=== PATIENT | female | born 1955 | race Two or more races ===

== ENCOUNTER 2022-03-01 12:40 | Inpatient (IN) | payer MEDICARE, MEDICAID, SELFPAY ==
--- NOTE | ~2022-03-01 | US_ITS ---
EXAMINATION: US VENOUS ULTRASOUND WITH DOPPLER LOWER EXTREMITY, LEFT CLINICAL INFORMATION: Calf pain COMPARISON: None TECHNIQUE: Ultrasound of the deep veins is performed from the hip to the calf with compression sonography and color and pulse Doppler assessment. Spectral analysis with color-flow imaging is performed. FINDINGS: There is normal venous compression and respiratory variation and augmented flow. The visualized common femoral vein, superficial femoral vein, profunda femoral vein, popliteal vein, and the trifurcation region shows no evidence of deep venous thrombosis. There is no significant popliteal fossa cyst. If the patient's symptoms persist, followup ultrasound in 5 days 7 days might be of value to exclude proximal propagation from a non-visualized calf vein. US/US venous duplex LE LT IMPRESSION: No DVT demonstrated in the left lower extremity.
--- NOTE | ~2022-03-01 | CT_ITS ---
EXAMINATION: CT ABDOMEN AND PELVIS WITHOUT CONTRAST CLINICAL INFORMATION: Acute kidney injury. Rule out obstruction. COMPARISON: None. TECHNIQUE: Multidetector volumetric imaging was performed from the superior aspect of the liver through the pubic symphysis. Sagittal and coronal reformatted images were obtained on the technologist's workstation. This CT examination was performed using dose optimization techniques as appropriate, variously including the following: *Automated exposure control *Adjustment of mA and/or kV according to patient size (this includes techniques or standardized protocols for targeted exams where dose is matched to indication/reason for exam; i.e. extremities or head) *Use of iterative reconstruction technique DLP: 566 mGy-cm FINDINGS: LUNG BASES: Respiratory motion limits evaluation of small pulmonary nodules. No focal consolidation or pleural effusion. LIVER, GALLBLADDER, AND BILIARY TREE: The liver is normal in size, shape, and attenuation. No focal hepatic lesion or biliary ductal dilatation is present. The gallbladder is unremarkable with no evidence of radiopaque gallstones, gallbladder wall thickening, or obvious pericholecystic inflammatory changes. PANCREAS: Unremarkable. SPLEEN: Unremarkable. ADRENAL GLANDS: Unremarkable. KIDNEYS AND URETERS: The kidneys are normal in size, shape, and attenuation. No hydronephrosis, hydroureter, or calculi seen. No perinephric stranding. BLADDER: Underdistended limiting assessment of wall thickening. No focal abnormality. GASTROINTESTINAL TRACT: The stomach and the small bowel are nondilated. Normal appendix. Mild sigmoid diverticulosis without evidence of acute diverticulitis. No bowel obstruction. ABDOMINAL WALL: No significant hernia is appreciated. LYMPH NODES: Nonspecific bilateral inguinal lymphadenopathy. VASCULAR: Scattered atherosclerotic disease. The abdominal aorta is of normal diameter. PELVIC VISCERA: Unremarkable. OSSEOUS STRUCTURES: Multilevel degenerative changes of the spine. CT/CT abdomen pelvis wo con IMPRESSION: No nephrolithiasis or hydronephrosis. Sigmoid diverticulosis but no evidence of acute diverticulitis. Nonspecific bilateral inguinal lymphadenopathy, likely reactive.
--- NOTE | ~2022-03-01 | XR_ITS ---
EXAMINATION: XR ANKLE, LEFT CLINICAL INFORMATION: Ankle swelling COMPARISON: None TECHNIQUE: AP, lateral, and mortise views of the left ankle. FINDINGS: Nonspecific soft tissue swelling of the ankle. No soft tissue gas. Peripheral vessels are calcified. Bones have normal alignment. The talar dome is well-positioned within the mortise. No acute fractures. No erosion or periostitis. No findings of osteomyelitis. No ankle joint effusion. There are prominent enthesophytes at the posterior and plantar surfaces of the calcaneus. XR/XR ankle LT 2V IMPRESSION: * Nonspecific soft tissue swelling of the ankle. * No acute osseous injury.
[2022-03-01 12:45] VITALS: BP 124/104; PULSE 89; RESP 18; TEMP 36.9; O2SAT 100; BMI 29.5
[2022-03-01 13:48] VITALS: BP 166/68; RESP 19
--- NOTE | 2022-03-01 13:54 | ED.EXTPRO ---
HPI - Extremity Problem General Chief complaint: Extremity Problem Stated complaint: ? Left Leg Clot Time Seen by Provider: 03/01/22 13:39 Source: patient Mode of arrival: ambulatory History of Present Illness HPI Narrative: 66-year-old female with a past medical history of hypertension, DM, presenting to the ED complaining of left ankle swelling x2 weeks. Patient reports swelling is intermittent. Denies pain, recent travel, cigarette smoking, history of clots, SOB, CP, headache. Reports compliance with antihypertensives. MD Complaint: extremity swelling Onset (ago): week(s) Pain Consistency: intermittent Related Data Home Medications Medication Instructions Recorded Confirmed amlodipine 5 mg tablet 1 tab PO DAILY 03/01/22 03/01/22 glucagon 1 mg solution for 1 ml SUBCUT ONCE PRN 03/01/22 03/01/22 injection (GlucaGen HypoKit) hydrochlorothiazide 12.5 mg tablet 1 tab PO DAILY 03/01/22 03/01/22 insulin human U-100 NPH-regulr 10 unit SUBCUT BEDTIME 03/01/22 03/01/22 70-30 mix 100 unit/mL subcutaneous susp (Novolin 70/30 U-100 Insulin) insulin human U-100 NPH-regulr 15 unit SUBCUT DAILY 03/01/22 03/01/22 70-30 mix 100 unit/mL subcutaneous susp (Novolin 70/30 U-100 Insulin) labetalol 100 mg tablet 1 tab PO BID PRN 03/01/22 03/01/22 lisinopril 40 mg tablet 1 tab PO DAILY 03/01/22 03/01/22 omeprazole 20 mg capsule,delayed 1 cap PO BID 03/01/22 03/01/22 release Allergies Allergy/AdvReac Type Severity Reaction Status Date / Time No Known Allergies Allergy Verified 03/01/22 12:44 Review of Systems Review of Systems: Constitutional: No Fever, No Chills, No Fatigue, No Malaise ENT/Mouth: No Ear Pain, No sore throat, No Rhinorrhea, No Swallowing Difficulty Eyes: No Eye Pain, No Swelling, No Redness Cardiovascular: No Chest Pain, No SOB, No Dyspnea on Exertion, No Orthopnea, No Edema Respiratory: No Cough, No Sputum, No Wheezing, No Smoke Exposure, No Dyspnea Gastrointestinal: No Nausea, No Vomiting, No Diarrhea, No Constipation, No Abdominal pain Genitourinary: No Dysuria, No Urinary Frequency, No Hematuria, No Flank Pain Musculoskeletal: No joint pain, No Myalgias, + Joint Swelling Skin: No Skin Lesions, No rash Neuro: No Weakness, No Numbness, No Paresthesias, No Headache Yes all other systems are reviewed and are negative [facility] Past Medical History Attestation statement: The following information was validated with the patient. Social History Social History Advance Directives: No Advance Directives Information Provided: No Physical Exam Vital Signs: Vital Signs: Last Vital Signs Temp 98.4 F 03/01/22 12:45 Pulse 89 03/01/22 12:45 Resp 19 03/01/22 13:48 BP 166/68 H 03/01/22 13:48 Pulse Ox 100 03/01/22 12:45 BMI result Body Mass Index 29.5 Const: General: cooperative, healthy appearing and no acute distress Orientation/consciousness: patient oriented x3 Limitations: no limitations HEENT: Head: Yes normal to inspection and Yes atraumatic Ears: hearing grossly normal bilaterally General nose exam: Normal external nose present Face and sinus: Yes normal facial exam Eyes: General: appearance normal, both eyes and all related structures EOM: EOMs intact bilaterally Neck: Neck: Yes normal visual inspection and Yes no meningeal signs Resp: Effort & Inspection: normal respiratory effort and no respiratory distress Cardio: Rate: regular rate Peripheral pulses: dorsalis pedis present Skin: Rashes: no rashes Wounds: no wounds Neuro: General: patient oriented x3, tone normal and no meningeal signs Gait exam (Neuro): Normal gait present Extrem: Other: Left ankle with noted swelling. Left calf nontender. Left ankle/foot nontender. No erythema/streaking or ecchymosis. Neurovascular intact distally. Full range of motion intact General: Yes no pedal edema and Yes no calf tenderness Course Course Course Narrative: -Anemia of 9.4/29.5 > no priors to compare >> on further questioning patient reports chronic history of anemia, usually ranges of hemoglobin of 7 to 8. Admits recently moved to this area, had 1st visit at [facility] yesterday and had labs drawn. Denies hematemesis, bloody BMs or melena. Denies prior blood transfusions in the past. US venous duplex LE LT IMPRESSION: No DVT demonstrated in the left lower extremity. XR ankle LT 2V IMPRESSION: *? Nonspecific soft tissue swelling of the ankle. *? No acute osseous injury. -1515--BMP with noted hyperkalemia to 5.9, BUN is 79 and creatinine of 4.3 > patient admits she use to see [facility] about 5 years ago, uncertain baseline numbers. [facility] [place], will attempt to obtain documentation and plan to admit to our facility -1610--ordered additional labs/IVF and Lokelma > delay in care as patient not sure if she is willing to be admitted. After lengthy discussion with patient and she is now is agreeable to stay. Pending CT abdomen/pelvis to rule out obstruction. Plan to admit for further management. Low concern for severe sepsis, no evidence of infectious etiology at this time -renal office not open due to being weekend. Contacted [facility] who has no record of patient. -1725--CT abdomen pelvis wo con IMPRESSION: No nephrolithiasis or hydronephrosis. Sigmoid diverticulosis but no evidence of acute diverticulitis. Nonspecific bilateral inguinal lymphadenopathy, likely reactive. >> plan to admit for further management MDM - Extremity (Nontraumatic) MDM Narrative Medical decision making narrative: 66-year-old female with a past medical history of hypertension, DM, presenting to the ED complaining of left ankle swelling x2 weeks. On exam initially hypertensive, a repeat resolved without intervention, NAD/nontoxic, physical exam as above. Concern for ankle injury including sprain versus fracture vs DVT vs edema. Low concern for hypertensive urgency/emergency. Plan: Labs, ultrasound, x-rays Medical Records Attestation: I reviewed the patient's medical records. Lab Data Attestation: I reviewed the patient's lab results. Result diagrams: 03/01/22 14:36 03/01/22 14:36 Labs: Lab Results 03/01/22 03/01/22 03/01/22 Range/Units 14:36 14:36 14:36 WBC 5.2 (4.8-10.8) X10*3/uL RBC 3.19 L (4.20-5.50) X10*6/uL Hgb 9.4 L (12.0-16.0) g/dl Hct 29.5 L (37.0-47.0) % MCV 92.5 (80.0-98.0) fL MCH 29.5 (27.0-33.0) pg MCHC 31.9 (31.0-35.0) g/dl RDW 12.7 (11.0-16.0) % Plt Count 170 (160-400) X10*3/uL MPV 11.6 (9.4-12.3) fL Immature Gran % (Auto) 0.4 (0.0-0.4) % Neut % (Auto) 75.9 H (45-73) % Lymph % (Auto) 14.4 L (20-40) % Winston % (Auto) 7.7 (2-11) % Eos % (Auto) 1.0 (0-4) % Baso % (Auto) 0.6 (0-2) % Lymph # (Auto) 0.8 L (1.2-4.9) X10*3/uL Winston # (Auto) 0.4 (0.1-1.2) X10*3/uL Eos # (Auto) 0.1 (0.0-0.4) X10*3/uL Baso # (Auto) 0.0 (0.0-0.2) X10*3/uL Abs Immat Gran (auto) 0.02 (0.00-0.03) X10*3/uL Absolute Neuts (auto) 4.0 (2.0-8.3) x10*3/uL Absolute Nucleated RBC 0.000 (0.0-0.012) X10*3/uL Nucleated RBC % (auto) 0.0 (0.0-0.2) /100WBC Sodium 138 (135-145) mmol/L Potassium 5.9 H (3.3-5.1) mmol/L Chloride 111 H (96-108) mmol/L Carbon Dioxide 19 L (22-29) mmol/L Anion Gap 14 (12-20) BUN 79 H (9-16) mg/dL Creatinine 4.30 H* (0.5-1.4) mg/dL Estim Creat Clear Calc 12.8 Estimated GFR 10 Random Glucose 260 H (60-115) mg/dL Calcium 8.5 (8.4-10.2) mg/dL Magnesium 1.9 (1.6-2.6) mg/dL Total Bilirubin 0.2 (0.0-1.0) mg/dL AST 29 (5-31) U/L ALT 18 (0-31) U/L Alkaline Phosphatase 119 H (39-117) U/L B-Natriuretic Peptide 100 (<100) pg/mL Total Protein 5.7 L (6.5-8.0) g/dL Albumin 2.8 L (3.5-5.0) g/dL ECG Data Attestation EKG: I personally reviewed and interpreted this ECG as follows: ECG interpretation date: 03/01/22 ECG interpretation time: 18:50 Interpretation: EKG NSR rate 71, QTc 467, T wave inversion in leads I and aVL. No STEMI Discharge Plan Discharge Clinical Impression: CAMERON (acute kidney injury), Anemia, Ankle swelling Patient Disposition: Admitted As Inpatient
[2022-03-01 14:44] LABS: MANUAL DIFF FLAG NO
[2022-03-01 14:51] LABS: Basophils Percent Auto 0.6 % (0-2); Eosinophils Absolute Auto 0.1 X10*3/uL (0.0-0.4); Hematocrit 29.5 % (37.0-47.0); Hemoglobin 9.4 g/dl (12.0-16.0); Imm Gran Abs Auto 0.02 X10*3/uL (0.00-0.03); Imm Gran Pct Auto 0.4 % (0.0-0.4); Lymphocytes Absolute Auto 0.8 X10*3/uL (1.2-4.9); Lymphocytes Percent Auto 14.4 % (20-40); Mean Corpuscular HGB Conc 31.9 g/dl (31.0-35.0); Mean Corpuscular Hemoglobin 29.5 pg (27.0-33.0); Mean Corpuscular Volume 92.5 fL (80.0-98.0); Mean Platelet Volume 11.6 fL (9.4-12.3); Monocytes Absolute Auto 0.4 X10*3/uL (0.1-1.2); Monocytes Percent Auto 7.7 % (2-11); Neutrophils Percent Auto 75.9 % (45-73); Platelet Count 170 X10*3/uL (160-400); Red Blood Count 3.19 X10*6/uL (4.20-5.50); Red Cell Distribution Width 12.7 % (11.0-16.0); White Blood Count 5.2 X10*3/uL (4.8-10.8)
[2022-03-01 15:06] LABS: B Type Natriuretic Peptide 100 pg/mL (<100)
[2022-03-01 15:09] LABS: Alanine Aminotransferase 18 U/L (0-31); Albumin Level 2.8 g/dL (3.5-5.0); Alkaline Phosphatase 119 U/L (39-117); Anion Gap 14 (12-20); Aspartate Amino Transferase 29 U/L (5-31); Bilirubin Total 0.2 mg/dL (0.0-1.0); Blood Urea Nitrogen 79 mg/dL (9-16); Calcium 8.5 mg/dL (8.4-10.2); Carbon Dioxide 19 mmol/L (22-29); Chloride 111 mmol/L (96-108); Creatinine Clr Calc Pharmacy 12.8; Estimated Glomerular Filt Rate 10; Glucose Random 260 mg/dL (60-115); Potassium 5.9 mmol/L (3.3-5.1); Sodium 138 mmol/L (135-145); Total Protein 5.7 g/dL (6.5-8.0)
--- NOTE | 2022-03-01 15:15 | ECG_ITS ---
Test Reason : BACK PAIN Blood Pressure : / mmHG Vent. Rate : 071 BPM Atrial Rate : 071 BPM P-R Int : 126 ms QRS Dur : 074 ms QT Int : 430 ms P-R-T Axes : 046 050 075 degrees QTc Int : 467 ms Normal sinus rhythm Nonspecific T wave abnormality Abnormal ECG No previous ECGs available Referred By: Maria Teresa Villa Electronically Signed By:Ellis Moore
[2022-03-01 15:41] LABS: Magnesium 1.9 mg/dL (1.6-2.6)
--- NOTE | 2022-03-01 16:57 | PHA.MEDREC ---
Pharmacy Consult ? Medication Reconciliation Pharmacy has completed the medication reconciliation. Pt had all medications at bedside, used combination building inspector. Pt stated that her labetolol is used only as needed when blood pressure is too high but could not give me a number.
[2022-03-01] MEDS: Sodium Zirconium Cyclosilicate 10 GM POWD.PACK PO (17:56)
[2022-03-01] MEDS: 0.9 % Sodium Chloride 1,000 ML 999 ML IV (17:57)
[2022-03-01 19:25] LABS: COVID-19 Test Negative (Negative)
[2022-03-01 21:24] VITALS: BP 159/76; PULSE 77; RESP 16; O2SAT 98
--- NOTE | 2022-03-01 21:37 | PM.IMHP ---
History of Present Illness Date of Service: 03/01/22 Chief Complaint: Left leg swelling 66-year-old female with a past medical history of hypertension, diabetes, chronic kidney disease, acid reflux, anemia presented to the hospital today with a chief complaint of left leg swelling. Patient reported that she recently moved to [place]; mentions she has history of kidney disease -unknown baseline creatinine; patient mentioned that she initially went to the urgent care because she noted to have left leg swelling over the past few days; and had routine blood work done today he she received a call mention to go to the ER because her potassium level is high. Patient denies any chest pain palpitations lightheadedness dizziness fever chills cough. Mentions she has been eating drinking okay; denies any concerns for dehydration. Denies any nausea vomiting or diarrhea. Review of all other systems is negative except mentioned above ER course: Per ER team patient noted to have left lower extremity swelling; venous duplex negative for blood clot; ankle x-ray showed no evidence of fracture; on labs noted to elevated creatinine up to 4; potassium of 5.9; no a kg changes; received Lokelma. Also given gentle IV fluids. CT abdomen pelvis showed no hydronephrosis or nephrolithiasis; admitted to the hospital for further management PMFSH Pertinent family history: mother has diabetes Social History Household Members: Spouse and None Housing: Apartment Do you presently have visiting nurse or other home services: No Patient Tobacco Use Status: Never used Tobacco Meds Allergies Allergy/AdvReac Type Severity Reaction Status Date / Time No Known Allergies Allergy Verified 03/01/22 12:44 Active Medications: Current Medications Pharmacy Consult (Consult Rx Perform Med Rec) 1 each MISCELLANE ONCE PRN PRN Reason: Consult order Home Medications Medication Instructions Recorded Confirmed Last Taken Type amlodipine 5 mg tablet 1 tab PO DAILY 03/01/22 03/01/22 03/01/22 History glucagon 1 mg solution for 1 ml subcut ONCE PRN Hypoglycemia 03/01/22 03/01/22 Unknown History injection (GlucaGen HypoKit) hydrochlorothiazide 12.5 mg tablet 1 tab PO DAILY 03/01/22 03/01/22 03/01/22 History insulin human U-100 NPH-regulr 10 unit subcut BEDTIME 03/01/22 03/01/22 02/28/22 History 70-30 mix 100 unit/mL subcutaneous susp (Novolin 70/30 U-100 Insulin) insulin human U-100 NPH-regulr 15 unit subcut DAILY 03/01/22 03/01/22 03/01/22 History 70-30 mix 100 unit/mL subcutaneous susp (Novolin 70/30 U-100 Insulin) labetalol 100 mg tablet 1 tab PO BID PRN Blood Pressure 03/01/22 03/01/22 03/01/22 History omeprazole 20 mg capsule,delayed 1 cap PO BID 03/01/22 03/01/22 03/01/22 History release Physical Exam Vital Signs and Narrative: Vital Signs: Last Vital Signs Temp 98.4 F 03/01/22 12:45 Pulse 77 03/01/22 21:24 Resp 16 03/01/22 21:24 BP 159/76 H 03/01/22 21:24 Pulse Ox 98 03/01/22 21:24 BMI result Body Mass Index 29.5 Results Labs CBC and Chem 7: 03/02/22 06:56 03/03/22 06:08 Labs: Laboratory Results - last 24 hr 03/01/22 03/01/22 03/01/22 14:36 14:36 14:36 MCV 92.5 MCH 29.5 MCHC 31.9 RDW 12.7 Plt Count 170 MPV 11.6 Immature Gran % (Auto) 0.4 Neut % (Auto) 75.9 H Lymph % (Auto) 14.4 L Heard % (Auto) 7.7 Eos % (Auto) 1.0 Baso % (Auto) 0.6 Lymph # (Auto) 0.8 L Heard # (Auto) 0.4 Eos # (Auto) 0.1 Baso # (Auto) 0.0 Abs Immat Gran (auto) 0.02 Absolute Neuts (auto) 4.0 Absolute Nucleated RBC 0.000 Nucleated RBC % (auto) 0.0 Anion Gap 14 Estim Creat Clear Calc 12.8 Estimated GFR 10 Random Glucose 260 H Calcium 8.5 Magnesium 1.9 Total Bilirubin 0.2 AST 29 ALT 18 Alkaline Phosphatase 119 H B-Natriuretic Peptide 100 Total Protein 5.7 L Albumin 2.8 L COVID-19 (GREGORY) COVID-19 Clin Com 03/01/22 19:02 MCV MCH MCHC RDW Plt Count MPV Immature Gran % (Auto) Neut % (Auto) Lymph % (Auto) Heard % (Auto) Eos % (Auto) Baso % (Auto) Lymph # (Auto) Heard # (Auto) Eos # (Auto) Baso # (Auto) Abs Immat Gran (auto) Absolute Neuts (auto) Absolute Nucleated RBC Nucleated RBC % (auto) Anion Gap Estim Creat Clear Calc Estimated GFR Random Glucose Calcium Magnesium Total Bilirubin AST ALT Alkaline Phosphatase B-Natriuretic Peptide Total Protein Albumin COVID-19 (GREGORY) Negative COVID-19 Clin Com See Note Imaging Radiologist's Impressions: Impressions Venous Duplex 03/01/22 13:38 IMPRESSION: No DVT demonstrated in the left lower extremity. Ankle X-Ray 03/01/22 14:10 IMPRESSION: * Nonspecific soft tissue swelling of the ankle. * No acute osseous injury. Abdomen/Pelvis CT 03/01/22 16:40 IMPRESSION: No nephrolithiasis or hydronephrosis. Sigmoid diverticulosis but no evidence of acute diverticulitis. Nonspecific bilateral inguinal lymphadenopathy, likely reactive. Assessment and Plan (1) CAMERON (acute kidney injury): Status: Acute Plan 66-year-old female with a past medical history of hypertension, diabetes, chronic kidney disease, acid reflux, anemia presented to the hospital today with a chief complaint of left leg swelling./ abnormal labs as outpatient; Admitted for following Left leg swelling: Venous duplex negative for DVT. No evidence of injury or trauma. X-ray negative for fracture. Supportive care. CAMERON: patient creatinine on presentation is 4.3. Unknown baseline. Patient does report she has a history of kidney disease. Gentle IV fluids. Nephrology consult. Hyperkalemia: Potassium level noted to be 5.9. No EKG changes. Received Lokelma. Will repeat BMP. History of diabetes: Will give the patient on insulin sliding scale. History of hypertension: Continue home amlodipine. Hold home lisinopril. history of anemia: Patient denies any signs of bleeding. Hemoglobin noted to be 9.4. DVT prophylaxis: Subcu heparin Code status: Full code Quality Stroke Does the patient have a stroke diagnosis?: No VTE Prior VTE?: No VTE Risk Level:: Medical - moderate - high VTE Device Contraindication: Treatment Not Indicated VTE Drug Contraindication: N/A - Med Ordered
[2022-03-01] MEDS: 0.9 % Sodium Chloride 1,000 ML 100 ML IVCONT (22:03)
[2022-03-01] MEDS: Heparin Sodium,Porcine 5,000 UNIT/ML VIAL 5000 UNIT SUBCUT (22:12)
[2022-03-01 22:42] LABS: Anion Gap 13 (12-20); Blood Urea Nitrogen 74 mg/dL (9-16); Calcium 8.1 mg/dL (8.4-10.2); Carbon Dioxide 20 mmol/L (22-29); Chloride 113 mmol/L (96-108); Creatinine Clr Calc Pharmacy 14.3; Estimated Glomerular Filt Rate 12; Glucose Random 167 mg/dL (60-115); Potassium 4.7 mmol/L (3.3-5.1); Sodium 141 mmol/L (135-145)
[2022-03-01 22:57] VITALS: BP 168/62; PULSE 93; RESP 20; TEMP 36.9; O2SAT 98
[2022-03-02 01:20] VITALS: BMI 29.6
[2022-03-02 04:00] VITALS: BP 172/70; PULSE 84; RESP 12; TEMP 36.4; O2SAT 100
[2022-03-02] MEDS: Heparin Sodium,Porcine 5,000 UNIT/ML VIAL 5000 UNIT SUBCUT ×3 (06:16→21:16)
[2022-03-02] MEDS: Labetalol HCL 100 MG TABLET PO (06:17)
--- NOTE | 2022-03-02 06:40 | PC.NURSE ---
Patient worried about elevated BP and concerned she did not get her blood pressure medications. MD notified and is ok with patient getting PRN labetalol this morning.
[2022-03-02 07:16] LABS: Hematocrit 26.1 % (37.0-47.0); Hemoglobin 8.3 g/dl (12.0-16.0); Mean Corpuscular HGB Conc 31.8 g/dl (31.0-35.0); Mean Corpuscular Hemoglobin 29.9 pg (27.0-33.0); Mean Corpuscular Volume 93.9 fL (80.0-98.0); Mean Platelet Volume 11.5 fL (9.4-12.3); Platelet Count 145 X10*3/uL (160-400); Red Blood Count 2.78 X10*6/uL (4.20-5.50); Red Cell Distribution Width 12.7 % (11.0-16.0)
[2022-03-02 07:21] VITALS: BP 158/68; PULSE 70; RESP 16; TEMP 36.6; O2SAT 100
[2022-03-02 07:38] LABS: Glucose, Whole Blood 109 mg/dL (60-115)
[2022-03-02 07:44] LABS: Anion Gap 10 (12-20); Blood Urea Nitrogen 66 mg/dL (9-16); Calcium 8.3 mg/dL (8.4-10.2); Carbon Dioxide 21 mmol/L (22-29); Chloride 115 mmol/L (96-108); Creatinine Clr Calc Pharmacy 15.7; Estimated Glomerular Filt Rate 13; Glucose Random 110 mg/dL (60-115); Potassium 4.6 mmol/L (3.3-5.1); Sodium 141 mmol/L (135-145)
[2022-03-02] MEDS: amLODIPine Besylate 5 MG TABLET PO (09:22)
[2022-03-02] MEDS: 0.9 % Sodium Chloride 1,000 ML 100 ML IVCONT ×2 (09:22→21:17)
[2022-03-02] MEDS: Omeprazole 20 MG CAPSULE.DR PO ×2 (09:22→21:17)
--- NOTE | 2022-03-02 10:34 | HO.PM.IMPN ---
Subjective Subjective Date of Service: 03/02/22 Interval History: Patient was seen and examined at bedside. Her is at bedside with her. Reports the swelling in her left leg is improving. Denies any trauma, no erythema present. Reports no pain just swelling. Patient denies any chest pain, no abdominal pain, no diarrhea constipation. At this time patient does not have any blood in the stool. Reports no urinary symptoms. Review of Systems Review of Systems: Yes all other systems are reviewed and are negative Physical Exam Vital Signs: Vital Signs: Last Vital Signs Temp 97.8 F 03/02/22 07:21 Pulse 70 03/02/22 07:21 Resp 16 03/02/22 07:21 BP 158/68 H 03/02/22 07:21 Pulse Ox 100 03/02/22 07:21 BMI result Body Mass Index 29.6 Const: General: cooperative and no acute distress Resp: Effort & Inspection: normal respiratory effort Auscultation: clear to auscultation bilaterally GI: Palpation (GI): Soft to palpation Auscultation: normal bowel sounds Extrem: Other: Left lower extremity slightly more swollen than the right, no erythema, E coli warm on both sides, no tenderness Objective Data Active Medications Acetaminophen (Acetaminophen 325 Mg Tablet) 650 mg PO Q6H PRN PRN Reason: Pain, Mild (Pain Scale 1-3) Amlodipine Besylate (Amlodipine Besylate 5 Mg Tablet) 5 mg PO DAILY [facility]; Protocol Last Admin: 03/02/22 09:22 Dose: 5 mg Documented by: DOBROB Dextrose (Dextrose 50 % 25 Gm/50 Ml Syringe) 25 gm IVPUSH Q15M PRN; Protocol PRN Reason: per Hypoglycemia Standing Ord. Glucagon (Glucagon,Human Recombinant 1 Mg/Ml Vial) 1 mg SUBCUT ONCE PRN PRN Reason: Hypoglycemia Glucose (Glucose Gel 15 Gm Gel..Gram.) 15 gm PO Q15M PRN; Protocol PRN Reason: per Hypoglycemia Standing Ord. Heparin Sodium (Porcine) (Heparin Sodium,Porcine 5,000 Unit/Ml Vial) 5,000 unit SUBCUT Q8H [facility] Last Admin: 03/02/22 06:16 Dose: 5,000 unit Documented by: ELMO Sodium Chloride (Ns) 1,000 mls @ 100 mls/hr IVCONT .Q10H [facility] Last Admin: 03/02/22 09:22 Dose: 100 mls/hr Documented by: JUAN RAMON Insulin Human Lispro (Insulin Lispro 100 Unit/Ml 3 Ml Vial) 0 unit SUBCUT QIDACHS [facility]; Protocol Last Admin: 03/02/22 07:45 Dose: Not Given Documented by: JUAN RAMON Non-Admin Reason: No Insulin Coverage Labetalol HCl (Labetalol Hcl 100 Mg Tablet) 100 mg PO BID PRN; Protocol PRN Reason: Blood Pressure Last Admin: 03/02/22 06:17 Dose: 100 mg Documented by: ELMO Melatonin (Melatonin 3 Mg Tablet) 6 mg PO BEDTIME PRN PRN Reason: Insomnia Omeprazole (Omeprazole 20 Mg Capsule.Dr) 20 mg PO BID [facility] Last Admin: 03/02/22 09:22 Dose: 20 mg Documented by: JUAN RAMON Pharmacy Consult (Consult Rx Perform Med Rec) 1 each MISCELLANE ONCE PRN PRN Reason: Consult order Senna (Sennosides 8.6 Mg Tablet) 17.2 mg PO BEDTIME PRN PRN Reason: Constipation Sodium Chloride (0.9 % Sodium Chloride Flush 3 Ml Syringe) 3 ml IVFLUSH QSHIFT [facility] Last Admin: 03/02/22 07:45 Dose: Not Given Documented by: JUAN RAMON Non-Admin Reason: IV Running Labs CBC & Chem 7: 03/02/22 06:56 03/02/22 06:56 Labs: Laboratory Results - last 24 hr 03/01/22 03/01/22 03/01/22 14:36 14:36 14:36 MCV 92.5 MCH 29.5 MCHC 31.9 RDW 12.7 Plt Count 170 MPV 11.6 Immature Gran % (Auto) 0.4 Neut % (Auto) 75.9 H Lymph % (Auto) 14.4 L [place] % (Auto) 7.7 Eos % (Auto) 1.0 Baso % (Auto) 0.6 Lymph # (Auto) 0.8 L [place] # (Auto) 0.4 Eos # (Auto) 0.1 Baso # (Auto) 0.0 Abs Immat Gran (auto) 0.02 Absolute Neuts (auto) 4.0 Absolute Nucleated RBC 0.000 Nucleated RBC % (auto) 0.0 Anion Gap 14 Estim Creat Clear Calc 12.8 Estimated GFR 10 POC Glucose Random Glucose 260 H Calcium 8.5 Magnesium 1.9 Total Bilirubin 0.2 AST 29 ALT 18 Alkaline Phosphatase 119 H B-Natriuretic Peptide 100 Total Protein 5.7 L Albumin 2.8 L COVID-19 ([facility]) COVID-19 Scan Com 03/01/22 03/01/22 03/02/22 19:02 22:18 06:56 MCV 93.9 MCH 29.9 MCHC 31.8 RDW 12.7 Plt Count 145 L MPV 11.5 Immature Gran % (Auto) Neut % (Auto) Lymph % (Auto) [place] % (Auto) Eos % (Auto) Baso % (Auto) Lymph # (Auto) [place] # (Auto) Eos # (Auto) Baso # (Auto) Abs Immat Gran (auto) Absolute Neuts (auto) Absolute Nucleated RBC 0.000 Nucleated RBC % (auto) 0.0 Anion Gap 13 Estim Creat Clear Calc 14.3 Estimated GFR 12 POC Glucose Random Glucose 167 H Calcium 8.1 L Magnesium Total Bilirubin AST ALT Alkaline Phosphatase B-Natriuretic Peptide Total Protein Albumin COVID-19 ([facility]) Negative COVID-19 [facility] See Note 03/02/22 03/02/22 06:56 07:25 MCV MCH MCHC RDW Plt Count MPV Immature Gran % (Auto) Neut % (Auto) Lymph % (Auto) [place] % (Auto) Eos % (Auto) Baso % (Auto) Lymph # (Auto) [place] # (Auto) Eos # (Auto) Baso # (Auto) Abs Immat Gran (auto) Absolute Neuts (auto) Absolute Nucleated RBC Nucleated RBC % (auto) Anion Gap 10 L Estim Creat Clear Calc 15.7 Estimated GFR 13 POC Glucose 109 Random Glucose 110 Calcium 8.3 L Magnesium Total Bilirubin AST ALT Alkaline Phosphatase B-Natriuretic Peptide Total Protein Albumin COVID-19 ([facility]) COVID-19 [facility] Assessment and Plan (1) CAMERON (acute kidney injury): Status: Acute (2) Anemia: Status: Acute (3) Ankle swelling: Status: Acute Plan 66-year-old female with history of hypertension, diabetes, CKD, acid reflex and anemia presents the hospital with chief complaint of left leg swelling. # CAMERON - possibly prerenal as it is improving with IV fluids -continue IV fluids -continue following BMP - nephrology consulted # left lower extremity swelling - no evidence cellulitis, no DVT, no injury or trauma - supportive care # normocytic anemia - patient reports history of anemia although baseline is unknown - her hemoglobin did drop with IV fluids - no evidence of GI bleed - will obtain ferritin, B12, folic acid, as well as stool occult # hypertension - stable - will continue amlodipine, hold hydrochlorothiazide as well as lisinopril in the setting of CAMERON # diabetes - will convert her 70 30 to Lantus and sliding scale insulin - monitor glucose - diabetic diet DVT prophylaxis: Heparin subQ Given the significant CAMERON and requirement for IV fluid patient continues to need inpatient stay for further monitoring and management Quality Stroke Does the patient have a stroke diagnosis?: No VTE Prior VTE?: No VTE Risk Level:: Medical - moderate - high VTE Device Contraindication: Treatment Not Indicated VTE Drug Contraindication: N/A - Med Ordered
[2022-03-02 11:14] VITALS: BP 170/62; PULSE 78; RESP 16; TEMP 36.6; O2SAT 99
[2022-03-02 11:58] LABS: Ferritin 110 ng/mL (10-250)
[2022-03-02 12:02] LABS: Glucose, Whole Blood 131 mg/dL (60-115)
[2022-03-02 15:08] VITALS: BP 170/64; PULSE 80; RESP 19; TEMP 37; O2SAT 98
[2022-03-02 16:15] LABS: Glucose, Whole Blood 101 mg/dL (60-115)
[2022-03-02 17:46] LABS: OBS Int Ctl Valid YES; OBS1 NEGATIVE (NEGATIVE)
[2022-03-02 19:49] VITALS: BP 160/62; PULSE 82; RESP 18; TEMP 36.7; O2SAT 100
[2022-03-02 20:56] LABS: Glucose, Whole Blood 182 mg/dL (60-115)
[2022-03-02] MEDS: Insulin Lispro 100 UNIT/ML 3 ML VIAL SUBCUT (21:17)
[2022-03-03] VITALS: BP 168/64; PULSE 77; RESP 18; TEMP 37.3; O2SAT 99
[2022-03-03 03:33] VITALS: BP 176/68; PULSE 86; RESP 18; TEMP 36.9; O2SAT 100
[2022-03-03] MEDS: Labetalol HCL 100 MG TABLET PO (04:46)
[2022-03-03] MEDS: Heparin Sodium,Porcine 5,000 UNIT/ML VIAL 5000 UNIT SUBCUT (06:12)
[2022-03-03] MEDS: 0.9 % Sodium Chloride 1,000 ML 100 ML IVCONT (06:14)
[2022-03-03 07:22] LABS: Glucose, Whole Blood 87 mg/dL (60-115)
[2022-03-03 07:43] VITALS: BP 170/64; PULSE 83; RESP 20; TEMP 36.9; O2SAT 100
[2022-03-03] MEDS: Omeprazole 20 MG CAPSULE.DR PO (08:26)
[2022-03-03] MEDS: amLODIPine Besylate 5 MG TABLET PO (08:27)
[2022-03-03 08:39] LABS: Anion Gap 12 (12-20); Blood Urea Nitrogen 53 mg/dL (9-16); Calcium 7.9 mg/dL (8.4-10.2); Carbon Dioxide 19 mmol/L (22-29); Chloride 116 mmol/L (96-108); Creatinine Clr Calc Pharmacy 17.3; Estimated Glomerular Filt Rate 14; Glucose Random 92 mg/dL (60-115); Potassium 4.8 mmol/L (3.3-5.1); Sodium 142 mmol/L (135-145)
[2022-03-03 09:20] LABS: Appearance Urine CLEAR; Color Urine STRAW; Glucose Urine UA NEG (NEG); Leukocyte Esterase Urine NEG (NEG); Nitrite Urine NEG (NEG); Specific Gravity - Urine 1.015 (1.005-1.025); Urine Blood TRACE (NEG); Urine Ketones NEG (NEG); Urine Protein 3+ MG/DL (NEG-TRACE)
[2022-03-03 09:31] LABS: Creatinine Urine 42.81 mg/dL
[2022-03-03 09:49] LABS: Squamous Epithelial Cell Urine TRACE /LPF; WBC Urine 0 /HPF (0-4)
[2022-03-03 10:26] LABS: Total Protein Urine Random 379 mg/dL (<12)
[2022-03-03 11:30] LABS: Glucose, Whole Blood 115 mg/dL (60-115)
--- NOTE | 2022-03-03 11:34 | PM.DS ---
DS: Providers Provider Date of Service: 03/03/22 Date of admission: 03/01/22 21:42 Primary care physician: Unknown Physician Consults: 03/01/22 21:44 Consult to Nephrology Routine Consulting Provider: Jimmy Paiz Reason for consultation: cameron DS: Diagnosis Discharge Diagnosis (1) CAMERON (acute kidney injury): Status: Acute (2) Anemia: Status: Acute (3) Ankle swelling: Status: Acute DS: Summary Hospital Course Hospital Course: from initial hpi: Chief Complaint: Left leg swelling ?66-year-old female with a past medical history of hypertension, diabetes, chronic kidney disease, acid reflux, anemia presented to the hospital today with a chief complaint of left leg swelling.? Patient reported that she recently moved to [place]; mentions she has history of kidney disease -unknown baseline creatinine; ?patient mentioned that she initially went to the urgent care because she noted to have left leg swelling over the past few days; and had routine blood work done today he she received a call mention to go to the ER because her potassium level is high.? Patient denies any chest pain palpitations lightheadedness dizziness fever chills cough.? Mentions she has been eating drinking okay; denies any concerns for dehydration.? Denies any nausea vomiting or diarrhea.? Review of all other systems is negative except mentioned above ER course: Per ER team patient noted to have left lower extremity swelling; venous duplex negative for blood clot;? ankle x-ray showed no evidence of fracture; on labs noted to elevated creatinine up to 4; potassium of 5.9; no a kg changes; received Lokelma.? Also given gentle IV fluids.? CT abdomen pelvis showed no hydronephrosis or nephrolithiasis; admitted to the hospital for further management hospital course: Patient was admitted for acute kidney injury, likely in the setting of chronic kidney disease stage 4 though exact baseline is not known. Her lisinopril was held and she was given IV fluids, no obstruction was seen on CT. Creatinine improved to 3.2 at time of discharge. She will follow up with Nephrology as outpatient. Cameron I was also complicated by hyperkalemia which resolved after Lokelma and discontinuing lisinopril. Patient's initial complaint was left lower extremity swelling and pain, this was likely an inflammatory arthritis, however, it resolved without any treatment. For hypertension she will continue on amlodipine and hydrochlorothiazide, for diabetes she was continue on insulin. She has some normocytic anemia likely related to chronic kidney disease, some labs including B12 and folate are pending and should be followed up. Time Spent with Patient Time attestation: Total time spent providing and/or coordinating discharge services: Discharge coordination time: Greater than 30 minutes Quality: Safe Use of Opioids Does Pt have an Active Cancer Diagnosis on the Problem List?: No Quality: Stroke Does the patient have a stroke diagnosis?: No Physical Exam Vital Signs: Vital Signs: Last Vital Signs Temp 98.4 F 03/03/22 07:43 Pulse 83 03/03/22 07:43 Resp 20 03/03/22 07:43 BP 170/64 H 03/03/22 07:43 Pulse Ox 100 03/03/22 07:43 BMI result Body Mass Index 29.6 General: AO X 3, no acute distress Resp: CTA bilateral, no accessory muscles used CVS: S1,S2,RRR GI: soft, non tender, non distended Neuro: motor grossly intact, alert Psych: appropriate affect, appropriate insight DS: Data Data Completed and Pending Labs on day of discharge: Laboratory Results - last 24 hr 03/02/22 03/02/22 03/02/22 10:55 11:20 16:05 Sodium Potassium Chloride Carbon Dioxide Anion Gap BUN Creatinine Estim Creat Clear Calc Estimated GFR POC Glucose 131 H 101 Random Glucose Calcium Ferritin 110 Urine Color Urine Appearance Urine pH Ur Specific [place] Urine Protein Urine Glucose (UA) Urine Ketones Urine Blood Urine Nitrite Ur Leukocyte Esterase Urine RBC Urine WBC Ur Squamous Epith Cells Urine Bacteria U Random Total Protein Urine Creatinine Stool Occult Blood 03/02/22 03/02/22 03/03/22 16:50 20:08 06:08 Sodium 142 Potassium 4.8 Chloride 116 H Carbon Dioxide 19 L Anion Gap 12 BUN 53 H Creatinine 3.20 H Estim Creat Clear Calc 17.3 Estimated GFR 14 POC Glucose 182 H Random Glucose 92 Calcium 7.9 L Ferritin Urine Color Urine Appearance Urine pH Ur Specific [place] Urine Protein Urine Glucose (UA) Urine Ketones Urine Blood Urine Nitrite Ur Leukocyte Esterase Urine RBC Urine WBC Ur Squamous Epith Cells Urine Bacteria U Random Total Protein Urine Creatinine Stool Occult Blood NEGATIVE 03/03/22 03/03/22 03/03/22 07:16 08:15 08:15 Sodium Potassium Chloride Carbon Dioxide Anion Gap BUN Creatinine Estim Creat Clear Calc Estimated GFR POC Glucose 87 Random Glucose Calcium Ferritin Urine Color STRAW Urine Appearance CLEAR Urine pH 6.0 Ur Specific [place] 1.015 Urine Protein 3+ H Urine Glucose (UA) NEG Urine Ketones NEG Urine Blood TRACE Urine Nitrite NEG Ur Leukocyte Esterase NEG Urine RBC 1-4 Urine WBC 0 Ur Squamous Epith Cells TRACE Urine Bacteria NONE U Random Total Protein 379 H Urine Creatinine 42.81 Stool Occult Blood 03/03/22 11:25 Sodium Potassium Chloride Carbon Dioxide Anion Gap BUN Creatinine Estim Creat Clear Calc Estimated GFR POC Glucose 115 Random Glucose Calcium Ferritin Urine Color Urine Appearance Urine pH Ur Specific [place] Urine Protein Urine Glucose (UA) Urine Ketones Urine Blood Urine Nitrite Ur Leukocyte Esterase Urine RBC Urine WBC Ur Squamous Epith Cells Urine Bacteria U Random Total Protein Urine Creatinine Stool Occult Blood Discharge Plan Discharge Patient Disposition: Home, Self-Care Discharge Diagnosis: cameron on CKD IV Referrals: Physician,Unknown J [Primary Care Provider] - 1 Week Discharge Medications: Continued Novolin 70/30 U-100 Insulin 100 unit/mL (70-30) suspension 15 unit subcut DAILY 0RF amlodipine 5 mg tablet 1 tab PO DAILY 0RF omeprazole 20 mg capsule,delayed release(DR/EC) 1 cap PO BID 0RF GlucaGen HypoKit 1 mg recon soln 1 ml subcut ONCE PRN (Reason: Hypoglycemia) 0RF labetalol 100 mg tablet 1 tab PO BID PRN (Reason: Blood Pressure) 0RF hydrochlorothiazide 12.5 mg tablet 1 tab PO DAILY 0RF Novolin 70/30 U-100 Insulin 100 unit/mL (70-30) suspension 10 unit subcut BEDTIME 0RF Discontinued lisinopril 40 mg tablet 1 tab PO DAILY 0RF Discharge Orders: Discharge Order (Routine); Ordered 03/03/22 Ordered By: Sonny Francois Diet: advance to usual diet Activity on Discharge: As tolerated Stand Alone Forms: Patient Portal Discharge page Care Plan Goals: recovery Health Concerns: cameron on ckd Plan of Treatment: stop lisinopril, follow up with nephrology Assessment: see above
[2022-03-03 11:48] VITALS: BP 160/84; PULSE 69; RESP 20; TEMP 36.8; O2SAT 99
[2022-03-04 09:04] LABS: Folate > 20.0 ng/mL (> or = 4.0); Vitamin B12 1214 pg/mL (200-900)
[2022-03-04 13:41] LABS: Calcium (PTHI) 7.6 mg/dL (8.6-10.4); PTHI 217 pg/mL (16-77)
--- NOTE | 2022-03-04 13:49 | CONS_ITS ---
DATE OF SERVICE: 03/02/2022 REASON FOR CONSULTATION: I was asked to see patient to assist in evaluation and management of patient's renal dysfunction as reflected by serum creatinine on admission of 4.3, is come down to 3.5 with IV fluids over the past 24 hours. HISTORY OF PRESENT ILLNESS: In summary, patient is a 66-year-old female with a history of longstanding diabetes, hypertension, chronic kidney disease. I was able to track her serum creatinine of 1.9 from 5 years ago, GERD, and anemia who presented to the hospital with a left leg swelling. She had an ultrasound of the leg to rule out DVT. Overall, she is feeling better. As part of workup in the emergency room, she had a CT of the abdomen and pelvis, which showed no hydro or stones. PAST MEDICAL HISTORY: As mentioned above. MEDICATIONS ON ADMISSION: Omeprazole, lisinopril, labetalol, insulin, hydrochlorothiazide, amlodipine. Current medications are noted in the records that she is no longer on lisinopril and as mentioned renal functions look better. SOCIAL HISTORY: She is nonsmoker, nondrinker. No illicit drug use. FAMILY HISTORY: Noncontributory. REVIEW OF SYSTEMS: As noted above. PHYSICAL EXAMINATION: VITAL SIGNS: Blood pressure 160/60 with a heart rate in the 80s. Afebrile. HEENT: Head is atraumatic and normocephalic. NECK: Supple. Mucous membranes moist. LUNGS: Clear. CARDIAC: Regular rate and rhythm without rub. ABDOMEN: Soft, nontender with good bowel sounds. No CVA tenderness. EXTREMITIES: Show 1+ edema, left greater than right. LABORATORY DATA: Shows hemoglobin 8.3, hematocrit 26.1, white blood cell count 4, platelet count 145. Creatinine of 3.5, sodium 141, potassium 4.6, bicarb 21. IMPRESSION: A 66-YEAR-OLD DIABETIC, HYPERTENSIVE PATIENT WITH ACUTE KIDNEY INJURY ON CHRONIC KIDNEY DISEASE, ADMITTED WITH LEG SWELLING. 1. Acute kidney injury. Renal function is improved, off the lisinopril, suggesting that she probably has some element of renal hypoperfusion accentuate by being on JOSI inhibitor. Other possibilities need to be ruled out and will obtain serologic and urine studies. 1. Advanced chronic kidney disease. 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 As mentioned, we will obtain some followup labs including serologies and urine studies and ultrasound of the kidneys. 2. Anemia. Need to rule out iron-deficiency as well as EPO deficiency state. She may be a candidate for EPO ejection. 3. Diabetes. 4. Hypertension. We will need to increase blood pressure medications to get control of her blood pressure. SUGGESTIONS: At this time include, continue to hold the JOSI inhibitor. Serologic urine studies as well as renal ultrasound. Further evaluation depending on this initial testing results. We will follow the patient with the team. MD CAIN Perrin/JACE / [id number]
[2022-03-05 02:22] LABS: IgA 250 mg/dL (70-320); IgG 732 mg/dL (600-1540); IgM 49 mg/dL (50-300)
[2022-03-06 10:17] LABS: Kappa Light Chain, Free Serum 123.4 mg/L (3.3-19.4); Kappa/Lambda Lt Ch Free Ratio 1.55 (0.26-1.65); Lambda Light Chain, Free Serum 79.5 mg/L (5.7-26.3)
== END 2022-03-03 12:57 | disposition home or self-care (01) | DRG 684 ==
LOC: HO.ED 17:11 → HO.EDOVER 21:47 → HO.IMC 21:59
PROVIDERS: Internal Medicine; Internal Medicine Nephrology; Physician Assistant; Admitting Provider Hospitalist; Emergency Provider Emergency Medicine; Visit Provider Internal Medicine
DX: N17.9 Acute kidney failure, unspecified (principal); K21.9 Gastro-esophageal reflux disease without esophagitis; I12.9 Hypertensive chronic kidney disease with stage 1 through stage 4 chronic kidney disease, or unspecified chronic kidney disease; E11.22 Type 2 diabetes mellitus with diabetic chronic kidney disease; E87.5 Hyperkalemia; M19.072 Primary osteoarthritis, left ankle and foot; N18.4 Chronic kidney disease, stage 4 (severe); D63.1 Anemia in chronic kidney disease; Z20.822 Contact with and (suspected) exposure to COVID-19; Z79.4 Long term (current) use of insulin; Z79.899 Other long term (current) drug therapy
CPT/HCPCS: 36415; 73600; 74176; 80048; 80053; 81001; 82272; 82607; 82728; 82746; 82784; 82947; 83521; 83735; 83880; 83970; 84156; 85025; 85027; 86334; 87635; 93005; 93971; 96360; 99219; 99285

== ENCOUNTER 2022-11-08 14:34 | Observation (INO) | payer OTHER, SELFPAY ==
--- NOTE | ~2022-11-08 | US_ITS ---
EXAMINATION: US ABDOMEN COMPLETE CLINICAL INFORMATION: thrombocytopenia . COMPARISON: CT dated 03/01/2022 TECHNIQUE: Real-time imaging of the abdominal viscera. FINDINGS: PANCREAS: Normal. ABDOMINAL AORTA: The proximal, mid, and distal segments are normal in caliber. INFERIOR VENA CAVA: Visualized portions are normal. LIVER: Normal. The liver is normal in size. The liver contour is normal. Parenchymal echogenicity is normal. No focal hepatic lesion. There is no intrahepatic biliary duct dilatation seen. GALLBLADDER: Contracted. Gallbladder wall thickness measures 3 mm by my measurement. No evidence of stones, sludge, polyps, wall thickening or pericholecystic fluid. COMMON BILE DUCT: Normal in caliber measuring 0.47 cm in diameter. RIGHT KIDNEY: Relatively hypotrophic (8.6 cm in maximal length) without appreciable cortical thinning. No hydronephrosis. No renal calculi or focal parenchymal lesions. Increased cortical echogenicity is noted. LEFT KIDNEY: Normal. No hydronephrosis. No renal calculi or focal parenchymal lesions. The kidney measures 9.3 cm in maximum dimension. SPLEEN: Normal. The spleen measures 8.1 cm in maximum dimension. FREE FLUID: None. US/US abdomen complete IMPRESSION: Normal spleen. Borderline small right kidney with slightly increased parenchymal echogenicity, suggesting medical renal disease. No acute findings.
[2022-11-08 14:38] VITALS: BP 150/60; PULSE 73; RESP 16; TEMP 36.6; O2SAT 99; BMI 27.3
[2022-11-08 14:53] LABS: Basophils Percent Auto 0.4 % (0-2); Eosinophils Absolute Auto 0.1 X10*3/uL (0.0-0.4); Eosinophils Percent Auto 1.8 % (0-4); Hematocrit 21.3 % (37.0-47.0); Imm Gran Abs Auto 0.03 X10*3/uL (0.00-0.03); Imm Gran Pct Auto 0.6 % (0.0-0.4); Lymphocytes Absolute Auto 0.9 X10*3/uL (1.2-4.9); Lymphocytes Percent Auto 16.8 % (20-40); Mean Corpuscular HGB Conc 31.5 g/dl (31.0-35.0); Mean Corpuscular Hemoglobin 28.8 pg (27.0-33.0); Mean Corpuscular Volume 91.4 fL (80.0-98.0); Monocytes Absolute Auto 0.5 X10*3/uL (0.1-1.2); Monocytes Percent Auto 10.5 % (2-11); Neutrophils Absolute Auto 3.6 x10*3/uL (2.0-8.3); Neutrophils Percent Auto 69.9 % (45-73); Platelet Count 119 X10*3/uL (160-400); Red Blood Count 2.33 X10*6/uL (4.20-5.50); Red Cell Distribution Width 14.4 % (11.0-16.0); White Blood Count 5.1 X10*3/uL (4.8-10.8)
[2022-11-08 14:56] LABS: Hemoglobin 6.7 g/dl (12.0-16.0)
[2022-11-08 15:10] LABS: MANUAL DIFF FLAG SCAN; SCAN SMEAR FLAG 1
[2022-11-08 15:11] LABS: SLIDE REVIEW VERIFIED
[2022-11-08 15:24] LABS: Alanine Aminotransferase 31 U/L (0-31); Albumin Level 3.4 g/dL (3.5-5.0); Alkaline Phosphatase 123 U/L (39-117); Anion Gap 18 (12-20); Aspartate Amino Transferase 53 U/L (5-31); Bilirubin Total 0.5 mg/dL (0.0-1.0); Blood Urea Nitrogen 96 mg/dL (9-16); Calcium 7.6 mg/dL (8.4-10.2); Carbon Dioxide 17 mmol/L (22-29); Chloride 110 mmol/L (96-108); Creatinine Clr Calc Pharmacy 10.5; Estimated Glomerular Filt Rate 8; Glucose Random 120 mg/dL (60-115); Magnesium 1.3 mg/dL (1.6-2.6); Potassium 5.1 mmol/L (3.3-5.1); Sodium 140 mmol/L (135-145); Total Protein 5.9 g/dL (6.5-8.0)
[2022-11-08 15:25] LABS: Immature Retic Fraction 5.7 % (3.0-15.9); Reticulocyte Percent 1.9 % (0.5-1.8); Reticulocytes Absolute 0.044 X10*6/uL (0.026-0.095)
[2022-11-08 15:31] LABS: Iron 111 mcg/dL (30-160); Percent Iron Saturation 48 % (15-50); Total Iron Binding Capacity 231 mcg/dL (228-428); Unsaturated Iron Binding 120 ug/dL
--- NOTE | 2022-11-08 15:41 | ED_ITS ---
HPI - General Adult General Chief complaint: Recheck/Abnormal Lab/Rx Stated complaint: abnormal labs Time Seen by Provider: 11/08/22 15:31 Source: patient Mode of arrival: ambulatory History of Present Illness HPI narrative: 67-year-old female with past medical history of hypertension, diabetes, CKD, GERD, anemia, presenting to ED sent in from PCP for abnormal labs noted outpatient. Patient denies complaints at present. Denies chest pain, shortness of breath, abdominal pain, nausea/vomiting, diarrhea, dysuria/hematuria, melena, bloody stools. Denies decreased p.o. intake. Onset (ago): unknown Related Data Home Medications Medication Instructions Recorded Confirmed hydrochlorothiazide 12.5 mg tablet 1 tab PO DAILY 03/01/22 11/08/22 insulin human U-100 NPH-regulr 8 unit subcut BEDTIME 03/01/22 11/08/22 70-30 mix 100 unit/mL subcutaneous susp (Novolin 70/30 U-100 Insulin) insulin human U-100 NPH-regulr 13 unit subcut DAILY 03/01/22 11/08/22 70-30 mix 100 unit/mL subcutaneous susp (Novolin 70/30 U-100 Insulin) labetalol 100 mg tablet 1.5 tab PO BID PRN Blood Pressure 03/01/22 11/08/22 omeprazole 20 mg capsule,delayed 1 cap PO BID 03/01/22 11/08/22 release atorvastatin 40 mg tablet 1 tab PO DAILY cholesterol 11/08/22 11/08/22 furosemide 80 mg tablet 1 tab PO 3XW 11/08/22 11/08/22 Allergies Allergy/AdvReac Type Severity Reaction Status Date / Time No Known Allergies Allergy Verified 03/01/22 12:44 Review of Systems Review of Systems: Constitutional: No Fever, No Chills, No Fatigue, No Malaise ENT/Mouth: No Ear Pain, No Nasal Congestion, No sore throat, No Rhinorrhea, No Swallowing Difficulty Eyes: No Eye Pain, No Swelling, No Redness, No Vision Changes Cardiovascular: No Chest Pain, No SOB, No Edema, No Palpitations Respiratory: No Cough, No Sputum, No Wheezing, No Dyspnea Gastrointestinal: No Nausea, No Vomiting, No Diarrhea, No Constipation, No Abdominal pain, No Hematochezia, No Melena Genitourinary: No irregular bleeding, No Dysuria, No Urinary Frequency, No Hematuria, No Urinary Incontinence/retention, No Flank Pain Musculoskeletal: No joint pain, No Myalgias, No Joint Swelling Skin: No Skin Lesions, No rash Neuro: No Weakness, No Loss of Consciousness, No Dizziness, No Headache Yes all other systems are reviewed and are negative Constitutional: Constitutional: Reports as per [facility] Past Medical History Attestation statement: The following information was validated with the patient. Social History Social History Household Members: Spouse and None Housing: Apartment Do you presently have visiting nurse or other home services: No Patient Tobacco Use Status: Never used Tobacco Advance Directives: No Advance Directives Information Provided: No Physical Exam ED Vital Signs: Vital Signs - 24 hr 11/08/22 14:38 11/08/22 17:55 Temperature 97.8 F 97.7 F Pulse Rate 73 62 Respiratory Rate 16 18 Blood Pressure 150/60 H 185/67 H Pulse Oximetry 99 99 Oxygen Delivery Method Room Air Room Air BMI result Body Mass Index 27.3 Const General: cooperative, healthy appearing, no acute distress, alert and awake Orientation/consciousness: patient oriented x3 Limitations: no limitations HENMT Head: Yes normal to inspection and Yes atraumatic Ears: hearing grossly normal bilaterally General nose exam: Normal external nose present Face and sinus: Yes normal facial exam Eyes General: appearance normal, both eyes and all related structures EOM: EOMs intact bilaterally Neck Neck: Yes normal visual inspection and Yes no meningeal signs Resp Effort & Inspection: normal respiratory effort and no respiratory distress Auscultation: clear to auscultation bilaterally Cardio Rate: regular rate Heart sounds: S1 normal heart sound present and S2 normal heart sound present GI Inspection: Yes normal to inspection Palpation (GI): Soft to palpation, nontender, no guarding and not rigid Skin Rashes: no rashes Wounds: no wounds Neuro General: patient oriented x3, gait normal, tone normal, moves all extremities, no meningeal signs and no focal motor deficits Gait exam (Neuro): Normal gait present Extrem General: Yes normal to inspection and Yes no pedal edema Course Course Course Narrative: -1622--no leukocytosis. H&H low at 6.7/21.3 > will obtain occult stool. Blood consent signed and in patient's chart, obtained consent with full time staff interpreter. Will transfuse 1 unit RBCs -Acute on chronic CKD with a BUN of 96 and a creatinine of 5.19 > will give gentle IVF -hypomagnesemia 1.3 > 2g IV repletion ordered -1843--occult stool negative -will obtain repeat labs and plan for admission for further management Medications Administered Generic Name Dose Route Start Last Admin Trade Name Freq PRN Reason Stop Dose Admin Sodium Chloride 1,000 mls @ 100 mls/hr 11/08/22 16:15 11/08/22 16:49 Ns IVCONT 100 mls/hr .Q10H RODRIGO Administration Discontinued Medications Generic Name Dose Route Start Last Admin Trade Name Freq PRN Reason Stop Dose Admin Magnesium Sulfate 2 gm in 50 mls @ 25 mls/hr 11/08/22 16:02 11/08/22 16:50 Magnesium Sulfate/H2o IV 11/08/22 18:01 25 mls/hr ONCE ONE Administration Medical Decision Making Medical Decision Making [facility] Narrative: 67-year-old female with past medical history of hypertension, diabetes, CKD, GERD, anemia, presenting to ED sent in from PCP for abnormal labs noted outpatient. On exam vital signs stable, NAD, nontoxic appearing, asymptomatic at present. Abdomen soft/nontender. Concern for acute on chronic CKD vs metabolic abnormality vs pre renal azotemia vs anemia vs occult GI bleed. Low suspicion for severe sepsis, no source of infection at this time. Plan: EKG, labs, UA, occult stool, electric repletion, re-evaluate, admission Differential Diagnosis Differential Diagnoses: The differential diagnosis associated with the presentation includes As above Admission/Observation Consideration of admission/observation: Escalation of care including admission/observation considered Consult Healthcare Provider Management of the patient was discussed with: Hospitalist Lab Data [facility] Lab Attestation statement: I reviewed the patient's lab results. 11/08/22 14:47 11/08/22 14:47 Labs: Lab Results 11/08/22 11/08/22 11/08/22 Range/Units 14:47 14:47 16:20 WBC 5.1 (4.8-10.8) X10*3/uL RBC 2.33 L (4.20-5.50) X10*6/uL Hgb 6.7 L* (12.0-16.0) g/dl Hct 21.3 L (37.0-47.0) % MCV 91.4 (80.0-98.0) fL MCH 28.8 (27.0-33.0) pg MCHC 31.5 (31.0-35.0) g/dl RDW 14.4 (11.0-16.0) % Plt Count 119 L (160-400) X10*3/uL MPV 11.0 (9.4-12.3) fL Immature Gran % (Auto) 0.6 H (0.0-0.4) % Neut % (Auto) 69.9 (45-73) % Lymph % (Auto) 16.8 L (20-40) % [place]eves % (Auto) 10.5 (2-11) % Eos % (Auto) 1.8 (0-4) % Baso % (Auto) 0.4 (0-2) % Lymph # (Auto) 0.9 L (1.2-4.9) X10*3/uL [place]eves # (Auto) 0.5 (0.1-1.2) X10*3/uL Eos # (Auto) 0.1 (0.0-0.4) X10*3/uL Baso # (Auto) 0.0 (0.0-0.2) X10*3/uL Abs Immat Gran (auto) 0.03 (0.00-0.03) X10*3/uL Absolute Neuts (auto) 3.6 (2.0-8.3) x10*3/uL Absolute Nucleated RBC 0.000 (0.0-0.012) X10*3/uL Nucleated RBC % (auto) 0.0 (0.0-0.2) /100WBC Smear Tech's Comments VERIFIED Absolute Retic 0.044 (0.026-0.095) X10*6/uL Percent Retic 1.9 H (0.5-1.8) % Immature Retic Fraction 5.7 (3.0-15.9) % Retic Hgb Equivalent 33.0 (30.0-35.0) pg Sodium 140 (135-145) mmol/L Potassium 5.1 (3.3-5.1) mmol/L Chloride 110 H (96-108) mmol/L Carbon Dioxide 17 L (22-29) mmol/L Anion Gap 18 (12-20) BUN 96 H (9-16) mg/dL Creatinine 5.19 H* (0.5-1.4) mg/dL Estim Creat Clear Calc 10.5 Estimated GFR 8 Random Glucose 120 H (60-115) mg/dL Calcium 7.6 L (8.4-10.2) mg/dL Magnesium 1.3 L* (1.6-2.6) mg/dL Iron 111 (30-160) mcg/dL TIBC 231 (228-428) mcg/dL % Saturation 48 (15-50) % Unsat Iron Binding 120 ug/dL Total Bilirubin 0.5 (0.0-1.0) mg/dL AST 53 H (5-31) U/L ALT 31 (0-31) U/L Alkaline Phosphatase 123 H (39-117) U/L Total Protein 5.9 L (6.5-8.0) g/dL Albumin 3.4 L (3.5-5.0) g/dL Lipase 84 H (8-78) U/L Stool Occult Blood (NEGATIVE) COVID-19 (GREGORY) (Negative) COVID-19 Clin Com Influenza Type A (PRESTON) Negative (Negative) Influenza Type B (PRESTON) Negative (Negative) Influenza A & B Note See Note Blood Type Antibody Screen Crossmatch 11/08/22 11/08/22 11/08/22 Range/Units 16:20 18:00 18:04 WBC (4.8-10.8) X10*3/uL RBC (4.20-5.50) X10*6/uL Hgb (12.0-16.0) g/dl Hct (37.0-47.0) % MCV (80.0-98.0) fL MCH (27.0-33.0) pg MCHC (31.0-35.0) g/dl RDW (11.0-16.0) % Plt Count (160-400) X10*3/uL MPV (9.4-12.3) fL Immature Gran % (Auto) (0.0-0.4) % Neut % (Auto) (45-73) % Lymph % (Auto) (20-40) % [place]eves % (Auto) (2-11) % Eos % (Auto) (0-4) % Baso % (Auto) (0-2) % Lymph # (Auto) (1.2-4.9) X10*3/uL [place]eves # (Auto) (0.1-1.2) X10*3/uL Eos # (Auto) (0.0-0.4) X10*3/uL Baso # (Auto) (0.0-0.2) X10*3/uL Abs Immat Gran (auto) (0.00-0.03) X10*3/uL Absolute Neuts (auto) (2.0-8.3) x10*3/uL Absolute Nucleated RBC (0.0-0.012) X10*3/uL Nucleated RBC % (auto) (0.0-0.2) /100WBC Smear Tech's Comments Absolute Retic (0.026-0.095) X10*6/uL Percent Retic (0.5-1.8) % Immature Retic Fraction (3.0-15.9) % Retic Hgb Equivalent (30.0-35.0) pg Sodium (135-145) mmol/L Potassium (3.3-5.1) mmol/L Chloride (96-108) mmol/L Carbon Dioxide (22-29) mmol/L Anion Gap (12-20) BUN (9-16) mg/dL Creatinine (0.5-1.4) mg/dL Estim Creat Clear Calc Estimated GFR Random Glucose (60-115) mg/dL Calcium (8.4-10.2) mg/dL Magnesium (1.6-2.6) mg/dL Iron (30-160) mcg/dL TIBC (228-428) mcg/dL % Saturation (15-50) % Unsat Iron Binding ug/dL Total Bilirubin (0.0-1.0) mg/dL AST (5-31) U/L ALT (0-31) U/L Alkaline Phosphatase (39-117) U/L Total Protein (6.5-8.0) g/dL Albumin (3.5-5.0) g/dL Lipase (8-78) U/L Stool Occult Blood NEGATIVE (NEGATIVE) COVID-19 (GREGORY) Negative (Negative) COVID-19 Clin Com See Note Influenza Type A ([facility]STON) (Negative) Influenza Type B ([facility]ON) (Negative) Influenza A & B Note Blood Type O Positive Antibody Screen NEGATIVE Crossmatch See Detail Radiology Impression Discussion of test interpretation with radiology: I have reviewed the radiologist's reading. Independent Historian Clinical information obtained from an independent historian. History obtained from or confirmed by: Spouse External Record Review External record reviewed: Inpatient record, Outpatient record and Prior outpatient labs Chronic Conditions Patient?s care impacted by: Hypertension Critical Care Time Critical Care Time Critical Care Time: Yes Total Critical Care Time: 45 Attestation: I have personally provided critical care time exclusive of time spent on separately billable procedures. Time includes review of lab data, radiology results, discussion with consultants, and monitoring for potential deco mpensation. Intervention performed as documented. Discharge Plan Discharge Clinical Impression: Anemia, Acute kidney injury superimposed on CKD, Hypomagnesemia Patient Disposition: Admitted As Inpatient
[2022-11-08 16:18] LABS: Lipase 84 U/L (8-78)
--- NOTE | 2022-11-08 16:21 | ECG_ITS ---
Test Reason : ABNORMAL LABS Blood Pressure : / mmHG Vent. Rate : 063 BPM Atrial Rate : 063 BPM P-R Int : 144 ms QRS Dur : 078 ms QT Int : 464 ms P-R-T Axes : 036 045 074 degrees QTc Int : 474 ms Normal sinus rhythm Normal ECG When compared with ECG of 01-MAR-2022 18:50, No significant change was found Referred By: Maria Teresa Villa Electronically Signed By:Ellis Moore
[2022-11-08 16:47] LABS: COVID-19 Test Negative (Negative); IDNOW Serial# 16C4AD1C; IDNOW Serial# BCCEAD1C; Influenza A Negative (Negative); Influenza B2 Negative (Negative)
[2022-11-08] MEDS: 0.9 % Sodium Chloride 1,000 ML 100 ML IVCONT (16:49)
[2022-11-08] MEDS: Magnesium Sulfate/H2O 2 GM/50 ML PIGGYBACK IV (16:50)
[2022-11-08 17:55] VITALS: BP 185/67; PULSE 62; RESP 18; TEMP 36.5; O2SAT 99
[2022-11-08 18:18] LABS: OBS Int Ctl Valid YES; OBS1 NEGATIVE (NEGATIVE)
[2022-11-08 19:40] LABS: Glucose, Whole Blood 49 mg/dL (60-115)
[2022-11-08 19:40] LABS: Magnesium 2.1 mg/dL (1.6-2.6)
--- NOTE | 2022-11-08 19:40 | PC.NURSE ---
This news writer assumed care of this PT at 1900. PT A&Ox3, reports feeling low BS. BS 49, provider aware. PT given sandwich and PO fluids. Second IV established.
[2022-11-08 19:47] LABS: Anion Gap 17 (12-20); Blood Urea Nitrogen 95 mg/dL (9-16); Calcium 7.6 mg/dL (8.4-10.2); Carbon Dioxide 16 mmol/L (22-29); Chloride 113 mmol/L (96-108); Creatinine Clr Calc Pharmacy 11.1; Estimated Glomerular Filt Rate 9; Glucose Random 60 mg/dL (60-115); Potassium 4.7 mmol/L (3.3-5.1); Sodium 141 mmol/L (135-145)
[2022-11-08 19:52] VITALS: BP 195/73; PULSE 71; RESP 14; O2SAT 98
--- NOTE | 2022-11-08 20:20 | P.HPHOSP_ITS ---
History of Present Illness Date of Service: 11/08/22 Chief Complaint: Abnormal labs This is a 67-year-old female with pertinent history of essential hypertension, insulin-dependent diabetes mellitus, gastroesophageal reflux disease, mixed hyperlipidemia, chronic kidney disease who was sent to the emergency department for evaluan of abnormal labs. Patient states she was sent as her magnesium was found to be low outpatient. Patient denies any complaints at this time. No hematochezia, melena, hematuria, hematemesis. She denies dyspnea, and alcohol use disorder. No fever, chills, chest discomfort, palpitations, abdominal pain, changes in urinary bowel habits. No history of blood transfusion. No family h istory of blood disorder. In the emergency department, hemoglobin and magnesium was found to be low. Review of Systems Constitutional: Constitutional: Reports no additional constitutional complai nts Cardiovascular: Cardiovascular: Reports no additional cardiovascular complaints Respiratory: Respiratory: Reports no additional respiratory complaints Gastrointestinal: Gastrointestinal: Reports no additional gastrointestinal complaints Genitourinary: Genitourinary: Reports no additional female genitourinary complaints Musculoskeletal: Musculoskeletal: Reports no additional musculoskeletal complaints [facility] Medical History Chronic kidney disease Diabetes mellitus Hyperlipidemia Hypertension Functional capacity: independent ambulation Pertinent family history: no family history of CAD Social History Household Members: Spouse and None Housing: Apartment Do you presently have visiting nurse or other home services: No Patient Tobacco Use Status: Never used Tobacco Advance Directives: No Advance Directives Information Provided: No Meds Allergies Allergy/AdvReac Type Severity Reaction Status Date / Time No Known Allergies Allergy Verified 03/01/22 12:44 Active Medications: Current Medications Sodium Chloride (Ns) 1,000 mls @ 100 mls/hr IVCONT .Q10H RODRIGO Last Admin: 11/08/22 16:49 Dose: 100 mls/hr Home Medications Medication Instructions Recorded Confirmed Last Taken Type hydrochlorothiazide 12.5 mg tablet 1 tab PO DAILY 03/01/22 11/08/22 03/01/22 History insulin human U-100 NPH-regulr 8 unit subcut BEDTIME 03/01/22 11/08/22 02/28/22 History 70-30 mix 100 unit/mL subcutaneous susp (Novolin 70/30 U-100 Insulin) insulin human U-100 NPH-regulr 13 unit subcut DAILY 03/01/22 11/08/22 03/01/22 History 70-30 mix 100 unit/mL subcutaneous susp (Novolin 70/30 U-100 Insulin) labetalol 100 mg tablet 1.5 tab PO BID PRN Blood Pressure 03/01/22 11/08/22 03/01/22 History omeprazole 20 mg capsule,delayed 1 cap PO BID 03/01/22 11/08/22 03/01/22 History release atorvastatin 40 mg tablet 1 tab PO DAILY cholesterol 11/08/22 11/08/22 Unknown History furosemide 80 mg tablet 1 tab PO 3XW 11/08/22 11/08/22 Unknown History Physical Exam Vital Signs and Narrative: Vital Signs: Last Vital Signs Temp 97.7 F 11/08/22 17:55 Pulse 71 11/08/22 19:52 Resp 14 11/08/22 19:52 BP 195/73 H 11/08/22 19:52 Pulse Ox 98 11/08/22 19:52 O2 Del Method 11/08/22 19:52 BMI result Body Mass Index 27.3 Middle-aged female lying in bed in no distress Neck supple, no JVD Regular rate and rhythm, S1-S2 heard Regular breath sounds bilaterally, no wheezing or crackles appreciated Abdomen soft nontender, no guarding, no rigidity Patient is awake, alert and oriented to self, place, time and person ; no focal motor deficit Psych: Normal mood No pedal edema Results Labs 11/08/22 14:47 11/08/22 19:14 Labs: Laboratory Results - last 24 hr 11/08/22 11/08/22 11/08/22 14:47 14:47 16:20 MCV 91.4 MCH 28.8 MCHC 31.5 RDW 14.4 Plt Count 119 L MPV 11.0 Immature Gran % (Auto) 0.6 H Neut % (Auto) 69.9 Lymph % (Auto) 16.8 L [place] % (Auto) 10.5 Eos % (Auto) 1.8 Baso % (Auto) 0.4 Lymph # (Auto) 0.9 L [place] # (Auto) 0.5 Eos # (Auto) 0.1 Baso # (Auto) 0.0 Abs Immat Gran (auto) 0.03 Absolute Neuts (auto) 3.6 Absolute Nucleated RBC 0.000 Nucleated RBC % (auto) 0.0 Smear Tech's Comments VERIFIED Absolute Retic 0.044 Percent Retic 1.9 H Immature Retic Fraction 5.7 Retic Hgb Equivalent 33.0 Anion Gap 18 Estim Creat Clear Calc 10.5 Estimated GFR 8 POC Glucose Random Glucose 120 H Calcium 7.6 L Magnesium 1.3 L* Iron 111 TIBC 231 % Saturation 48 Unsat Iron Binding 120 Total Bilirubin 0.5 AST 53 H ALT 31 Alkaline Phosphatase 123 H Total Protein 5.9 L Albumin 3.4 L Lipase 84 H Stool Occult Blood COVID-19 (GREGORY) COVID-19 Clin Com Influenza Type A (PRESTON) Negative Influenza Type B (PRESTON) Negative Influenza A & B Note See Note Blood Type Antibody Screen Crossmatch 11/08/22 11/08/22 11/08/22 16:20 18:00 18:04 MCV MCH MCHC RDW Plt Count MPV Immature Gran % (Auto) Neut % (Auto) Lymph % (Auto) [place] % (Auto) Eos % (Auto) Baso % (Auto) Lymph # (Auto) [place] # (Auto) Eos # (Auto) Baso # (Auto) Abs Immat Gran (auto) Absolute Neuts (auto) Absolute Nucleated RBC Nucleated RBC % (auto) Smear Tech's Comments Absolute Retic Percent Retic Immature Retic Fraction Retic Hgb Equivalent Anion Gap Estim Creat Clear Calc Estimated GFR POC Glucose Random Glucose Calcium Magnesium Iron TIBC % Saturation Unsat Iron Binding Total Bilirubin AST ALT Alkaline Phosphatase Total Protein Albumin Lipase Stool Occult Blood NEGATIVE COVID-19 (GREGORY) Negative COVID-19 Clin Com See Note Influenza Type A (PRESTON) Influenza Type B (PRESTON) Influenza A & B Note Blood Type O Positive Antibody Screen NEGATIVE Crossmatch See Detail 11/08/22 11/08/22 11/08/22 19:14 19:14 19:35 MCV MCH MCHC RDW Plt Count MPV Immature Gran % (Auto) Neut % (Auto) Lymph % (Auto) [place] % (Auto) Eos % (Auto) Baso % (Auto) Lymph # (Auto) [place] # (Auto) Eos # (Auto) Baso # (Auto) Abs Immat Gran (auto) Absolute Neuts (auto) Absolute Nucleated RBC Nucleated RBC % (auto) Smear Tech's Comments Absolute Retic Percent Retic Immature Retic Fraction Retic Hgb Equivalent Anion Gap 17 Estim Creat Clear Calc 11.1 Estimated GFR 9 POC Glucose 49 L* Random Glucose 60 Calcium 7.6 L Magnesium 2.1 Iron TIBC % Saturation Unsat Iron Binding Total Bilirubin AST ALT Alkaline Phosphatase Total Protein Albumin Lipase Stool Occult Blood COVID-19 (GREGORY) COVID-19 Clin Com Influenza Type A (PRESTON) Influenza Type B (PRESTON) Influenza A & B Note Blood Type Antibody Screen Crossmatch 11/08/22 Unknown MCV MCH MCHC RDW Plt Count MPV Immature Gran % (Auto) Neut % (Auto) Lymph % (Auto) [place] % (Auto) Eos % (Auto) Baso % (Auto) Lymph # (Auto) [place] # (Auto) Eos # (Auto) Baso # (Auto) Abs Immat Gran (auto) Absolute Neuts (auto) Absolute Nucleated RBC Nucleated RBC % (auto) Smear Tech's Comments Absolute Retic Percent Retic Immature Retic Fraction Retic Hgb Equivalent Anion Gap Estim Creat Clear Calc Estimated GFR POC Glucose Random Glucose Calcium Magnesium Iron TIBC % Saturation Unsat Iron Binding Total Bilirubin AST ALT Alkaline Phosphatase Total Protein Albumin Lipase Stool Occult Blood COVID-19 (GREGORY) COVID-19 Clin Com Influenza Type A (PRESTON) Influenza Type B (PRESTON) Influenza A & B Note Blood Type Antibody Screen Crossmatch See Detail Assessment and Plan (1) Anemia: Status: Acute Plan This is a 67-year-old female with pertinent history of essential hypertension, insulin-dependent diabetes mellitus, gastroesophageal reflux disease, mixed hyperlipidemia, chronic kidney disease who was sent to the emergency department for evaluan of abnormal labs. #. normocytic anemia, ?acute on chronic: Unclear etiology. Patient does have CKD. 1 unit PRBC ordered in the ER. No evidence of blood loss and stool occult negative. Will order hemolysis and nutritional workup. UA pending #. hypomagnesemia: Will stop PPI. Repleted #. hypoglycemia in a patient with insulin-dependent diabetes: Resolved with dex IV push in the ER. Initiating Accu-Cheks with sliding scale insulin. Hold patient's home insulin regimen #. thrombocytopenia: B12 folate pending. Will order abdominal ultrasound to look at liver and spleen. #. elevated creatinine: Acute kidney injury versus progression of CKD. IV crystalloids given in the ER. Monitor creatinine and urine output with fluid resuscitation. Avoid nephrotoxins. Obtaining urine urea and urine creatinine #. Essential hypertension: hold Lasix and thiazide in the setting of hypomagnesemia. Initiating amlodipine, optimize DVT prophylaxis: Mechanical Full Code Cardiac diet Time Spent With Patient Time: Total time managing care of this patient today ____ minutes. Quality Stroke Does the patient have a stroke diagnosis?: No VTE Prior VTE?: No VTE Risk Level:: Medical - moderate - high VTE Device Contraindication: N/A - Device Ordered VTE Drug Contraindication: Treatment Not Indicated
[2022-11-08 20:29] VITALS: BP 162/52; PULSE 71; RESP 20; TEMP 34.5
[2022-11-08 20:45] VITALS: BP 185/74; PULSE 70; RESP 21; TEMP 36.3
--- NOTE | 2022-11-08 20:58 | PC.NURSE ---
Blood delayed d/t PT BP 195/73, rectal temp 94.1. Provider notified. Warm blankets provided. Blood started as documented. PT denies any CP, or SOB. Will CTM.
[2022-11-08] MEDS: amLODIPine Besylate 5 MG TABLET PO (21:15)
[2022-11-08 21:28] LABS: Glucose, Whole Blood 135 mg/dL (60-115)
[2022-11-08 22:57] VITALS: BP 215/88; PULSE 69; RESP 20; TEMP 36.7
[2022-11-08] MEDS: Labetalol HCL 100 MG TABLET 150 MG PO (23:01)
[2022-11-08 23:51] LABS: Bilirubin Direct < 0.2 mg/dL (0.0-0.5); Lactate Dehydrogenase 333 U/L (122-220)
--- NOTE | 2022-11-08 23:57 | PC.NURSE ---
PT A&Ox4, ambulated to BR with steady gait.
[2022-11-09 00:10] VITALS: BP 176/69; PULSE 67; RESP 20; TEMP 36.6; O2SAT 99
[2022-11-09 00:18] LABS: Appearance Urine Cloudy; Color Urine Yellow; Glucose Urine UA Negative (Negative); Leukocyte Esterase Urine Negative (Negative); Nitrite Urine Negative (Negative); PH 5.5 (5.0-9.0); UMIC TRIGGER UACC YES; Urine Blood Trace (Negative); Urine Ketones Negative (Negative); Urine Protein 300 (3+) mg/dL (Neg-Trace)
[2022-11-09 00:29] LABS: Creatinine Urine 51.71 mg/dL
[2022-11-09 00:30] LABS: Bacteria Urine None Seen (None Seen); Hyaline Casts Urine 0-2 /LPF (0-2); Other Crystals Urine Present; RBC Urine 0-2 /HPF (0-2); Squamous Epithelial Cell Urine 0-2 /HPF (0-2); WBC Urine 0-5 /HPF (0-5)
[2022-11-09 01:04] LABS: Folate 15.3 ng/mL (> or = 4.0); Vitamin B12 971 pg/mL (200-900)
[2022-11-09 04:02] VITALS: BP 159/70; PULSE 75; RESP 20; TEMP 36.6; O2SAT 97
[2022-11-09] MEDS: 0.9 % Sodium Chloride 1,000 ML 100 ML IVCONT (04:08)
--- NOTE | 2022-11-09 04:11 | PC.NURSE ---
PT akens upon verbal stimuli, denies any pain. Resting quietly, no apparent distress. IV fluids running. at bedside.
[2022-11-09 06:26] LABS: MANUAL DIFF FLAG NO
[2022-11-09 06:27] LABS: Basophils Percent Auto 0.6 % (0-2); Eosinophils Absolute Auto 0.1 X10*3/uL (0.0-0.4); Eosinophils Percent Auto 2.2 % (0-4); Hematocrit 25.7 % (37.0-47.0); Hemoglobin 8.5 g/dl (12.0-16.0); Imm Gran Abs Auto 0.03 X10*3/uL (0.00-0.03); Imm Gran Pct Auto 0.6 % (0.0-0.4); Lymphocytes Absolute Auto 0.9 X10*3/uL (1.2-4.9); Lymphocytes Percent Auto 17.3 % (20-40); Mean Corpuscular HGB Conc 33.1 g/dl (31.0-35.0); Mean Corpuscular Hemoglobin 30.2 pg (27.0-33.0); Mean Corpuscular Volume 91.5 fL (80.0-98.0); Mean Platelet Volume 11.3 fL (9.4-12.3); Monocytes Absolute Auto 0.5 X10*3/uL (0.1-1.2); Monocytes Percent Auto 9.7 % (2-11); Neutrophils Absolute Auto 3.8 x10*3/uL (2.0-8.3); Neutrophils Percent Auto 69.6 % (45-73); Platelet Count 120 X10*3/uL (160-400); Red Blood Count 2.81 X10*6/uL (4.20-5.50); Red Cell Distribution Width 14.2 % (11.0-16.0); White Blood Count 5.4 X10*3/uL (4.8-10.8)
[2022-11-09 06:56] LABS: Alanine Aminotransferase 24 U/L (0-31); Albumin Level 3.1 g/dL (3.5-5.0); Alkaline Phosphatase 118 U/L (39-117); Anion Gap 16 (12-20); Aspartate Amino Transferase 28 U/L (5-31); Bilirubin Total 0.6 mg/dL (0.0-1.0); Blood Urea Nitrogen 92 mg/dL (9-16); Calcium 7.9 mg/dL (8.4-10.2); Carbon Dioxide 15 mmol/L (22-29); Chloride 116 mmol/L (96-108); Creatinine Clr Calc Pharmacy 11.1; Estimated Glomerular Filt Rate 9; Glucose Random 90 mg/dL (60-115); Magnesium 1.8 mg/dL (1.6-2.6); Potassium 4.7 mmol/L (3.3-5.1); Sodium 142 mmol/L (135-145); Total Protein 5.6 g/dL (6.5-8.0)
[2022-11-09 07:20] VITALS: BP 187/70; PULSE 84; RESP 14; TEMP 36.5; O2SAT 97
[2022-11-09] MEDS: Atorvastatin Calcium 40 MG TABLET PO (07:47)
[2022-11-09] MEDS: amLODIPine Besylate 5 MG TABLET PO (07:47)
[2022-11-09 08:43] LABS: Estimated Average Glucose 146 mg/dL; Hemoglobin A1c % 6.7 %
--- NOTE | 2022-11-09 08:49 | PC.NURSE ---
Pt was seen by hospitalists plan is for nephrology consult and reassess for discharge is appropriate. pt is sleeping in naps offers no complaints
[2022-11-09 08:52] LABS: Glucose, Whole Blood 159 mg/dL (60-115)
--- NOTE | 2022-11-09 09:16 | PM.CNNEP ---
History of Present Illness Reason for Consult Consult date: 11/09/22 Reason for consult: CKD 5 Requesting physician: Sonny Francois Chief Complaint Chief complaint: abnormal labs History of Present Illness Narrative: Ms. Stephanie Anthony is a 67-year-old female with past medical history of CKD stage V (BL Cr 4.5mg/dL), iron defiency anemia, Secondary Hyperparathyroidism and Nephrogenic anemia who presents to [facility] for abnormal outpatient labs. The patient was found anemic now s/p 1u PRBC. She also was found to have progressive non-gap acidosis in the face of CKD stage V. On my assessment Ms. Anthony and her are frustrated. They have stopped seeing their outpatient Plant Chief due to group home issues & insurance issues. She has no reliable access to Nephrology care and requests care be continued through the [facility] system. I have provided patient with referral. As of now, patient is euvolemic, not orthopneic, and has normal UOP volumes. Review of Systems Review of Systems Constitutional: No Fever, No Chills, No Fatigue, No Malaise ENT/Mouth: No Ear Pain, No Nasal Congestion, No sore throat, No Rhinorrhea, No Swallowing Difficulty Eyes: No Eye Pain, No Swelling, No Redness, No Vision Changes Cardiovascular: No Chest Pain, No SOB, No Edema, No Palpitations Respiratory: No Cough, No Sputum, No Wheezing, No Dyspnea Gastrointestinal: No Nausea, No Vomiting, No Diarrhea, No Constipation, No Abdominal pain, No Hematochezia, No Melena Genitourinary: No irregular bleeding, No Dysuria, No Urinary Frequency, No Hematuria, No Urinary Incontinence/retention, No Flank Pain Musculoskeletal: No joint pain, No Myalgias, No Joint Swelling Skin: No Skin Lesions, No rash Neuro: No Weakness, No Loss of Consciousness, No Dizziness, No Headache PMFSH Past Medical History Medical History Chronic kidney disease Diabetes mellitus Hyperlipidemia Hypertension Functional capacity: independent ambulation Family History Pertinent family history: no family history of CAD Social History Social History Household Members: Spouse and None Housing: Apartment Do you presently have visiting nurse or other home services: No Alcohol intake: never Patient Tobacco Use Status: Never used Tobacco Smoked in Last 30 Days: No Use of substances other than those prescribed or required for medical reasons: No Advance Directives: No Advance Directives Information Provided: No Nutrition Risks: No Nutritional Risk Meds Allergies Allergy/AdvReac Type Severity Reaction Status Date / Time No Known Allergies Allergy Verified 03/01/22 12:44 Active Medications: Current Medications Acetaminophen (Acetaminophen 325 Mg Tablet) 650 mg PO Q6H PRN PRN Reason: Pain, Mild (Pain Scale 1-3) Amlodipine Besylate (Amlodipine Besylate 5 Mg Tablet) 5 mg PO DAILY [facility]; Protocol Last Admin: 11/09/22 07:47 Dose: 5 mg Atorvastatin Calcium (Atorvastatin Calcium 40 Mg Tablet) 40 mg PO DAILY [facility] Last Admin: 11/09/22 07:47 Dose: 40 mg Dextrose (Dextrose 50 % 25 Gm/50 Ml Syringe) 25 gm IVPUSH Q15M PRN; Protocol PRN Reason: per Hypoglycemia Standing Ord. Glucose (Glucose Gel 15 Gm Gel..Gram.) 15 gm PO Q15M PRN; Protocol PRN Reason: per Hypoglycemia Standing Ord. Sodium Chloride (Ns) 1,000 mls @ 100 mls/hr IVCONT .Q10H [facility] Last Admin: 11/09/22 04:08 Dose: 100 mls/hr Insulin Human Lispro (Insulin Lispro 100 Unit/Ml 3 Ml Vial) 0 unit SUBCUT QIDACHS [facility]; Protocol Last Admin: 11/09/22 07:22 Dose: Not Given Labetalol HCl (Labetalol Hcl 100 Mg Tablet) 150 mg PO BID PRN; Protocol PRN Reason: Blood Pressure Last Admin: 11/08/22 23:01 Dose: 150 mg Melatonin (Melatonin 3 Mg Tablet) 6 mg PO BEDTIME PRN PRN Reason: Insomnia Ondansetron HCl (Ondansetron Hcl 4 Mg/2 Ml Vial) 4 mg IVPUSH Q8H PRN PRN Reason: Nausea and Vomiting Sodium Chloride (0.9 % Sodium Chloride Flush 3 Ml Syringe) 3 ml IVFLUSH QSHIFT [facility] Last Admin: 11/09/22 07:26 Dose: Not Given Home Medications Medication Instructions Recorded Confirmed Last Taken Type hydrochlorothiazide 12.5 mg tablet 1 tab PO DAILY 03/01/22 11/08/22 03/01/22 History insulin human U-100 NPH-regulr 8 unit subcut BEDTIME 03/01/22 11/08/22 02/28/22 History 70-30 mix 100 unit/mL subcutaneous susp (Novolin 70/30 U-100 Insulin) insulin human U-100 NPH-regulr 13 unit subcut DAILY 03/01/22 11/08/22 03/01/22 History 70-30 mix 100 unit/mL subcutaneous susp (Novolin 70/30 U-100 Insulin) labetalol 100 mg tablet 1.5 tab PO BID PRN Blood Pressure 03/01/22 11/08/22 03/01/22 History omeprazole 20 mg capsule,delayed 1 cap PO BID 03/01/22 11/08/22 03/01/22 History release atorvastatin 40 mg tablet 1 tab PO DAILY cholesterol 11/08/22 11/08/22 Unknown History furosemide 80 mg tablet 1 tab PO 3XW 11/08/22 11/08/22 Unknown History Physical Exam Vital Signs: Last Vital Signs Temp 97.7 F 11/09/22 07:20 Pulse 84 11/09/22 07:20 Resp 14 11/09/22 07:20 BP 187/70 H 11/09/22 07:20 Pulse Ox 97 11/09/22 07:20 O2 Del Method 11/09/22 07:20 BMI result Body Mass Index 27.3 Const General: cooperative, alert and awake Resp Effort & Inspection: normal respiratory effort and no respiratory distress Auscultation: clear to auscultation bilaterally Cardio Rate: regular rate Heart sounds: S1 normal heart sound present and S2 normal heart sound present GI Inspection: Yes normal to inspection Palpation (GI): Soft to palpation, nontender, no guarding and not rigid Skin Rashes: no rashes Wounds: no wounds Neuro General: moves all extremities and no focal motor deficits Extrem General: Yes no pedal edema Results Lab Results 11/09/22 06:07 11/09/22 06:07 Lab results: Chemistry 11/08/22 11/08/22 11/09/22 14:47 19:14 06:07 Sodium 140 141 142 Potassium 5.1 4.7 4.7 Carbon Dioxide 17 L 16 L 15 L BUN 96 H 95 H 92 H Creatinine 5.19 H* 4.90 H* 4.92 H* Calcium 7.6 L 7.6 L 7.9 L Hematology 11/08/22 11/09/22 14:47 06:07 WBC 5.1 5.4 Hgb 6.7 L* 8.5 L D Plt Count 119 L 120 L Urinalysis 11/09/22 00:01 Urine Color Yellow Urine Appearance Cloudy Urine pH 5.5 Ur Specific [place] 1.010 Urine Protein 300 (3+) H Urine Glucose (UA) Negative Urine Ketones Negative Urine Blood Trace H Urine Nitrite Negative Ur Leukocyte Esterase Negative Urine RBC 0-2 Urine WBC 0-5 Ur Squamous Epith Cells 0-2 Hyaline Casts 0-2 Urine Studies 11/09/22 00:01 Urine Creatinine 51.71 Assessment and Plan (1) Anemia: Status: Acute (2) 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 2 diabetes mellitus: Status: Acute (3) CKD (chronic kidney disease), stage V: Status: Acute (4) CKD stage 5 secondary to hypertension: Status: Acute Plan Ms. Stephanie Anthony is a 67-year-old female with past medical history of CKD stage V (BL Cr 4.5mg/dL), iron defiency anemia, Secondary Hyperparathyroidism and Nephrogenic anemia who presents to [facility] for abnormal outpatient labs. The patient was found anemic now s/p 1u PRBC. She also was found to have progressive non-gap acidosis in the face of CKD stage V. 1. CKD stage V stable. On my assessment Ms. Anthony and her are frustrated. They have stopped seeing their outpatient Plant Chief due to group home issues & insurance issues. She has no reliable access to Nephrology care and requests care be continued through the [facility] system. I have provided patient with referral. Plan: - no acute or upcoming need for urgent dialysis, ok for discharge - will set up f/u with [address] [place] [address] [facility] 2. HTN Stop Thiazides ok to c/w Lasix c/w Amlodipine No JOSI / ARB / Laz inhibitors 3. Hyperkalemia monitor Low K diet no JOSI / ARB / Laz Inhibitors 4. Anemia s/p 1uPRBC will need PROCRIT outpatient 5. Metabolic acidosis RTA 4 CKd 5 related Diabetic plan; - Please send out on 1300mg BID of Sodium Bicarbonate. Time Spent With Patient Time: Total time managing care of this patient today ____ minutes. Procedures Date of Service Date of Service: 11/09/22
--- NOTE | 2022-11-09 09:21 | PM.DS ---
DS: Providers Provider Date of Service: 11/09/22 Date of admission: 11/08/22 20:29 Primary care physician: Unknown Physician Consults: 11/09/22 07:14 Consult to Nephrology Routine Consulting Provider: Matthew Medrano Reason for consultation: progression of CKDV DS: Diagnosis Discharge Diagnosis (1) Anemia: Status: Acute DS: Summary Hospital Course Hospital Course: from initial hpi: Chief Complaint: Abnormal labs This is a 67-year-old female with pertinent history of essential hypertension, insulin-dependent diabetes mellitus, gastroesophageal reflux disease, mixed hyperlipidemia, chronic kidney disease who was sent to the emergency department for evaluan of abnormal labs.? Patient states she was sent as her magnesium was found to be low outpatient.? Patient denies any complaints at this time.? No hematochezia, melena, hematuria, hematemesis.? She denies dyspnea, and alcohol use disorder.? No fever, chills, chest discomfort, palpitations, abdominal pain, changes in urinary bowel habits.? No history of blood transfusion.? No family history of blood disorder. In the emergency department, hemoglobin and magnesium was found to be low. hospital course: Patient was admitted for normocytic anemia due to CKD 5. She received 1 unit PRBC and hemoglobin improved appropriately. She had hypo magnesemia which was repleted. She has diabetes and had hypoglycemia which resolved. Patient noted to have progression of her chronic kidney disease ( unlikely acute kidney injury), complicated by metabolic acidosis. She was seen by Nephrology recommended starting sodium bicarb p.o.. She will follow up closely with Nephrology. For hypertension amlodipine was added. Patient is asymptomatic and will be discharged home. Time Spent with Patient Time attestation: Total time managing care of this patient today ____ minutes. Discharge coordination time: Greater than 30 minutes Quality: Safe Use of Opioids Does Pt have an Active Cancer Diagnosis on the Problem List?: No Quality: Stroke Does the patient have a stroke diagnosis?: No Physical Exam Vital Signs: Vital Signs: Last Vital Signs Temp 97.7 F 11/09/22 07:20 Pulse 84 11/09/22 07:20 Resp 14 11/09/22 07:20 BP 187/70 H 11/09/22 07:20 Pulse Ox 97 11/09/22 07:20 O2 Del Method 11/09/22 07:20 BMI result Body Mass Index 27.3 General: AO X 3, no acute distress Resp: CTA bilateral, no accessory muscles used CVS: S1,S2,RRR GI: soft, non tender, non distended Neuro: motor grossly intact, alert Psych: appropriate affect, appropriate insight DS: Data Data Completed and Pending Labs on day of discharge: Laboratory Results - last 24 hr 11/08/22 11/08/22 11/08/22 14:47 14:47 16:20 WBC 5.1 RBC 2.33 L Hgb 6.7 L* Hct 21.3 L MCV 91.4 MCH 28.8 MCHC 31.5 RDW 14.4 Plt Count 119 L MPV 11.0 Immature Gran % (Auto) 0.6 H Neut % (Auto) 69.9 Lymph % (Auto) 16.8 L [place] % (Auto) 10.5 Eos % (Auto) 1.8 Baso % (Auto) 0.4 Lymph # (Auto) 0.9 L [place] # (Auto) 0.5 Eos # (Auto) 0.1 Baso # (Auto) 0.0 Abs Immat Gran (auto) 0.03 Absolute Neuts (auto) 3.6 Absolute Nucleated RBC 0.000 Nucleated RBC % (auto) 0.0 Smear Tech's Comments VERIFIED Absolute Retic 0.044 Percent Retic 1.9 H Immature Retic Fraction 5.7 Retic Hgb Equivalent 33.0 Sodium 140 Potassium 5.1 Chloride 110 H Carbon Dioxide 17 L Anion Gap 18 BUN 96 H Creatinine 5.19 H* Estim Creat Clear Calc 10.5 Estimated GFR 8 POC Glucose Random Glucose 120 H Estimat Average Glucose Hemoglobin A1c % Calcium 7.6 L Magnesium 1.3 L* Iron 111 TIBC 231 % Saturation 48 Unsat Iron Binding 120 Total Bilirubin 0.5 Direct Bilirubin < 0.2 AST 53 H ALT 31 Alkaline Phosphatase 123 H Lactate Dehydrogenase 333 H Total Protein 5.9 L Albumin 3.4 L Lipase 84 H Vitamin B12 Folate Urine Color Urine Appearance Urine pH Ur Specific [place] Urine Protein Urine Glucose (UA) Urine Ketones Urine Blood Urine Nitrite Ur Leukocyte Esterase Urine RBC Urine WBC Ur Squamous Epith Cells Other Crystals Urine Bacteria Hyaline Casts Urine Creatinine Stool Occult Blood COVID-19 (GREGORY) COVID-19 Clin Com Influenza Type A (PRESTON) Negative Influenza Type B (PRESTON) Negative Influenza A & B Note See Note Blood Type Antibody Screen NAVDEEP, Polyspecific Positive NAVDEEP Work-up Crossmatch 11/08/22 11/08/22 11/08/22 16:20 18:00 18:04 WBC RBC Hgb Hct MCV MCH MCHC RDW Plt Count MPV Immature Gran % (Auto) Neut % (Auto) Lymph % (Auto) [place] % (Auto) Eos % (Auto) Baso % (Auto) Lymph # (Auto) [place] # (Auto) Eos # (Auto) Baso # (Auto) Abs Immat Gran (auto) Absolute Neuts (auto) Absolute Nucleated RBC Nucleated RBC % (auto) Smear Tech's Comments Absolute Retic Percent Retic Immature Retic Fraction Retic Hgb Equivalent Sodium Potassium Chloride Carbon Dioxide Anion Gap BUN Creatinine Estim Creat Clear Calc Estimated GFR POC Glucose Random Glucose Estimat Average Glucose Hemoglobin A1c % Calcium Magnesium Iron TIBC % Saturation Unsat Iron Binding Total Bilirubin Direct Bilirubin AST ALT Alkaline Phosphatase Lactate Dehydrogenase Total Protein Albumin Lipase Vitamin B12 Folate Urine Color Urine Appearance Urine pH Ur Specific [place] Urine Protein Urine Glucose (UA) Urine Ketones Urine Blood Urine Nitrite Ur Leukocyte Esterase Urine RBC Urine WBC Ur Squamous Epith Cells Other Crystals Urine Bacteria Hyaline Casts Urine Creatinine Stool Occult Blood NEGATIVE COVID-19 (GREGORY) Negative COVID-19 Clin Com See Note Influenza Type A (PRESTON) Influenza Type B (PRESTON) Influenza A & B Note Blood Type O Positive Antibody Screen NEGATIVE NAVDEEP, Polyspecific Positive NAVDEEP Work-up Crossmatch See Detail 11/08/22 11/08/22 11/08/22 18:04 19:14 19:14 WBC RBC Hgb Hct MCV MCH MCHC RDW Plt Count MPV Immature Gran % (Auto) Neut % (Auto) Lymph % (Auto) [place] % (Auto) Eos % (Auto) Baso % (Auto) Lymph # (Auto) [place] # (Auto) Eos # (Auto) Baso # (Auto) Abs Immat Gran (auto) Absolute Neuts (auto) Absolute Nucleated RBC Nucleated RBC % (auto) Smear Tech's Comments Absolute Retic Percent Retic Immature Retic Fraction Retic Hgb Equivalent Sodium 141 Potassium 4.7 Chloride 113 H Carbon Dioxide 16 L Anion Gap 17 BUN 95 H Creatinine 4.90 H* Estim Creat Clear Calc 11.1 Estimated GFR 9 POC Glucose Random Glucose 60 Estimat Average Glucose Hemoglobin A1c % Calcium 7.6 L Magnesium 2.1 Iron TIBC % Saturation Unsat Iron Binding Total Bilirubin Direct Bilirubin AST ALT Alkaline Phosphatase Lactate Dehydrogenase Total Protein Albumin Lipase Vitamin B12 Folate Urine Color Urine Appearance Urine pH Ur Specific [place] Urine Protein Urine Glucose (UA) Urine Ketones Urine Blood Urine Nitrite Ur Leukocyte Esterase Urine RBC Urine WBC Ur Squamous Epith Cells Other Crystals Urine Bacteria Hyaline Casts Urine Creatinine Stool Occult Blood COVID-19 (GREGORY) COVID-19 Clin Com Influenza Type A (PRESTON) Influenza Type B (PRESTON) Influenza A & B Note Blood Type Antibody Screen NAVDEEP, Polyspecific NEGATIVE Positive NAVDEEP Work-up TNP Crossmatch 11/08/22 11/08/22 11/08/22 19:35 21:20 Unknown WBC RBC Hgb Hct MCV MCH MCHC RDW Plt Count MPV Immature Gran % (Auto) Neut % (Auto) Lymph % (Auto) [place] % (Auto) Eos % (Auto) Baso % (Auto) Lymph # (Auto) [place] # (Auto) Eos # (Auto) Baso # (Auto) Abs Immat Gran (auto) Absolute Neuts (auto) Absolute Nucleated RBC Nucleated RBC % (auto) Smear Tech's Comments Absolute Retic Percent Retic Immature Retic Fraction Retic Hgb Equivalent Sodium Potassium Chloride Carbon Dioxide Anion Gap BUN Creatinine Estim Creat Clear Calc Estimated GFR POC Glucose 49 L* 135 H Random Glucose Estimat Average Glucose Hemoglobin A1c % Calcium Magnesium Iron TIBC % Saturation Unsat Iron Binding Total Bilirubin Direct Bilirubin AST ALT Alkaline Phosphatase Lactate Dehydrogenase Total Protein Albumin Lipase Vitamin B12 Folate Urine Color Urine Appearance Urine pH Ur Specific [place] Urine Protein Urine Glucose (UA) Urine Ketones Urine Blood Urine Nitrite Ur Leukocyte Esterase Urine RBC Urine WBC Ur Squamous Epith Cells Other Crystals Urine Bacteria Hyaline Casts Urine Creatinine Stool Occult Blood COVID-19 (GREGORY) COVID-19 Clin Com Influenza Type A (PRESTON) Influenza Type B (PRESTON) Influenza A & B Note Blood Type Antibody Screen NAVDEEP, Polyspecific Positive NAVDEEP Work-up Crossmatch See Detail 11/09/22 11/09/22 11/09/22 00:01 00:01 00:08 WBC RBC Hgb Hct MCV MCH MCHC RDW Plt Count MPV Immature Gran % (Auto) Neut % (Auto) Lymph % (Auto) [place] % (Auto) Eos % (Auto) Baso % (Auto) Lymph # (Auto) [place] # (Auto) Eos # (Auto) Baso # (Auto) Abs Immat Gran (auto) Absolute Neuts (auto) Absolute Nucleated RBC Nucleated RBC % (auto) Smear Tech's Comments Absolute Retic Percent Retic Immature Retic Fraction Retic Hgb Equivalent Sodium Potassium Chloride Carbon Dioxide Anion Gap BUN Creatinine Estim Creat Clear Calc Estimated GFR POC Glucose Random Glucose Estimat Average Glucose 146 Hemoglobin A1c % 6.7 Calcium Magnesium Iron TIBC % Saturation Unsat Iron Binding Total Bilirubin Direct Bilirubin AST ALT Alkaline Phosphatase Lactate Dehydrogenase Total Protein Albumin Lipase Vitamin B12 Folate Urine Color Yellow Urine Appearance Cloudy Urine pH 5.5 Ur Specific [place] 1.010 Urine Protein 300 (3+) H Urine Glucose (UA) Negative Urine Ketones Negative Urine Blood Trace H Urine Nitrite Negative Ur Leukocyte Esterase Negative Urine RBC 0-2 Urine WBC 0-5 Ur Squamous Epith Cells 0-2 Other Crystals Present Urine Bacteria None Seen Hyaline Casts 0-2 Urine Creatinine 51.71 Stool Occult Blood COVID-19 (GREGORY) COVID-19 Clin Com Influenza Type A (PRESTON) Influenza Type B (PRESTON) Influenza A & B Note Blood Type Antibody Screen NAVDEEP, Polyspecific Positive NAVDEEP Work-up Crossmatch 11/09/22 11/09/22 11/09/22 00:08 06:07 06:07 WBC 5.4 RBC 2.81 L D Hgb 8.5 L D Hct 25.7 L D MCV 91.5 MCH 30.2 MCHC 33.1 RDW 14.2 Plt Count 120 L MPV 11.3 Immature Gran % (Auto) 0.6 H Neut % (Auto) 69.6 Lymph % (Auto) 17.3 L [place] % (Auto) 9.7 Eos % (Auto) 2.2 Baso % (Auto) 0.6 Lymph # (Auto) 0.9 L [place] # (Auto) 0.5 Eos # (Auto) 0.1 Baso # (Auto) 0.0 Abs Immat Gran (auto) 0.03 Absolute Neuts (auto) 3.8 Absolute Nucleated RBC 0.000 Nucleated RBC % (auto) 0.0 Smear Tech's Comments Absolute Retic Percent Retic Immature Retic Fraction Retic Hgb Equivalent Sodium 142 Potassium 4.7 Chloride 116 H Carbon Dioxide 15 L Anion Gap 16 BUN 92 H Creatinine 4.92 H* Estim Creat Clear Calc 11.1 Estimated GFR 9 POC Glucose Random Glucose 90 Estimat Average Glucose Hemoglobin A1c % Calcium 7.9 L Magnesium 1.8 Iron TIBC % Saturation Unsat Iron Binding Total Bilirubin 0.6 Direct Bilirubin AST 28 ALT 24 Alkaline Phosphatase 118 H Lactate Dehydrogenase Total Protein 5.6 L Albumin 3.1 L Lipase Vitamin B12 971 H Folate 15.3 Urine Color Urine Appearance Urine pH Ur Specific [place] Urine Protein Urine Glucose (UA) Urine Ketones Urine Blood Urine Nitrite Ur Leukocyte Esterase Urine RBC Urine WBC Ur Squamous Epith Cells Other Crystals Urine Bacteria Hyaline Casts Urine Creatinine Stool Occult Blood COVID-19 (GREGORY) COVID-19 Clin Com Influenza Type A (PRESTON) Influenza Type B (PRESTON) Influenza A & B Note Blood Type Antibody Screen NAVDEEP, Polyspecific Positive NAVDEEP Work-up Crossmatch 11/09/22 08:48 WBC RBC Hgb Hct MCV MCH MCHC RDW Plt Count MPV Immature Gran % (Auto) Neut % (Auto) Lymph % (Auto) [place] % (Auto) Eos % (Auto) Baso % (Auto) Lymph # (Auto) [place] # (Auto) Eos # (Auto) Baso # (Auto) Abs Immat Gran (auto) Absolute Neuts (auto) Absolute Nucleated RBC Nucleated RBC % (auto) Smear Tech's Comments Absolute Retic Percent Retic Immature Retic Fraction Retic Hgb Equivalent Sodium Potassium Chloride Carbon Dioxide Anion Gap BUN Creatinine Estim Creat Clear Calc Estimated GFR POC Glucose 159 H Random Glucose Estimat Average Glucose Hemoglobin A1c % Calcium Magnesium Iron TIBC % Saturation Unsat Iron Binding Total Bilirubin Direct Bilirubin AST ALT Alkaline Phosphatase Lactate Dehydrogenase Total Protein Albumin Lipase Vitamin B12 Folate Urine Color Urine Appearance Urine pH Ur Specific [place] Urine Protein Urine Glucose (UA) Urine Ketones Urine Blood Urine Nitrite Ur Leukocyte Esterase Urine RBC Urine WBC Ur Squamous Epith Cells Other Crystals Urine Bacteria Hyaline Casts Urine Creatinine Stool Occult Blood COVID-19 ([facility]REGORY) COVID-19 Clin Com Influenza Type A (PRESTON) Influenza Type B (PRESTON) Influenza A & B Note Blood Type Antibody Screen NAVDEEP, Polyspecific Positive NAVDEEP Work-up Crossmatch Discharge Plan Discharge Anticipated Discharge Date/Time: 11/09/22 09:16 Patient Disposition: Home, Self-Care Discharge Diagnosis: ckd V with anemia, hpyomagnesemia Referrals: Physician,Unknown J [Primary Care Provider] - 1 Week Discharge Medications: New amlodipine 5 mg Tablet 5 mg PO DAILY Qty: 30 0RF Protocol: Hold for SBP< HOLD for SBP < : 90 sodium bicarbonate 650 mg tablet 1,300 mg PO BID Qty: 120 0RF Continued Novolin 70/30 U-100 Insulin 100 unit/mL (70-30) suspension 13 unit subcut DAILY omeprazole 20 mg capsule,delayed release(DR/EC) 1 cap PO BID labetalol 100 mg tablet 1.5 tab PO BID PRN (Reason: Blood Pressure) hydrochlorothiazide 12.5 mg tablet 1 tab PO DAILY Novolin 70/30 U-100 Insulin 100 unit/mL (70-30) suspension 8 unit subcut BEDTIME atorvastatin 40 mg tablet 1 tab PO DAILY furosemide 80 mg tablet 1 tab PO 3XW Discharge Orders: Discharge Order (Routine); Ordered 11/09/22 Ordered By: Sonny Francois Diet: Diabetic diet Activity on Discharge: As tolerated Stand Alone Forms: Patient Portal Discharge page Care Plan Goals: manage ckd Health Concerns: ckd, htn, acidosis Plan of Treatment: start amlodipine and sodium bicarb, follow up with nephro Assessment: see above
--- NOTE | 2022-11-09 09:37 | MHC.CM.PN ---
PT WILL DC HOME TODAY WITH NO SERVICES VIA FAMILY TRANSPORT
[2022-11-09] MEDS: Sodium Bicarbonate 650 MG TABLET 1300 MG PO (09:50)
[2022-11-10 17:58] LABS: Haptoglobin 147 mg/dL (43-212)
[2022-11-10 18:09] LABS: Urea, Random Urine 482 mg/dL
== END 2022-11-09 09:29 | disposition home or self-care (01) ==
LOC: HO.ED 16:25 → HO.EDOVER 20:32
PROVIDERS: Physician Assistant; Admitting Provider Student in an Organized Health Care Education/Training Program; Emergency Provider Student in an Organized Health Care Education/Training Program; Visit Provider Internal Medicine
DX: D64.9 Anemia, unspecified (principal); E83.42 Hypomagnesemia; D69.6 Thrombocytopenia, unspecified; E87.20 Acidosis, unspecified; E11.649 Type 2 diabetes mellitus with hypoglycemia without coma; E11.22 Type 2 diabetes mellitus with diabetic chronic kidney disease; I12.0 Hypertensive chronic kidney disease with stage 5 chronic kidney disease or end stage renal disease; N18.5 Chronic kidney disease, stage 5; N17.9 Acute kidney failure, unspecified; Z20.822 Contact with and (suspected) exposure to COVID-19; K21.9 Gastro-esophageal reflux disease without esophagitis; E78.5 Hyperlipidemia, unspecified; Z79.4 Long term (current) use of insulin; Z79.02 Long term (current) use of antithrombotics/antiplatelets; Z79.899 Other long term (current) drug therapy
CPT/HCPCS: 36415; 76700; 80048; 80053; 81001; 82248; 82272; 82607; 82746; 82947; 83010; 83036; 83540; 83615; 83690; 83735; 84540; 85025; 85045; 86850; 86880; 86900; 86901; 86923; 87502; 87635; 93005; 96361; 96365; 96366; 99222; 99285; J3475; P9016

== ENCOUNTER 2023-03-03 12:49 | Emergency (ER) | payer OTHER, SELFPAY ==
[2023-03-03] VITALS (7 sets, daily range): BP systolic 129–161; BP diastolic 48–60; PULSE 73–86; RESP 16–30; TEMP 36.6–36.8; O2SAT 92–98; BMI 29.6
--- NOTE | ~2023-03-03 | XR_ITS ---
EXAMINATION: XR CHEST CLINICAL INFORMATION: Shortness of breath COMPARISON: None available. TECHNIQUE: 2 views of the chest were obtained. FINDINGS: Lung volumes are symmetric. There is bilateral interstitial prominence greatest in the perihilar regions along with mild Fay B-lines, favoring interstitial edema. No dense focal consolidation is seen. Trace pleural effusions are suspected. No evidence of pneumothorax. Cardiac silhouette appears borderline enlarged. No acute osseous findings are seen. XR/XR chest 2V IMPRESSION: Findings suspicious for interstitial edema. Trace pleural effusions.
--- NOTE | ~2023-03-03 | US_ITS ---
EXAMINATION: US ABDOMEN LIMITED CLINICAL INFORMATION: Right upper quadrant pain. COMPARISON: Previous CT of the abdomen and pelvis February 2022 and abdominal ultrasound November 2022 TECHNIQUE: Real-time imaging of the right upper quadrant abdominal viscera. FINDINGS: PANCREAS: The tail the pancreas is not well visualized. The main pancreatic duct upper normal in size measuring 3 mm. LIVER: Normal. The liver is normal in size. The liver contour is normal. Parenchymal echogenicity is normal. No focal hepatic lesion. There is no intrahepatic biliary duct dilatation seen. GALLBLADDER: The gallbladder is contracted. The gallbladder is not well evaluated. The gallbladder wall appears thickened however this may be related to contraction. No stone is appreciated. COMMON BILE DUCT: Normal in caliber measuring 0.3 cm in diameter. RIGHT KIDNEY: Right renal cortical thinning and increased echogenicity. This is similar to previous ultrasound and again suggestive of medical renal disease.. No hydronephrosis. No renal calculi or focal parenchymal lesions. The kidney measures 9 cm in maximum dimension. FREE FLUID: None. US/US abdomen limited IMPRESSION: Limited evaluation of the gallbladder. Contracted gallbladder. The gallbladder wall appears thickened however this may be due to contracted state. No gallstones appreciated. Mild right renal cortical thickening and increased echogenicity suggestive of medical renal disease.
--- NOTE | 2023-03-03 13:35 | ED.ABDPAIN ---
HPI - Abdominal Pain General Chief Complaint: Abdominal Pain Stated Complaint: R side pain Time Seen by Provider: 03/03/23 20:01 Source: patient and family Mode of arrival: ambulatory History of Present Illness HPI narrative: 67-year-old female with known CKD presents with right upper quadrant pain that is exacerbated by eating fatty meals and is not been associated with any nausea, vomiting, fever, chills and patient denies any hematemesis, hematochezia, melena and states that she has been having anemia for a while now. She denies any dizziness, headaches, palpitations or feelings of shortness of breath. She denies any loss of appetite or change in food flavor. Related Data Home Medications Medication Instructions Recorded Confirmed hydrochlorothiazide 12.5 mg tablet 1 tab PO DAILY 03/01/22 11/08/22 insulin human U-100 NPH-regulr 8 unit subcut BEDTIME 03/01/22 03/04/23 70-30 mix 100 unit/mL subcutaneous susp (Novolin 70/30 U-100 Insulin) insulin human U-100 NPH-regulr 13 unit subcut DAILY 03/01/22 11/08/22 70-30 mix 100 unit/mL subcutaneous susp (Novolin 70/30 U-100 Insulin) labetalol 100 mg tablet 1 tab PO BID PRN Blood Pressure 03/01/22 03/04/23 omeprazole 20 mg capsule,delayed 1 cap PO BID 03/01/22 11/08/22 release atorvastatin 40 mg tablet 1 tab PO DAILY cholesterol 11/08/22 03/04/23 furosemide 80 mg tablet 1 tab PO 3XW 11/08/22 03/04/23 amlodipine 5 mg tablet 10 mg PO DAILY 03/04/23 03/04/23 Previous Rx's Medication Instructions Recorded sodium bicarbonate 650 mg tablet 1,300 mg PO BID #120 tabs 11/09/22 Allergies Allergy/AdvReac Type Severity Reaction Status Date / Time No Known Allergies Allergy Verified 03/01/22 12:44 Review of Systems Review of Systems Pertinent positives and negatives as stated in HPI PMFSH Past Medical History Source: nursing notes reviewed Medical History Chronic kidney disease Diabetes mellitus Hyperlipidemia Hypertension Social History Social History Household Members: Spouse and None Housing: Apartment Do you presently have visiting nurse or other home services: No Alcohol intake: never Patient Tobacco Use Status: Never used Tobacco Advance Directives: No Advance Directives Information Provided: No Physical Exam ED Vital Signs: Vital Signs - 24 hr 03/03/23 13:35 03/03/23 18:30 03/03/23 20:00 Temperature 98 F 98.3 F Pulse Rate 73 81 86 Respiratory Rate 16 19 30 H Blood Pressure 129/48 L 133/51 L 151/60 H Pulse Oximetry 98 92 96 Oxygen Delivery Method Room Air Room Air Oxygen Flow Rate 03/03/23 22:25 03/03/23 22:39 03/03/23 22:00 Temperature 97.9 F 98.1 F 98.1 F Pulse Rate 86 84 84 Respiratory Rate 23 H 26 H 28 H Blood Pressure 148/54 H 148/53 H 161/58 H Pulse Oximetry 93 Oxygen Delivery Method Nasal Cannula Oxygen Flow Rate 3 03/03/23 22:40 03/04/23 00:09 03/04/23 01:52 Temperature 98.1 F 97.6 F 98.6 F Pulse Rate 84 87 90 Respiratory Rate 26 H 24 H 29 H Blood Pressure 148/53 H 145/61 H 160/67 H Pulse Oximetry 91 L Oxygen Delivery Method Room Air Oxygen Flow Rate 03/04/23 02:40 Temperature Pulse Rate 83 Respiratory Rate 20 Blood Pressure Pulse Oximetry 95 Oxygen Delivery Method Room Air Oxygen Flow Rate BMI result Body Mass Index 29.6 VITAL SIGNS: Reviewed. GENERAL: Chronically ill, in no acute distress. HEAD: Normocephalic/atraumatic EYES: PERRLA, EOMI EARS: Ext canals without abnormality NOSE: Nares patent bilateral OROPHARYNX: no oral lesions noted, posterior pharynx clear NECK: Supple, no adenopathy LUNGS: Normal breath sounds. No adventitious sounds or accessory muscle use. SpO2<96> CARDIOVASCULAR: Regular rate and rhythm without noted murmurs ABDOMEN: Soft, non-tender, non-distended with bowel sounds. LUIS: Brown stool, no gross blood MUSCULOSKELETAL: No tenderness, deformities, or effusions noted on gross inspection. EXTREMITIES: No cyanosis, clubbing or edema. SKIN: Inspection of the skin reveals no rashes NEUROLOGIC: Alert and oriented x 4. Strength and sensation to light touch were grossly intact x 4. Course Course Course Narrative: RME - 67 yo Estonian speaking female with history of CKD (baseline SCr 4.5), DM, HTN, HLD, anemia who presents to the ER for evaluation of RUQ pain for the last 3 days. Worse after eating. No N/V/D. Urinating normally. No fevers. Plan; labs and RUQ U/S Reevaluation(s) Reevaluation #1: Received a critical result of hemoglobin of 7.0 from the lab. Last hemoglobin was 8.5 in November, previous to that was 6.9, requiring blood transfusion. She has a history of anemia of chronic disease due to her renal failure. Will repeat her H&H and dry type and screen. No symptoms or signs of acute blood loss anemia, suspect this is all chronic. Time: 14:27 Medical Decision Making Medical Decision Making MDM Narrative: 67-year-old female who presents with a symptomatic anemia, patient is known CKD but has not been started on EPO injections at this time. I reviewed all investigations in patient continues to have worsening kidney function denies any symptoms of anemia, guaiac was negative, patient is not currently having any symptoms of uremia, I did noted elevated potassium level, however this is likely secondary to worsening kidney function. 2125: Discussed case with Dr. Castro who states that patient should receive 1 unit PRBCs, if she is not having the symptoms of uremia she can go home and they will reach out to her and set her up for EPO injections. Patient is otherwise comfortable, hemodynamically stable and signed consent for blood transfusion. Patient is status post 1 unit blood transfusion, she is hemodynamically stable, she was noted to have lower ring oxygenation that was treated with supplemental oxygen, my suspicion is that she became mildly fluid overloaded in received 40 mg of Lasix with good results. Patient is now saturating at 93% on room air. She is otherwise clinically stable for discharge to home and follow-up with nephrology. Differential Diagnosis Please see the discussion above Consult Healthcare Provider Management of the patient was discussed with: Brand Marketing Coordinator Please see the discussion above Lab Data Please see the discussion above 03/03/23 13:48 03/03/23 13:48 Labs: Lab Results 03/03/23 03/03/23 03/03/23 Range/Units 13:48 13:48 14:43 WBC 5.9 (4.8-10.8) X10*3/uL RBC 2.37 L (4.20-5.50) X10*6/uL Hgb 7.0 L* 6.8 L* (12.0-16.0) g/dl Hct 22.1 L 21.9 L (37.0-47.0) % MCV 93.2 (80.0-98.0) fL MCH 29.5 (27.0-33.0) pg MCHC 31.7 (31.0-35.0) g/dl RDW 12.0 (11.0-16.0) % Plt Count 126 L (160-400) X10*3/uL MPV 11.5 (9.4-12.3) fL Immature Gran % (Auto) 0.5 H (0.0-0.4) % Neut % (Auto) 76.4 H (45-73) % Lymph % (Auto) 9.9 L (20-40) % [place] % (Auto) 10.8 (2-11) % Eos % (Auto) 1.9 (0-4) % Baso % (Auto) 0.5 (0-2) % Lymph # (Auto) 0.6 L (1.2-4.9) X10*3/uL [place] # (Auto) 0.6 (0.1-1.2) X10*3/uL Eos # (Auto) 0.1 (0.0-0.4) X10*3/uL Baso # (Auto) 0.0 (0.0-0.2) X10*3/uL Abs Immat Gran (auto) 0.03 (0.00-0.03) X10*3/uL Absolute Neuts (auto) 4.5 (2.0-8.3) x10*3/uL Absolute Nucleated RBC 0.000 (0.0-0.012) X10*3/uL Nucleated RBC % (auto) 0.0 (0.0-0.2) /100WBC Sodium 139 (135-145) mmol/L Potassium 5.7 H D (3.3-5.1) mmol/L Chloride 111 H (96-108) mmol/L Carbon Dioxide 17 L (22-29) mmol/L Anion Gap 17 (12-20) BUN 120 H (9-16) mg/dL Creatinine 8.56 H* (0.5-1.4) mg/dL Estim Creat Clear Calc 6.5 Estimated GFR 5 Random Glucose 203 H (60-115) mg/dL Calcium 6.7 L D (8.4-10.2) mg/dL Magnesium 1.6 (1.6-2.6) mg/dL Total Bilirubin 0.5 (0.0-1.0) mg/dL Direct Bilirubin 0.1 (0.0-0.5) mg/dL AST 31 (5-31) U/L ALT 27 (0-31) U/L Alkaline Phosphatase 127 H (39-117) U/L Total Protein 6.2 L (6.5-8.0) g/dL Albumin 3.5 (3.5-5.0) g/dL Lipase 81 H (8-78) U/L Urine Color Urine Appearance Urine pH (5.0-9.0) Ur Specific [place] (1.005-1.025) Urine Protein (Neg-Trace) mg/dL Urine Glucose (UA) (Negative) mg/dL Urine Ketones (Negative) mg/dL Urine Blood (Negative) Urine Nitrite (Negative) Ur Leukocyte Esterase (Negative) Urine RBC (0-2) /HPF Urine WBC (0-5) /HPF Ur Squamous Epith Cells (0-2) /HPF Urine Bacteria (None Seen) Hyaline Casts (0-2) /LPF Stool Occult Blood (NEGATIVE) Blood Type Antibody Screen Crossmatch 03/03/23 03/03/23 03/03/23 Range/Units 14:43 20:35 Unknown WBC (4.8-10.8) X10*3/uL RBC (4.20-5.50) X10*6/uL Hgb (12.0-16.0) g/dl Hct (37.0-47.0) % MCV (80.0-98.0) fL MCH (27.0-33.0) pg MCHC (31.0-35.0) g/dl RDW (11.0-16.0) % Plt Count (160-400) X10*3/uL MPV (9.4-12.3) fL Immature Gran % (Auto) (0.0-0.4) % Neut % (Auto) (45-73) % Lymph % (Auto) (20-40) % [place] % (Auto) (2-11) % Eos % (Auto) (0-4) % Baso % (Auto) (0-2) % Lymph # (Auto) (1.2-4.9) X10*3/uL [place] # (Auto) (0.1-1.2) X10*3/uL Eos # (Auto) (0.0-0.4) X10*3/uL Baso # (Auto) (0.0-0.2) X10*3/uL Abs Immat Gran (auto) (0.00-0.03) X10*3/uL Absolute Neuts (auto) (2.0-8.3) x10*3/uL Absolute Nucleated RBC (0.0-0.012) X10*3/uL Nucleated RBC % (auto) (0.0-0.2) /100WBC Sodium (135-145) mmol/L Potassium (3.3-5.1) mmol/L Chloride (96-108) mmol/L Carbon Dioxide (22-29) mmol/L Anion Gap (12-20) BUN (9-16) mg/dL Creatinine (0.5-1.4) mg/dL Estim Creat Clear Calc Estimated GFR Random Glucose (60-115) mg/dL Calcium (8.4-10.2) mg/dL Magnesium (1.6-2.6) mg/dL Total Bilirubin (0.0-1.0) mg/dL Direct Bilirubin (0.0-0.5) mg/dL AST (5-31) U/L ALT (0-31) U/L Alkaline Phosphatase (39-117) U/L Total Protein (6.5-8.0) g/dL Albumin (3.5-5.0) g/dL Lipase (8-78) U/L Urine Color Yellow Urine Appearance Clear Urine pH 5.0 (5.0-9.0) Ur Specific [place] 1.015 (1.005-1.025) Urine Protein 300 (3+) H (Neg-Trace) mg/dL Urine Glucose (UA) Negative (Negative) mg/dL Urine Ketones Negative (Negative) mg/dL Urine Blood Negative (Negative) Urine Nitrite Negative (Negative) Ur Leukocyte Esterase Negative (Negative) Urine RBC 0-2 (0-2) /HPF Urine WBC 0-5 (0-5) /HPF Ur Squamous Epith Cells 3-5 (0-2) /HPF Urine Bacteria None Seen (None Seen) Hyaline Casts 0-2 (0-2) /LPF Stool Occult Blood NEGATIVE (NEGATIVE) Blood Type O Positive Antibody Screen NEGATIVE Crossmatch See Detail 03/04/23 Range/Units 01:57 WBC (4.8-10.8) X10*3/uL RBC (4.20-5.50) X10*6/uL Hgb (12.0-16.0) g/dl Hct (37.0-47.0) % MCV (80.0-98.0) fL MCH (27.0-33.0) pg MCHC (31.0-35.0) g/dl RDW (11.0-16.0) % Plt Count (160-400) X10*3/uL MPV (9.4-12.3) fL Immature Gran % (Auto) (0.0-0.4) % Neut % (Auto) (45-73) % Lymph % (Auto) (20-40) % [place] % (Auto) (2-11) % Eos % (Auto) (0-4) % Baso % (Auto) (0-2) % Lymph # (Auto) (1.2-4.9) X10*3/uL [place] # (Auto) (0.1-1.2) X10*3/uL Eos # (Auto) (0.0-0.4) X10*3/uL Baso # (Auto) (0.0-0.2) X10*3/uL Abs Immat Gran (auto) (0.00-0.03) X10*3/uL Absolute Neuts (auto) (2.0-8.3) x10*3/uL Absolute Nucleated RBC (0.0-0.012) X10*3/uL Nucleated RBC % (auto) (0.0-0.2) /100WBC Sodium 140 (135-145) mmol/L Potassium 4.8 (3.3-5.1) mmol/L Chloride 112 H (96-108) mmol/L Carbon Dioxide 14 L (22-29) mmol/L Anion Gap 19 (12-20) BUN 118 H (9-16) mg/dL Creatinine 8.30 H* (0.5-1.4) mg/dL Estim Creat Clear Calc 6.8 Estimated GFR 5 Random Glucose 186 H (60-115) mg/dL Calcium 6.7 L (8.4-10.2) mg/dL Magnesium (1.6-2.6) mg/dL Total Bilirubin (0.0-1.0) mg/dL Direct Bilirubin (0.0-0.5) mg/dL AST (5-31) U/L ALT (0-31) U/L Alkaline Phosphatase (39-117) U/L Total Protein (6.5-8.0) g/dL Albumin (3.5-5.0) g/dL Lipase (8-78) U/L Urine Color Urine Appearance Urine pH (5.0-9.0) Ur Specific [place] (1.005-1.025) Urine Protein (Neg-Trace) mg/dL Urine Glucose (UA) (Negative) mg/dL Urine Ketones (Negative) mg/dL Urine Blood (Negative) Urine Nitrite (Negative) Ur Leukocyte Esterase (Negative) Urine RBC (0-2) /HPF Urine WBC (0-5) /HPF Ur Squamous Epith Cells (0-2) /HPF Urine Bacteria (None Seen) Hyaline Casts (0-2) /LPF Stool Occult Blood (NEGATIVE) Blood Type Antibody Screen Crossmatch Independent Interpretation I performed an independent interpretation of an: EKG Interpretation: Normal sinus rhythm, HR-70, no STEMI, HI/QRS/QTC is within normal limits. External Record Review External record reviewed: Prior outpatient labs Chronic Conditions Patient?s care impacted by: Diabetes and Hypertension Medications Administered Discontinued Medications Generic Name Dose Route Start Last Admin Trade Name Freq PRN Reason Stop Dose Admin Furosemide 40 mg 03/04/23 00:09 03/04/23 00:18 Furosemide 40 Mg/4 Ml Vial IVPUSH 03/04/23 00:10 40 mg ONCE ONE Administration Protocol Furosemide 40 mg 03/04/23 01:43 03/04/23 02:04 Furosemide 40 Mg Tablet PO 03/04/23 01:44 40 mg ONCE ONE Administration Protocol Sodium Zirconium Cyclosilicate 10 gm 03/03/23 21:43 03/03/23 22:30 Sodium Zirconium Cyclosilicate 10 Gm Powd.Pack PO 03/03/23 21:44 10 gm ONCE ONE Administration Discharge Plan Discharge Clinical Impression: Chronic renal failure, Anemia Patient Disposition: Home, Self-Care Instructions: Chronic Kidney Disease (ED), Anemia (ED) Additional Instructions: Resume all home medications as prescribed. Follow-up with your shell reprint operator tomorrow. Return to the ER for any worsening symptoms. Prescriptions: No Action Novolin 70/30 U-100 Insulin 100 unit/mL (70-30) suspension 13 unit subcut DAILY omeprazole 20 mg capsule,delayed release(DR/EC) 1 cap PO BID labetalol 100 mg tablet 1 tab PO BID PRN (Reason: Blood Pressure) hydrochlorothiazide 12.5 mg tablet 1 tab PO DAILY Novolin 70/30 U-100 Insulin 100 unit/mL (70-30) suspension 8 unit subcut BEDTIME atorvastatin 40 mg tablet 1 tab PO DAILY furosemide 80 mg tablet 1 tab PO 3XW sodium bicarbonate 650 mg tablet 1,300 mg PO BID Qty: 120 0RF amlodipine 5 mg tablet 10 mg PO DAILY Protocol: Hold for SBP< HOLD for SBP < : 90 Referrals: Sunitha Rod FNP [Primary Care Provider] -
[2023-03-03 14:08] LABS: MANUAL DIFF FLAG NO
[2023-03-03 14:17] LABS: Basophils Percent Auto 0.5 % (0-2); Eosinophils Absolute Auto 0.1 X10*3/uL (0.0-0.4); Eosinophils Percent Auto 1.9 % (0-4); Hematocrit 22.1 % (37.0-47.0); Imm Gran Abs Auto 0.03 X10*3/uL (0.00-0.03); Imm Gran Pct Auto 0.5 % (0.0-0.4); Lymphocytes Absolute Auto 0.6 X10*3/uL (1.2-4.9); Lymphocytes Percent Auto 9.9 % (20-40); Mean Corpuscular HGB Conc 31.7 g/dl (31.0-35.0); Mean Corpuscular Hemoglobin 29.5 pg (27.0-33.0); Mean Corpuscular Volume 93.2 fL (80.0-98.0); Mean Platelet Volume 11.5 fL (9.4-12.3); Monocytes Absolute Auto 0.6 X10*3/uL (0.1-1.2); Monocytes Percent Auto 10.8 % (2-11); Neutrophils Absolute Auto 4.5 x10*3/uL (2.0-8.3); Neutrophils Percent Auto 76.4 % (45-73); Platelet Count 126 X10*3/uL (160-400); Red Blood Count 2.37 X10*6/uL (4.20-5.50); White Blood Count 5.9 X10*3/uL (4.8-10.8)
[2023-03-03 14:33] LABS: Alanine Aminotransferase 27 U/L (0-31); Albumin Level 3.5 g/dL (3.5-5.0); Alkaline Phosphatase 127 U/L (39-117); Anion Gap 17 (12-20); Aspartate Amino Transferase 31 U/L (5-31); Bilirubin Direct 0.1 mg/dL (0.0-0.5); Bilirubin Total 0.5 mg/dL (0.0-1.0); Calcium 6.7 mg/dL (8.4-10.2); Carbon Dioxide 17 mmol/L (22-29); Chloride 111 mmol/L (96-108); Glucose Random 203 mg/dL (60-115); Lipase 81 U/L (8-78); Magnesium 1.6 mg/dL (1.6-2.6); Potassium 5.7 mmol/L (3.3-5.1); Sodium 139 mmol/L (135-145); Total Protein 6.2 g/dL (6.5-8.0)
[2023-03-03 14:34] LABS: Creatinine Clr Calc Pharmacy 6.5; Estimated Glomerular Filt Rate 5
--- NOTE | 2023-03-03 14:35 | ECG_ITS ---
Test Reason : hyperkalemia Blood Pressure : / mmHG Vent. Rate : 070 BPM Atrial Rate : 070 BPM P-R Int : 144 ms QRS Dur : 078 ms QT Int : 442 ms P-R-T Axes : 035 056 068 degrees QTc Int : 477 ms Normal sinus rhythm Poor R wave progression ? lead placement Borderline ECG When compared with ECG of 08-NOV-2022 17:43, No significant change was found Referred By: Meena Beard Electronically Signed By:RENUKA BALDERAS MD
[2023-03-03 14:42] LABS: Blood Urea Nitrogen 120 mg/dL (9-16)
[2023-03-03 15:01] LABS: Hematocrit 21.9 % (37.0-47.0)
[2023-03-03 15:11] LABS: Hemoglobin 6.8 g/dl (12.0-16.0)
[2023-03-03 20:43] LABS: OBS Int Ctl Valid YES; OBS1 NEGATIVE (NEGATIVE)
[2023-03-03 21:24] LABS: Appearance Urine Clear; Color Urine Yellow; Glucose Urine UA Negative (Negative); Leukocyte Esterase Urine Negative (Negative); Nitrite Urine Negative (Negative); Specific Gravity - Urine 1.015 (1.005-1.025); UMIC TRIGGER UACC YES; Urine Blood Negative (Negative); Urine Ketones Negative (Negative); Urine Protein 300 (3+) mg/dL (Neg-Trace)
[2023-03-03 21:29] LABS: Bacteria Urine None Seen (None Seen); Hyaline Casts Urine 0-2 /LPF (0-2); RBC Urine 0-2 /HPF (0-2); WBC Urine 0-5 /HPF (0-5)
--- NOTE | 2023-03-03 22:28 | PC.NURSE ---
1 unit rbc's started at 22:25. infusing through #20g iv line LAC. pt tolerating well. vital signs updated, pt placed on 2L o2 for room air sats 86-89% RA. at bedside. will CTM
[2023-03-03] MEDS: Sodium Zirconium Cyclosilicate 10 GM POWD.PACK PO (22:30)
[2023-03-04 00:09] VITALS: BP 145/61; PULSE 87; RESP 24; TEMP 36.4
[2023-03-04] MEDS: Furosemide 40 MG/4 ML VIAL IVPUSH (00:18)
--- NOTE | 2023-03-04 01:30 | PC.NURSE ---
Pt requested and given water. No signs of distress. Will continue to monitor.
--- NOTE | 2023-03-04 01:36 | PC.NURSE ---
pt ambulatory to and from bathroom with steady gait. room air o2 93-97% RA after blood transfusion. pt has no current complaints, denies sob. will CTM.
[2023-03-04 01:52] VITALS: BP 160/67; PULSE 90; RESP 29; TEMP 37; O2SAT 91
[2023-03-04] MEDS: Furosemide 40 MG TABLET PO (02:04)
--- NOTE | 2023-03-04 02:08 | PC.NURSE ---
Pt ca&ox3. Pt medicated per mar. Pts at bedside. No signs of distress. Will continue to monitor.
[2023-03-04 02:21] LABS: Anion Gap 19 (12-20); Calcium 6.7 mg/dL (8.4-10.2); Carbon Dioxide 14 mmol/L (22-29); Chloride 112 mmol/L (96-108); Creatinine Clr Calc Pharmacy 6.8; Estimated Glomerular Filt Rate 5; Glucose Random 186 mg/dL (60-115); Potassium 4.8 mmol/L (3.3-5.1); Sodium 140 mmol/L (135-145)
[2023-03-04 02:31] LABS: Blood Urea Nitrogen 118 mg/dL (9-16)
[2023-03-04 02:40] VITALS: PULSE 83; RESP 20; O2SAT 95
== END 2023-03-04 02:56 | disposition home or self-care (01) ==
PROVIDERS: Physician Assistant; Emergency Provider Student in an Organized Health Care Education/Training Program; PCP Registered Nurse
DX: N18.5 Chronic kidney disease, stage 5 (principal); N18.9 Chronic kidney disease, unspecified; D64.9 Anemia, unspecified; R10.11 Right upper quadrant pain; E11.22 Type 2 diabetes mellitus with diabetic chronic kidney disease; I12.0 Hypertensive chronic kidney disease with stage 5 chronic kidney disease or end stage renal disease
CPT/HCPCS: 36415; 36430; 71046; 76705; 80048; 80076; 81001; 82272; 83690; 83735; 85014; 85018; 85025; 86850; 86900; 86901; 86923; 93005; 96374; 99285; J1940; P9016

== ENCOUNTER 2023-03-15 07:44 | Inpatient (IN) | payer OTHER, SELFPAY ==
[2023-03-15] VITALS (7 sets, daily range): BP systolic 118–145; BP diastolic 42–66; PULSE 58–70; RESP 14–24; TEMP 36.2–36.8; O2SAT 90–93; BMI 29.5; BMI 30.6
--- NOTE | ~2023-03-15 | IR_ITS ---
PROCEDURE: IR INSERTION OF CENTRAL VENOUS CATHETER CLINICAL INFORMATION: Renal failure. COMPARISON: None available. TECHNIQUE: Procedure and risks and benefits including bleeding, infection and pneumothorax were discussed with the patient and informed consent was obtained. The patient was very short of breath and could not lay flat. Decision was made to put in a temporary dialysis catheter instead of a permacath. All elements of maximal sterile barrier technique followed including use of cap, mask, sterile gown, sterile gloves, a sterile full body drape and hand hygiene. Also followed skin preparation with 2% chlorhexidine for cutaneous antisepsis, and sterile ultrasound preparation with sterile gel and probe cover when applicable. The right neck and chest were prepped and draped in the usual sterile fashion. The skin and soft tissues were anesthetized with 1% lidocaine plain. Using ultrasound guidance and a 5 Vietnamese micropuncture system, right internal jugular vein access was obtained. Over an 0.018 wire, a 5 Vietnamese dilator was positioned in the SVC. A 0.035 guidewire was advanced through the 5 Vietnamese dilator into the IVC. Following serial dilatation, a 12 Vietnamese 13 cm in length temporary a Mahurkar dialysis catheter was positioned. Catheter tip is in the SVC. Both ports had good blood return, flushed easily and were instilled with 1.2 mL heparin 1000 unit per mL solution. Real-time ultrasound guidance was used to document vein patency and for needle entry. A formal ultrasound picture was recorded. FLUOROSCOPY TIME: 0.4 minutes. DAP: 100 uGy-cm2 FLUOROSCOPIC IMAGES: 1 saved. FINDINGS: There is a right jugular catheter with tip projecting over the SVC. IR/IR us guide venous access IMPRESSION: Right internal jugular 12 Vietnamese 13 cm in length temporary Mahurkar dialysis catheter placement.
--- NOTE | ~2023-03-15 | NM_ITS ---
PULMONARY PERFUSION ONLY STUDY: CLINICAL INDICATION: Shortness of breath. Positive d-dimer. PROCEDURE: Following the intravenous administration of 4.0 millicuries technetium 99m MAA, images of the chest were obtained in multiple projections using a gamma scintiphotographic camera. COMPARISON: Chest radiograph done earlier today. PERFUSION IMAGES: No large segmental perfusion defects identified on either side. NM/NM pul perfusion IMPRESSION: Based on modified PIOPED 2 criteria, pulmonary thromboembolism is considered absent.
--- NOTE | ~2023-03-15 | IR_ITS ---
PROCEDURE: IR INSERTION OF CENTRAL VENOUS CATHETER CLINICAL INFORMATION: Renal failure. COMPARISON: None available. TECHNIQUE: Procedure and risks and benefits including bleeding, infection and pneumothorax were discussed with the patient and informed consent was obtained. The patient was very short of breath and could not lay flat. Decision was made to put in a temporary dialysis catheter instead of a permacath. All elements of maximal sterile barrier technique followed including use of cap, mask, sterile gown, sterile gloves, a sterile full body drape and hand hygiene. Also followed skin preparation with 2% chlorhexidine for cutaneous antisepsis, and sterile ultrasound preparation with sterile gel and probe cover when applicable. The right neck and chest were prepped and draped in the usual sterile fashion. The skin and soft tissues were anesthetized with 1% lidocaine plain. Using ultrasound guidance and a 5 Angolan micropuncture system, right internal jugular vein access was obtained. Over an 0.018 wire, a 5 Angolan dilator was positioned in the SVC. A 0.035 guidewire was advanced through the 5 Angolan dilator into the IVC. Following serial dilatation, a 12 Angolan 13 cm in length temporary a Mahurkar dialysis catheter was positioned. Catheter tip is in the SVC. Both ports had good blood return, flushed easily and were instilled with 1.2 mL heparin 1000 unit per mL solution. Real-time ultrasound guidance was used to document vein patency and for needle entry. A formal ultrasound picture was recorded. FLUOROSCOPY TIME: 0.4 minutes. DAP: 100 uGy-cm2 FLUOROSCOPIC IMAGES: 1 saved. FINDINGS: There is a right jugular catheter with tip projecting over the SVC. IR/IR cvc insert non tunnel IMPRESSION: Right internal jugular 12 Angolan 13 cm in length temporary Mahurkar dialysis catheter placement.
--- NOTE | ~2023-03-15 | XR_ITS ---
EXAMINATION: XR CHEST CLINICAL INFORMATION: Shortness of breath COMPARISON: Previous chest x-rays most recent 03/04/2023 TECHNIQUE: Frontal view of the chest was obtained. FINDINGS: The cardiac silhouette is enlarged. There are increased lung markings, greatest in the perihilar and lower lung regions. Appearance is again suggestive of pulmonary edema. Differential would include an atypical interstitial pneumonia. No significant pleural effusion. No pneumothorax. Bony structures are unremarkable. XR/XR chest 1V IMPRESSION: Probable mild pulmonary edema similar to recent exam.
--- NOTE | ~2023-03-15 | IR_ITS ---
PROCEDURE: IR INSERTION OF TUNNEL CATHETER CLINICAL INFORMATION: Renal failure. COMPARISON: Previous exam 03/16/2023. TECHNIQUE: Procedure and risks and benefits including bleeding, infection and pneumothorax were discussed with the patient and informed consent was obtained. All elements of maximal sterile barrier technique followed including use of cap, mask, sterile gown, sterile gloves, a sterile full body drape and hand hygiene. Also followed skin preparation with 2% chlorhexidine for cutaneous antisepsis, and sterile ultrasound preparation with sterile gel and probe cover when applicable. The right neck and chest were prepped and draped in usual sterile fashion. Both ports of the existing temporary dialysis catheter were aspirated. The skin and soft tissues of the right upper anterior chest were anesthetized with 1% lidocaine plain. A small incision was made. A subcutaneous tunnel from the chest to the neck incision was anesthetized with 1% lidocaine plain. Using a tunneler, a 14.5 Dutch 19 cm in length Glidepath permacath was tunneled from the chest to the neck incision. An 0.035 guidewire was advanced through the existing dialysis catheter into the IVC. This was exchanged for a peel-away sheath. The permacath was fed centrally through the peel-away sheath. Incision was closed using a 4-0 absorbable subcuticular suture. Chest incision was closed using an absorbable 4-0 mattress suture. Both ports had good blood return, flushed easily and were instilled with heparin 1.6 mL 1000 unit per mL solution. Conscious sedation was provided by registered nurse under my direct supervision. Total umzh-ab-[id number] conscious sedation contact time was 17 minutes. Patient received Versed 0.5 mg and fentanyl 25 mcg intravenously during the procedure. FLUOROSCOPY TIME: 0.3 minutes. DAP: 41 uGy-cm2 FLUOROSCOPIC IMAGES: 1 saved. FINDINGS: There is a right internal jugular permacath projecting over the cavoatrial junction. IR/IR cvc insert central tunnel IMPRESSION: Right internal jugular 14.5 Dutch 19 cm in length Glidepath permacath placement.
[2023-03-15 08:14] LABS: MANUAL DIFF FLAG NO
[2023-03-15 08:15] LABS: Basophils Percent Auto 0.5 % (0-2); Eosinophils Absolute Auto 0.1 X10*3/uL (0.0-0.4); Eosinophils Percent Auto 1.1 % (0-4); Hematocrit 22.3 % (37.0-47.0); Hemoglobin 7.2 g/dl (12.0-16.0); Imm Gran Abs Auto 0.03 X10*3/uL (0.00-0.03); Imm Gran Pct Auto 0.5 % (0.0-0.4); Lymphocytes Absolute Auto 0.5 X10*3/uL (1.2-4.9); Lymphocytes Percent Auto 7.7 % (20-40); Mean Corpuscular HGB Conc 32.3 g/dl (31.0-35.0); Mean Corpuscular Hemoglobin 29.5 pg (27.0-33.0); Mean Corpuscular Volume 91.4 fL (80.0-98.0); Mean Platelet Volume 10.7 fL (9.4-12.3); Monocytes Absolute Auto 0.6 X10*3/uL (0.1-1.2); Monocytes Percent Auto 8.8 % (2-11); Neutrophils Absolute Auto 5.4 x10*3/uL (2.0-8.3); Neutrophils Percent Auto 81.4 % (45-73); Platelet Count 133 X10*3/uL (160-400); Red Blood Count 2.44 X10*6/uL (4.20-5.50); White Blood Count 6.6 X10*3/uL (4.8-10.8)
[2023-03-15 08:52] LABS: Alanine Aminotransferase 46 U/L (0-31); Albumin Level 3.2 g/dL (3.5-5.0); Alkaline Phosphatase 144 U/L (39-117); Anion Gap 19 (12-20); Aspartate Amino Transferase 63 U/L (5-31); Bilirubin Total 0.6 mg/dL (0.0-1.0); Blood Urea Nitrogen 123 mg/dL (9-16); Calcium 6.4 mg/dL (8.4-10.2); Carbon Dioxide 15 mmol/L (22-29); Chloride 108 mmol/L (96-108); Creatinine Clr Calc Pharmacy 6.2; Estimated Glomerular Filt Rate 5; Glucose Random 299 mg/dL (60-115); Potassium 4.8 mmol/L (3.3-5.1); Sodium 137 mmol/L (135-145); Total Protein 5.8 g/dL (6.5-8.0)
[2023-03-15 09:51] LABS: B Type Natriuretic Peptide 1670 pg/mL (<100)
--- NOTE | 2023-03-15 10:01 | ED_ITS ---
HPI - General Adult General Chief complaint: Dyspnea Stated complaint: head pain diff breathing low blood Time Seen by Provider: 03/15/23 08:47 Source: patient and family Mode of arrival: ambulatory Limitations: no limitations History of Present Illness HPI narrative: This is a 67-year-old female history of CKD, diabetes, hyperlipidemia, anemia of chronic disease requiring transfusions presenting to the emergency department with complaints of shortness of breath, fatigue, malaise since yesterday worsening. Shortness of breath better at rest worse with exertion. Patient also reporting sore neck. Patient denies chest pain, nausea, vomiting, fevers, chills, headache, vision changes, dizziness, weakness, urinary symptoms, changes in bowel habits, lower GIB Related Data Home Medications Medication Instructions Recorded Confirmed hydrochlorothiazide 12.5 mg tablet 1 tab PO DAILY 03/01/22 11/08/22 insulin human U-100 NPH-regulr 8 unit subcut BEDTIME 03/01/22 03/04/23 70-30 mix 100 unit/mL subcutaneous susp (Novolin 70/30 U-100 Insulin) insulin human U-100 NPH-regulr 13 unit subcut DAILY 03/01/22 11/08/22 70-30 mix 100 unit/mL subcutaneous susp (Novolin 70/30 U-100 Insulin) labetalol 100 mg tablet 1 tab PO BID PRN Blood Pressure 03/01/22 03/04/23 omeprazole 20 mg capsule,delayed 1 cap PO BID 03/01/22 11/08/22 release atorvastatin 40 mg tablet 1 tab PO DAILY cholesterol 11/08/22 03/04/23 furosemide 80 mg tablet 1 tab PO 3XW 11/08/22 03/04/23 amlodipine 5 mg tablet 10 mg PO DAILY 03/04/23 03/04/23 Previous Rx's Medication Instructions Recorded sodium bicarbonate 650 mg tablet 1,300 mg PO BID #120 tabs 11/09/22 Allergies Allergy/AdvReac Type Severity Reaction Status Date / Time No Known Allergies Allergy Verified 03/01/22 12:44 Review of Systems Review of Systems: Constitutional : No Weight loss, No Fever, No Chills, + Fatigue, + Malaise ENT/Mouth : No sore throat, No Rhinorrhea Eyes: No Eye Pain, No Swelling, No Redness Cardiovascular : No Chest Pain, + SOB, + Dyspnea on Exertion, No Orthopnea, No Edema, No Palpitations Respiratory : No Cough, No Sputum, No Wheezing Gastrointestinal : No Nausea, No Vomiting, No Diarrhea, No Constipation, No abdominal Pain, No Hematochezia, No Melena Genitourinary : No Dysuria, No Urinary Frequency, No Hematuria, Musculoskeletal : No joint pain, No Myalgias, No Joint Swelling Skin : No Skin Lesions, No rash Neuro : No Weakness, No Numbness, No Dizziness, No Headache Psych : No Anxiety/Panic, No Depression All other systems reviewed and are negative Yes all other systems are reviewed and are negative [facility] Past Medical History Attestation statement: The following information was validated with the patient. Source: old records reviewed and nursing notes reviewed Medical History Chronic kidney disease Diabetes mellitus Hyperlipidemia Hypertension Social History Social History Household Members: Spouse and None Housing: Apartment Do you presently have visiting nurse or other home services: No Alcohol intake: never Patient Tobacco Use Status: Never used Tobacco Smoked in Last 30 Days: No Use of substances other than those prescribed or required for medical reasons: No Advance Directives: No Physical Exam ED Vital Signs: Vital Signs - 24 hr 03/15/23 07:49 03/15/23 11:19 Temperature 98.0 F 97.9 F Pulse Rate 70 65 Respiratory Rate 18 24 H Blood Pressure 118/42 L 122/48 L Pulse Oximetry 93 Oxygen Delivery Method Room Air BMI result Body Mass Index 29.5 vss Appearance: Alert.? Oriented X3.? Mild acute distress.? Head: Normocephalic, atraumatic, no step-offs or deformities Eyes: Pupils equal, round and reactive to light.? Neck: Normal inspection.? Neck supple.?+ bilateral cervical paraspinous muscle tenderness CVS: Normal heart rate and rhythm.? Pulses normal.? Respiratory: Mild respiratory distress.? Breath sounds diminished bilaterally with faint crackles..? Abdomen: Soft and nontender.? Skin: Skin warm and dry.? Normal skin color.? Normal skin turgor.? Extremities: 2+ nonpitting edema to bilateral lower extremities.? No calf ttp. 5/5 strength to bilateral upper and lower extremities Neuro: Oriented X 3.? No motor deficit.? No sensory deficit. CN 2-12 intact . Negative Romberg and pronator drift Course Reevaluation(s) Reevaluation #1: CBC with a normocytic anemia, 7.2 in 22.3. Slightly lower than patient's baseline. This is likely anemia of chronic disease secondary to CKD. Patient is noted to have CKD which appears to be around her baseline, likely secondary to diabetes. She is not currently on hemodialysis. Patient's transaminases are noted to be slightly elevated however no abdominal tenderness to palpation. Patient's BNP elevated 1670 consistent with new onset CHF, upon review of patient's medications it is noted that she is on Lasix however unsure if patient is taking it, patient unsure. This is deviating significantly from patient's baseline. I did not order troponin because patient is not experiencing chest pain, EKG is nonischemic unlikely that this is ACS. I did order 1 unit of packed red blood cells and obtained verbal and written consent from patient. Consent in patient's chart. This case was discussed with my attending who agrees with diagnosis and treatment plan. I have tried reaching out to Nephrology multiple times however have not gotten a call back at this time. Time: 10:30 Reevaluation #2: Nephro recommends getting blood slowly and they will come in to evaluate patient in around an hour. Time: 10:35 Reevaluation #3: Plan hospital admission. Patient's D-dimer was elevated however I suspect this is secondary to CHF, lower suspicion for PE. However V/Q scan will be ordered since patient cannot obtain a CTA secondary to kidney function. Time: 10:40 Additional Reevaluation(s): Complaining of dizziness, lightheadedness, NIH stroke scale 0. Likely secondary to anemia. [id number], [id number], neuro nonfocal. Medications Administered Discontinued Medications Generic Name Dose Route Start Last Admin Trade Name Freq PRN Reason Stop Dose Admin Furosemide 20 mg 03/15/23 09:56 03/15/23 10:16 Furosemide 20 Mg/2 Ml Vial IVPUSH 03/15/23 09:57 20 mg ONCE ONE Administration Protocol Medical Decision Making Medical Decision Making [facility] Narrative: 3529 This is a 59-year-old female presenting for evaluation of shortness of breath, feels like she needs a blood transfusion. Shortness of breath started yesterday also experiencing associated fatigue and malaise. Physical examination significant for diminished breath sounds bilaterally and some crackles to lower lobes. Concerns for possible CHF, PE, effusions. Unlikely ACS patient without chest pain. Neck pain likely musculoskeletal as it is reproducible on exam with bilateral paraspinous muscle tenderness on palpation in the cervical region. Did not order troponin as it is likely falsely elevated due to CKD and patient is not experiencing chest pain. Differential Diagnosis Differential Diagnoses: The differential diagnosis associated with the present ation includes Concerns for possible CHF, PE, effusions. Unlikely ACS patient without chest pain. Neck pain likely musculoskeletal as it is reproducible on exam with bilateral paraspinous muscle tenderness on palpation in the cervical region. Lab Data MDM Lab Attestation statement: I reviewed the patient's lab results. 03/15/23 08:09 03/15/23 07:52 Labs: Lab Results 03/15/23 03/15/23 03/15/23 Range/Units 07:52 08:09 08:09 WBC 6.6 (4.8-10.8) X10*3/uL RBC 2.44 L (4.20-5.50) X10*6/uL Hgb 7.2 L (12.0-16.0) g/dl Hct 22.3 L (37.0-47.0) % MCV 91.4 (80.0-98.0) fL MCH 29.5 (27.0-33.0) pg MCHC 32.3 (31.0-35.0) g/dl RDW 12.0 (11.0-16.0) % Plt Count 133 L (160-400) X10*3/uL MPV 10.7 (9.4-12.3) fL Immature Gran % (Auto) 0.5 H (0.0-0.4) % Neut % (Auto) 81.4 H (45-73) % Lymph % (Auto) 7.7 L (20-40) % Webster % (Auto) 8.8 (2-11) % Eos % (Auto) 1.1 (0-4) % Baso % (Auto) 0.5 (0-2) % Lymph # (Auto) 0.5 L (1.2-4.9) X10*3/uL Webster # (Auto) 0.6 (0.1-1.2) X10*3/uL Eos # (Auto) 0.1 (0.0-0.4) X10*3/uL Baso # (Auto) 0.0 (0.0-0.2) X10*3/uL Abs Immat Gran (auto) 0.03 (0.00-0.03) X10*3/uL Absolute Neuts (auto) 5.4 (2.0-8.3) x10*3/uL Absolute Nucleated RBC 0.000 (0.0-0.012) X10*3/uL Nucleated RBC % (auto) 0.0 (0.0-0.2) /100WBC PT (10.0-13.1) SEC INR (0.9-1.1) D-Dimer High Sensitivty NG/ML Sodium 137 (135-145) mmol/L Potassium 4.8 (3.3-5.1) mmol/L Chloride 108 (96-108) mmol/L Carbon Dioxide 15 L (22-29) mmol/L Anion Gap 19 (12-20) BUN 123 H (9-16) mg/dL Creatinine 8.69 H* (0.5-1.4) mg/dL Estim Creat Clear Calc 6.2 Estimated GFR 5 Random Glucose 299 H (60-115) mg/dL Calcium 6.4 L (8.4-10.2) mg/dL Magnesium 1.9 (1.6-2.6) mg/dL Total Bilirubin 0.6 (0.0-1.0) mg/dL AST 63 H (5-31) U/L ALT 46 H (0-31) U/L Alkaline Phosphatase 144 H (39-117) U/L B-Natriuretic Peptide 1670 H (<100) pg/mL Total Protein 5.8 L (6.5-8.0) g/dL Albumin 3.2 L (3.5-5.0) g/dL Blood Type Antibody Screen Crossmatch 03/15/23 03/15/23 03/15/23 Range/Units 09:51 09:51 09:51 WBC (4.8-10.8) X10*3/uL RBC (4.20-5.50) X10*6/uL Hgb (12.0-16.0) g/dl Hct (37.0-47.0) % MCV (80.0-98.0) fL MCH (27.0-33.0) pg MCHC (31.0-35.0) g/dl RDW (11.0-16.0) % Plt Count (160-400) X10*3/uL MPV (9.4-12.3) fL Immature Gran % (Auto) (0.0-0.4) % Neut % (Auto) (45-73) % Lymph % (Auto) (20-40) % Webster % (Auto) (2-11) % Eos % (Auto) (0-4) % Baso % (Auto) (0-2) % Lymph # (Auto) (1.2-4.9) X10*3/uL Webster # (Auto) (0.1-1.2) X10*3/uL Eos # (Auto) (0.0-0.4) X10*3/uL Baso # (Auto) (0.0-0.2) X10*3/uL Abs Immat Gran (auto) (0.00-0.03) X10*3/uL Absolute Neuts (auto) (2.0-8.3) x10*3/uL Absolute Nucleated RBC (0.0-0.012) X10*3/uL Nucleated RBC % (auto) (0.0-0.2) /100WBC PT 13.1 (10.0-13.1) SEC INR 1.1 (0.9-1.1) D-Dimer High Sensitivty 2545 NG/ML Sodium (135-145) mmol/L Potassium (3.3-5.1) mmol/L Chloride (96-108) mmol/L Carbon Dioxide (22-29) mmol/L Anion Gap (12-20) BUN (9-16) mg/dL Creatinine (0.5-1.4) mg/dL Estim Creat Clear Calc Estimated GFR Random Glucose (60-115) mg/dL Calcium (8.4-10.2) mg/dL Magnesium (1.6-2.6) mg/dL Total Bilirubin (0.0-1.0) mg/dL AST (5-31) U/L ALT (0-31) U/L Alkaline Phosphatase (39-117) U/L B-Natriuretic Peptide (<100) pg/mL Total Protein (6.5-8.0) g/dL Albumin (3.5-5.0) g/dL Blood Type O Positive Antibody Screen NEGATIVE Crossmatch See Detail Independent Interpretation I performed an independent interpretation of an: EKG (Ventricular rate of 63, GA normal, QRS normal, QT/QTC normal. EKG with normal sinus rhythm no ST elevations or inversions concerning for ischemia.) and Plain X-Ray Radiology Impression Discussion of test interpretation with radiology: I have reviewed the radiologist's reading. Critical Care Time Critical Care Time Critical Care Time: Yes Total Critical Care Time: 60 Attestation: I attest to this time spent taking care of the patient, obtaining history, phys ical, reviewing labs, imaging, speaking to my attending, speaking to specialist. Discharge Plan Discharge Clinical Impression: CKD (chronic kidney disease), CHF (congestive heart failure), Anemia due to chronic kidney disease Patient Disposition: Still a Patient Prescriptions: No Action Novolin 70/30 U-100 Insulin 100 unit/mL (70-30) suspension 13 unit subcut DAILY omeprazole 20 mg capsule,delayed release(DR/EC) 1 cap PO BID labetalol 100 mg tablet 1 tab PO BID PRN (Reason: Blood Pressure) hydrochlorothiazide 12.5 mg tablet 1 tab PO DAILY Novolin 70/30 U-100 Insulin 100 unit/mL (70-30) suspension 8 unit subcut BEDTIME atorvastatin 40 mg tablet 1 tab PO DAILY furosemide 80 mg tablet 1 tab PO 3XW sodium bicarbonate 650 mg tablet 1,300 mg PO BID Qty: 120 0RF amlodipine 5 mg tablet 10 mg PO DAILY Protocol: Hold for SBP< HOLD for SBP < : 90
--- NOTE | 2023-03-15 10:04 | ECG_ITS ---
Test Reason : SOB Blood Pressure : / mmHG Vent. Rate : 063 BPM Atrial Rate : 063 BPM P-R Int : 142 ms QRS Dur : 076 ms QT Int : 484 ms P-R-T Axes : 031 056 048 degrees QTc Int : 495 ms Normal sinus rhythm Cannot rule out Anterior infarct (cited on or before 15-MAR-2023) Abnormal ECG When compared with ECG of 03-MAR-2023 15:50, No significant change was found Referred By: Livier Thomas Electronically Signed By:Ellis Moore
[2023-03-15] MEDS: Furosemide 20 MG/2 ML VIAL IVPUSH (10:16)
[2023-03-15 10:24] LABS: INTERNATIONAL NORM RATIO 1.1 (0.9-1.1); Prothrombin Time 13.1 SEC (10.0-13.1)
[2023-03-15 10:27] LABS: D Dimer High Sensitivity 2545 NG/ML
[2023-03-15 11:02] LABS: Magnesium 1.9 mg/dL (1.6-2.6)
--- NOTE | 2023-03-15 11:17 | P.HPHOSP_ITS ---
History of Present Illness Date of Service: 03/15/23 Attending physician on admission: Dillon Castellanos Chief Complaint: sob, fatigue 67-year-old female with pertinent history of essential hypertension, insulin- dependent diabetes mellitus, gastroesophageal reflux disease, mixed hyperlipidemia, anemia of chronic disease, chronic kidney disease?presented to the ED for evaluation of sob, fatigue, and malaise ongoing since yesterday morning. Describes orthopnea, no other sob or with exertion. She is reporting nausea. Reports making adequate amounts of urine without any associated dysuria, hematuria, increased urinary frequency or urgency. Denies any pain. No fevers, chills, abdominal pain, vomiting, diarrhea, constipation, lightheadedness, palpitations, or chest pain. She has never undergone dialysis. Was seen in November with similar symptoms but no dialysis at that time, was re commended for outpatient follow-up. On arrival, blood pressure is soft around 118/42 but no true hypotension. Vitals otherwise within normal limits. She does have baseline normocytic anemia with H/H 7.2/22.3%. Platelets 133. Creatinine 8.69, has been gradually increasing over the last few months. Upon discharge in November, creatinine was 4.6. BUN 123. Glucose 299. AST 63, ALT 46, alkaline phosphatase 144, BNP 1670. CXR showing possible mild pulmonary edema, similar to prior exam. EKG showing NSR, rate 63, no ST or depressions. ED discussed case with Nephrology was recommending admission and will be presenting to evaluate patient. Review of Systems Review of Systems: General: No fevers, unintentional weight loss. +malaise, fatigue HEENT: No blurred vision, diplopia. No sore throat, nasal congestion, rhinorrhea, sinus pain, ear pain Cardiovascular: No chest pain, palpitations, or leg edema Respiratory: +orthopnea. No duarte, wheezing, cough GI: +nausea. No abdominal pain, vomiting, diarrhea, constipation, melena, hematochezia : No dysuria, hematuria, increased urinary frequency, decreased urinary output MSK: No myalgia, back pain Neuro: No headaches, weakness, paresthesias Skin: No rashes or lesions [facility] Medical History Anemia due to chronic kidney disease Chronic kidney disease Diabetes mellitus Hyperlipidemia Hypertension Social History Household Members: Spouse and None Housing: Apartment Do you presently have visiting nurse or other home services: No Alcohol intake: never Patient Tobacco Use Status: Never used Tobacco Smoked in Last 30 Days: No Use of substances other than those prescribed or required for medical reasons: No Advance Directives: No Meds Allergies Allergy/AdvReac Type Severity Reaction Status Date / Time No Known Allergies Allergy Verified 03/01/22 12:44 Active Medications: Current Medications Pharmacy Consult (Consult Rx Perform Med Rec) 1 each MISCELLANE ONCE PRN PRN Reason: Consult order Home Medications Medication Instructions Recorded Confirmed Last Taken Type hydrochlorothiazide 12.5 mg tablet 1 tab PO 4XW 03/01/22 03/15/23 03/01/22 History insulin human U-100 NPH-regulr 8 unit subcut BEDTIME 03/01/22 03/15/23 02/28/22 History 70-30 mix 100 unit/mL subcutaneous susp (Novolin 70/30 U-100 Insulin) insulin human U-100 NPH-regulr 13 unit subcut DAILY 03/01/22 03/15/23 03/01/22 History 70-30 mix 100 unit/mL subcutaneous susp (Novolin 70/30 U-100 Insulin) labetalol 100 mg tablet 1.5 tab PO BID 03/01/22 03/15/23 03/01/22 History omeprazole 20 mg capsule,delayed 40 mg PO DAILY 03/01/22 03/15/23 03/01/22 History release atorvastatin 40 mg tablet 1 tab PO DAILY cholesterol 11/08/22 03/15/23 Unknown History furosemide 80 mg tablet 1 tab PO 3XW 11/08/22 03/15/23 Unknown History amlodipine 5 mg tablet 10 mg PO DAILY 03/04/23 03/15/23 Unknown History cyanocobalamin (vitamin B-12) 1,000 mcg PO DAILY 03/15/23 03/15/23 Unknown History 1,000 mcg tablet Physical Exam Vital Signs and Narrative: Vital Signs: Last Vital Signs Temp 98.0 F 03/15/23 07:49 Pulse 70 03/15/23 07:49 Resp 18 03/15/23 07:49 BP 118/42 L 03/15/23 07:49 Pulse Ox 93 03/15/23 07:49 O2 Del Method Room Air 03/15/23 07:49 BMI result Body Mass Index 29.5 Constitutional - Awake and Alert, No apparent distress Eyes - PERRLA, EOMI Cardiovascular - S1S2, RRR, 2+ pitting edema Respiratory - Normal lung expansion, Normal respiratory effort, No respiratory distress, scattered expiratory wheezing, scattered crackles Gastrointestinal - NT / ND; +BS; No rebound or guarding Extremities - no calf tenderness bilaterally, no swelling Skin - Warm/Dry Neurological - Alert & oriented x3 but somewhat confused, CN II-XII in tact, 5/5 strength BUE and BLE Psychological - Appropriate affect Results Labs 03/15/23 08:09 03/15/23 07:52 Labs: Laboratory Results - last 24 hr 03/15/23 03/15/23 03/15/23 07:52 08:09 08:09 MCV 91.4 MCH 29.5 MCHC 32.3 RDW 12.0 Plt Count 133 L MPV 10.7 Immature Gran % (Auto) 0.5 H Neut % (Auto) 81.4 H Lymph % (Auto) 7.7 L Stafford % (Auto) 8.8 Eos % (Auto) 1.1 Baso % (Auto) 0.5 Lymph # (Auto) 0.5 L Stafford # (Auto) 0.6 Eos # (Auto) 0.1 Baso # (Auto) 0.0 Abs Immat Gran (auto) 0.03 Absolute Neuts (auto) 5.4 Absolute Nucleated RBC 0.000 Nucleated RBC % (auto) 0.0 PT INR D-Dimer High Sensitivty Anion Gap 19 Estim Creat Clear Calc 6.2 Estimated GFR 5 Random Glucose 299 H Calcium 6.4 L Magnesium 1.9 Total Bilirubin 0.6 AST 63 H ALT 46 H Alkaline Phosphatase 144 H B-Natriuretic Peptide 1670 H Total Protein 5.8 L Albumin 3.2 L Blood Type Antibody Screen Crossmatch 03/15/23 03/15/23 03/15/23 09:51 09:51 09:51 MCV MCH MCHC RDW Plt Count MPV Immature Gran % (Auto) Neut % (Auto) Lymph % (Auto) Stafford % (Auto) Eos % (Auto) Baso % (Auto) Lymph # (Auto) Stafford # (Auto) Eos # (Auto) Baso # (Auto) Abs Immat Gran (auto) Absolute Neuts (auto) Absolute Nucleated RBC Nucleated RBC % (auto) PT 13.1 INR 1.1 D-Dimer High Sensitivty 2545 Anion Gap Estim Creat Clear Calc Estimated GFR Random Glucose Calcium Magnesium Total Bilirubin AST ALT Alkaline Phosphatase B-Natriuretic Peptide Total Protein Albumin Blood Type O Positive Antibody Screen NEGATIVE Crossmatch See Detail Imaging Radiologist's Impressions: Impressions Chest X-Ray 03/15/23 10:14 IMPRESSION: Probable mild pulmonary edema similar to recent exam. Assessment and Plan (1) Anemia due to chronic kidney disease: Status: Acute (2) CKD (chronic kidney disease), stage V: Status: Acute (3) Toxic metabolic encephalopathy: Status: Acute Plan 67-year-old female with pertinent history of essential hypertension, insulin- dependent diabetes mellitus, gastroesophageal reflux disease, mixed hyperlipidemia, anemia of chronic disease, chronic kidney disease admitted for end-stage renal disease requiring dialysis with uremia and acute on chronic non blood loss anemia requiring transfusion. # end-stage renal disease requiring dialysis- nonoliguric -likely related to poorly controlled diabetes and hyertension -Creat 8.69, BUN 123. Electrolyte levels within normal limits except for CO2 15 -nephrology consult, plan for dialysis -Low sodium diet. NPO after midnight for dialysis catheter 03/16 -Medina catheter -avoid nephrotoxins -Follow BMP # acute toxic metabolic encephalopathy -due to uremia -BUN 123 -likely requiring dialysis -monitor mentation # acute congestive heart failure exacerbation -likely cardiorenal syndrome -BNP 1670, CXR with mild pulmonary edema and symptomatic with orthopnea -Received 20mg IV lasix, hold on further diuresis given soft blood pressures -dialyze as above -consider echocardiogram # acute on chronic non blood loss anemia-related to chronic disease -HGB 7.2, HCT 22.3% -transfuse 1 unit in the ED -Repear CBC @5pm. Goal Hgb 9.0, transfuse additional unit if indicated with 20mg Lasix -follow CBC -monitor on telemetry # insulin-dependent type 2 diabetes-with hyperglycemia -hemoglobin A1c pending -POC glucose -diabetic diet -Humalog on sliding scale -dose adjusted basal insulin # hypertension-blood pressure soft -Continue amlodipine, lasix, labetalol. Hold hctz # HLD -continue statin DVT prophylaxis- SCPs Full code Patient requires inpatient stay of at least 2 midnights for management of end- stage renal disease with acute toxic metabolic encephalopathy due to uremia requiring dialysis as well as management of acute on chronic anemia requiring transfusion. Will require close monitoring of renal function, blood counts, and expert consultation that cannot take place in lower level of care. Time Spent With Patient Time: Total time managing care of this patient today ____ minutes. Quality Stroke Does the patient have a stroke diagnosis?: No VTE Prior VTE?: No VTE Risk Level:: Medical - moderate - high VTE Device Contraindication: N/A - Device Ordered VTE Drug Contraindication: Treatment Not Indicated
--- NOTE | 2023-03-15 12:08 | PM.CNNEP ---
History of Present Illness Reason for Consult Consult date: 03/17/23 Reason for consult: CAMERON /CKD Chief Complaint Chief complaint: ESRD needing dialysis , uremia, acute on chronic a History of Present Illness Narrative: Patient seen in ED Family at bedside 67 yr old woman with advanced CKD and usually seen by in the out patient setting. Last seen in January 2023 Review of Systems Constitutional: Reports anorexia and Denies headache(s) Eyes: Denies dry eyes Denies headache(s) Cardiovascular: Reports Abdominal Distension, Denies chest pain, Reports pedal edema and Reports dyspnea on exertion Respiratory: Denies cough, Denies hemoptysis and Reports dyspnea on exertion Gastrointestinal: Denies abdominal pain, Denies dyspepsia and Denies vomiting Genitourinary: Denies urinary incontinence and Denies urinary urgency Musculoskeletal: Denies tingling Denies headache(s), Denies focal weakness, Denies tingling and Denies tremor(s) PMFSH Past Medical History Medical History Anemia due to chronic kidney disease Chronic kidney disease Diabetes mellitus Hyperlipidemia Hypertension Social History Social History Household Members: Spouse Housing: Apartment Do you presently have visiting nurse or other home services: No Alcohol intake: never Patient Tobacco Use Status: Never used Tobacco Smoked in Last 30 Days: No Use of substances other than those prescribed or required for medical reasons: No Currently Displaying Signs/Symptoms of Drug Intoxication Withdrawal: No Have you been hit, kicked, punched, or otherwise hurt by someone within the past year? If so, by whom?: No Do you feel safe in your current relationship?: Yes Is there a partner from a previous relationship who is making you feel unsafe now?: No Are you made to feel afraid or neglected: No Advance Directives: No Do you have thoughts of harming others: None Do you have a plan to hurt others: No Plan Recently lost weight without trying: No Nutrition Risks: No Nutritional Risk Patient : No : No Poor oral hygiene: No service: No Current occupational status: unemployed Meds Allergies Allergy/AdvReac Type Severity Reaction Status Date / Time No Known Allergies Allergy Verified 03/01/22 12:44 Active Medications: Current Medications Pharmacy Consult (Consult Rx Perform Med Rec) 1 each MISCELLANE ONCE PRN PRN Reason: Consult order Home Medications Medication Instructions Recorded Confirmed Last Taken Type hydrochlorothiazide 12.5 mg tablet 1 tab PO SUTUTHSA 03/01/22 03/15/23 03/01/22 History insulin human U-100 NPH-regulr 8 unit subcut BEDTIME 03/01/22 03/15/23 02/28/22 History 70-30 mix 100 unit/mL subcutaneous susp (Novolin 70/30 U-100 Insulin) insulin human U-100 NPH-regulr 13 unit subcut DAILY 03/01/22 03/15/23 03/01/22 History 70-30 mix 100 unit/mL subcutaneous susp (Novolin 70/30 U-100 Insulin) labetalol 100 mg tablet 1.5 tab PO BID 03/01/22 03/15/23 03/01/22 History omeprazole 20 mg capsule,delayed 40 mg PO DAILY 03/01/22 03/15/23 03/01/22 History release atorvastatin 40 mg tablet 1 tab PO DAILY cholesterol 11/08/22 03/15/23 Unknown History furosemide 80 mg tablet 1 tab PO MOWEFR 11/08/22 03/15/23 Unknown History amlodipine 5 mg tablet 10 mg PO DAILY 03/04/23 03/15/23 Unknown History cyanocobalamin (vitamin B-12) 1,000 mcg PO DAILY 03/15/23 03/15/23 Unknown History 1,000 mcg tablet Physical Exam Vital Signs: Last Vital Signs Temp 97.9 F 03/15/23 11:34 Pulse 66 03/15/23 11:34 Resp 18 03/15/23 11:34 BP 120/43 L 03/15/23 11:34 Pulse Ox 93 03/15/23 07:49 O2 Del Method Room Air 03/15/23 07:49 BMI result Body Mass Index 29.5 Ill appearing but Comfortable Neck is supple Lung: Air entry diminished. Heart: S1,S2, normal. No rub Abd: Soft. BS + NS : Alert.No asterexis Ext: 2+ edema Results Lab Results 03/15/23 08:09 03/15/23 07:52 Lab results: Chemistry 03/15/23 07:52 Sodium 137 Potassium 4.8 Carbon Dioxide 15 L BUN 123 H Creatinine 8.69 H* Calcium 6.4 L Hematology 03/15/23 08:09 WBC 6.6 Hgb 7.2 L Plt Count 133 L Assessment and Plan (1) CKD stage 5 secondary to hypertension: Status: Acute (2) Anemia: Status: Acute Plan 67 yr old woman with advanced CKD in a setting of DM and HTN comes in with worsening renal failure, severe anemia and volume overload Approaching ESRD Will arrange for permcath and initiate HD Discussed with patient and family with the help of maltese interpretor Transfuse PRBCS IV LAsix 80 mg Keep O >I Resume Epogen Time Spent With Patient Time: Total time managing care of this patient today ____ minutes. Procedures Date of Service Date of Service: 03/17/23
--- NOTE | 2023-03-15 12:23 | PHA.MEDREC ---
Pharmacy Consult ? Medication Reconciliation Pharmacy has completed the medication reconciliation. spoke with patients and used an coding specialist. He says she still takes amlodipine 10mg however claim history shows last fill was 11/10 for 30 days supply of 5mg. He also said she takes HCTZ on the days she does not take the furosemide however claim history shows last fill was at the end of June last year for a 90 days supply.
[2023-03-15 12:48] LABS: Estimated Average Glucose 140 mg/dL; Hemoglobin A1C 95.7539 umol/L; Hemoglobin A1c % 6.5 %
[2023-03-15] MEDS: Furosemide 100 MG/10 ML VIAL 60 MG IVPUSH (14:15)
[2023-03-15 16:16] LABS: Glucose, Whole Blood 203 mg/dL (60-115)
[2023-03-15] MEDS: Acetaminophen 325 MG TABLET 650 MG PO (16:48)
[2023-03-15] MEDS: Insulin Lispro 100 UNIT/ML 3 ML VIAL SUBCUT ×3 (16:50→21:14)
[2023-03-15 20:31] LABS: Glucose, Whole Blood 157 mg/dL (60-115)
[2023-03-15 20:45] LABS: Hematocrit 27.4 % (37.0-47.0); Mean Corpuscular HGB Conc 32.8 g/dl (31.0-35.0); Mean Corpuscular Hemoglobin 29.4 pg (27.0-33.0); Mean Corpuscular Volume 89.5 fL (80.0-98.0); Mean Platelet Volume 10.7 fL (9.4-12.3); Platelet Count 138 X10*3/uL (160-400); Red Blood Count 3.06 X10*6/uL (4.20-5.50); Red Cell Distribution Width 12.3 % (11.0-16.0); White Blood Count 7.3 X10*3/uL (4.8-10.8)
[2023-03-15] MEDS: Labetalol HCL 100 MG TABLET 150 MG PO (21:14)
[2023-03-15] MEDS: Insulin Glargine,Hum.rec.anlog 100 UNIT/ML 10 ML VIAL SUBCUT (21:15)
[2023-03-15] MEDS: 0.9 % Sodium Chloride Flush 3 ML SYRINGE IVFLUSH (21:15)
[2023-03-15] MEDS: Magnesium Hydrox/Alum Hydrox 30 ML ORAL.SUSP 15 ML PO (21:43)
[2023-03-15] MEDS: Dicyclomine HCl 10 MG CAPSULE PO (21:46)
[2023-03-15] MEDS: ondansetron HCL 4 MG/2 ML VIAL IVPUSH (21:47)
[2023-03-16 03:27] VITALS: BP 149/67; PULSE 64; RESP 18; TEMP 36.1; O2SAT 90
[2023-03-16 06:26] LABS: MANUAL DIFF FLAG NO
[2023-03-16 06:51] LABS: Basophils Percent Auto 0.3 % (0-2); Eosinophils Absolute Auto 0.1 X10*3/uL (0.0-0.4); Eosinophils Percent Auto 0.6 % (0-4); Hematocrit 28.4 % (37.0-47.0); Hemoglobin 9.4 g/dl (12.0-16.0); Imm Gran Abs Auto 0.06 X10*3/uL (0.00-0.03); Imm Gran Pct Auto 0.7 % (0.0-0.4); Lymphocytes Absolute Auto 0.4 X10*3/uL (1.2-4.9); Lymphocytes Percent Auto 4.6 % (20-40); Mean Corpuscular HGB Conc 33.1 g/dl (31.0-35.0); Mean Corpuscular Hemoglobin 29.9 pg (27.0-33.0); Mean Corpuscular Volume 90.4 fL (80.0-98.0); Mean Platelet Volume 11.7 fL (9.4-12.3); Monocytes Absolute Auto 0.5 X10*3/uL (0.1-1.2); Monocytes Percent Auto 5.1 % (2-11); Neutrophils Absolute Auto 7.8 x10*3/uL (2.0-8.3); Neutrophils Percent Auto 88.7 % (45-73); Platelet Count 151 X10*3/uL (160-400); Red Blood Count 3.14 X10*6/uL (4.20-5.50); Red Cell Distribution Width 12.2 % (11.0-16.0); White Blood Count 8.8 X10*3/uL (4.8-10.8)
[2023-03-16 07:02] LABS: Anion Gap 19 (12-20); Carbon Dioxide 16 mmol/L (22-29); Chloride 105 mmol/L (96-108); Creatinine Clr Calc Pharmacy 6.2; Estimated Glomerular Filt Rate 4; Glucose Random 92 mg/dL (60-115); Sodium 135 mmol/L (135-145)
[2023-03-16 07:13] VITALS: BP 159/68; PULSE 72; RESP 20; TEMP 36.7; O2SAT 90
[2023-03-16 07:15] LABS: Blood Urea Nitrogen 122 mg/dL (9-16)
[2023-03-16 07:37] LABS: Glucose, Whole Blood 102 mg/dL (60-115)
[2023-03-16] MEDS: Furosemide 40 MG TABLET 80 MG PO (08:33)
[2023-03-16] MEDS: amLODIPine Besylate 10 MG TABLET PO (08:33)
[2023-03-16] MEDS: Atorvastatin Calcium 40 MG TABLET PO (08:33)
[2023-03-16] MEDS: Labetalol HCL 100 MG TABLET 150 MG PO ×2 (08:33→20:39)
[2023-03-16] MEDS: Cyanocobalamin (Vitamin B-12) 1,000 MCG TABLET 1000 MCG PO (08:33)
[2023-03-16] MEDS: 0.9 % Sodium Chloride Flush 3 ML SYRINGE IVFLUSH (08:37)
--- NOTE | 2023-03-16 09:48 | PM.PNNEP ---
Subjective Subjective Date of Service: 03/17/23 Principal diagnosis: CKD5 Physical Exam Vital Signs: Vital Signs: Last Vital Signs Temp 98.1 F 03/16/23 07:13 Pulse 72 03/16/23 07:13 Resp 20 03/16/23 07:13 BP 159/68 H 03/16/23 07:13 Pulse Ox 90 L 03/16/23 07:13 O2 Del Method Room Air 03/16/23 07:13 O2 Flow Rate 2 03/15/23 19:48 BMI result Body Mass Index 30.6 Comfortable Neck is supple Lung: Air entry equal with rhonchi Heart: S1,S2, normal. No rub Abd: Soft. BS + NS : Alert.No asterexis Ext: 1+ edema Objective Data Labs 03/16/23 05:59 03/16/23 05:59 Labs: Laboratory Results - last 24 hr 03/15/23 03/15/23 03/15/23 07:52 08:09 08:09 WBC RBC Hgb Hct MCV MCH MCHC RDW Plt Count MPV Immature Gran % (Auto) Neut % (Auto) Lymph % (Auto) [place] % (Auto) Eos % (Auto) Baso % (Auto) Lymph # (Auto) [place] # (Auto) Eos # (Auto) Baso # (Auto) Abs Immat Gran (auto) Absolute Neuts (auto) Absolute Nucleated RBC Nucleated RBC % (auto) PT INR D-Dimer High Sensitivty Sodium Potassium Chloride Carbon Dioxide Anion Gap BUN Creatinine Estim Creat Clear Calc Estimated GFR POC Glucose Random Glucose Estimat Average Glucose 140 Hemoglobin A1c % 6.5 Calcium Magnesium 1.9 B-Natriuretic Peptide 1670 H Blood Type Antibody Screen Crossmatch 03/15/23 03/15/23 03/15/23 09:51 09:51 09:51 WBC RBC Hgb Hct MCV MCH MCHC RDW Plt Count MPV Immature Gran % (Auto) Neut % (Auto) Lymph % (Auto) [place] % (Auto) Eos % (Auto) Baso % (Auto) Lymph # (Auto) [place] # (Auto) Eos # (Auto) Baso # (Auto) Abs Immat Gran (auto) Absolute Neuts (auto) Absolute Nucleated RBC Nucleated RBC % (auto) PT 13.1 INR 1.1 D-Dimer High Sensitivty 2545 Sodium Potassium Chloride Carbon Dioxide Anion Gap BUN Creatinine Estim Creat Clear Calc Estimated GFR POC Glucose Random Glucose Estimat Average Glucose Hemoglobin A1c % Calcium Magnesium B-Natriuretic Peptide Blood Type O Positive Antibody Screen NEGATIVE Crossmatch See Detail 03/15/23 03/15/23 03/15/23 16:12 20:20 20:39 WBC 7.3 RBC 3.06 L D Hgb 9.0 L D Hct 27.4 L D MCV 89.5 MCH 29.4 MCHC 32.8 RDW 12.3 Plt Count 138 L MPV 10.7 Immature Gran % (Auto) Neut % (Auto) Lymph % (Auto) [place] % (Auto) Eos % (Auto) Baso % (Auto) Lymph # (Auto) [place] # (Auto) Eos # (Auto) Baso # (Auto) Abs Immat Gran (auto) Absolute Neuts (auto) Absolute Nucleated RBC 0.000 Nucleated RBC % (auto) 0.0 PT INR D-Dimer High Sensitivty Sodium Potassium Chloride Carbon Dioxide Anion Gap BUN Creatinine Estim Creat Clear Calc Estimated GFR POC Glucose 203 H 157 H Random Glucose Estimat Average Glucose Hemoglobin A1c % Calcium Magnesium B-Natriuretic Peptide Blood Type Antibody Screen Crossmatch 03/16/23 03/16/23 03/16/23 05:59 05:59 07:18 WBC 8.8 RBC 3.14 L Hgb 9.4 L Hct 28.4 L MCV 90.4 MCH 29.9 MCHC 33.1 RDW 12.2 Plt Count 151 L MPV 11.7 Immature Gran % (Auto) 0.7 H Neut % (Auto) 88.7 H Lymph % (Auto) 4.6 L [place] % (Auto) 5.1 Eos % (Auto) 0.6 Baso % (Auto) 0.3 Lymph # (Auto) 0.4 L [place] # (Auto) 0.5 Eos # (Auto) 0.1 Baso # (Auto) 0.0 Abs Immat Gran (auto) 0.06 H Absolute Neuts (auto) 7.8 Absolute Nucleated RBC 0.000 Nucleated RBC % (auto) 0.0 PT INR D-Dimer High Sensitivty Sodium 135 Potassium 5.0 Chloride 105 Carbon Dioxide 16 L Anion Gap 19 BUN 122 H Creatinine 8.84 H* Estim Creat Clear Calc 6.2 Estimated GFR 4 POC Glucose 102 Random Glucose 92 Estimat Average Glucose Hemoglobin A1c % Calcium 7.0 L D Magnesium 2.0 B-Natriuretic Peptide Blood Type Antibody Screen Crossmatch Procedures Date of Service Date of Service: 03/17/23 Assessment & Plan Assessment and plan (1) Anemia due to chronic kidney disease: Status: Acute (2) CKD (chronic kidney disease), stage V: Status: Acute Plan CKD 5 approaching ESRD Await permcath Will initiate HD Remove fluid as tolerated Optimize HCT IV Lasix PRN Time Spent With Patient Time: Total time managing care of this patient today ____ minutes. Progress Note: Quality Stroke Does the patient have a stroke diagnosis?: No
--- NOTE | 2023-03-16 10:43 | MHC.CM.PN ---
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 PER HOSPITALIST PT WILL NEED NEW HD AND ANTIC PT WILL REMAIN INPT FOR 3 MORE DAYS. PT VERIFIES PCP IS [facility], VERO X2 AND PT WOULD LIKE TO COMPLETE A HCP PRIOR TO D/C.
[2023-03-16 11:01] VITALS: BP 130/60; PULSE 63; RESP 20; TEMP 36.3; O2SAT 92
[2023-03-16 11:17] LABS: Glucose, Whole Blood 112 mg/dL (60-115)
[2023-03-16 13:13] LABS: Glucose, Whole Blood 112 mg/dL (60-115)
--- NOTE | 2023-03-16 14:46 | P.PNIM_ITS ---
Subjective Subjective Date of Service: 03/16/23 Interval History: This history was taken in Bengali from the patient. Orthopnea Leg swelling Mildly hypoxic Review of Systems Review of Systems: Yes all other systems are reviewed and are negative Physical Exam Vital Signs: Vital Signs: Last Vital Signs Temp 97.4 F 03/16/23 11:01 Pulse 63 03/16/23 11:01 Resp 20 03/16/23 11:01 BP 130/60 03/16/23 11:01 Pulse Ox 92 03/16/23 11:01 O2 Del Method Nasal Cannula 03/16/23 11:01 O2 Flow Rate 2 03/16/23 11:01 BMI result Body Mass Index 30.6 Gen: in no acute distress HEENT: sclera anicteric, moist mucus membranes Neck: supple Lungs: clear to auscultation bilaterally Heart: regular rate and rhythm, no murmurs Abd: soft, non-tender, non-distended Ext: bilateral pitting LE edema Skin: warm/well-perfused Neuro: alert and oriented x3, no focal findings Psych: appropriate affect Objective Data Active Medications Acetaminophen (Acetaminophen 325 Mg Tablet) 650 mg PO Q6H PRN PRN Reason: Pain, Mild (Pain Scale 1-3) Last Admin: 03/15/23 16:48 Dose: 650 mg Documented By: TYLER Amlodipine Besylate (Amlodipine Besylate 10 Mg Tablet) 10 mg PO DAILY [facility]; Protocol Last Admin: 03/16/23 08:33 Dose: 10 mg Documented By: VÍCTOR Atorvastatin Calcium (Atorvastatin Calcium 40 Mg Tablet) 40 mg PO DAILY [facility] Last Admin: 03/16/23 08:33 Dose: 40 mg Documented By: VÍCTOR Cyanocobalamin (Cyanocobalamin (Vitamin B-12) 1,000 Mcg Tablet) 1,000 mcg PO DAILY [facility] Last Admin: 03/16/23 08:33 Dose: 1,000 mcg Documented By: VÍCTOR Docusate Sodium (Docusate Sodium 100 Mg Capsule) 100 mg PO DAILY PRN PRN Reason: Constipation Furosemide (Furosemide 40 Mg Tablet) 80 mg PO MoWeFr@0900 [facility]; Protocol Last Admin: 03/16/23 08:33 Dose: 80 mg Documented By: VÍCTOR Glucose (Glucose Gel 15 Gm Gel..Gram.) 15 gm PO Q15M PRN; Protocol PRN Reason: per Hypoglycemia Standing Ord. Dextrose (D10) 250 mls @ 750 mls/hr IV Q15M PRN; Protocol PRN Reason: per Hypoglycemia Standing Ord. Insulin Glargine (Insulin Glargine,Hum.Rec.Anlog 100 Unit/Ml 10 Ml Vial) 7 unit SUBCUT DAILY [facility] Last Admin: 03/16/23 08:37 Dose: Not Given Documented By: VÍCTOR Non-Admin Reason: NPO Insulin Glargine (Insulin Glargine,Hum.Rec.Anlog 100 Unit/Ml 10 Ml Vial) 5 unit SUBCUT BEDTIME [facility] Last Admin: 03/15/23 21:15 Dose: 5 unit Documented By: CHAPINCITO Insulin Human Lispro (Insulin Lispro 100 Unit/Ml 3 Ml Vial) 0 unit SUBCUT QIDACHS [facility]; Protocol Last Admin: 03/16/23 11:07 Dose: Not Given Documented By: VÍCTOR Non-Admin Reason: No Insulin Coverage Insulin Human Lispro (Insulin Lispro 100 Unit/Ml 3 Ml Vial) 4 unit SUBCUT DAILY [facility] Last Admin: 03/16/23 08:37 Dose: Not Given Documented By: VÍCTOR Non-Admin Reason: No Insulin Coverage Insulin Human Lispro (Insulin Lispro 100 Unit/Ml 3 Ml Vial) 2 unit SUBCUT BEDTIME [facility] Last Admin: 03/15/23 21:14 Dose: 2 unit Documented By: CHAPINCITO Labetalol HCl (Labetalol Hcl 100 Mg Tablet) 150 mg PO BID [facility]; Protocol Last Admin: 03/16/23 08:33 Dose: 150 mg Documented By: VÍCTOR Omeprazole (Omeprazole 40 Mg Capsule.Dr) 40 mg PO DAILY@0630 [facility] Last Admin: 03/16/23 06:30 Dose: Not Given Documented By: CHAPINCITO Non-Admin Reason: Patient Asleep Ondansetron HCl (Ondansetron Hcl 4 Mg/2 Ml Vial) 4 mg IVPUSH Q8H PRN PRN Reason: Nausea and Vomiting Last Admin: 03/15/23 21:47 Dose: 4 mg Documented By: CHAPINCITO Pharmacy Consult (Consult Rx Perform Med Rec) 1 each MISCELLANE ONCE PRN PRN Reason: Consult order Sodium Chloride (0.9 % Sodium Chloride Flush 3 Ml Syringe) 3 ml IVFLUSH QSHIFT [facility] Last Admin: 03/16/23 08:37 Dose: 3 ml Documented By: VÍCTOR Labs 03/16/23 05:59 03/16/23 05:59 Labs: Laboratory Results - last 24 hr 03/15/23 03/15/23 03/15/23 16:12 20:20 20:39 MCV 89.5 MCH 29.4 MCHC 32.8 RDW 12.3 Plt Count 138 L MPV 10.7 Immature Gran % (Auto) Neut % (Auto) Lymph % (Auto) [place] % (Auto) Eos % (Auto) Baso % (Auto) Lymph # (Auto) [place] # (Auto) Eos # (Auto) Baso # (Auto) Abs Immat Gran (auto) Absolute Neuts (auto) Absolute Nucleated RBC 0.000 Nucleated RBC % (auto) 0.0 Anion Gap Estim Creat Clear Calc Estimated GFR POC Glucose 203 H 157 H Random Glucose Calcium Magnesium 03/16/23 03/16/23 03/16/23 05:59 05:59 07:18 MCV 90.4 MCH 29.9 MCHC 33.1 RDW 12.2 Plt Count 151 L MPV 11.7 Immature Gran % (Auto) 0.7 H Neut % (Auto) 88.7 H Lymph % (Auto) 4.6 L [place] % (Auto) 5.1 Eos % (Auto) 0.6 Baso % (Auto) 0.3 Lymph # (Auto) 0.4 L [place] # (Auto) 0.5 Eos # (Auto) 0.1 Baso # (Auto) 0.0 Abs Immat Gran (auto) 0.06 H Absolute Neuts (auto) 7.8 Absolute Nucleated RBC 0.000 Nucleated RBC % (auto) 0.0 Anion Gap 19 Estim Creat Clear Calc 6.2 Estimated GFR 4 POC Glucose 102 Random Glucose 92 Calcium 7.0 L D Magnesium 2.0 03/16/23 03/16/23 11:03 13:08 MCV MCH MCHC RDW Plt Count MPV Immature Gran % (Auto) Neut % (Auto) Lymph % (Auto) [place] % (Auto) Eos % (Auto) Baso % (Auto) Lymph # (Auto) [place] # (Auto) Eos # (Auto) Baso # (Auto) Abs Immat Gran (auto) Absolute Neuts (auto) Absolute Nucleated RBC Nucleated RBC % (auto) Anion Gap Estim Creat Clear Calc Estimated GFR POC Glucose 112 112 Random Glucose Calcium Magnesium Assessment and Plan (1) 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 2 diabetes mellitus: Status: Acute Plan d#2 67yo F with HTN, DM2, GERD, HLD, anemia of CKD, CKD5 progressed to ESRD requiring HD due to uremia, also volume overloaded # nonoliguric ESRD with uremia - Nephrology consulted, dialysis catheter today, then start HD # volume overload with acute hypoxic resp failure - HD, continue furosemide, also check TTE - wean O2 as tolerated # metabolic encephalopathy - due to uremia, HD as above # acute/chronic anemia due to CKD/ESRD - transfused 1u in pRBCs with appropriate response in H+H # HTN - amlodipine + labetalol, d/c HCTZ # DM2 - basal glargine + correction-dose lispro, DM diet # HLD - statin # VTE ppx: SCDs # dispo: eventual home with [facility] In my clinical judgment, the patient requires continued inpatient hospitalization for the following reasons: ESRD Time Spent With Patient Time: Total time managing care of this patient today ____ 40minutes. Quality Stroke Does the patient have a stroke diagnosis?: No VTE Prior VTE?: No VTE Risk Level:: Medical - moderate - high VTE Device Contraindication: N/A - Device Ordered VTE Drug Contraindication: Treatment Not Indicated
[2023-03-16 15:41] VITALS: BP 130/95; PULSE 66; RESP 19; TEMP 37.1; O2SAT 92
[2023-03-16 16:36] LABS: Glucose, Whole Blood 138 mg/dL (60-115)
[2023-03-16] MEDS: Acetaminophen 325 MG TABLET 650 MG PO (18:27)
[2023-03-16 19:33] VITALS: BP 155/73; PULSE 73; RESP 18; TEMP 36.9; O2SAT 92
[2023-03-16 20:14] LABS: Glucose, Whole Blood 128 mg/dL (60-115)
[2023-03-16] MEDS: Insulin Glargine,Hum.rec.anlog 100 UNIT/ML 10 ML VIAL SUBCUT (20:38)
[2023-03-16] MEDS: Insulin Lispro 100 UNIT/ML 3 ML VIAL SUBCUT (20:39)
[2023-03-16 23:59] VITALS: BP 154/67; PULSE 73; RESP 18; TEMP 37.1; O2SAT 92
[2023-03-17] MEDS: 0.9 % Sodium Chloride Flush 3 ML SYRINGE IVFLUSH ×4 (00:25→20:49)
[2023-03-17 04:00] VITALS: BP 146/62; PULSE 71; RESP 18; TEMP 37.5; O2SAT 91
[2023-03-17 05:47] LABS: Hematocrit 25.3 % (37.0-47.0); Hemoglobin 8.3 g/dl (12.0-16.0); Mean Corpuscular HGB Conc 32.8 g/dl (31.0-35.0); Mean Corpuscular Hemoglobin 29.2 pg (27.0-33.0); Mean Corpuscular Volume 89.1 fL (80.0-98.0); Mean Platelet Volume 10.9 fL (9.4-12.3); Platelet Count 146 X10*3/uL (160-400); Red Blood Count 2.84 X10*6/uL (4.20-5.50); Red Cell Distribution Width 11.9 % (11.0-16.0); White Blood Count 6.2 X10*3/uL (4.8-10.8)
[2023-03-17 06:07] LABS: B Type Natriuretic Peptide 2296 pg/mL (<100)
[2023-03-17 06:23] LABS: Anion Gap 18 (12-20); Blood Urea Nitrogen 82 mg/dL (9-16); Calcium 6.8 mg/dL (8.4-10.2); Carbon Dioxide 19 mmol/L (22-29); Chloride 104 mmol/L (96-108); Creatinine Clr Calc Pharmacy 8.2; Estimated Glomerular Filt Rate 6; Glucose Random 132 mg/dL (60-115); Potassium 4.4 mmol/L (3.3-5.1); Sodium 137 mmol/L (135-145)
[2023-03-17] MEDS: Omeprazole 40 MG CAPSULE.DR PO (06:35)
--- NOTE | 2023-03-17 07:00 | CA_ITS ---
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 Normal LV systolic function with grade 2 diastolic dysfunction 2. Mildly dilated left atrium 3. Normal cardiac valvular Doppler 4. Mildly elevated right ventricular systolic pressure 5. Trivial pericardial effusion Findings Left Ventricle Normal left ventricular size, thickness, and systolic function. The visually estimated ejection fraction is between 60-65%. Spectral Doppler is indicative of a pseudonormal filling pattern. Elevated filling pressures. E/E prime ratio is >15, consistent with elevated filling pressures. Evidence suggests grade II (moderate) diastolic dysfunction. Peak GLS is -19.0%, which is normal. Right Ventricle Mildly increased right ventricular cavity size. There is normal right ventricular systolic function. Atria The left atrium is mildly dilated. There is no evidence of interatrial shunt. The right atrium is mildly dilated. Aortic Valve Normal aortic valve structure and function. There is no aortic valve stenosis. There is trace (trivial) aortic valve regurgitation. Mitral Valve There is mild anterior and posterior mitral leaflet thickening. There is mild mitral annular calcification. There is mild mitral valve regurgitation. There is no mitral valve stenosis. Pulmonic Valve The pulmonic valve is likely normal. There is trace pulmonic valve regurgitation. Tricuspid Valve Normal tricuspid valve structure. There is mild tricuspid valve regurgitation. Normal right atrial pressure. Mild pulmonary hypertension is present. Great Vessels All visible segments of the aorta are normal in size. The pulmonary artery was not well visualized. Venous The inferior vena cava is normal in size and collapses greater than 50% with inspiration. Pericardium/Pleural There is a trivial circumferential pericardial effusion. Prior Study Comparison No prior study available for comparison. Measurements 2D Linear Measurements IVSd: 1.03 0.6-0.9/0.6-1.0 cm LVIDd: 4.52 3.9-5.3/4.2-5.9 cm LVIDd Index: 2.43 2.4-3.2/2.2-3.1 cm/m2 LVIDs: 2.60 2.0-3.6 cm LVPWd: 1.10 0.7-1.1 cm Ao Root: 2.70 2.1-3.5 cm LA Diam: 4.60 2.7-3.8/3.0-4.0 cm LAIDs Index: 2.47 1.5-2.3 cm/m2 LV Mass: 209.80 67-162/88-224 g LV Mass Index: 112.80 43-95/49-115 g/m2 LVOT Diam: 2.00 3.0+(-)1.3 cm Mitral Valve MV Pk E: 1.43 MV PK A: 0.98 MV Decel Time: 214.00 E/A: 1.50 E'Lateral: 6.09 E'Medial: 6.64 E/E' Med: 21.50 E/E' Lat: 23.50 PHT: 63.00 MVA PHT: 3.49 Decel [place]oto: 6.67 Aortic Valve AoV Pk Nathan: 2.23 AoV Mn Nathan: 1.47 AoV VTI: 0.53 AoV Pk Grad: 20.00 Aov Mn Grad: 11.00 SANAM Cont.VTI: 1.93 LVOT LVOT Pk Nathan: 1.50 LVOT Mn Nathan: 0.94 LVOT VTI: 0.32 LVOT Pk Grad: 9.00 LVOT Mn Grad: 5.00 LVOT Diam: 2.00 LVOT Area: 3.14 Diastolic Function MV Pk E: 1.43 MV Pk A: 0.98 E/A: 1.50 E'Medial: 6.64 E/E' Med: 21.50 E' Laterial: 6.09 E/E' Lat: 23.50 Right Ventricle TAPSE (mm): 30.00 TVS' Nathan: 16.00 Tricuspid Valve TR Pk Nathan: 3.21 TR Pk Grad: 41.00 RA Press: 3.00 RVSP: 44.00 Great Vessels Aorta Ao Root-2D: 2.70 2.0-3.7 cm Ao Asc: 3.10 2.1-3.4 cm Pulmonary Valve PV Pk Nathan: 1.30 Peak PV Grad: 7.00 Updated in Other Vendor System with Status of Final Evens Smith MD electronically signed on 03/17/2023 4:26:51 PM with status of Final
[2023-03-17 07:15] VITALS: BP 160/72; PULSE 72; RESP 20; TEMP 37.4; O2SAT 92
[2023-03-17 07:38] LABS: Glucose, Whole Blood 116 mg/dL (60-115)
[2023-03-17] MEDS: Cyanocobalamin (Vitamin B-12) 1,000 MCG TABLET 1000 MCG PO (08:08)
[2023-03-17] MEDS: Atorvastatin Calcium 40 MG TABLET PO (08:08)
[2023-03-17] MEDS: Labetalol HCL 100 MG TABLET 150 MG PO ×2 (08:08→20:48)
[2023-03-17] MEDS: amLODIPine Besylate 10 MG TABLET PO (08:08)
[2023-03-17] MEDS: Insulin Glargine,Hum.rec.anlog 100 UNIT/ML 10 ML VIAL 7 UNIT SUBCUT (08:09)
--- NOTE | 2023-03-17 10:19 | W.PM.DNNEP ---
Subjective Subjective Principal diagnosis: CKD5 This patient was seen during dialysis. Interval history: Events noted. Underwent temporary dialysis catheter placement on 03/16/2023. First dialysis was on 03/16/2023. Currently she is undergoing dialysis again today. Physical Exam Vital Signs: Vital Signs: Last Vital Signs Temp 99.4 F 03/17/23 07:15 Pulse 72 03/17/23 07:15 Resp 20 03/17/23 07:15 BP 160/72 H 03/17/23 07:15 Pulse Ox 92 03/17/23 07:15 O2 Del Method Nasal Cannula 03/17/23 07:15 O2 Flow Rate 2 03/17/23 07:15 BMI result Body Mass Index 30.6 Comfortable , on room air Neck is supple Lung: Air entry equal Heart: S1,S2, normal. No rub Abd: Soft. BS + NS : Alert.No asterexis Ext: 1 + edema Assessment & Plan Assessment and plan (1) Anemia due to chronic kidney disease: Status: Acute (2) CKD (chronic kidney disease), stage V: Status: Acute Plan CKD 5 approached ESRD Status post temporary IJ catheter. She is undergoing 2nd dialysis today. We will order for PermCath insertion in the next day or so. Once the PermCath is in we can arrange for outpatient dialysis. Remove fluid as tolerated Optimize HCT Can discontinue Lasix. Hypocalcemia most likely due to secondary hyperparathyroidism. We will check phosphorus and intact PTH and treat accordingly. Time Spent With Patient Time: Total time managing care of this patient today ____ minutes. Procedures Date of Service Date of Service: 03/18/23
[2023-03-17 11:19] LABS: Glucose, Whole Blood 156 mg/dL (60-115)
--- NOTE | 2023-03-17 11:45 | HO.PM.IMPN ---
Subjective Subjective Date of Service: 03/17/23 Interval History: non-tunneled HD cath placed yesterday started HD yesterday much less short of breath + edematous, weaned off O2 This history was taken in [place]ian from the patient. Review of Systems Review of Systems: Yes all other systems are reviewed and are negative Physical Exam Vital Signs: Vital Signs: Last Vital Signs Temp 99.4 F 03/17/23 07:15 Pulse 72 03/17/23 07:15 Resp 20 03/17/23 07:15 BP 160/72 H 03/17/23 07:15 Pulse Ox 92 03/17/23 07:15 O2 Del Method Nasal Cannula 03/17/23 07:15 O2 Flow Rate 2 03/17/23 07:15 BMI result Body Mass Index 30.6 Gen: in no acute distress HEENT: sclera anicteric, moist mucus membranes Neck: supple, RIJ HD catheter Lungs: clear to auscultation bilaterally Heart: regular rate and rhythm, no murmurs Abd: soft, non-tender, non-distended Ext: trace bilateral LE edema Skin: warm/well-perfused Neuro: alert and oriented x3, no focal findings Psych: appropriate affect Objective Data Active Medications Acetaminophen (Acetaminophen 325 Mg Tablet) 650 mg PO Q6H PRN PRN Reason: Pain, Mild (Pain Scale 1-3) Last Admin: 03/16/23 18:27 Dose: 650 mg Documented By: VÍCTOR Amlodipine Besylate (Amlodipine Besylate 10 Mg Tablet) 10 mg PO DAILY [facility]; Protocol Last Admin: 03/17/23 08:08 Dose: 10 mg Documented By: VÍCTOR Atorvastatin Calcium (Atorvastatin Calcium 40 Mg Tablet) 40 mg PO DAILY [facility] Last Admin: 03/17/23 08:08 Dose: 40 mg Documented By: VÍCTOR Cyanocobalamin (Cyanocobalamin (Vitamin B-12) 1,000 Mcg Tablet) 1,000 mcg PO DAILY [facility] Last Admin: 03/17/23 08:08 Dose: 1,000 mcg Documented By: VÍCTOR Docusate Sodium (Docusate Sodium 100 Mg Capsule) 100 mg PO DAILY PRN PRN Reason: Constipation Furosemide (Furosemide 40 Mg Tablet) 80 mg PO MoWeFr@0900 [facility]; Protocol Last Admin: 03/16/23 08:33 Dose: 80 mg Documented By: VÍCTOR Glucose (Glucose Gel 15 Gm Gel..Gram.) 15 gm PO Q15M PRN; Protocol PRN Reason: per Hypoglycemia Standing Ord. Dextrose (D10) 250 mls @ 750 mls/hr IV Q15M PRN; Protocol PRN Reason: per Hypoglycemia Standing Ord. Insulin Glargine (Insulin Glargine,Hum.Rec.Anlog 100 Unit/Ml 10 Ml Vial) 7 unit SUBCUT DAILY [facility] Last Admin: 03/17/23 08:09 Dose: 7 unit Documented By: VÍCTOR Insulin Glargine (Insulin Glargine,Hum.Rec.Anlog 100 Unit/Ml 10 Ml Vial) 5 unit SUBCUT BEDTIME [facility] Last Admin: 03/16/23 20:38 Dose: 5 unit Documented By: AZALIA Insulin Human Lispro (Insulin Lispro 100 Unit/Ml 3 Ml Vial) 0 unit SUBCUT QIDACHS [facility], [facility]; Protocol Last Admin: 03/17/23 07:38 Dose: Not Given Documented By: VÍCTOR Non-Admin Reason: No Insulin Coverage Insulin Human Lispro (Insulin Lispro 100 Unit/Ml 3 Ml Vial) 4 unit SUBCUT DAILY [facility] Last Admin: 03/17/23 08:09 Dose: Not Given Documented By: VÍCTOR Non-Admin Reason: No Insulin Coverage Insulin Human Lispro (Insulin Lispro 100 Unit/Ml 3 Ml Vial) 2 unit SUBCUT BEDTIME [facility] Last Admin: 03/16/23 20:39 Dose: 2 unit Documented By: AZALIA Labetalol HCl (Labetalol Hcl 100 Mg Tablet) 150 mg PO BID [facility]; Protocol Last Admin: 03/17/23 08:08 Dose: 150 mg Documented By: VÍCTOR Omeprazole (Omeprazole 40 Mg Capsule.) 40 mg PO DAILY@0630 [facility] Last Admin: 03/17/23 06:35 Dose: 40 mg Documented By: ENRIQUE Ondansetron HCl (Ondansetron Hcl 4 Mg/2 Ml Vial) 4 mg IVPUSH Q8H PRN PRN Reason: Nausea and Vomiting Last Admin: 03/15/23 21:47 Dose: 4 mg Documented By: ANTOIC Pharmacy Consult (Consult Rx Perform Med Rec) 1 each MISCELLANE ONCE PRN PRN Reason: Consult order Sodium Chloride (0.9 % Sodium Chloride Flush 3 Ml Syringe) 3 ml IVFLUSH QSHIFT [facility] Last Admin: 03/17/23 08:08 Dose: 3 ml Documented By: VÍCTOR Labs 03/17/23 05:39 03/17/23 05:39 Labs: Laboratory Results - last 24 hr 03/16/23 03/16/23 03/16/23 13:08 16:28 20:07 MCV MCH MCHC RDW Plt Count MPV Absolute Nucleated RBC Nucleated RBC % (auto) Anion Gap Estim Creat Clear Calc Estimated GFR POC Glucose 112 138 H 128 H Random Glucose Calcium Magnesium B-Natriuretic Peptide 03/17/23 03/17/23 03/17/23 05:39 05:39 05:39 MCV 89.1 MCH 29.2 MCHC 32.8 RDW 11.9 Plt Count 146 L MPV 10.9 Absolute Nucleated RBC 0.000 Nucleated RBC % (auto) 0.0 Anion Gap 18 Estim Creat Clear Calc 8.2 Estimated GFR 6 POC Glucose Random Glucose 132 H Calcium 6.8 L Magnesium 2.0 B-Natriuretic Peptide 2296 H 03/17/23 03/17/23 07:34 11:14 MCV MCH MCHC RDW Plt Count MPV Absolute Nucleated RBC Nucleated RBC % (auto) Anion Gap Estim Creat Clear Calc Estimated GFR POC Glucose 116 H 156 H Random Glucose Calcium Magnesium B-Natriuretic Peptide Assessment and Plan (1) 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 2 diabetes mellitus: Status: Acute Plan d#3 67yo F with HTN, DM2, GERD, HLD, anemia of CKD, CKD5 progressed to ESRD requiring HD due to uremia, also volume overloaded # nonoliguric ESRD with uremia - Nephrology following, HD initiation 03/16-03/18/23, change to tunnel catheter # volume overload with acute hypoxic resp failure - HD, TTE pending, d/c furosemide - weaned off O2 # hypoCa - likely secondary hyperpara, iPTH + PO4 pending # metabolic encephalopathy - resolved, due to uremia, HD as above # acute/chronic anemia due to CKD/ESRD - transfused 1u in pRBCs with appropriate response in H+H # HTN - amlodipine + labetalol, d/c HCTZ # DM2 - basal glargine + correction-dose lispro, DM diet # HLD - statin # VTE ppx: SCDs # dispo: eventual home with VNA + outpt HD In my clinical judgment, the patient requires continued inpatient hospitalization for the following reasons: ESRD Time Spent With Patient Time: Total time managing care of this patient today _45___ minutes. Quality Stroke Does the patient have a stroke diagnosis?: No VTE Prior VTE?: No VTE Risk Level:: Medical - moderate - high VTE Device Contraindication: N/A - Device Ordered VTE Drug Contraindication: Treatment Not Indicated
[2023-03-17 12:00] VITALS: BP 158/72; PULSE 69; RESP 20; TEMP 37.1; O2SAT 93
[2023-03-17 12:56] LABS: Glucose, Whole Blood 130 mg/dL (60-115)
[2023-03-17 15:32] VITALS: BP 155/66; PULSE 68; RESP 20; TEMP 36.4; O2SAT 68
[2023-03-17 16:06] LABS: Glucose, Whole Blood 283 mg/dL (60-115)
[2023-03-17] MEDS: Insulin Lispro 100 UNIT/ML 3 ML VIAL SUBCUT ×2 (16:14→21:16)
[2023-03-17 19:45] VITALS: BP 164/70; PULSE 68; RESP 18; TEMP 36.8; O2SAT 94
[2023-03-17 20:36] LABS: Glucose, Whole Blood 126 mg/dL (60-115)
[2023-03-17] MEDS: Insulin Glargine,Hum.rec.anlog 100 UNIT/ML 10 ML VIAL SUBCUT (20:48)
[2023-03-17 23:25] VITALS: BP 160/68; PULSE 64; RESP 20; TEMP 36.6; O2SAT 93
[2023-03-18] VITALS (10 sets, daily range): BP systolic 144–190; BP diastolic 52–79; PULSE 61–73; RESP 14–20; TEMP 36.3–37.1; O2SAT 92–98
[2023-03-18 07:21] LABS: Phosphorus 2.1 mg/dL (2.7-4.5)
[2023-03-18 07:26] LABS: Glucose, Whole Blood 82 mg/dL (60-115)
[2023-03-18] MEDS: Glucose Gel 15 GM GEL..GRAM. PO ×2 (07:31→12:03)
[2023-03-18 07:34] LABS: HBS Num1 0.19 mIU/mL (0-7.99); HBc Num1 0.13 S/CO (0.00-0.79); HBsAGNum1 0.22 S/CO (0.00-0.99); Hepatitis B Core Antibody Nonreactive (Nonreactive); Hepatitis B Surface Antigen Negative (Negative); ~Hepatitis B Surface Antibody NONREACTIVE (Nonreactive)
[2023-03-18 08:03] LABS: Glucose, Whole Blood 147 mg/dL (60-115)
--- NOTE | 2023-03-18 09:36 | W.PM.DNNEP ---
Subjective Subjective Principal diagnosis: CKD5 This patient was seen during dialysis. Interval history: Doing well Comfortable Physical Exam Vital Signs: Vital Signs: Last Vital Signs Temp 98.6 F 03/18/23 07:21 Pulse 63 03/18/23 07:21 Resp 20 03/18/23 07:21 BP 144/61 H 03/18/23 07:21 Pulse Ox 92 03/18/23 07:21 O2 Del Method Room Air 03/18/23 07:21 O2 Flow Rate 2 03/17/23 19:45 BMI result Body Mass Index 30.6 Comfortable Neck is supple Lung: Air entry equal Heart: S1,S2, normal. No rub Abd: Soft. BS + NS : Alert.No asterexis Ext: 1+ edema Assessment & Plan Assessment and plan (1) Anemia due to chronic kidney disease: Status: Acute (2) CKD (chronic kidney disease), stage V: Status: Acute Plan CKD 5 approached ESRD Status post temporary IJ catheter. She is undergoing 2rd dialysis today. Permcath today Once the PermCath is in we can arrange for outpatient dialysis. Remove fluid as tolerated Optimize HCT Can discontinue Lasix. Hypocalcemia most likely due to secondary hyperparathyroidism. We will check phosphorus and intact PTH and treat accordingly. Anemia Epogen Check Iron (ordered) Time Spent With Patient Time: Total time managing care of this patient today ____ minutes. Procedures Date of Service Date of Service: 03/19/23
[2023-03-18] MEDS: 0.9 % Sodium Chloride Flush 3 ML SYRINGE IVFLUSH ×2 (09:43→17:59)
[2023-03-18] MEDS: Cyanocobalamin (Vitamin B-12) 1,000 MCG TABLET 1000 MCG PO (09:43)
[2023-03-18] MEDS: Labetalol HCL 100 MG TABLET 150 MG PO ×2 (09:43→20:45)
[2023-03-18] MEDS: amLODIPine Besylate 10 MG TABLET PO (09:44)
[2023-03-18] MEDS: Atorvastatin Calcium 40 MG TABLET PO (09:44)
[2023-03-18 10:17] LABS: Iron 43 mcg/dL (30-160); Percent Iron Saturation 25 % (15-50); Total Iron Binding Capacity 174 mcg/dL (228-428); Unsaturated Iron Binding 131 ug/dL
[2023-03-18 10:31] LABS: Ferritin 982 ng/mL (10-250)
[2023-03-18 11:33] LABS: Glucose, Whole Blood 90 mg/dL (60-115)
[2023-03-18 12:53] LABS: Glucose, Whole Blood 167 mg/dL (60-115)
--- NOTE | 2023-03-18 13:37 | P.PNIM_ITS ---
Subjective Subjective Date of Service: 03/18/23 Interval History: noted to have low blood sugars this morning since NPO treated with glucose chills with improvement in blood sugar, is scheduled for tunneled hemodialysis catheter, patient returned from hemodialysis, at bedside patient offers no acute complaints of headache, lightheadedness dizziness, no shortness of breath, no chest pain , no other acute issues. , history obtained via ground layer. Review of Systems All other system reviewed and negative. Physical Exam Vital Signs: Vital Signs: Last Vital Signs Temp 98.3 F 03/18/23 11:27 Pulse 65 03/18/23 11:27 Resp 20 03/18/23 11:27 BP 144/67 H 03/18/23 11:27 Pulse Ox 92 03/18/23 11:27 O2 Del Method Room Air 03/18/23 11:27 O2 Flow Rate 2 03/17/23 19:45 BMI result Body Mass Index 30.6 Const: Other: Gen: in no acute distress HEENT: sclera anicteric, moist mucus membranes Neck: supple, RIJ HD catheter Lungs: clear to auscultation bilaterally Heart: regular rate and rhythm, no murmurs Abd: soft, non-tender, non-distended Ext:no LE edema Skin: warm/well-perfused Neuro: alert and oriented x3, no focal findings Psych: appropriate affect Objective Data Active Medications Acetaminophen (Acetaminophen 325 Mg Tablet) 650 mg PO Q6H PRN PRN Reason: Pain, Mild (Pain Scale 1-3) Last Admin: 03/16/23 18:27 Dose: 650 mg Documented By: VÍCTOR Amlodipine Besylate (Amlodipine Besylate 10 Mg Tablet) 10 mg PO DAILY [facility]; Protocol Last Admin: 03/18/23 09:44 Dose: 10 mg Documented By: LOULOU Atorvastatin Calcium (Atorvastatin Calcium 40 Mg Tablet) 40 mg PO DAILY [facility] Last Admin: 03/18/23 09:44 Dose: 40 mg Documented By: LOULOU Cyanocobalamin (Cyanocobalamin (Vitamin B-12) 1,000 Mcg Tablet) 1,000 mcg PO DAILY [facility] Last Admin: 03/18/23 09:43 Dose: 1,000 mcg Documented By: LOULOU Docusate Sodium (Docusate Sodium 100 Mg Capsule) 100 mg PO DAILY PRN PRN Reason: Constipation Glucose (Glucose Gel 15 Gm Gel..Gram.) 15 gm PO Q15M PRN; Protocol PRN Reason: per Hypoglycemia Standing Ord. Last Admin: 03/18/23 12:03 Dose: 15 gm Documented By: LOULOU Dextrose (D10) 250 mls @ 750 mls/hr IV Q15M PRN; Protocol PRN Reason: per Hypoglycemia Standing Ord. Insulin Glargine (Insulin Glargine,Hum.Rec.Anlog 100 Unit/Ml 10 Ml Vial) 7 unit SUBCUT DAILY [facility] Last Admin: 03/18/23 07:45 Dose: Not Given Documented By: LOULOU Non-Admin Reason: No Insulin Coverage Insulin Glargine (Insulin Glargine,Hum.Rec.Anlog 100 Unit/Ml 10 Ml Vial) 5 unit SUBCUT BEDTIME [facility] Last Admin: 03/17/23 20:48 Dose: 5 unit Documented By: LIANG Insulin Human Lispro (Insulin Lispro 100 Unit/Ml 3 Ml Vial) 0 unit SUBCUT QIDACHS [facility]; Protocol Last Admin: 03/18/23 11:31 Dose: Not Given Documented By: LOULOU Non-Admin Reason: No Insulin Coverage Insulin Human Lispro (Insulin Lispro 100 Unit/Ml 3 Ml Vial) 4 unit SUBCUT DAILY [facility] Last Admin: 03/18/23 09:44 Dose: Not Given Documented By: LOULOU Non-Admin Reason: NPO Insulin Human Lispro (Insulin Lispro 100 Unit/Ml 3 Ml Vial) 2 unit SUBCUT BED TIME [facility] Last Admin: 03/17/23 21:16 Dose: 2 unit Documented By: LIANG Labetalol HCl (Labetalol Hcl 100 Mg Tablet) 150 mg PO BID [facility]; Protocol Last Admin: 03/18/23 09:43 Dose: 150 mg Documented By: LOULOU Omeprazole (Omeprazole 40 Mg Capsule.Dr) 40 mg PO DAILY@0630 [facility] Last Admin: 03/18/23 05:36 Dose: Not Given Documented By: LIANG Non-Admin Reason: pt in dialysis Ondansetron HCl (Ondansetron Hcl 4 Mg/2 Ml Vial) 4 mg IVPUSH Q8H PRN PRN Reason: Nausea and Vomiting Last Admin: 03/15/23 21:47 Dose: 4 mg Documented By: HO.ANTOIC Pharmacy Consult (Consult Rx Perform Med Rec) 1 each MISCELLANE ONCE PRN PRN Reason: Consult order Sodium Chloride (0.9 % Sodium Chloride Flush 3 Ml Syringe) 3 ml IVFLUSH QSHIFT [facility] Last Admin: 03/18/23 09:43 Dose: 3 ml Documented By: LOULOU Labs 03/17/23 05:39 03/17/23 05:39 Labs: Laboratory Results - last 24 hr 03/17/23 03/17/23 03/17/23 05:39 15:59 20:29 POC Glucose 283 H 126 H Phosphorus Iron TIBC % Saturation Unsat Iron Binding Ferritin Hep Bs Antigen Negative Hep Bs Antibody NONREACTIVE Hep B Core Total Ab Nonreactive 03/18/23 03/18/23 03/18/23 06:53 07:20 07:59 POC Glucose 82 147 H Phosphorus 2.1 L Iron 43 TIBC 174 L % Saturation 25 Unsat Iron Binding 131 Ferritin 982 H Hep Bs Antigen Hep Bs Antibody Hep B Core Total Ab 03/18/23 03/18/23 11:29 12:49 POC Glucose 90 167 H Phosphorus Iron TIBC % Saturation Unsat Iron Binding Ferritin Hep Bs Antigen Hep Bs Antibody Hep B Core Total Ab Assessment and Plan (1) 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 2 diabetes mellitus: Status: Acute Plan 67yo F with HTN, DM2, GERD, HLD, anemia of CKD, CKD5 progressed to ESRD requiring HD due to uremia, also volume overloaded # nonoliguric ESRD with uremia -HD initiation 03/16, is NPO for tunnel catheter, receive hemodialysis this morning being followed by Nephrology # volume overload with acute hypoxic resp failure - echo showed EF 60-65%, grade 2 moderate diastolic dysfunction, continue HD, not on furosemide. - weaned off O2 # hypoCa - likely secondary hyperpara, PO4 2.1 , follow calcium and PTH pending. # metabolic encephalopathy - resolved, due to uremia, HD as above # acute/chronic anemia due to CKD/ESRD - transfused 1u in pRBCs with appropriate response in H+H, will discuss use of Procrit with Nephrology, normal iron studies. # HTN - On amlodipine + labetalol, suboptimal blood pressure control will discuss antihypertensives with Nephrology, previously was on hydrochlorothiazide. # DM2 - low blood sugars this morning since NPO will hold morning dose of Lantus and Humalog, follow blood sugars closely DM diet # HLD - statin # VTE ppx: SCDs # dispo: eventual home with VNA + outpt HD In my clinical judgment, the patient requires continued inpatient hospitalization for the following reasons: ESRD requiring tunneled hemodialysis catheter. Time Spent With Patient Time: Total time managing care of this patient today ____ minutes. Quality Stroke Does the patient have a stroke diagnosis?: No VTE Prior VTE?: No VTE Risk Level:: Medical - moderate - high VTE Device Contraindication: N/A - Device Ordered VTE Drug Contraindication: Treatment Not Indicated
--- NOTE | 2023-03-18 14:27 | PC.NURSE ---
report given to christopher
--- NOTE | 2023-03-18 14:34 | MHC.CM.PN ---
EMR REVIEWED, PLAN FOR PERMACATH INSERTION TODAY AND THEN DIALYSIS, NEPHRO TO ARRANGE OUPT HD, CM WILL CONT TO FOLLOW D/C NEEDS.
[2023-03-18 17:25] LABS: Glucose, Whole Blood 147 mg/dL (60-115)
[2023-03-18 19:32] LABS: Glucose, Whole Blood 303 mg/dL (60-115)
[2023-03-18] MEDS: Insulin Lispro 100 UNIT/ML 3 ML VIAL SUBCUT ×2 (20:46)
[2023-03-18] MEDS: Insulin Glargine,Hum.rec.anlog 100 UNIT/ML 10 ML VIAL SUBCUT (20:47)
[2023-03-19 02:43] VITALS: BP 164/58; PULSE 72; RESP 20; TEMP 36.9; O2SAT 94
[2023-03-19 07:05] VITALS: BP 158/69; PULSE 72; RESP 20; TEMP 36.9; O2SAT 94
[2023-03-19] MEDS: Omeprazole 40 MG CAPSULE.DR PO (07:06)
[2023-03-19] MEDS: 0.9 % Sodium Chloride Flush 3 ML SYRINGE IVFLUSH (07:11)
[2023-03-19 07:15] LABS: Glucose, Whole Blood 116 mg/dL (60-115)
[2023-03-19] MEDS: Insulin Glargine,Hum.rec.anlog 100 UNIT/ML 10 ML VIAL 7 UNIT SUBCUT (08:24)
[2023-03-19] MEDS: Insulin Lispro 100 UNIT/ML 3 ML VIAL SUBCUT ×2 (08:25→11:48)
[2023-03-19] MEDS: Atorvastatin Calcium 40 MG TABLET PO (08:26)
[2023-03-19] MEDS: Labetalol HCL 100 MG TABLET 150 MG PO (08:26)
[2023-03-19] MEDS: amLODIPine Besylate 10 MG TABLET PO (08:27)
[2023-03-19] MEDS: Cyanocobalamin (Vitamin B-12) 1,000 MCG TABLET 1000 MCG PO (08:27)
[2023-03-19 11:09] VITALS: BP 136/62; PULSE 66; RESP 20; TEMP 36.5; O2SAT 94
[2023-03-19 11:26] LABS: Glucose, Whole Blood 262 mg/dL (60-115)
--- NOTE | 2023-03-19 12:31 | P.PNNP_ITS ---
Subjective Subjective Date of Service: 03/19/23 Principal diagnosis: CKD5 Interval history: Events noted. Has had 3 dialysis thus far. Physical Exam Vital Signs: Vital Signs: Last Vital Signs Temp 97.7 F 03/19/23 11:09 Pulse 66 03/19/23 11:09 Resp 20 03/19/23 11:09 BP 136/62 03/19/23 11:09 Pulse Ox 94 03/19/23 11:09 O2 Del Method Room Air 03/19/23 11:09 O2 Flow Rate 2 03/17/23 19:45 BMI result Body Mass Index 30.6 Const: Other: Gen: in no acute distress HEENT: sclera anicteric, moist mucus membranes Neck: supple, RIJ HD catheter Lungs: clear to auscultation bilaterally Heart: regular rate and rhythm, no murmurs Abd: soft, non-tender, non-distended Ext:no LE edema Skin: warm/well-perfused Neuro: alert and oriented x3, no focal findings Psych: appropriate affect Objective Data Labs 03/17/23 05:39 03/17/23 05:39 Labs: Laboratory Results - last 24 hr 03/18/23 03/18/23 03/18/23 12:49 17:20 19:29 POC Glucose 167 H 147 H 303 H 03/19/23 03/19/23 07:09 11:11 POC Glucose 116 H 262 H Procedures Date of Service Date of Service: 03/19/23 Assessment & Plan Assessment and plan (1) Anemia due to chronic kidney disease: Status: Acute (2) CKD (chronic kidney disease), stage V: Status: Acute Plan CKD 5 approached ESRD Status post temporary IJ catheter followed by PermCath. Remove fluid as tolerated Optimize HCT Can discontinue Lasix. Hypocalcemia most likely due to secondary hyperparathyroidism. phosphorus 2.1 and intact PTH pending Anemia Epogen Outpatient hemodialysis arranged at [facility]. Next dialysis will be on ThursdayMarch 21. Time Spent With Patient Time: Total time managing care of this patient today ____ minutes. Progress Note: Quality Stroke Does the patient have a stroke diagnosis?: No
--- NOTE | 2023-03-19 13:09 | P.F2F_ITS ---
Service Date Service Date: 03/19/23 Encounter Date of encounter: 03/19/23 Reasons for Services Signs and symptoms assessed: new tunneled hemodialysis catheter, elevated blood pressures Homebound: Leaving the home is medically contraindicated at this time without the asist of a device and/or another person due th the listed conditions above and below. Reason homebound: weakness related to hospital stay Certification: Based on the above findings, I certify that this patient is confined to the home and needs intermittent senior living care, physical therapy and/or speech therapy, or continues to need occupational therapy. The patient is under my care, and I have initiated the establishment of the plan of care. The patient will be followed by a physician who will periodically review the plan of care. Time Spent With Patient Time: Total time managing care of this patient today ____ minutes.
--- NOTE | 2023-03-19 13:15 | MHC.CM.PN ---
PT WILL DC HOME TODAY WITH [facility] SHE WILL ALSO BEGIN OUTPATIENT HD AT [facility] () FAMILY TO TRANSPORT
--- NOTE | 2023-03-19 13:59 | P.DS_ITS ---
DS: Providers Provider Date of Service: 03/19/23 Date of admission: 03/15/23 12:17 Primary care physician: AUDREY Ramirez DS: Diagnosis Discharge Diagnosis (1) Anemia due to chronic kidney disease: Status: Acute (2) CKD (chronic kidney disease), stage V: Status: Acute DS: Summary Hospital Course Hospital Course: Date of Service: 03/15/23 Attending physician on admission: Dillon Castellanos Chief Complaint: sob, fatigue 67-year-old female with pertinent history of essential hypertension, insulin- dependent diabetes mellitus, gastroesophageal reflux disease, mixed hyperlipidemia, anemia of chronic disease, chronic kidney disease?presented to the ED for evaluation of sob, fatigue, and malaise ongoing since yesterday morning. Describes orthopnea, no other sob or with exertion.? She is reporting nausea.? Reports making adequate amounts of urine without any associated dysuria, hematuria, increased urinary frequency or urgency.? Denies any pain.? No fevers, chills, abdominal pain, vomiting, diarrhea, constipation, l ightheadedness, palpitations, or chest pain.? She has never undergone dialysis.? Was seen in November with similar symptoms but no dialysis at that time, was recommended for outpatient follow-up. On arrival, blood pressure is soft around 118/42 but no true hypotension.? Vitals otherwise within normal limits.? She does have baseline normocytic anemia with H/H 7.2/22.3%.? Platelets 133.? Creatinine 8.69, has been gradually increasing over the last few months.? Upon discharge in November, creatinine was 4.6.? BUN 123.? Glucose 299.? AST 63, ALT 46, alkaline phosphatase 144, BNP 1670.? CXR showing possible mild pulmonary edema, similar to prior exam.? EKG showing NSR, rate 63, no ST or depressions.? ED discussed case with Nephrology was recommending admission and will be presenting to evaluate patient. Hospital course: 67yo F with HTN, DM2, GERD, HLD, anemia of CKD, CKD5 progressed to ESRD requiring HD due to uremia, also volume overloaded # ESRD with uremia, patient renal function progress to end-stage renal disease therefore hemodialysis initiated due to uremia and volume overload,-HD initiation 03/16, through temporary dialysis catheter subsequently underwent tunnel catheter placement, was followed closely by Nephrology now being discharged for continued hemodialysis at [facility] on Tuesdays and Saturdays. # volume overload with acute hypoxic resp failure responded well to hemodialysis, echo showed EF 60-65%, grade 2 moderate diastolic dysfunction, continue HD, Lasix and hydrochlorothiazide discontinued weaned off oxygen. # hypoCa - likely secondary hyperpara, PO4? 2.1 , follow PTH report pending, recommend follow-up with Nephrology for further treatment. # metabolic encephalopathy - resolved, due to uremia. # acute/chronic anemia due to CKD/ESRD - transfused 1u pRBCs with appropriate response in H+H, normal iron studies. # HTN - ? On amlodipine + labetalol,? previously was on hydrochlorothiazide , discussed with Nephrology they will follow BP as outpatient. # DM2 continue home insulin and follow diabetic diet. # HLD continue statin Time Spent with Patient Time attestation: Total time managing care of this patient today ____ minutes. Discharge coordination time: Greater than 30 minutes Quality: Safe Use of Opioids Does Pt have an Active Cancer Diagnosis on the Problem List?: No Quality: Stroke Does the patient have a stroke diagnosis?: No Physical Exam Vital Signs: Vital Signs: Last Vital Signs Temp 97.7 F 03/19/23 11:09 Pulse 66 03/19/23 11:09 Resp 20 03/19/23 11:09 BP 136/62 03/19/23 11:09 Pulse Ox 94 03/19/23 11:09 O2 Del Method Room Air 03/19/23 11:09 O2 Flow Rate 2 03/17/23 19:45 BMI result Body Mass Index 30.6 Const: Other: Gen: in no acute distress HEENT: sclera anicteric, moist mucus membranes Neck: supple, no jvd Right anterior chest wall tunneled hemodialysis catheter in place, no surrounding hematoma or redness. Lungs: clear to auscultation bilaterally Heart: regular rate and rhythm, no murmurs Abd: soft, non-tender, non-distended Ext:no LE edema Skin: warm/well-perfused Neuro: alert and oriented x3, no focal findings Psych: appropriate affect DS: Data Data Completed and Pending Labs on day of discharge: Laboratory Results - last 24 hr 03/18/23 03/18/23 03/19/23 17:20 19:29 07:09 POC Glucose 147 H 303 H 116 H 03/19/23 11:11 POC Glucose 262 H Discharge Plan Discharge Anticipated Discharge Date/Time: 03/19/23 13:04 Patient Disposition: Home Health Service Discharge Diagnosis: acute hypoxic respiratory failure resolved acute metabolic encephalopathy resolved end-stage renal disease with uremia Referrals: Isidoro EDMOND [Outside] - 3-5 Days Sunitha Rod FNP [Primary Care Provider] - 1 Week Discharge Medications: Continued Novolin 70/30 U-100 Insulin 100 unit/mL (70-30) suspension 13 unit subcut DAILY omeprazole 20 mg capsule,delayed release(DR/EC) 40 mg PO DAILY labetalol 100 mg tablet 1.5 tab PO BID Novolin 70/30 U-100 Insulin 100 unit/mL (70-30) suspension 8 unit subcut BEDTIME atorvastatin 40 mg tablet 1 tab PO DAILY cyanocobalamin (vitamin B-12) 1,000 mcg Tablet 1,000 mcg PO DAILY amlodipine 5 mg tablet 10 mg PO DAILY Protocol: Hold for SBP< HOLD for SBP < : 90 Discontinued hydrochlorothiazide 12.5 mg tablet 1 tab PO SUTUTHSA Patient Comments: takes on days not taking lasix - per furosemide 80 mg tablet 1 tab PO MOWEFR Discharge Orders: Discharge Order (Routine); Ordered 03/19/23 Ordered By: Danny Bowman Diet: Diabetic diet Activity on Discharge: As tolerated Stand Alone Forms: Patient Portal Discharge page Care Plan Goals: continue hemodialysis Thursday and Saturdays at [facility] at 10:30 Health Concerns: monitor blood pressure continue all medications as prescribed hold hydrochlorothiazide and Lasix Plan of Treatment: outpatient follow-up with primary care physician call for appointment, outpatient follow-up with Nephrology Dr. Rubin Assessment: as above
[2023-03-20 19:23] LABS: Calcium (PTHI) 7.6 mg/dL (8.6-10.4); PTHI 310 pg/mL (16-77)
== END 2023-03-19 16:33 | disposition home health service (06) | DRG 291 ==
LOC: HO.ED 10:31 → HO.EDOVER 12:25 → HO.IMC 14:32
PROVIDERS: Family Medicine; Hospitalist; Internal Medicine Hypertension Specialist; Physician Assistant; Radiology Diagnostic Radiology; Admitting Provider Physician Assistant; Emergency Provider Student in an Organized Health Care Education/Training Program; PCP Registered Nurse; Visit Provider Hospitalist
PROC: 02HV33Z Insertion of Infusion Device into Superior Vena Cava, Percutaneous Approach (ICD-10-PCS; principal; 2023-03-16 13:30)
PROC: 02PY33Z Removal of Infusion Device from Great Vessel, Percutaneous Approach (ICD-10-PCS; principal; 2023-03-18 15:00)
DX: I13.2 Hypertensive heart and chronic kidney disease with heart failure and with stage 5 chronic kidney disease, or end stage renal disease (principal); G92.8 Other toxic encephalopathy; J96.01 Acute respiratory failure with hypoxia; N18.6 End stage renal disease; I50.31 Acute diastolic (congestive) heart failure; N17.9 Acute kidney failure, unspecified; E78.5 Hyperlipidemia, unspecified; E21.3 Hyperparathyroidism, unspecified; E11.22 Type 2 diabetes mellitus with diabetic chronic kidney disease; D63.1 Anemia in chronic kidney disease; E11.65 Type 2 diabetes mellitus with hyperglycemia; Z79.4 Long term (current) use of insulin; Z79.899 Other long term (current) drug therapy
CPT/HCPCS: 36415; 36556; 36558; 71045; 76937; 78580; 80048; 80053; 82728; 82947; 83036; 83540; 83735; 83880; 83970; 84100; 85025; 85027; 85379; 85610; 86704; 86706; 86850; 86900; 86901; 86923; 87340; 90999; 93005; 93306; 93356; 99152; 99285; C1750; C1752; C1758; C1769; J0885; J1940; J2405; P9016; Q9957

== ENCOUNTER 2023-05-12 01:51 | Inpatient (IN) | payer OTHER, SELFPAY ==
[2023-05-12] VITALS (7 sets, daily range): BP systolic 142–178; BP diastolic 54–96; PULSE 69–91; RESP 16–22; TEMP 35.9–36.7; O2SAT 94–100; BMI 30.8
--- NOTE | ~2023-05-12 | CT_ITS ---
EXAMINATION: CT HEAD WITHOUT CONTRAST CLINICAL INFORMATION: Possible seizure. COMPARISON: None available. TECHNIQUE: Contiguous axial imaging was performed from the skull base to vertex without intravenous administration of contrast. This CT examination was performed using dose optimization techniques as appropriate, variously including the following: *Automated exposure control *Adjustment of mA and/or kV according to patient size (this includes techniques or standardized protocols for targeted exams where dose is matched to indication/reason for exam; i.e. extremities or head) *Use of iterative reconstruction technique DLP: 731 mGy-cm FINDINGS: There is mild cerebral volume loss with prominence of the lateral and the third ventricles. The cortical sulci are widened appropriately. The fourth ventricle and basal cisterns are normally outlined. There is right parietal encephalomalacia with ex vacuo dilatation of the occipital horn of the right lateral ventricle. There is an old right thalamic lacunar infarct. There is an old right pontine lacunar infarct. There is no acute territorial defect, hemorrhage or midline shift. Calvarium: Intact. Maxillofacial sinuses and mastoids: Clear as visualized. CT/CT head/brain wo IV con IMPRESSION: 1. 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 2. No acute intracranial abnormality.
--- NOTE | ~2023-05-12 | XR_ITS ---
EXAMINATION: XR CHEST CLINICAL INFORMATION: Fatigue. COMPARISON: 03/15/2023 TECHNIQUE: Frontal view of the chest was obtained. FINDINGS: The lung volumes are low. The cardiomediastinal silhouette is stable. A central catheter is noted with tip at the level of the mid SVC. There is mild lower lung field increased markings. There is no focal lung consolidation or pleural effusion. The bony structures and soft tissues are unremarkable XR/XR chest 1V IMPRESSION: Low lung volumes limits evaluation. Mild lower lung field increased markings suspected to be chronic and/or technical. There is no focal lung consolidation or pleural effusion.
[2023-05-12 02:24] LABS: Glucose, Whole Blood 75 mg/dL (60-115)
--- NOTE | 2023-05-12 02:30 | ECG_ITS ---
Test Reason : WEAKNESS Blood Pressure : / mmHG Vent. Rate : 093 BPM Atrial Rate : 093 BPM P-R Int : 136 ms QRS Dur : 076 ms QT Int : 374 ms P-R-T Axes : 046 052 045 degrees QTc Int : 465 ms Normal sinus rhythm Normal ECG When compared with ECG of 15-MAR-2023 10:18, No significant change was found Referred By: Generic ED Physician Electronically Signed By:Ellis Moore
[2023-05-12 02:43] LABS: Hemoglobin 9.8 g/dl (12.0-16.0); Mean Corpuscular HGB Conc 32.7 g/dl (31.0-35.0); Mean Corpuscular Hemoglobin 30.2 pg (27.0-33.0); Mean Corpuscular Volume 92.6 fL (80.0-98.0); Mean Platelet Volume 10.5 fL (9.4-12.3); Platelet Count 119 X10*3/uL (160-400); Red Blood Count 3.24 X10*6/uL (4.20-5.50); Red Cell Distribution Width 14.5 % (11.0-16.0)
[2023-05-12 03:03] LABS: Alanine Aminotransferase 12 U/L (0-31); Albumin Level 3.3 g/dL (3.5-5.0); Alkaline Phosphatase 125 U/L (39-117); Anion Gap 14 (12-20); Aspartate Amino Transferase 27 U/L (5-31); Bilirubin Total 0.4 mg/dL (0.0-1.0); Blood Urea Nitrogen 59 mg/dL (9-16); Calcium 8.8 mg/dL (8.4-10.2); Carbon Dioxide 22 mmol/L (22-29); Chloride 98 mmol/L (96-108); Creatinine Clr Calc Pharmacy 9.6; Estimated Glomerular Filt Rate 7; Glucose Random 83 mg/dL (60-115); Potassium 5.4 mmol/L (3.3-5.1); Sodium 129 mmol/L (135-145)
--- NOTE | 2023-05-12 03:49 | ED.GENADULT ---
HPI - General Adult General Chief complaint: General Medical Stated complaint: ?diabetic problem Time Seen by Provider: 05/12/23 02:46 Source: patient, family and interpreter for the deaf Mode of arrival: EMS Limitations: no limitations History of Present Illness HPI narrative: 67 yo female with hx of anemia, CKD on T S (recent as of March), DM, HTN, HLD here with c/o having nausea tonight then going to bed worried it was her BP so she took a midodrine after vomiting at 1030pm she went to bed. Slept and woke up prior to arrival per her spouse her eyes were open but rolled back and her whole body was shaking for 3 to 5 minutes and she confused afterwards - she was not responsive during the episode. no ETOH or med changes but she has been drinking more water to try to get urine samples and getting her kidneys working again. No head injuries, headaches or prior seizures. Patient has no recollection of last night at all. no incontinence or tongue biting. MD complaint: abnormal movements and confusion Onset (ago): hour(s) (just prior to arrival ) Severity: moderate Relieving factors: none Exacerbating factors: none Associated symptoms: confusion Treatments prior to arrival: none Related Data Home Medications Medication Instructions Recorded Confirmed insulin human U-100 NPH-regulr 8 unit subcut BEDTIME 03/01/22 03/15/23 70-30 mix 100 unit/mL subcutaneous susp (Novolin 70/30 U-100 Insulin) insulin human U-100 NPH-regulr 13 unit subcut DAILY 03/01/22 03/15/23 70-30 mix 100 unit/mL subcutaneous susp (Novolin 70/30 U-100 Insulin) labetalol 100 mg tablet 1.5 tab PO BID 03/01/22 03/15/23 omeprazole 20 mg capsule,delayed 40 mg PO DAILY 03/01/22 03/15/23 release atorvastatin 40 mg tablet 1 tab PO DAILY cholesterol 11/08/22 03/15/23 amlodipine 5 mg tablet 10 mg PO DAILY 03/04/23 03/15/23 cyanocobalamin (vitamin B-12) 1,000 mcg PO DAILY 03/15/23 03/15/23 1,000 mcg tablet atorvastatin 40 mg tablet 40 mg PO DAILY cholesterol 05/12/23 05/12/23 labetalol 100 mg tablet 150 mg PO DAILY 05/12/23 05/12/23 omeprazole 40 mg capsule,delayed 40 mg PO DAILY 05/12/23 05/12/23 release vitamin B complex-vitamin C-folic 1 tab PO DAILY 05/12/23 05/12/23 acid 0.8 mg tablet (Mindy-Mert) Allergies Allergy/AdvReac Type Severity Reaction Status Date / Time No Known Allergies Allergy Verified 03/01/22 12:44 Review of Systems Review of Systems: Constitutional : No Fever, No Chills, No Fatigue ENT/Mouth : No sore throat, No Rhinorrhea Eyes: No Eye Pain, No Swelling, No Redness Cardiovascular : No Chest Pain, No SOB, No Dyspnea on Exertion Respiratory : No Cough, No Sputum Gastrointestinal : pos Nausea, No Vomiting, No Diarrhea, No abdominal Pain Genitourinary : No Dysuria, No Urinary Frequency, No Hematuria, Musculoskeletal : No joint pain, No Myalgias, No Joint Swelling Skin : No Skin Lesions, No rash Neuro : No Weakness, No Numbness, No Dizziness, no Headache, pos seizure like activity Psych : No Anxiety/Panic, No Depression All other systems reviewed and are negative [facility] Past Medical History Attestation statement: The following information was validated with the patient. Medical History Anemia due to chronic kidney disease CHF (congestive heart failure) Chronic kidney disease CKD (chronic kidney disease) CKD (chronic kidney disease), stage V 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 2 diabetes mellitus CKD stage 5 secondary to hypertension Diabetes mellitus Hyperlipidemia Hypertension Social History Social History Household Members: Spouse Housing: Apartment Do you presently have visiting nurse or other home services: No Alcohol intake: never Patient Tobacco Use Status: Never used Tobacco Smoked in Last 30 Days: No Use of substances other than those prescribed or required for medical reasons: No Advance Directives: No Advance Directives Information Provided: Yes service: No Current occupational status: unemployed Physical Exam ED Vital Signs: Vital Signs - 24 hr 05/12/23 02:13 05/12/23 04:44 05/12/23 05:53 Temperature 97.4 F Pulse Rate 90 85 79 Respiratory Rate 18 16 18 Blood Pressure 160/96 H 178/76 H 164/72 H Pulse Oximetry 94 96 96 Oxygen Delivery Method Room Air Room Air Room Air BMI result Body Mass Index 30.8 Appearance: Alert. Oriented X3. No acute distress. Eyes: Pupils equal, round and reactive to light. ENT: Pharynx normal. Neck: Normal inspection. Neck supple. CVS: Normal heart rate and rhythm. Pulses normal. HD catheter clean dry intact Respiratory: No respiratory distress. Breath sounds normal. Abdomen: Soft and nontender. Rectal: temp check afebrile Skin: Skin warm and dry. Normal skin color. Normal skin turgor. Extremities: No lower extremity edema. No calf ttp Neuro: Oriented X 3. No motor deficit. No sensory deficit. no focal deficits Course Course Course Narrative: rectal temp normal Medical Decision Making Medical Decision Making MDM Narrative: 67 yo female with hx of anemia, CKD on (recent as of March), DM, HTN, HLD here with abnormal movements unresponsive for 3 to 5 minutes with lower Na 129 from baseline and increased water intake per spouse for urine samples at night ???. patinet was postictal has no hx of seizures has no headaches not focal does not remember tonight's events at all. she has no fevers neck pain or infectious symptoms. at this time concern for seizure and given lower Na will admit - labs, CT head for ICH, CXR and admission. Differential Diagnosis Differential Diagnoses: The differential diagnosis associated with the presentation includes seizure, syncope, lyte abnormality Admission/Observation Consideration of admission/observation: Escalation of care including admission/observation considered admit for seizure workup and Na 129 Consult Healthcare Provider Management of the patient was discussed with: Hospitalist admit to inpatient spoke to Dr. Youngblood 520am Lab Data [facility] Lab Attestation statement: I reviewed the patient's lab results. 05/12/23 02:36 05/12/23 02:36 Labs: Lab Results 05/12/23 05/12/23 05/12/23 Range/Units 02:13 02:36 02:36 WBC 7.0 (4.8-10.8) X10*3/uL RBC 3.24 L (4.20-5.50) X10*6/uL Hgb 9.8 L (12.0-16.0) g/dl Hct 30.0 L (37.0-47.0) % MCV 92.6 (80.0-98.0) fL MCH 30.2 (27.0-33.0) pg MCHC 32.7 (31.0-35.0) g/dl RDW 14.5 (11.0-16.0) % Plt Count 119 L (160-400) X10*3/uL MPV 10.5 (9.4-12.3) fL Absolute Nucleated RBC 0.000 (0.0-0.012) X10*3/uL Nucleated RBC % (auto) 0.0 (0.0-0.2) /100WBC Sodium 129 L (135-145) mmol/L Potassium 5.4 H D (3.3-5.1) mmol/L Chloride 98 (96-108) mmol/L Carbon Dioxide 22 (22-29) mmol/L Anion Gap 14 (12-20) BUN 59 H (9-16) mg/dL Creatinine 5.76 H* (0.5-1.4) mg/dL Estim Creat Clear Calc 9.6 Estimated GFR 7 POC Glucose 75 (60-115) mg/dL Random Glucose 83 (60-115) mg/dL Calcium 8.8 D (8.4-10.2) mg/dL Total Bilirubin 0.4 (0.0-1.0) mg/dL AST 27 (5-31) U/L ALT 12 (0-31) U/L Alkaline Phosphatase 125 H (39-117) U/L Total Protein 6.0 L (6.5-8.0) g/dL Albumin 3.3 L (3.5-5.0) g/dL Independent Interpretation I performed an independent interpretation of an: EKG, Plain X-Ray (no pneumonia) and CT Scan (normal ) Interpretation: Rate: 93 Rhythm: NSR [place]: normal Normal P waves. Normal BRIGHT. Normal QRS complex. ST T wave : normal no MITRA qTC: normal prior studies: no acute ischemia The study has been interpreted contemporaneously by me. . Radiology Impression Discussion of test interpretation with radiology: I have reviewed the radiologist's reading. Independent Historian Clinical information obtained from an independent historian. History obtained from or confirmed by: Spouse External Record Review External record reviewed: Inpatient record Discharge Plan Discharge Clinical Impression: Acute hyponatremia, Abnormal movement Patient Disposition: Admitted As Inpatient
--- NOTE | 2023-05-12 06:40 | P.HPHOSP_ITS ---
History of Present Illness Date of Service: 05/12/23 Chief Complaint: Seizure This is a 67-year-old female with past medical history of chronic anemia, ESRD newly started on dialysis in March on Thursday, diabetes, HTN, HLD comes into the hospital complaining of seizure episode. History is obtained mostly from her self and her . Patient apparently was feeling nauseous, she took her midodrine because she felt maybe her blood pressure was low, but had 1 episode of vomiting around 22:30, she went to bed, but woke up and according to her had her eyes rolled back and was shaking for about 3-5 minutes. He also reports that she was confused afterwards and was not responsive during the episode. Denies any fever, no chills, but reports that she has been drinking significant amount of water as a needed to submit to direct sales professional to see you for kidneys are working again?, denies any recent illness, no abdominal pain, no diarrhea constipation, no urinary symptoms and no lower extremity edema On arrival to the ED patient hemodynamically stable Labs are significant for WBC count 7, hemoglobin 9.8, hematocrit 30, potassium of 5.4, sodium of 129 with a baseline of around [id number] creatinine of 5.76, alk- phos of 125, Head CT, chest x-ray negative Given the breakthrough seizure patient will be admitted for further management Review of Systems Review of Systems: Yes all other systems are reviewed and are negative [facility] Medical History Anemia due to chronic kidney disease CHF (congestive heart failure) Chronic kidney disease CKD (chronic kidney disease) CKD (chronic kidney disease), stage V 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 2 diabetes mellitus CKD stage 5 secondary to hypertension Diabetes mellitus Hyperlipidemia Hypertension Social History Household Members: Spouse Housing: Apartment Do you presently have visiting nurse or other home services: No Alcohol intake: never Patient Tobacco Use Status: Never used Tobacco Smoked in Last 30 Days: No Use of substances other than those prescribed or required for medical reasons: No Advance Directives: No Advance Directives Information Provided: Yes service: No Current occupational status: unemployed Meds Allergies Allergy/AdvReac Type Severity Reaction Status Date / Time No Known Allergies Allergy Verified 03/01/22 12:44 Home Medications Medication Instructions Recorded Confirmed Last Taken Type insulin human U-100 NPH-regulr 8 unit subcut BEDTIME 03/01/22 03/15/23 02/28/22 History 70-30 mix 100 unit/mL subcutaneous susp (Novolin 70/30 U-100 Insulin) insulin human U-100 NPH-regulr 13 unit subcut DAILY 03/01/22 03/15/23 03/01/22 History 70-30 mix 100 unit/mL subcutaneous susp (Novolin 70/30 U-100 Insulin) labetalol 100 mg tablet 1.5 tab PO BID 03/01/22 03/15/23 03/01/22 History omeprazole 20 mg capsule,delayed 40 mg PO DAILY 03/01/22 03/15/23 03/01/22 History release atorvastatin 40 mg tablet 1 tab PO DAILY cholesterol 11/08/22 03/15/23 Unknown History amlodipine 5 mg tablet 10 mg PO DAILY 03/04/23 03/15/23 Unknown History cyanocobalamin (vitamin B-12) 1,000 mcg PO DAILY 03/15/23 03/15/23 Unknown History 1,000 mcg tablet Physical Exam Vital Signs and Narrative: Vital Signs: Last Vital Signs Temp 97.4 F 05/12/23 02:13 Pulse 79 05/12/23 05:53 Resp 18 05/12/23 05:53 BP 164/72 H 05/12/23 05:53 Pulse Ox 96 05/12/23 05:53 O2 Del Method Room Air 05/12/23 05:53 BMI result Body Mass Index 30.8 Const: General: cooperative and no acute distress Orientation/consciousness: patient oriented x3 Eyes: General: appearance normal, both eyes and all related structures Pupils: Equal, round and reactive pupils present Resp: Effort & Inspection: normal respiratory effort and able to speak in complete sentences Auscultation: clear to auscultation bilaterally Cardio: Rate: regular rate Rhythm: regular rhythm GI: Palpation (GI): Soft to palpation Auscultation: normal bowel sounds Skin: General skin exam: no rashes or lesions noted Neuro: General: patient oriented x3 Cranial nerves: Yes Equal, round and reactive pupils present Cognition (Neuro): normal cognition Extrem: General: Yes normal to inspection and Yes no pedal edema Results Labs 05/12/23 02:36 05/12/23 02:36 Labs: Laboratory Results - last 24 hr 05/12/23 05/12/23 05/12/23 02:13 02:36 02:36 MCV 92.6 MCH 30.2 MCHC 32.7 RDW 14.5 Plt Count 119 L MPV 10.5 Absolute Nucleated RBC 0.000 Nucleated RBC % (auto) 0.0 Anion Gap 14 Estim Creat Clear Calc 9.6 Estimated GFR 7 POC Glucose 75 Random Glucose 83 Calcium 8.8 D Total Bilirubin 0.4 AST 27 ALT 12 Alkaline Phosphatase 125 H Total Protein 6.0 L Albumin 3.3 L Imaging Radiologist's Impressions: Impressions Chest X-Ray 05/12/23 03:45 IMPRESSION: Low lung volumes limits evaluation. Mild lower lung field increased markings suspected to be chronic and/or technical. There is no focal lung consolidation or pleural effusion. Head CT 05/12/23 04:11 IMPRESSION: 1. 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 2. No acute intracranial abnormality. Assessment and Plan (1) Acute hyponatremia: Status: Acute (2) Abnormal movement: Status: Acute Plan 67-year-old female with past medical history of ESRD on dialysis comes into the hospital with possible seizure disorder # acute hyponatremia - likely secondary to excessive water intake - pt reports that she has been drinking excessive water to make her kidney work better again - will restrict fluids - nephrology consulted - follow bmp # Seizure? - unlcear - no hx of seizures - possibly 2/2 hyponatremia - monitor on telemetry # HTN - stable - cotnue antihypertensives # DM - hold oral antihyperglyceimics - add lDSSI - continue home insulin #ESRD- consult nephrology DVT prophylaxis: Lovenox Time Spent With Patient Time: Total time managing care of this patient today ____ minutes. Quality Stroke Does the patient have a stroke diagnosis?: No VTE Prior VTE?: No VTE Risk Level:: Medical - low VTE Device Contraindication: Treatment Not Indicated VTE Drug Contraindication: N/A - Med Ordered
[2023-05-12 07:44] LABS: Appearance Urine Clear; Color Urine Yellow; Glucose Urine UA Negative (Negative); Leukocyte Esterase Urine Negative (Negative); Nitrite Urine Negative (Negative); Specific Gravity - Urine <= 1.005 (1.005-1.025); UMIC TRIGGER UACC YES; Urine Blood Negative (Negative); Urine Ketones Negative (Negative); Urine Protein 100 (2+) mg/dL (Neg-Trace)
[2023-05-12 07:46] LABS: Bacteria Urine None Seen (None Seen); Hyaline Casts Urine 0-2 /LPF (0-2); RBC Urine 0-2 /HPF (0-2); Squamous Epithelial Cell Urine 0-2 /HPF (0-2); WBC Urine 0-5 /HPF (0-5)
[2023-05-12] MEDS: Enoxaparin Sodium 30 MG/0.3 ML SYRINGE SUBCUT (08:19)
[2023-05-12] MEDS: 0.9 % Sodium Chloride Flush 3 ML SYRINGE IVFLUSH ×2 (08:19→20:17)
--- NOTE | 2023-05-12 08:51 | PHA.MEDREC ---
Pharmacy Consult ? Medication Reconciliation Pharmacy has completed the medication reconciliation. Utilized rigging slinger services. Spoke to patient and patient's spouse to confirm meds. Patient goes to [facility] and receives Calcitriol 0.25mg there. Called dialysis center to confirm. Per patient's spouse, they have PRN midodrine 2.5mg script when patient's blood pressure is low.
--- NOTE | 2023-05-12 09:31 | MHC.CM.PN ---
SANTANA addressed. Patient lives in an apartment with her /HCP and she receives her HD @ [facility]. Home/resume said services is the goal and CM has initiated and will follow for dc planning. PCP is Dr. Sunitha Rod.
--- NOTE | 2023-05-12 09:42 | PM.EVENT ---
Event Note Date of Service: 05/12/23 Event Note: Personally seen and examined, admitted this morning with seizure, and found to have hyponatremia, has ESRD on HD. consult nephrology , fluid restriction, o/w A/P per Hand P from this morning Time Spent With Patient Time: Total time managing care of this patient today ____ minutes.
--- NOTE | 2023-05-12 10:30 | PM.CNNEP ---
History of Present Illness Reason for Consult Consult date: 05/13/23 Reason for consult: ESRD Chief Complaint Chief complaint: hyponatremia, seizures History of Present Illness Narrative: 67-year-old female with chronic anemia, ESRD newly started on dialysis in March on Thursday, diabetes, HTN, HLD comes into the hospital complaining of seizure episode.? History is obtained mostly from her self and her .? Patient apparently was feeling nauseous, she took her midodrine because she felt maybe her blood pressure was low, but had 1 episode of vomiting around 22:30, she went to bed, but woke up and according to her had her eyes rolled back and was shaking for about 3-5 minutes.? He also reports that she was confused afterwards and was not responsive during the episode.? She has been compliant with dialysis treatment. Review of Systems Review of Systems Constitutional : No Fever, No Chills, No Fatigue ENT/Mouth : No sore throat, No Rhinorrhea Eyes: No Eye Pain, No Swelling, No Redness Cardiovascular : No Chest Pain, No SOB, No Dyspnea on Exertion Respiratory : No Cough, No Sputum Gastrointestinal : pos Nausea, No Vomiting, No Diarrhea, No abdominal Pain Genitourinary : No Dysuria, No Urinary Frequency, No Hematuria, Musculoskeletal : No joint pain, No Myalgias, No Joint Swelling Skin : No Skin Lesions, No rash Neuro : No Weakness, No Numbness, No Dizziness, no Headache, pos seizure like activity Psych : No Anxiety/Panic, No Depression All other systems reviewed and are negative PMFSH Past Medical History Medical History Anemia due to chronic kidney disease CHF (congestive heart failure) Chronic kidney disease CKD (chronic kidney disease) CKD (chronic kidney disease), stage V 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 2 diabetes mellitus CKD stage 5 secondary to hypertension Diabetes mellitus Hyperlipidemia Hypertension Social History Social History Household Members: Spouse Housing: Apartment Do you presently have visiting nurse or other home services: No Alcohol intake: never Patient Tobacco Use Status: Never used Tobacco Smoked in Last 30 Days: No Use of substances other than those prescribed or required for medical reasons: No Currently Displaying Signs/Symptoms of Drug Intoxication Withdrawal: No Advance Directives: No Advance Directives Information Provided: Yes Nutrition Risks: No Nutritional Risk service: No Current occupational status: unemployed Meds Allergies Allergy/AdvReac Type Severity Reaction Status Date / Time No Known Allergies Allergy Verified 03/01/22 12:44 Active Medications: Current Medications Acetaminophen (Acetaminophen 325 Mg Tablet) 650 mg PO Q6H PRN PRN Reason: Pain, Mild (Pain Scale 1-3) Docusate Sodium (Docusate Sodium 100 Mg Capsule) 100 mg PO DAILY PRN PRN Reason: Constipation Enoxaparin Sodium (Enoxaparin Sodium 30 Mg/0.3 Ml Syringe) 30 mg SUBCUT Q24H [facility] Last Admin: 05/12/23 08:19 Dose: 30 mg Ondansetron HCl (Ondansetron Hcl 4 Mg/2 Ml Vial) 4 mg IVPUSH Q8H PRN PRN Reason: Nausea and Vomiting Sodium Chloride (0.9 % Sodium Chloride Flush 3 Ml Syringe) 3 ml IVFLUSH QSHIFT [facility] Last Admin: 05/12/23 08:19 Dose: 3 ml Home Medications Medication Instructions Recorded Confirmed Last Taken Type cyanocobalamin (vitamin B-12) 1,000 mcg PO DAILY 03/15/23 05/12/23 05/11/23 History 1,000 mcg tablet atorvastatin 40 mg tablet 40 mg PO DAILY cholesterol 05/12/23 05/12/23 05/11/23 History calcitriol 0.25 mcg capsule 0.25 mcg PO TUTHSA 05/12/23 05/12/23 05/09/23 History insulin human U-100 NPH-regulr 20 unit subcut BEDTIME 05/12/23 05/12/23 05/11/23 History 70-30 mix 100 unit/mL subcutaneous susp (Humulin 70/30 U-100 Insulin) insulin human U-100 NPH-regulr 25 unit subcut DAILY 05/12/23 05/12/23 05/11/23 History 70-30 mix 100 unit/mL subcutaneous susp (Humulin 70/30 U-100 Insulin) midodrine 2.5 mg tablet 2.5 mg PO DAILY PRN low blood 05/12/23 05/12/23 05/11/23 History pressure omeprazole 40 mg capsule,delayed 40 mg PO DAILY@0630 05/12/23 05/12/23 05/11/23 History release vitamin B complex-vitamin C-folic 1 tab PO DAILY 05/12/23 05/12/23 05/11/23 History acid 0.8 mg tablet (Mindy-Mert) Physical Exam Vital Signs: Last Vital Signs Temp 97.4 F 05/12/23 02:13 Pulse 79 05/12/23 05:53 Resp 18 05/12/23 05:53 BP 164/72 H 05/12/23 05:53 Pulse Ox 96 05/12/23 05:53 O2 Del Method Room Air 05/12/23 05:53 BMI result Body Mass Index 30.8 Const General: cooperative and no acute distress Orientation/consciousness: patient oriented x3 Eyes General: appearance normal, both eyes and all related structures Pupils: Equal, round and reactive pupils present Resp Effort & Inspection: normal respiratory effort and able to speak in complete sentences Auscultation: clear to auscultation bilaterally Cardio Rate: regular rate Rhythm: regular rhythm GI Palpation (GI): Soft to palpation Auscultation: normal bowel sounds Skin General skin exam: no rashes or lesions noted Neuro General: patient oriented x3 Cranial nerves: Yes Equal, round and reactive pupils present Cognition (Neuro): normal cognition Extrem General: Yes normal to inspection and Yes no pedal edema Results Lab Results 05/12/23 02:36 05/12/23 02:36 Lab results: Chemistry 05/12/23 02:36 Sodium 129 L Potassium 5.4 H D Carbon Dioxide 22 BUN 59 H Creatinine 5.76 H* Calcium 8.8 D Hematology 05/12/23 02:36 WBC 7.0 Hgb 9.8 L Plt Count 119 L Urinalysis 05/12/23 07:23 Urine Color Yellow Urine Appearance Clear Urine pH 7.0 Ur Specific [place] <= 1.005 Urine Protein 100 (2+) H Urine Glucose (UA) Negative Urine Ketones Negative Urine Blood Negative Urine Nitrite Negative Ur Leukocyte Esterase Negative Urine RBC 0-2 Urine WBC 0-5 Ur Squamous Epith Cells 0-2 Hyaline Casts 0-2 Assessment and Plan (1) Acute hyponatremia: Status: Acute (2) Abnormal movement: Status: Acute Plan 67-year-old female with ESRD on dialysis comes into the hospital with possible seizure disorder # Seizure? - unclear - no hx of seizures - obtain Urology evaluation # HTN - stable. No change in antihypertensives # DM - hold oral antihyperglyceimics - #ESRD- will arrange for dialysis 3 times a week. No overt signs or symptoms of uremia. Mild hyponatremia Due to decreased free water clearance. I do not believe this is the sole source for her behavior or seizure-like activity Time Spent With Patient Time: Total time managing care of this patient today ____ minutes. Procedures Date of Service Date of Service: 05/13/23
[2023-05-12] MEDS: ondansetron HCL 4 MG/2 ML VIAL IVPUSH (14:24)
[2023-05-12 16:49] LABS: Glucose, Whole Blood 155 mg/dL (60-115)
[2023-05-12 20:15] LABS: Glucose, Whole Blood 164 mg/dL (60-115)
[2023-05-12] MEDS: Acetaminophen 325 MG TABLET 650 MG PO (20:16)
[2023-05-13 03:35] VITALS: BP 150/65; PULSE 92; RESP 18; TEMP 36.6; O2SAT 98
[2023-05-13] MEDS: Enoxaparin Sodium 30 MG/0.3 ML SYRINGE SUBCUT (05:59)
[2023-05-13 06:46] LABS: Basophils Percent Auto 0.6 % (0-2); Eosinophils Absolute Auto 0.1 X10*3/uL (0.0-0.4); Eosinophils Percent Auto 0.9 % (0-4); Hemoglobin 10.1 g/dl (12.0-16.0); Imm Gran Abs Auto 0.05 X10*3/uL (0.00-0.03); Imm Gran Pct Auto 0.7 % (0.0-0.4); Lymphocytes Absolute Auto 0.9 X10*3/uL (1.2-4.9); Lymphocytes Percent Auto 12.6 % (20-40); MANUAL DIFF FLAG NO; Mean Corpuscular HGB Conc 32.6 g/dl (31.0-35.0); Mean Corpuscular Hemoglobin 30.3 pg (27.0-33.0); Mean Corpuscular Volume 93.1 fL (80.0-98.0); Mean Platelet Volume 10.8 fL (9.4-12.3); Monocytes Absolute Auto 0.5 X10*3/uL (0.1-1.2); Monocytes Percent Auto 7.7 % (2-11); Neutrophils Absolute Auto 5.4 x10*3/uL (2.0-8.3); Neutrophils Percent Auto 77.5 % (45-73); Platelet Count 135 X10*3/uL (160-400); Red Blood Count 3.33 X10*6/uL (4.20-5.50); Red Cell Distribution Width 14.6 % (11.0-16.0)
[2023-05-13 07:07] VITALS: BP 129/63; PULSE 95; RESP 18; TEMP 36.5; O2SAT 98
[2023-05-13 07:11] LABS: Alanine Aminotransferase 13 U/L (0-31); Albumin Level 3.3 g/dL (3.5-5.0); Alkaline Phosphatase 135 U/L (39-117); Anion Gap 16 (12-20); Aspartate Amino Transferase 25 U/L (5-31); Bilirubin Total 0.5 mg/dL (0.0-1.0); Blood Urea Nitrogen 29 mg/dL (9-16); Calcium 8.8 mg/dL (8.4-10.2); Carbon Dioxide 20 mmol/L (22-29); Chloride 101 mmol/L (96-108); Creatinine Clr Calc Pharmacy 13.1; Estimated Glomerular Filt Rate 10; Glucose Random 84 mg/dL (60-115); Potassium 5.3 mmol/L (3.3-5.1); Sodium 132 mmol/L (135-145); Total Protein 6.1 g/dL (6.5-8.0)
[2023-05-13] MEDS: Cyanocobalamin (Vitamin B-12) 1,000 MCG TABLET 1000 MCG PO (08:00)
[2023-05-13] MEDS: Omeprazole 40 MG CAPSULE.DR PO (08:00)
[2023-05-13] MEDS: Multivitamin TABLET 1 TAB PO (08:00)
[2023-05-13] MEDS: Atorvastatin Calcium 40 MG TABLET PO (08:00)
[2023-05-13] MEDS: 0.9 % Sodium Chloride Flush 3 ML SYRINGE IVFLUSH (08:01)
--- NOTE | 2023-05-13 09:31 | MHC.CM.PN ---
Patient was switched from OBSERVATION to INPATIENT on 05/12/2023. CM met with Patient at bedside and addressed IMM with her, providing Patient with the original and placing a copy on the chart.
--- NOTE | 2023-05-13 10:31 | PM.PNNEP ---
Subjective Subjective Date of Service: 05/13/23 Interval history: Doing better Physical Exam Vital Signs: Vital Signs: Last Vital Signs Temp 97.7 F 05/13/23 07:07 Pulse 95 05/13/23 07:07 Resp 18 05/13/23 07:07 BP 129/63 05/13/23 07:07 Pulse Ox 98 05/13/23 07:07 O2 Del Method Room Air 05/13/23 07:07 BMI result Body Mass Index 30.8 Const: General: cooperative and no acute distress Orientation/consciousness: patient oriented x3 Eyes: General: appearance normal, both eyes and all related structures Pupils: Equal, round and reactive pupils present Resp: Effort & Inspection: normal respiratory effort and able to speak in complete sentences Auscultation: clear to auscultation bilaterally Cardio: Rate: regular rate Rhythm: regular rhythm GI: Palpation (GI): Soft to palpation Auscultation: normal bowel sounds Skin: General skin exam: no rashes or lesions noted Neuro: General: patient oriented x3 Cranial nerves: Yes Equal, round and reactive pupils present Cognition (Neuro): normal cognition Extrem: General: Yes normal to inspection and Yes no pedal edema Objective Data Labs 05/13/23 06:34 05/13/23 06:34 Labs: Laboratory Results - last 24 hr 05/12/23 05/12/23 05/13/23 16:45 20:11 06:34 WBC 7.0 RBC 3.33 L Hgb 10.1 L Hct 31.0 L MCV 93.1 MCH 30.3 MCHC 32.6 RDW 14.6 Plt Count 135 L MPV 10.8 Immature Gran % (Auto) 0.7 H Neut % (Auto) 77.5 H Lymph % (Auto) 12.6 L [place] % (Auto) 7.7 Eos % (Auto) 0.9 Baso % (Auto) 0.6 Lymph # (Auto) 0.9 L [place] # (Auto) 0.5 Eos # (Auto) 0.1 Baso # (Auto) 0.0 Abs Immat Gran (auto) 0.05 H Absolute Neuts (auto) 5.4 Absolute Nucleated RBC 0.000 Nucleated RBC % (auto) 0.0 Sodium Potassium Chloride Carbon Dioxide Anion Gap BUN Creatinine Estim Creat Clear Calc Estimated GFR POC Glucose 155 H 164 H Random Glucose Calcium Total Bilirubin AST ALT Alkaline Phosphatase Total Protein Albumin 05/13/23 06:34 WBC RBC Hgb Hct MCV MCH MCHC RDW Plt Count MPV Immature Gran % (Auto) Neut % (Auto) Lymph % (Auto) [place] % (Auto) Eos % (Auto) Baso % (Auto) Lymph # (Auto) [place] # (Auto) Eos # (Auto) Baso # (Auto) Abs Immat Gran (auto) Absolute Neuts (auto) Absolute Nucleated RBC Nucleated RBC % (auto) Sodium 132 L Potassium 5.3 H Chloride 101 Carbon Dioxide 20 L Anion Gap 16 BUN 29 H Creatinine 4.22 H* Estim Creat Clear Calc 13.1 Estimated GFR 10 POC Glucose Random Glucose 84 Calcium 8.8 Total Bilirubin 0.5 AST 25 ALT 13 Alkaline Phosphatase 135 H Total Protein 6.1 L Albumin 3.3 L Procedures Date of Service Date of Service: 05/13/23 Assessment & Plan Assessment and plan (1) Acute hyponatremia: Status: Acute (2) Abnormal movement: Status: Acute Plan 67-year-old female with ESRD on dialysis comes into the hospital with possible seizure disorder # Seizure? - unclear - no hx of seizures # HTN - stable. No change in antihypertensives - #ESRD- dialysis 3 times a week. No overt signs or symptoms of uremia. Mild hyponatremia Due to decreased free water clearance. I do not believe this is the sole source for her behavior or seizure-like activity Mild hyperkalemia Lokelma x 1 dose DC planning Time Spent With Patient Time: Total time managing care of this patient today ____ minutes. Progress Note: Quality Stroke Does the patient have a stroke diagnosis?: No
--- NOTE | 2023-05-13 10:46 | PM.DS ---
DS: Providers Provider Date of Service: 05/13/23 Date of admission: 05/12/23 11:29 Primary care physician: Unknown Physician Consults: 05/12/23 06:36 Consult to Nephrology Routine Consulting Provider: [facility] Reason for consultation: hyponatremia, dialysis Has provider been notified: No DS: Diagnosis Discharge Diagnosis (1) Acute hyponatremia: Status: Acute (2) Abnormal movement: Status: Acute DS: Summary Hospital Course Hospital Course: Chief Complaint: Seizure This is a 67-year-old female with past medical history of chronic anemia, ESRD newly started on dialysis in March on Thursday, diabetes, HTN, HLD comes into the hospital complaining of seizure episode.? History is obtained mostly from her self and her .? Patient apparently was feeling nauseous, she took her midodrine because she felt maybe her blood pressure was low, but had 1 episode of vomiting around 22:30, she went to bed, but woke up and according to her had her eyes rolled back and was shaking for about 3-5 minutes.? He also reports that she was confused afterwards and was not responsive during the episode.? Denies any fever, no chills, but reports that she has been drinking significant amount of water as a needed to submit to paper coater to see you for kidneys are working again?, denies any recent illness, no abdominal pain, no diarrhea constipation, no urinary symptoms and no lower extremity edema On arrival to the ED patient hemodynamically stable Labs are significant for WBC count 7, hemoglobin 9.8, hematocrit 30, potassium of 5.4, sodium of 129 with a baseline of around [id number] creatinine of 5.76, alk-phos of 125, Head CT, chest x-ray negative Given the breakthrough seizure patient will be admitted for further management Hospital course: Patient presented with seizure and found have hyponatremia that is attributed to this. Patient was observed overnight, repeat sodium improved to 135 now, she has not had any further seizure, underwent dialysis as usual. She is now feeling better, eating and will like to go home Time Spent with Patient Time attestation: Total time managing care of this patient today ____ minutes. Discharge coordination time: Greater than 30 minutes Quality: Safe Use of Opioids Does Pt have an Active Cancer Diagnosis on the Problem List?: No Quality: Stroke Does the patient have a stroke diagnosis?: No Physical Exam Vital Signs: Vital Signs: Last Vital Signs Temp 97.7 F 05/13/23 07:07 Pulse 95 05/13/23 07:07 Resp 18 05/13/23 07:07 BP 129/63 05/13/23 07:07 Pulse Ox 98 05/13/23 07:07 O2 Del Method Room Air 05/13/23 07:07 BMI result Body Mass Index 30.8 DS: Data Data Completed and Pending Completed studies during hospitalization [Text1]: Procedures Fluoroscopy of Superior Vena Cava, Guidance (03/15/23) Insertion of Infusion Device into Superior Vena Cava, Percutaneous Approach (03/15/23) Insertion of Tunneled Vascular Access Device into Chest Subcutaneous Tissue and Fascia, Percutaneous Approach (03/15/23) Performance of Urinary Filtration, Intermittent, Less than 6 Hours Per Day (03/15/23) Removal of Infusion Device from Great Vessel, Percutaneous Approach (03/15/23) Transfusion of Nonautologous Red Blood Cells into Peripheral Vein, Percutaneous Approach (03/15/23) Ultrasonography of Superior Vena Cava, Guidance (03/15/23) Labs on day of discharge: Laboratory Results - last 24 hr 05/12/23 05/12/23 05/13/23 16:45 20:11 06:34 WBC 7.0 RBC 3.33 L Hgb 10.1 L Hct 31.0 L MCV 93.1 MCH 30.3 MCHC 32.6 RDW 14.6 Plt Count 135 L MPV 10.8 Immature Gran % (Auto) 0.7 H Neut % (Auto) 77.5 H Lymph % (Auto) 12.6 L [place] % (Auto) 7.7 Eos % (Auto) 0.9 Baso % (Auto) 0.6 Lymph # (Auto) 0.9 L [place] # (Auto) 0.5 Eos # (Auto) 0.1 Baso # (Auto) 0.0 Abs Immat Gran (auto) 0.05 H Absolute Neuts (auto) 5.4 Absolute Nucleated RBC 0.000 Nucleated RBC % (auto) 0.0 Sodium Potassium Chloride Carbon Dioxide Anion Gap BUN Creatinine Estim Creat Clear Calc Estimated GFR POC Glucose 155 H 164 H Random Glucose Calcium Total Bilirubin AST ALT Alkaline Phosphatase Total Protein Albumin 05/13/23 06:34 WBC RBC Hgb Hct MCV MCH MCHC RDW Plt Count MPV Immature Gran % (Auto) Neut % (Auto) Lymph % (Auto) [place] % (Auto) Eos % (Auto) Baso % (Auto) Lymph # (Auto) [place] # (Auto) Eos # (Auto) Baso # (Auto) Abs Immat Gran (auto) Absolute Neuts (auto) Absolute Nucleated RBC Nucleated RBC % (auto) Sodium 132 L Potassium 5.3 H Chloride 101 Carbon Dioxide 20 L Anion Gap 16 BUN 29 H Creatinine 4.22 H* Estim Creat Clear Calc 13.1 Estimated GFR 10 POC Glucose Random Glucose 84 Calcium 8.8 Total Bilirubin 0.5 AST 25 ALT 13 Alkaline Phosphatase 135 H Total Protein 6.1 L Albumin 3.3 L Discharge Plan Discharge Anticipated Discharge Date/Time: 05/13/23 10:39 Patient Disposition: Home, Self-Care Discharge Diagnosis: HypOnatremia Referrals: Physician,Unknown J [Primary Care Provider] - 1 Week Discharge Medications: Continued cyanocobalamin (vitamin B-12) 1,000 mcg Tablet 1,000 mcg PO DAILY atorvastatin 40 mg tablet 40 mg PO DAILY omeprazole 40 mg capsule,delayed release(DR/EC) 40 mg PO DAILY@0630 Mindy-Mert 0.8 mg tablet 1 tab PO DAILY Humulin 70/30 U-100 Insulin 100 unit/mL (70-30) suspension 20 unit subcut BEDTIME Humulin 70/30 U-100 Insulin 100 unit/mL (70-30) suspension 25 unit subcut DAILY midodrine 2.5 mg Tablet 2.5 mg PO DAILY PRN (Reason: low blood pressure) Rx Instructions: do not give last dose of day after 6PM or within 4 hrs of bedtime calcitriol 0.25 mcg Capsule 0.25 mcg PO TUTHSA Rx Instructions: administer after dialysis on dialysis days Discharge Orders: Discharge Order (Routine); Ordered 05/13/23 Ordered By: Tonio Luu Diet: Diabetic diet Activity on Discharge: As tolerated Stand Alone Forms: Patient Portal Discharge page Care Plan Goals: recovery from hyponatremia Health Concerns: seizure, hyponatremia, esrd Plan of Treatment: avoid drinking excesive amount of water, follow up with dialysis as usual Assessment: as above
[2023-05-13] MEDS: Sodium Zirconium Cyclosilicate 10 GM POWD.PACK PO (10:53)
--- NOTE | 2023-05-13 10:54 | MHC.CM.PN ---
Patient has been medically cleared for dc to home today, self care. IMM addressed with Patient this morning.
[2023-05-13 11:16] VITALS: BP 128/63; PULSE 81; RESP 18; TEMP 36.3; O2SAT 99
== END 2023-05-13 12:00 | disposition home or self-care (01) | DRG 640 ==
LOC: HO.ED 05:21 → HO.EDOVER 06:43 → HO.IMC 09:20
PROVIDERS: Admitting Provider Internal Medicine; Emergency Provider Emergency Medicine; PCP Registered Nurse; Visit Provider Internal Medicine
DX: E87.1 Hypo-osmolality and hyponatremia (principal); N18.6 End stage renal disease; I12.0 Hypertensive chronic kidney disease with stage 5 chronic kidney disease or end stage renal disease; E87.5 Hyperkalemia; E11.22 Type 2 diabetes mellitus with diabetic chronic kidney disease; Z99.2 Dependence on renal dialysis; Z79.4 Long term (current) use of insulin; Z79.899 Other long term (current) drug therapy
CPT/HCPCS: 36415; 70450; 71045; 80053; 81001; 82947; 85025; 85027; 90999; 93005; 99222; 99284; J1650; J2405

== ENCOUNTER → 2023-05-12 02:30 | Outpatient (BNV) | payer OTHER, SELFPAY | PROVIDERS: Admitting Provider Internal Medicine; Emergency Provider Emergency Medicine; Visit Provider Internal Medicine Cardiovascular Disease | DX: R53.1 Weakness (principal) | CPT/HCPCS: 93010 ==

== ENCOUNTER → 2023-05-12 06:36 | Outpatient (BNV) | payer OTHER, SELFPAY | PROVIDERS: Admitting Provider Internal Medicine; Emergency Provider Emergency Medicine; Visit Provider Internal Medicine | DX: E87.1 Hypo-osmolality and hyponatremia (principal); R25.9 Unspecified abnormal involuntary movements | CPT/HCPCS: 99223; 99239; 99499 ==

== ENCOUNTER 2023-07-29 13:41 | Outpatient (REF) | payer OTHER, SELFPAY ==
--- NOTE | ~2023-07-29 | MM_ITS ---
EXAMINATION: MM SCREENING DIGITAL BREAST TOMOSYNTHESIS, BILATERAL CLINICAL INFORMATION: Screening. Asymptomatic. COMPARISON: Mammography: There are no prior mammograms for comparison. TECHNIQUE: Digital breast tomosynthesis is performed in both the craniocaudal and mediolateral oblique views along with computer-aided detection (CAD). Synthesized 2D images are generated from the tomosynthesis. FINDINGS: There are scattered areas of fibroglandular density (ACR BI-RADS breast composition Category b). There are no significant masses, abnormal calcifications, or other abnormalities. MM/MM tomosynthesis screening BI IMPRESSION: No mammographic evidence of malignancy. ASSESSMENT: BI-RADS BI-RADS 1 - Negative RECOMMENDATION: Routine annual mammography screening. 1 year F/U This examination should not preclude the clinical evaluation of a suspicious palpable abnormality. This patient's information was entered into a reminder system with a target due date for their next mammogram.
== END 2023-07-29 13:42 | disposition home or self-care (01) ==
LOC: HO.MAMMO 13:41
PROVIDERS: PCP Student in an Organized Health Care Education/Training Program; Visit Provider Student in an Organized Health Care Education/Training Program
DX: Z12.31 Encounter for screening mammogram for malignant neoplasm of breast (principal)
CPT/HCPCS: 77063; 77067

== ENCOUNTER → 2023-07-29 14:00 | Outpatient (BNV) | payer OTHER, SELFPAY | PROVIDERS: PCP Student in an Organized Health Care Education/Training Program; Visit Provider Radiology Diagnostic Radiology | DX: Z12.31 Encounter for screening mammogram for malignant neoplasm of breast (principal) | CPT/HCPCS: 77063; 77067 ==

== ENCOUNTER 2023-12-02 18:41 | Outpatient (REF) | payer OTHER, SELFPAY ==
[2023-12-10 03:24] LABS: HPV mRNA E6/E7 rflx Not Detected (Not Detected)
== END 2023-12-02 18:42 | disposition home or self-care (01) ==
LOC: HO.HHCLNP 18:41
PROVIDERS: Visit Provider Advanced Practice Midwife
DX: R87.610 Atypical squamous cells of undetermined significance on cytologic smear of cervix (ASC-US) (principal); Z12.4 Encounter for screening for malignant neoplasm of cervix
CPT/HCPCS: 87624; 88142

== ENCOUNTER 2024-03-17 14:58 | Emergency (ER) | payer OTHER, SELFPAY ==
--- NOTE | ~2024-03-17 | CT_ITS ---
EXAMINATION: CT HEAD WITHOUT CONTRAST CLINICAL INFORMATION: Altered mental status COMPARISON: CT head 05/12/2023 TECHNIQUE: Contiguous axial imaging was performed from the skull base to vertex without intravenous administration of contrast. This CT examination was performed using dose optimization techniques as appropriate, variously including the following: *Automated exposure control *Adjustment of mA and/or kV according to patient size (this includes techniques or standardized protocols for targeted exams where dose is matched to indication/reason for exam; i.e. extremities or head) *Use of iterative reconstruction technique DLP: 649 mGy-cm FINDINGS: There is no evidence of acute intracranial hemorrhage. There is sulcal and ventricular prominence consistent with cerebral volume loss. There is right parietal encephalomalacia with ex vacuo dilatation of the occipital horn of the right lateral ventricle, similar to previous. No evidence of acute edematous territorial infarction.. No abnormal mass effect or midline shift is seen. José to white matter differentiation appears maintained. No abnormal extra-axial fluid collections are identified. Hypodensities in the deep white matter consistent with chronic microangiopathy. No acute calvarial fracture.. Paranasal sinuses and mastoid air cells are well-aerated. CT/CT head/brain wo IV con IMPRESSION: No CT evidence of acute intracranial hemorrhage or edematous large vessel territorial infarction. Stable right parietal lobe encephalomalacia with ex vacuo dilatation of the occipital horn of the right lateral ventricle. Additional chronic changes, similar to previous, as detailed above.
[2024-03-17 15:16] VITALS: BP 137/51; BP 145/28; PULSE 61; PULSE 63; RESP 15; TEMP 36.4; O2SAT 88; O2SAT 92; BMI 32.8
--- NOTE | 2024-03-17 15:19 | ED.AMS ---
HPI - Altered Mental Status General Chief Complaint: Altered Mental Status Stated Complaint: N/V,CP,FROM DYALYSIS PER EMS Time Seen by Provider: 03/17/24 15:04 Source: EMS and other (spouse) Mode of arrival: EMS History of Present Illness ED Provider: Cameron HOBBS narrative: 68-year-old female with history of end-stage renal disease on dialysis, anemia of chronic disease, diabetes, hyperlipidemia and hypertension presents with altered mental status. Per EMS, patient was at dialysis, she became lethargic and vomited. When patient's arrived, he felt she did not require assessment, they agreed to have her brought to the emergency department. History limited for the patient, as she is still altered. We are waiting for the who arrived together additional history. MD complaint: confusion Related Data Home Medications ?Medication ?Instructions ?Recorded ?Confirmed cyanocobalamin (vitamin B-12) 1,000 mcg PO DAILY 03/15/23 05/12/23 1,000 mcg tablet atorvastatin 40 mg tablet 40 mg PO DAILY cholesterol 05/12/23 05/12/23 calcitriol 0.25 mcg capsule 0.25 mcg PO TUTHSA 05/12/23 05/12/23 insulin human U-100 NPH-regulr 20 unit subcut BEDTIME 05/12/23 05/12/23 70-30 mix 100 unit/mL subcutaneous susp (Humulin 70/30 U-100 Insulin) insulin human U-100 NPH-regulr 25 unit subcut DAILY 05/12/23 05/12/23 70-30 mix 100 unit/mL subcutaneous susp (Humulin 70/30 U-100 Insulin) midodrine 2.5 mg tablet 2.5 mg PO DAILY PRN low blood 05/12/23 05/12/23 pressure omeprazole 40 mg capsule,delayed 40 mg PO DAILY@0630 05/12/23 05/12/23 release vitamin B complex-vitamin C-folic 1 tab PO DAILY 05/12/23 05/12/23 acid 0.8 mg tablet (Mindy-Mert) Allergies Allergy/AdvReac Type Severity Reaction Status Date / Time No Known Allergies Allergy Verified 03/17/24 15:23 Review of Systems Review of Systems: Unable to obtain as the patient is currently altered Yes all other systems are reviewed and are negative PMFSH Past Medical History Attestation statement: The following information was validated with the patient. Medical History Anemia due to chronic kidney disease CHF (congestive heart failure) Chronic kidney disease CKD (chronic kidney disease) CKD (chronic kidney disease), stage V 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 2 diabetes mellitus CKD stage 5 secondary to hypertension Diabetes mellitus Hyperlipidemia Hypertension Social History Social History Household Members: Spouse Housing: Apartment Do you presently have visiting nurse or other home services: No Alcohol intake: never Patient Tobacco Use Status: Never used Tobacco Smoked in Last 30 Days: No Use of substances other than those prescribed or required for medical reasons: No Advance Directives: No Advance Directives Information Provided: Yes service: No Current occupational status: unemployed Physical Exam ED Vital Signs: Vital Signs - 24 hr 03/17/24 15:16 03/17/24 16:17 03/17/24 16:46 Temperature 97.6 F Pulse Rate 63 68 Respiratory Rate 15 16 Blood Pressure 145/28 H 153/58 H Pulse Oximetry 88 L 94 96 Oxygen Delivery Method Room Air Nasal Cannula Nasal Cannula Oxygen Flow Rate 2 2 BMI result Body Mass Index 32.8 Const Other: Awake, appears older than stated age, no signs of head trauma on exam Eyes Pupils: Equal, round and reactive pupils present Resp Other: Nonlabored respiration Cardio Other: Normal peripheral perfusion Skin Other: No rash Neuro Other: Alert to self Cranial nerves: Yes Equal, round and reactive pupils present Extrem Other: Full range of motion of all extremities with resistance, strength 5/5 Psych Other: Cooperative Course Reevaluation(s) Reevaluation #1: Patient is back to baseline, alert and oriented x3, eager for discharge home Time: 17:53 Medications Administered Discontinued Medications Generic Name Dose Route Start Last Admin Trade Name Freq PRN Reason Stop Dose Admin Magnesium Sulfate 2 gm in 50 mls @ 25 mls/hr 03/17/24 15:32 03/17/24 16:32 Magnesium Sulfate/H2o IV 03/17/24 17:31 Infused ONCE ONE Infusion Medical Decision Making Medical Decision Making MDM Narrative: 68-year-old female with history of end-stage renal disease on dialysis, anemia of chronic disease, diabetes, hyperlipidemia and hypertension presents with altered mental status. Per EMS, patient was at dialysis, she became lethargic and vomited. When patient's arrived, he felt she did not require assessment, they agreed to have her brought to the emergency department. History limited for the patient, as she is still altered. We are waiting for the who arrived together additional history. Problem: Diabetes, end-stage renal disease, age History: Per EMS and patient's I have considered the following differential diagnoses: CVA, intracranial hemorrhage, hypoglycemia, electrolyte abnormality, delirium, UTI Plan: Thought about CVA, however the patient's presentation is more consistent with a delirium. We will be screening basic labs, and obtaining a urinalysis as she still produces urine. The patient's arrived to the emergency department shortly after the patient arrived via EMS. He explains that the patient often is extremely fatigued and tired after her dialysis sessions, that she often goes home and sleeps all day. Perhaps her presentation is as simple as that. I am wearing on the side of caution I will scan her head to be sure there is no intracranial hemorrhage. I do have low suspicion given she has not actively vomiting, she has not posturing, and there are no neurologic deficits on exam. Updating an EKG to assess for potential evidence of electrolyte abnormality. I have independently reviewed the following tests: Labs: No leukocytosis, stable anemia, no electrolyte abnormality, urine not infected, magnesium 2 EKG: Normal sinus rhythm, rate of 63, prolonged QT at 5:21 a.m., no ischemic changes no ectopy unclear if the patient has chronic QT prolongation, labs and process including a magnesium level, given 2 g of IV Mag CT brain:[facility] Attending Dr: Ordering Physician: Gisell Barnes Date of Service: 03/17/24 Procedure(s): CT head/brain wo IV con Accession Number(s): [id number] cc: Gisell Barnes; TRINITY SMITH CNM~ EXAMINATION: CT HEAD WITHOUT CONTRAST CLINICAL INFORMATION: Altered mental status COMPARISON: CT head 05/12/2023 TECHNIQUE: Contiguous axial imaging was performed from the skull base to vertex without intravenous administration of contrast. This CT examination was performed using dose optimization techniques as appropriate, variously including the following: *Automated exposure control *Adjustment of mA and/or kV according to patient size (this includes techniques or standardized protocols for targeted exams where dose is matched to indication/reason for exam; i.e. extremities or head) *Use of iterative reconstruction technique DLP: 649 mGy-cm FINDINGS: There is no evidence of acute intracranial hemorrhage. There is sulcal and ventricular prominence consistent with cerebral volume loss. There is right parietal encephalomalacia with ex vacuo dilatation of the occipital horn of the right lateral ventricle, similar to previous. No evidence of acute edematous territorial infarction.. No abnormal mass effect or midline shift is seen. José to white matter differentiation appears maintained. No abnormal extra-axial fluid collections are identified. Hypodensities in the deep white matter consistent with chronic microangiopathy. No acute calvarial fracture.. Paranasal sinuses and mastoid air cells are well-aerated. CT/CT head/brain wo IV con IMPRESSION: No CT evidence of acute intracranial hemorrhage or edematous large vessel territorial infarction. Stable right parietal lobe encephalomalacia with ex vacuo dilatation of the occipital horn of the right lateral ventricle. Additional chronic changes, similar to previous, as detailed above. 5:53 p.m. patient is at baseline, again the explains that this is what happens to his following dialysis. She is eager for discharge we will do so now Differential Diagnosis Differential Diagnoses: The differential diagnosis associated with the presentation includes CVA, intracranial hemorrhage, hypoglycemia, electrolyte abnormality Lab Data 03/17/24 15:34 03/17/24 15:34 Labs: Lab Results 03/17/24 03/17/24 Range/Units 15:34 16:12 WBC 8.5 (4.8-10.8) X10*3/uL RBC 3.28 L (4.20-5.50) X10*6/uL Hgb 10.7 L (12.0-16.0) g/dl Hct 31.6 L (37.0-47.0) % MCV 96.3 (80.0-98.0) fL MCH 32.6 (27.0-33.0) pg MCHC 33.9 (31.0-35.0) g/dl RDW 12.9 (11.0-16.0) % Plt Count 149 L (160-400) X10*3/uL MPV 11.9 (9.4-12.3) fL Immature Gran % (Auto) 0.6 H (0.0-0.4) % Neut % (Auto) 86.6 H (45-73) % Lymph % (Auto) 7.4 L (20-40) % [place] % (Auto) 4.4 (2-11) % Eos % (Auto) 0.4 (0-4) % Baso % (Auto) 0.6 (0-2) % Lymph # (Auto) 0.6 L (1.2-4.9) X10*3/uL [place] # (Auto) 0.4 (0.1-1.2) X10*3/uL Eos # (Auto) 0.0 (0.0-0.4) X10*3/uL Baso # (Auto) 0.1 (0.0-0.2) X10*3/uL Abs Immat Gran (auto) 0.05 H (0.00-0.03) X10*3/uL Absolute Neuts (auto) 7.4 (2.0-8.3) x10*3/uL Absolute Nucleated RBC 0.000 (0.0-0.012) X10*3/uL Nucleated RBC % (auto) 0.0 (0.0-0.2) /100WBC Sodium 139 (135-145) mmol/L Potassium 4.0 (3.3-5.1) mmol/L Chloride 94 L (96-108) mmol/L Carbon Dioxide 32 H (22-29) mmol/L Anion Gap 17 (12-20) BUN 36 H (9-16) mg/dL Creatinine 3.93 H (0.5-1.4) mg/dL Estim Creat Clear Calc 13.3 Estimated GFR 11 Random Glucose 172 H (60-115) mg/dL Calcium 9.0 (8.4-10.2) mg/dL Magnesium 2.0 (1.6-2.6) mg/dL Total Bilirubin 0.9 (0.0-1.0) mg/dL AST 29 (5-31) U/L ALT 18 (0-31) U/L Alkaline Phosphatase 156 H (39-117) U/L Total Protein 8.2 H (6.5-8.0) g/dL Albumin 4.1 (3.5-5.0) g/dL Urine Color Yellow Urine Appearance Clear Urine pH 6.5 (5.0-9.0) Ur Specific [place] 1.015 (1.005-1.025) Urine Protein 300 (3+) H (Neg-Trace) mg/dL Urine Glucose (UA) 500 H (Negative) mg/dL Urine Ketones Negative (Negative) mg/dL Urine Blood Negative (Negative) Urine Nitrite Negative (Negative) Ur Leukocyte Esterase Negative (Negative) Discharge Plan Discharge Clinical Impression: Delirium Patient Disposition: Home, Self-Care Instructions: Acute Delirium (ED) Additional Instructions: All of your screening labs were normal. You did not have a urinary tract infection. There were no concerning changes on her EKG, and the CT scan of your brain was normal. Follow-up with your primary care provider as needed. Prescriptions: No Action cyanocobalamin (vitamin B-12) 1,000 mcg Tablet 1,000 mcg PO DAILY atorvastatin 40 mg tablet 40 mg PO DAILY omeprazole 40 mg capsule,delayed release(DR/EC) 40 mg PO DAILY@0630 Mindy-Mert 0.8 mg tablet 1 tab PO DAILY Humulin 70/30 U-100 Insulin 100 unit/mL (70-30) suspension 20 unit subcut BEDTIME Humulin 70/30 U-100 Insulin 100 unit/mL (70-30) suspension 25 unit subcut DAILY midodrine 2.5 mg Tablet 2.5 mg PO DAILY PRN (Reason: low blood pressure) Rx Instructions: do not give last dose of day after 6PM or within 4 hrs of bedtime calcitriol 0.25 mcg Capsule 0.25 mcg PO TUTHSA Rx Instructions: administer after dialysis on dialysis days Print Language: Korean
--- NOTE | 2024-03-17 15:20 | ECG_ITS ---
Test Reason : CP Blood Pressure : / mmHG Vent. Rate : 063 BPM Atrial Rate : 063 BPM P-R Int : 122 ms QRS Dur : 076 ms QT Int : 510 ms P-R-T Axes : -04 142 143 degrees QTc Int : 521 ms Normal sinus rhythm Right axis deviation Nonspecific ST abnormality Prolonged QT Abnormal ECG When compared with ECG of 12-MAY-2023 02:17, QRS axis Shifted right (?lead placement incorrect) T wave inversion now evident in Lateral leads QT has lengthened Referred By: Gisell Barnes Electronically Signed By:JOJO HERRERA
[2024-03-17 15:38] LABS: MANUAL DIFF FLAG NO
[2024-03-17 15:39] LABS: Basophils Absolute Auto 0.1 X10*3/uL (0.0-0.2); Basophils Percent Auto 0.6 % (0-2); Eosinophils Percent Auto 0.4 % (0-4); Hematocrit 31.6 % (37.0-47.0); Hemoglobin 10.7 g/dl (12.0-16.0); Imm Gran Abs Auto 0.05 X10*3/uL (0.00-0.03); Imm Gran Pct Auto 0.6 % (0.0-0.4); Lymphocytes Absolute Auto 0.6 X10*3/uL (1.2-4.9); Lymphocytes Percent Auto 7.4 % (20-40); Mean Corpuscular HGB Conc 33.9 g/dl (31.0-35.0); Mean Corpuscular Hemoglobin 32.6 pg (27.0-33.0); Mean Corpuscular Volume 96.3 fL (80.0-98.0); Mean Platelet Volume 11.9 fL (9.4-12.3); Monocytes Absolute Auto 0.4 X10*3/uL (0.1-1.2); Monocytes Percent Auto 4.4 % (2-11); Neutrophils Absolute Auto 7.4 x10*3/uL (2.0-8.3); Neutrophils Percent Auto 86.6 % (45-73); Platelet Count 149 X10*3/uL (160-400); Red Blood Count 3.28 X10*6/uL (4.20-5.50); Red Cell Distribution Width 12.9 % (11.0-16.0); White Blood Count 8.5 X10*3/uL (4.8-10.8)
[2024-03-17] MEDS: Magnesium Sulfate/H2O 2 GM/50 ML PIGGYBACK IV (15:39)
--- NOTE | 2024-03-17 15:40 | PC.NURSE ---
per Soledad MOREJON - infuse Mag over 30 minutes.
--- OUTSIDE RECORDS SUMMARY | 2024-03-17 15:51 | XMS_ITS | Continuity of Care Document ---
Author Organization [facility] Address [address] [place] [address]- Care Team Providers Care Helicopter Engineer Name Role Phone Not on Staff, PCP Primary Care Physician Unavail able Encounter [facility] Date(s): 04/15/23 - 05/15/23 [facility] [address] [place] [address]- Attending Physician: Luz Velazco Admitting Physician: Luz Velazco Referring Physician: Luz Velazco Medications atorvastatin 40 mg oral tablet 1 tablet = 40 mg, By Mouth, Daily, # 30 tablet, 5 Refills, Maintenance, 07/17/22 13:17:00 EDT, Tablet, Partial fill upon patient request if the prescription is for a schedule II opioid drug. Start Date: 07/17/22 Status: Ordered Insulin Novolin R Sliding Scale units, Subcutaneous Injection, Maintenance, 07/17/22 13:17:00 EDT Start Date: 07/17/22 Status: Ordered labetalol 100 mg oral tablet 1 tablet = 100 mg, By Mouth, 2 times a day, # 60 tablet, 0 Refills, Maintenance, 07/17/22 13:17:00 EDT, Tablet, Partial fill upon patient request if the prescription is for a schedule II opioid drug. Start Date: 07/17/22 Status: Ordered lisinopril 40 mg oral tablet 1 tablet = 40 mg, By Mouth, Daily, # 30 tablet, 0 Refills, Maintenance, 07/17/22 13:15:00 EDT, Tablet, Partial fill upon patient request if the prescription is for a schedule II opioid drug. Start Date: 07/17/22 Status: Ordered Omeprazole By Mouth, Daily, 0 Refills, Maintenance, 07/17/22 13:17:00 EDT, Partial fill upon patient request if the prescription is for a schedule II opioid drug. Start Date: 07/17/22 Status: Ordered Patient Care team information Care Team Personnel Name: Sarai Eagle RN Position: [facility] RN Member Role: Primary Care Nurse Name: Jw Tish Position: [facility] Outreach Member Role: Lifetime Consulting Physician Name: Leisa Braden MA Position: [facility]IEGLER Member Role: Lifetime Consulting Physician Name: Not on Staff, PCP Position: [facility] Physician (General Medicine) Member Role: PCP
[2024-03-17 16:01] LABS: Alanine Aminotransferase 18 U/L (0-31); Albumin Level 4.1 g/dL (3.5-5.0); Alkaline Phosphatase 156 U/L (39-117); Anion Gap 17 (12-20); Aspartate Amino Transferase 29 U/L (5-31); Bilirubin Total 0.9 mg/dL (0.0-1.0); Blood Urea Nitrogen 36 mg/dL (9-16); Carbon Dioxide 32 mmol/L (22-29); Chloride 94 mmol/L (96-108); Creatinine Clr Calc Pharmacy 13.3; Estimated Glomerular Filt Rate 11; Glucose Random 172 mg/dL (60-115); Sodium 139 mmol/L (135-145); Total Protein 8.2 g/dL (6.5-8.0)
[2024-03-17 16:17] VITALS: O2SAT 94
[2024-03-17 16:21] LABS: Appearance Urine Clear; Color Urine Yellow; Glucose Urine UA 500 mg/dL (Negative); Leukocyte Esterase Urine Negative (Negative); Nitrite Urine Negative (Negative); PH 6.5 (5.0-9.0); Specific Gravity - Urine 1.015 (1.005-1.025); UMIC TRIGGER UACC YES; Urine Blood Negative (Negative); Urine Ketones Negative (Negative); Urine Protein 300 (3+) mg/dL (Neg-Trace)
[2024-03-17 16:46] VITALS: BP 153/58; PULSE 68; RESP 16; O2SAT 96
[2024-03-17 17:54] LABS: Bacteria Urine None Seen (None Seen); Hyaline Casts Urine 0-2 /LPF (0-2); Squamous Epithelial Cell Urine 0-2 /HPF (0-2); WBC Urine 0-5 /HPF (0-5)
[2024-03-17 18:04] VITALS: BP 163/63; PULSE 73; RESP 22; O2SAT 95
[2024-03-17 18:34] VITALS: BP 163/63; PULSE 76; RESP 20; TEMP 36.4; O2SAT 92
== END 2024-03-17 18:41 | disposition home or self-care (01) ==
PROVIDERS: Physician Assistant Medical; Emergency Provider Emergency Medicine; PCP Advanced Practice Midwife
DX: R41.0 Disorientation, unspecified (principal); E11.22 Type 2 diabetes mellitus with diabetic chronic kidney disease; I12.0 Hypertensive chronic kidney disease with stage 5 chronic kidney disease or end stage renal disease; N18.6 End stage renal disease; Z99.2 Dependence on renal dialysis
CPT/HCPCS: 36415; 70450; 80053; 81001; 83735; 85025; 93005; 96365; 99284; J3475

== ENCOUNTER → 2024-03-17 15:20 | Outpatient (BNV) | payer OTHER, SELFPAY | PROVIDERS: Emergency Provider Emergency Medicine; PCP Advanced Practice Midwife; Visit Provider Internal Medicine | DX: R94.31 Abnormal electrocardiogram [ECG] [EKG] (principal) | CPT/HCPCS: 93010 ==

== ENCOUNTER 2024-04-05 16:52 | Emergency (ER) | payer OTHER, SELFPAY ==
--- NOTE | ~2024-04-05 | XR_ITS ---
EXAMINATION: XR HUMERUS, RIGHT CLINICAL INFORMATION: Possible foreign body COMPARISON: None available. TECHNIQUE: AP and lateral views of the right humerus. FINDINGS: Mild degenerative changes in the right shoulder. No acute fracture or dislocation. No bony destructive lesion or periosteal reaction. I do not appreciate any radiopaque foreign body within the soft tissues. XR/XR humerus RT IMPRESSION: Mild degenerative changes but no acute bony abnormality. No radiopaque foreign body.
[2024-04-05 17:44] VITALS: BP 184/88; PULSE 63; RESP 16; TEMP 36.8; O2SAT 97; BMI 30.3
--- NOTE | 2024-04-05 17:49 | ED.GENADULT ---
HPI - General Adult General Chief complaint: General Medical Stated complaint: ? foreign body in right arm Time Seen by Provider: 04/05/24 18:46 Source: patient Mode of arrival: ambulatory Limitations: language barrier (Gibraltarian-speaking customer service leader utilized) History of Present Illness HPI narrative: Patient is a 68-year-old female who presents to the emergency department for evaluation. She reports that she was wearing a continuous glucose monitor that was applied a couple of days ago wet of primary care doctor's office to the right upper arm. She reports that it fell off today and she is concerned that there is a needle still present in her arm. She does not have the monitor with her but she states when she looked at it afterwards she did not see the medial present on the device. She does state that she has been compliant with her insulin regimen, she has been checking her blood glucose levels with fecal glucometer at home. She offers no further complaints at this time. The arm is without pain redness or swelling. Related Data Home Medications ?Medication ?Instructions ?Recorded ?Confirmed cyanocobalamin (vitamin B-12) 1,000 mcg PO DAILY 03/15/23 05/12/23 1,000 mcg tablet atorvastatin 40 mg tablet 40 mg PO DAILY cholesterol 05/12/23 05/12/23 calcitriol 0.25 mcg capsule 0.25 mcg PO TUTHSA 05/12/23 05/12/23 insulin human U-100 NPH-regulr 20 unit subcut BEDTIME 05/12/23 05/12/23 70-30 mix 100 unit/mL subcutaneous susp (Humulin 70/30 U-100 Insulin) insulin human U-100 NPH-regulr 25 unit subcut DAILY 05/12/23 05/12/23 70-30 mix 100 unit/mL subcutaneous susp (Humulin 70/30 U-100 Insulin) midodrine 2.5 mg tablet 2.5 mg PO DAILY PRN low blood 05/12/23 05/12/23 pressure omeprazole 40 mg capsule,delayed 40 mg PO DAILY@0630 05/12/23 05/12/23 release vitamin B complex-vitamin C-folic 1 tab PO DAILY 05/12/23 05/12/23 acid 0.8 mg tablet (Mindy-Mert) Allergies Allergy/AdvReac Type Severity Reaction Status Date / Time No Known Allergies Allergy Verified 04/05/24 17:48 Review of Systems Review of Systems: Yes all other systems are reviewed and are negative [facility] Past Medical History Attestation statement: The following information was validated with the patient. Source: old records reviewed Medical History Anemia due to chronic kidney disease CHF (congestive heart failure) CKD (chronic kidney disease) CKD stage 5 secondary to hypertension CKD (chronic kidney disease), stage V 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 2 diabetes mellitus Chronic kidney disease Hyperlipidemia Diabetes mellitus Hypertension Social History Social History Household Members: Spouse Housing: Apartment Do you presently have visiting nurse or other home services: No Alcohol intake: never Patient Tobacco Use Status: Never used Tobacco Advance Directives: No Advance Directives Information Provided: No Do you have a plan to hurt others: No Plan service: No Current occupational status: unemployed Physical Exam ED Vital Signs: Vital Signs - 24 hr 04/05/24 17:44 04/05/24 19:38 04/05/24 20:33 Temperature 98.2 F 98 F 98.1 F Pulse Rate 63 67 65 Respiratory Rate 16 20 17 Blood Pressure 184/88 H 166/84 H 170/55 H Pulse Oximetry 97 97 96 Oxygen Delivery Method Room Air Room Air Room Air BMI result Body Mass Index 30.3 Appearance: Alert.?Oriented to person, place and time. No acute distress.?Normal affect. Neck: Normal inspection.? Neck supple.?? CVS: Heart sounds normal. Normal heart rate and rhythm.? Pulses normal.?? Respiratory: No respiratory distress.? Lung sounds clear to auscultation bilaterally??? Skin: Skin warm and dry.? Normal skin color.? Right upper extremity without area of erythema warmth swelling. No palpable foreign body. Neuro: Moves all extremities spontaneously. Sensation intact bilaterally. Ambulates with normal steady gait. Course Course Course Narrative: This is a rapid medical exam performed by Ilana Rosario NP: Additional HPI, ROS, PE not included below will be deferred to primary provider. Patient is a 68-year-old female presenting to the ED with concern for foreign body to right upper arm. Had continuous glucose monitor applied 2-3 days ago at [facility] and it fell off today. She is concerned she may have a piece still in her arm. Does not have monitor with her. Does take insulin and has a regular glucometer at home. Denies any other complaints. Medical Decision Making Medical Decision Making [facility] Narrative: Patient is a 68-year-old female with history of end-stage renal disease on dialysis, anemia of chronic disease, diabetes, anemia, hypertension who presents to the emergency department with concern of a retained foreign body to the right upper extremity from her continuous glucose monitor as per HPI. Physical examination is benign. Do not see evidence of retained foreign body no acute cellulitis. XR was obtained no radiopaque foreign body is present. Patient is stable for discharge home. Advised to continue with blood glucose monitoring with her regular monitor and follow-up with her primary care doctor. Differential Diagnosis Differential Diagnoses: The differential diagnosis associated with the presentation includes (See narrative above) Independent Interpretation I performed an independent interpretation of an: Plain X-Ray (No radiopaque foreign body) Radiology Impression Discussion of test interpretation with radiology: I have reviewed the radiologist's reading. Radiologist Impression: XR/XR humerus RT IMPRESSION: Mild degenerative changes but no acute bony abnormality. No radiopaque foreign body. External Record Review External record reviewed: Outpatient record Chronic Conditions Patient?s care impacted by: Diabetes Discharge Plan Discharge Clinical Impression: Diabetes Patient Disposition: Home, Self-Care Additional Instructions: No evidence of retained needle or foreign body to the upper extremity where your glucose monitor previously was. Continue taking medications as previously prescribed, be sure that you are monitoring your glucose levels accordingly if you were not going to continue using the continuous glucose monitor Prescriptions: No Action cyanocobalamin (vitamin B-12) 1,000 mcg Tablet 1,000 mcg PO DAILY atorvastatin 40 mg tablet 40 mg PO DAILY omeprazole 40 mg capsule,delayed release(DR/EC) 40 mg PO DAILY@0630 Mindy-Mert 0.8 mg tablet 1 tab PO DAILY Humulin 70/30 U-100 Insulin 100 unit/mL (70-30) suspension 20 unit subcut BEDTIME Humulin 70/30 U-100 Insulin 100 unit/mL (70-30) suspension 25 unit subcut DAILY midodrine 2.5 mg Tablet 2.5 mg PO DAILY PRN (Reason: low blood pressure) Rx Instructions: do not give last dose of day after 6PM or within 4 hrs of bedtime calcitriol 0.25 mcg Capsule 0.25 mcg PO TUTHSA Rx Instructions: administer after dialysis on dialysis days Referrals: Kellie Tan MD [Primary Care Provider] - Interventions: ED Discharge Assessment Last Done: 04/05/24 20:33 Discharge Date/Time: 04/05/24 20:34 Print Language: Gibraltarian
--- OUTSIDE RECORDS SUMMARY | 2024-04-05 19:05 | XMS_ITS | Continuity of Care Document ---
Author Organization [facility] Address [address] [place] [address]- Care Team Providers Care Chinese Instructor Name Role Phone Heron Diane MD, Kellie Sanchez Primary Care Benjamin hoyt Encounter [facility] [id number] Date(s): 02/25/24 - 03/26/24 [facility] [address] [place] [address]- Attending Physician: Luz Velazco Admitting Physician: Luz [...] Care team information Care Team Personnel Name: Tish Escalera Position: [facility] Outreach Member Role: Lifetime Consulting Physician Name: Leisa Braden MA Position: [facility] [place] Member Role: Lifetime Consulting Physician Name: Heron Diane MD, Kellie Sanchez Position: [facility] Outreach Member Role: PCP Address: Address: [address] [place] [id number]
[2024-04-05 19:38] VITALS: BP 166/84; PULSE 67; RESP 20; TEMP 36.6; O2SAT 97
[2024-04-05 20:33] VITALS: BP 170/55; PULSE 65; RESP 17; TEMP 36.7; O2SAT 96
== END 2024-04-05 20:34 | disposition home or self-care (01) ==
PROVIDERS: Emergency Provider Emergency Medicine; PCP Student in an Organized Health Care Education/Training Program
DX: E11.22 Type 2 diabetes mellitus with diabetic chronic kidney disease (principal); I12.0 Hypertensive chronic kidney disease with stage 5 chronic kidney disease or end stage renal disease; N18.6 End stage renal disease; D63.1 Anemia in chronic kidney disease; Z99.2 Dependence on renal dialysis; R09.A9 Foreign body sensation, other site
CPT/HCPCS: 73060; 99282; 99283

== ENCOUNTER 2024-04-11 08:32 | Outpatient (REF) | payer OTHER, SELFPAY ==
[2024-04-11 11:05] LABS: Hematocrit 33.4 % (37.0-47.0); Hemoglobin 10.7 g/dl (12.0-16.0); Mean Corpuscular Hemoglobin 32.6 pg (27.0-33.0); Mean Corpuscular Volume 101.8 fL (80.0-98.0); Mean Platelet Volume 12.1 fL (9.4-12.3); Platelet Count 149 X10*3/uL (160-400); Red Blood Count 3.28 X10*6/uL (4.20-5.50); Red Cell Distribution Width 13.7 % (11.0-16.0); White Blood Count 5.3 X10*3/uL (4.8-10.8)
[2024-04-11 11:19] LABS: Estimated Average Glucose 189 mg/dL; Hemoglobin A1c % 8.2 % (<6.0)
[2024-04-11 11:46] LABS: Folate 15.1 ng/mL (> or = 4.0)
[2024-04-11 12:07] LABS: Alanine Aminotransferase 12 U/L (0-31); Albumin Level 3.6 g/dL (3.5-5.0); Alkaline Phosphatase 134 U/L (39-117); Anion Gap 16 (12-20); Aspartate Amino Transferase 19 U/L (5-31); Bilirubin Total 0.6 mg/dL (0.0-1.0); Blood Urea Nitrogen 47 mg/dL (9-16); Calcium 9.3 mg/dL (8.4-10.2); Carbon Dioxide 32 mmol/L (22-29); Chloride 97 mmol/L (96-108); Cholesterol 139 mg/dL (<200); Estimated Glomerular Filt Rate 5; Ferritin > 1676 ng/mL (10-250); Glucose Random 179 mg/dL (60-115); HDL Cholesterol 36 mg/dL (>40); Iron 61 mcg/dL (30-160); LDL Cholesterol Calculated 79 mg/dL (<100); Percent Iron Saturation 32 % (15-50); Potassium 3.8 mmol/L (3.3-5.1); Sodium 141 mmol/L (135-145); TSH reflex Free T4 0.94 uIU/mL (0.32-4.0); Total Iron Binding Capacity 190 mcg/dL (228-428); Total Protein 6.9 g/dL (6.5-8.0); Triglycerides 121 mg/dL (<150); Unsaturated Iron Binding 129 ug/dL; Vitamin D 25-OH Total 47.7 ng/mL (>30)
[2024-04-11 12:45] LABS: Syphilis Screen Nonreactive (Nonreactive)
[2024-04-11 13:05] LABS: HBS Num1 22.14 mIU/mL (0-7.99); HBc Num1 0.19 S/CO (0.00-0.79); HIV AB/AG Nonreactive (Nonreactive); HIV Num 1 0.05 S/CO (0.00-0.99); Hepatitis B Core Antibody Nonreactive (Nonreactive); Hepatitis B Surface Antigen Negative (Negative); ~HepC Num1 0.11 S/CO (0.00-0.79); ~Hepatitis B Surface Antibody REACTIVE (Nonreactive); ~Hepatitis C Antibody Nonreactive (Nonreactive)
[2024-04-11 13:42] LABS: Vitamin B12 1350 pg/mL (200-900)
== END 2024-04-11 08:33 | disposition home or self-care (01) ==
LOC: HO.HHCL 08:32
PROVIDERS: Visit Provider Student in an Organized Health Care Education/Training Program
DX: Z00.00 Encounter for general adult medical examination without abnormal findings (principal); Z20.2 Contact with and (suspected) exposure to infections with a predominantly sexual mode of transmission
CPT/HCPCS: 36415; 80053; 80061; 82306; 82607; 82728; 82746; 83036; 83540; 84443; 85027; 86704; 86706; 86780; 86803; 87340; 87389

== ENCOUNTER 2024-05-28 15:47 | Emergency (ER) | payer OTHER, SELFPAY ==
--- NOTE | ~2024-05-28 | CT_ITS ---
EXAMINATION: CT ABDOMEN AND PELVIS WITHOUT CONTRAST CLINICAL INFORMATION: Sudden onset epigastric abdominal pain. Rule out perforation. COMPARISON: CT abdomen and pelvis March 01, 2022 TECHNIQUE: Multidetector volumetric imaging was performed from the superior aspect of the liver through the pubic symphysis. Sagittal and coronal reformatted images were obtained on the technologist's workstation. This CT examination was performed using dose optimization techniques as appropriate, variously including the following: *Automated exposure control *Adjustment of mA and/or kV according to patient size (this includes techniques or standardized protocols for targeted exams where dose is matched to indication/reason for exam; i.e. extremities or head) *Use of iterative reconstruction technique DLP: 727 mGy-cm FINDINGS: LUNG BASES: The visualized lung bases are unremarkable. LIVER, GALLBLADDER, AND BILIARY TREE: The liver is normal in size, shape, and attenuation. No focal hepatic lesion or biliary ductal dilatation is present. The gallbladder is unremarkable with no evidence of radiopaque gallstones, gallbladder wall thickening, or obvious pericholecystic inflammatory changes. PANCREAS: Unremarkable. SPLEEN: Unremarkable. ADRENAL GLANDS: Unremarkable. KIDNEYS AND URETERS: The kidneys are normal in size, shape, and attenuation. No hydronephrosis, hydroureter, or calculi seen. No perinephric stranding. BLADDER: Unremarkable. GASTROINTESTINAL TRACT: The stomach is distended with air and gastric contents. Moderate stool burden. ABDOMINAL WALL: Small fat-containing umbilical hernia. LYMPH NODES: Normal. VASCULAR: Unremarkable. PELVIC VISCERA: Unremarkable. OSSEOUS STRUCTURES: Mild degenerative changes of the lower lumbar spine. CT/CT abdomen pelvis wo IV con IMPRESSION: 1. The stomach is distended with air and gastric contents. 2. Moderate stool burden. Fleischner guidelines were followed. Electronically signed by: Bill Braun MD 05/28/2024 05:19 PM EDT
--- NOTE | 2024-05-28 15:55 | ED_ITS ---
HPI - Abdominal Pain General Chief Complaint: General Medical Stated Complaint: emergency Time Seen by Provider: 05/28/24 15:55 Source: patient and family () Mode of arrival: ambulatory Limitations: language barrier (Sudanese speaking only) History of Present Illness ED Provider: Dr. Amador Huynh HPI narrative: 68-year-old female with a history of diabetes mellitus, anemia, end-stage renal disease dialyzed on Thursday, and Thursday, hypomagnesemia, stomach ulcer, who presents emergency department for evaluation of weakness, diaphoresis, abdominal pain. Patient states she had 3 hours of dialysis today and during dialysis she did have a low blood pressure and required IV fluid. Patient states she completed dialysis and had abdominal pain while she was eating. Patient states she was eating Afghan food which included chicken, fried rice, chicken wings. She states that a proximally 10 minutes after eating she developed severe pain in her abdomen. She points to her epigastric area when asked to describe the pain. She states the pain was severe. She felt lightheaded and dizzy. The states the patient has had similar pain at least 10-15 times in the past with a similar presentation. The patient had associated nausea with no vomiting. She states in the past when she was vomited this is relieved her pain. She denied fever, chills, sore throat, cough, chest pain, shortness of breath, dyspnea on exertion, vomiting or diarrhea. She does have nausea. Related Data Home Medications ?Medication ?Instructions ?Recorded ?Confirmed cyanocobalamin (vitamin B-12) 1,000 mcg PO DAILY 03/15/23 05/12/23 1,000 mcg tablet atorvastatin 40 mg tablet 40 mg PO DAILY cholesterol 05/12/23 05/12/23 calcitriol 0.25 mcg capsule 0.25 mcg PO TUTHSA 05/12/23 05/12/23 insulin human U-100 NPH-regulr 20 unit subcut BEDTIME 05/12/23 05/12/23 70-30 mix 100 unit/mL subcutaneous susp (Humulin 70/30 U-100 Insulin) insulin human U-100 NPH-regulr 25 unit subcut DAILY 05/12/23 05/12/23 70-30 mix 100 unit/mL subcutaneous susp (Humulin 70/30 U-100 Insulin) midodrine 2.5 mg tablet 2.5 mg PO DAILY PRN low blood 05/12/23 05/12/23 pressure omeprazole 40 mg capsule,delayed 40 mg PO DAILY@0630 05/12/23 05/12/23 release vitamin B complex-vitamin C-folic 1 tab PO DAILY 05/12/23 05/12/23 acid 0.8 mg tablet (Mindy-Mert) Allergies Allergy/AdvReac Type Severity Reaction Status Date / Time No Known Allergies Allergy Verified 05/28/24 16:16 Review of Systems Review of Systems Yes all other systems are reviewed and are negative [facility] Past Medical History [facility] Narrative: Social history: She lives with her who is here in the emergency department with her. She denies tobacco, alcohol and drug use. Medical History Anemia due to chronic kidney disease CHF (congestive heart failure) CKD (chronic kidney disease) CKD stage 5 secondary to hypertension CKD (chronic kidney disease), stage V 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 2 diabetes mellitus Chronic kidney disease Hyperlipidemia Diabetes mellitus Hypertension Social History Social History Household Members: Spouse Housing: Apartment Do you presently have visiting nurse or other home services: No Alcohol intake: never Patient Tobacco Use Status: Never used Tobacco Smoked in Last 30 Days: No Use of substances other than those prescribed or required for medical reasons: No Advance Directives: No Advance Directives Information Provided: No Do you have a plan to hurt others: No Plan service: No Current occupational status: unemployed Physical Exam ED Vital Signs: Vital Signs - 24 hr 05/28/24 16:15 05/28/24 17:16 05/28/24 17:16 Temperature 97.9 F 98.2 F Pulse Rate 56 58 Respiratory Rate 15 20 20 Blood Pressure 128/37 L 114/39 L Pulse Oximetry 98 98 Oxygen Delivery Method Room Air Room Air 05/28/24 18:31 Temperature 98.5 F Pulse Rate 65 Respiratory Rate 20 Blood Pressure 151/65 H Pulse Oximetry 97 Oxygen Delivery Method Room Air BMI result Body Mass Index 30.9 Exam: General: Awake, alert moaning, appears to be in distress secondary to her abdominal pain, she was diaphoretic Head: Normocephalic, atraumatic EENT: PERRL, Lids normal, sclera normal, conjunctiva normal, nose normal , ears normal, throat without erythema or exudates Neck: Supple, no adenopathy Lung: breath sounds symmetric, no wheezing, rales or rhonchi Chest: symmetric movement, nontender Heart: regular rate and rhythm, normal S1, S2 no murmurs or rubs Abdomen: soft, moderate epigastric tenderness, nondistended, normal bowel sounds no rebound, no voluntary or involuntary guarding Back: no vertebral tenderness, no CVAT Extremities: no deformities, moves all extremities symmetrically Neuro: Awake, alert, oriented, normal speech, cranial nerves intact, moves all extremities symmetrically Psych: Pleasant, cooperative Medical Decision Making Medical Decision Making MDM Narrative: 68-year-old female with a history of diabetes mellitus, anemia, end-stage renal disease dialyzed on Thursday, and Thursday, hypomagnesemia, stomach ulcer, who presents emergency department for evaluation of weakness, diaphoresis, abdominal pain which began 10 minutes after she started eating Afghan food. Patient completed 3 hours of dialysis today and states she was hypotensive during the dialysis required IV fluid but she did not abdominal pain during dialysis. Patient states she has had similar episodes at least 10-15 times in the past but has not had this type of pain at least 5 years. Exam did reveal that she was in distress and was diaphoretic. She did have moderate epigastric tenderness otherwise exam was unremarkable. Differential diagnosis: ?Includes but is not limited to viscous perforation, gastritis, peptic ulcer disease, gastric ulcer, pancreatitis, cholecystitis, anemia, electrolyte abnormalities Initial treatment: Course: 17:04 My interpretation patient's laboratory evaluation is as follows: WBC was normal 5500. Patient has a microcytic anemia with an H&H of 11.2 and 33.8 with MCV of 98.5-this is chronic. BUN and creatinine were elevated 27 and 4.13-this is consistent with her chronic kidney disease. Patient's potassium was normal 4.0. Glucose elevated 269. Magnesium was normal 1.9. Alk-phos was elevated 154. Troponin is elevated at 17.1. Lipase was normal. Lactic acid was elevated at 2.5 but this is secondary to her kidney disease and not related to infectious process. 18:44 CT scan of the abdomen pelvis did not reveal any acute finding to explain the patient's abdominal pain. The patient was feeling better after receiving morphine 4 mg IV , Zofran 4 mg IV and lactated Ringer's x5 100 cc. Patient's pain is consistent with gastritis and I did discuss this with her. She was advised to continue taking your omeprazole. She was also advised to take Maalox 30 CC up to 4 times a day as needed for abdominal pain. Admission/Observation Consideration of admission/observation: Escalation of care including admission/observation considered Lab Data MDM Lab Attestation statement: I reviewed the patient's lab results. 05/28/24 16:08 05/28/24 16:10 Labs: Lab Results 05/28/24 05/28/24 05/28/24 Range/Units 15:51 16:08 16:10 WBC 5.5 (4.8-10.8) X10*3/uL RBC 3.43 L (4.20-5.50) X10*6/uL Hgb 11.2 L (12.0-16.0) g/dl Hct 33.8 L (37.0-47.0) % MCV 98.5 H (80.0-98.0) fL MCH 32.7 (27.0-33.0) pg MCHC 33.1 (31.0-35.0) g/dl RDW 13.4 (11.0-16.0) % Plt Count 156 L (160-400) X10*3/uL MPV 12.1 (9.4-12.3) fL Immature Gran % (Auto) 0.9 H (0.0-0.4) % Neut % (Auto) 66.3 (45-73) % Lymph % (Auto) 21.0 (20-40) % Gillespie % (Auto) 7.8 (2-11) % Eos % (Auto) 3.3 (0-4) % Baso % (Auto) 0.7 (0-2) % Lymph # (Auto) 1.2 (1.2-4.9) X10*3/uL Gillespie # (Auto) 0.4 (0.1-1.2) X10*3/uL Eos # (Auto) 0.2 (0.0-0.4) X10*3/uL Baso # (Auto) 0.0 (0.0-0.2) X10*3/uL Abs Immat Gran (auto) 0.05 H (0.00-0.03) X10*3/uL Absolute Neuts (auto) 3.7 (2.0-8.3) x10*3/uL Absolute Nucleated RBC 0.000 (0.0-0.012) X10*3/uL Nucleated RBC % (auto) 0.0 (0.0-0.2) /100WBC PT 10.9 L (11.1-13.3) SEC INR 0.9 (0.9-1.1) Sodium 139 (135-145) mmol/L Potassium 4.0 (3.3-5.1) mmol/L Chloride 101 (96-108) mmol/L Carbon Dioxide 28 (22-29) mmol/L Anion Gap 14 (12-20) BUN 27 H (9-16) mg/dL Creatinine 4.13 H* (0.5-1.4) mg/dL Estim Creat Clear Calc 13.3 Estimated GFR 11 POC Glucose 266 H (60-115) mg/dL Random Glucose 269 H (60-115) mg/dL Lactic Acid (0.5-2.0) mmol/L Calcium 8.5 D (8.4-10.2) mg/dL Magnesium 1.9 (1.6-2.6) mg/dL Total Bilirubin 0.4 (0.0-1.0) mg/dL AST 27 (5-31) U/L ALT 18 (0-31) U/L Alkaline Phosphatase 154 H (39-117) U/L Troponin I High Sens 17.1 H (<3.5-17.0) ng/L Total Protein 7.1 (6.5-8.0) g/dL Albumin 3.8 (3.5-5.0) g/dL Lipase 50 (8-78) U/L 05/28/ Range/Units 17:26 WBC (4.8-10.8) X10*3/uL RBC (4.20-5.50) X10*6/uL Hgb (12.0-16.0) g/dl Hct (37.0-47.0) % MCV (80.0-98.0) fL MCH (27.0-33.0) pg MCHC (31.0-35.0) g/dl RDW (11.0-16.0) % Plt Count (160-400) X10*3/uL MPV (9.4-12.3) fL Immature Gran % (Auto) (0.0-0.4) % Neut % (Auto) (45-73) % Lymph % (Auto) (20-40) % Gillespie % (Auto) (2-11) % Eos % (Auto) (0-4) % Baso % (Auto) (0-2) % Lymph # (Auto) (1.2-4.9) X10*3/uL Gillespie # (Auto) (0.1-1.2) X10*3/uL Eos # (Auto) (0.0-0.4) X10*3/uL Baso # (Auto) (0.0-0.2) X10*3/uL Abs Immat Gran (auto) (0.00-0.03) X10*3/uL Absolute Neuts (auto) (2.0-8.3) x10*3/uL Absolute Nucleated RBC (0.0-0.012) X10*3/uL Nucleated RBC % (auto) (0.0-0.2) /100WBC PT (11.1-13.3) SEC INR (0.9-1.1) Sodium (135-145) mmol/L Potassium (3.3-5.1) mmol/L Chloride (96-108) mmol/L Carbon Dioxide (22-29) mmol/L Anion Gap (12-20) BUN (9-16) mg/dL Creatinine (0.5-1.4) mg/dL Estim Creat Clear Calc Estimated GFR POC Glucose (60-115) mg/dL Random Glucose (60-115) mg/dL Lactic Acid 2.5 H* (0.5-2.0) mmol/L Calcium (8.4-10.2) mg/dL Magnesium (1.6-2.6) mg/dL Total Bilirubin (0.0-1.0) mg/dL AST (5-31) U/L ALT (0-31) U/L Alkaline Phosphatase (39-117) U/L Troponin I High Sens (<3.5-17.0) ng/L Total Protein (6.5-8.0) g/dL Albumin (3.5-5.0) g/dL Lipase (8-78) U/L Radiology Impression Discussion of test interpretation with radiology: I have reviewed the radiologist's reading. Radiologist Impression: CT abdomen pelvis wo IV con IMPRESSION: 1. The stomach is distended with air and gastric contents. 2. Moderate stool burden. Fleischner guidelines were followed. Electronically signed by: Bill Braun MD 05/28/2024 05:19 PM EDT RP Dictated By: Bill Braun MD Independent Historian Clinical information obtained from an independent historian. History obtained from or confirmed by: Spouse Chronic Conditions Patient?s care impacted by: Diabetes and Other (End-stage renal disease on dialysis) Medications Administered Discontinued Medications Generic Name Dose Route Start Last Admin Trade Name Freq PRN Reason Stop Dose Admin Lactated Ringer's 500 mls @ 500 mls/hr 05/28/24 15:56 05/28/24 17:58 Lr IV 05/28/24 16:55 Infused .Q1H STA Infusion Morphine Sulfate 4 mg 05/28/24 15:56 05/28/24 16:04 Morphine Sulfate 4 Mg/Ml Cartridge IVPUSH 05/28/24 15:57 4 mg ONCE STA Administration Protocol Ondansetron HCl 4 mg 05/28/24 16:19 05/28/24 17:14 Ondansetron Hcl 4 Mg/2 Ml Vial IVPUSH 05/28/24 16:20 4 mg ONCE ONE Administration Discharge Plan Discharge Clinical Impression: Gastritis Qualifiers: Chronicity: acute Gastritis bleeding: without bleeding Patient Disposition: Home, Self-Care Additional Instructions: Your blood work was unremarkable and was consistent with your kidney disease. The CT scan of the abdomen pelvis without IV contrast did not reveal any clear cause for your pain which is reassuring. Your pain is most likely caused by inflammation of your stomach (gastritis). Can you continue taking your omeprazole as prescribed by your providers Take Maalox 30 cc (2 tbsp) 4 times a day as needed for heartburn or pain in the center of your belly. Follow-up with your doctor in 2 days. Please return to the emergency department if your symptoms get worse or if you develop any symptoms that are concerning to you. Prescriptions: No Action cyanocobalamin (vitamin B-12) 1,000 mcg Tablet 1,000 mcg PO DAILY atorvastatin 40 mg tablet 40 mg PO DAILY omeprazole 40 mg capsule,delayed release(DR/EC) 40 mg PO DAILY@0630 Mindy-Mert 0.8 mg tablet 1 tab PO DAILY Humulin 70/30 U-100 Insulin 100 unit/mL (70-30) suspension 20 unit subcut BEDTIME Humulin 70/30 U-100 Insulin 100 unit/mL (70-30) suspension 25 unit subcut DAILY midodrine 2.5 mg Tablet 2.5 mg PO DAILY PRN (Reason: low blood pressure) Rx Instructions: do not give last dose of day after 6PM or within 4 hrs of bedtime calcitriol 0.25 mcg Capsule 0.25 mcg PO TUTHSA Rx Instructions: administer after dialysis on dialysis days Print Language: Sudanese
--- NOTE | 2024-05-28 15:57 | ECG_ITS ---
Test Reason : UNRESPONSIVE Blood Pressure : / mmHG Vent. Rate : 056 BPM Atrial Rate : 056 BPM P-R Int : 140 ms QRS Dur : 084 ms QT Int : 522 ms P-R-T Axes : 051 063 064 degrees QTc Int : 503 ms Sinus bradycardia Prolonged QT Abnormal ECG When compared with ECG of 17-MAR-2024 15:25, T wave inversion no longer evident in Lateral leads Referred By: Amador Huynh Electronically Signed By:RANDY MORTON
[2024-05-28] MEDS: Morphine Sulfate 4 MG/ML CARTRIDGE IVPUSH (16:04)
[2024-05-28] MEDS: Lactated Ringers 500 ML IV (16:06)
[2024-05-28 16:15] VITALS: BP 128/37; PULSE 56; RESP 15; TEMP 36.6; O2SAT 98; BMI 30.9
[2024-05-28 16:16] LABS: MANUAL DIFF FLAG NO
[2024-05-28 16:20] LABS: Basophils Percent Auto 0.7 % (0-2); Eosinophils Absolute Auto 0.2 X10*3/uL (0.0-0.4); Eosinophils Percent Auto 3.3 % (0-4); Hematocrit 33.8 % (37.0-47.0); Hemoglobin 11.2 g/dl (12.0-16.0); Imm Gran Abs Auto 0.05 X10*3/uL (0.00-0.03); Imm Gran Pct Auto 0.9 % (0.0-0.4); Lymphocytes Absolute Auto 1.2 X10*3/uL (1.2-4.9); Mean Corpuscular HGB Conc 33.1 g/dl (31.0-35.0); Mean Corpuscular Hemoglobin 32.7 pg (27.0-33.0); Mean Corpuscular Volume 98.5 fL (80.0-98.0); Mean Platelet Volume 12.1 fL (9.4-12.3); Monocytes Absolute Auto 0.4 X10*3/uL (0.1-1.2); Monocytes Percent Auto 7.8 % (2-11); Neutrophils Absolute Auto 3.7 x10*3/uL (2.0-8.3); Neutrophils Percent Auto 66.3 % (45-73); Platelet Count 156 X10*3/uL (160-400); Red Blood Count 3.43 X10*6/uL (4.20-5.50); Red Cell Distribution Width 13.4 % (11.0-16.0); White Blood Count 5.5 X10*3/uL (4.8-10.8)
[2024-05-28 16:23] LABS: INTERNATIONAL NORM RATIO 0.9 (0.9-1.1); Prothrombin Time 10.9 SEC (11.1-13.3)
[2024-05-28 16:52] LABS: Troponin-I High Sensitivity 17.1 ng/L (<3.5-17.0)
[2024-05-28 16:55] LABS: Alanine Aminotransferase 18 U/L (0-31); Albumin Level 3.8 g/dL (3.5-5.0); Alkaline Phosphatase 154 U/L (39-117); Anion Gap 14 (12-20); Aspartate Amino Transferase 27 U/L (5-31); Bilirubin Total 0.4 mg/dL (0.0-1.0); Blood Urea Nitrogen 27 mg/dL (9-16); Calcium 8.5 mg/dL (8.4-10.2); Carbon Dioxide 28 mmol/L (22-29); Chloride 101 mmol/L (96-108); Creatinine Clr Calc Pharmacy 13.3; Estimated Glomerular Filt Rate 11; Glucose Random 269 mg/dL (60-115); Lipase 50 U/L (8-78); Magnesium 1.9 mg/dL (1.6-2.6); Sodium 139 mmol/L (135-145); Total Protein 7.1 g/dL (6.5-8.0)
[2024-05-28 16:56] LABS: Glucose, Whole Blood 266 mg/dL (60-115)
[2024-05-28] MEDS: ondansetron HCL 4 MG/2 ML VIAL IVPUSH (17:14)
[2024-05-28 17:16] VITALS: BP 114/39; PULSE 58; RESP 20; TEMP 36.8; O2SAT 98
[2024-05-28 17:43] LABS: Lactic Acid 2.5 mmol/L (0.5-2.0)
[2024-05-28 18:31] VITALS: BP 151/65; PULSE 65; RESP 20; TEMP 36.9; O2SAT 97
[2024-05-28 19:28] LABS: Reflex Lactate? Lactic Acid Added
[2024-05-28 19:40] VITALS: BP 151/65; PULSE 65; RESP 20; TEMP 36.9; O2SAT 97
--- OUTSIDE RECORDS SUMMARY | 2024-05-29 00:40 | XMS_ITS | Continuity of Care Document ---
Author Organization [facility] Address [address] [facility] [address] [place] [address]- Care Team Providers Care Associate Director Regulatory Affairs Name Role Phone Heron Diane MD, Kellie Sanchez Primary Care Benjamin evelina Encounter [facility] Date(s): 04/01/24 - 05/15/24 [facility] [address] [place] [address]- Attending Physician: Tyler Bahena MD Admitting Physician: Tyler Bahena MD Medications atorvastatin 40 mg oral tablet 1 [...] Care team information Care Team Personnel Name: Jw Tish Position: [facility] Outreach Member Role: Lifetime Consulting Physician Name: Leisa Braden MA Position: [facility] [place] Member Role: Lifetime Consulting Physician Name: Heron Diane MD, Kellie Sanchez Position: [facility] Outreach Member Role: PCP Address: Address: [address] [place] [id number]
== END 2024-05-28 19:40 | disposition home or self-care (01) ==
PROVIDERS: Emergency Provider Emergency Medicine Emergency Medical Services; PCP Student in an Organized Health Care Education/Training Program
DX: K29.00 Acute gastritis without bleeding (principal); R53.1 Weakness; E11.22 Type 2 diabetes mellitus with diabetic chronic kidney disease; I13.2 Hypertensive heart and chronic kidney disease with heart failure and with stage 5 chronic kidney disease, or end stage renal disease; N18.6 End stage renal disease; I50.9 Heart failure, unspecified; Z99.2 Dependence on renal dialysis; E78.5 Hyperlipidemia, unspecified; Z79.02 Long term (current) use of antithrombotics/antiplatelets; Z79.4 Long term (current) use of insulin; Z79.899 Other long term (current) drug therapy
CPT/HCPCS: 36415; 74176; 80053; 82947; 83605; 83690; 83735; 84484; 85025; 85610; 87040; 93005; 96361; 96374; 96375; 99284; 99285; J2270; J2405; J7120

== ENCOUNTER 2024-08-29 10:16 | Emergency (ER) | payer OTHER, SELFPAY ==
[2024-08-29] VITALS (7 sets, daily range): BP systolic 110–166; BP diastolic 40–70; PULSE 62–70; RESP 16–20; TEMP -17.7–37.1; O2SAT 97–100; BMI 32.2
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
--- OUTSIDE RECORDS SUMMARY | 2024-08-29 10:48 | XMS_ITS | Continuity of Care Document ---
Author Organization [facility] Address [address] [place] [id number]- Care Team Providers Care Sql Server Architect Name Role Phone Heron Diane MD, Kellie Sanchez Primary Care Benjamin hoyt Encounter [facility] Date(s): 05/23/24 - 06/30/24 [facility] [address] [place] [id number] Attending Physician: Jose CALVILLO, Kvng Montano Referring Physician: Gopi CALVILLO, Sarah Birmingham Medications atorvastatin 40 mg oral tablet 1 tablet = 40 mg, By Mouth, Daily, # 30 tablet, 5 Refills, Maintenance, 07/17/22 13:17:00 EDT, Tablet, Partial fill upon patient request if the prescription is for a schedule II opioid drug. Start Date: 07/17/22 Status: Ordered carvedilol 12.5 mg oral tablet Refills 0, Maintenance, 06/29/24 13:25:00 EDT, Partial fill upon patient request if the prescription is for a schedule II opioid drug. Start Date: 06/29/24 Status: Ordered Insulin Novolin R Sliding Scale units, Subcutaneous Injection, Maintenance, 07/17/22 13:17:00 EDT Start Date: 07/17/22 Status: Ordered lisinopril 40 mg oral tablet 1 tablet = 40 mg, By Mouth, Daily, # 30 tablet, 0 Refills, Maintenance, 07/17/22 13:15:00 EDT, Tablet, Partial fill upon patient request if the prescription is for a schedule II opioid drug. Start Date: 07/17/22 Status: Ordered Novolin 70/30 human recombinant subcutaneous injection 0 Refills, Maintenance, 06/29/24 13:26:00 EDT, Partial fill upon patient request if the prescription is for a schedule II opioid drug. Start Date: 06/29/24 Status: Ordered Omeprazole By Mouth, Daily, 0 Refills, Maintenance, 07/17/22 13:17:00 EDT, Partial fill upon patient request if the prescription is for a schedule II opioid drug. Start Date: 07/17/22 Status: Ordered Problem List Condition Confirmation Course Effective Dates Status Health St atus Informant Cataract Confirmed Active Diabetes Confirmed Active Chronic GERD Confirmed Active Hyperlipidemia Confirmed Active Hypertension Confirmed Active Social History Social History Type Response Smoking Status Never (less than 100 in lifetime) entered on: 06/29/24 Sex Patient Care team information Care Team Personnel Name: Tish Escalera Position: [facility] Outreach Member Role: Lifetime Consulting Physician Name: Leisa rBaden [place] Position: [facility] Member Role: Lifetime Consulting Physician Name: Heron Diane MD, Kellie Sanchez Position: [facility] Outreach Member Role: PCP Address: Address: [address] [place] [id number]- Care Team Related Persons Name: GEE TONY
--- OUTSIDE RECORDS SUMMARY | 2024-08-29 10:48 | XMS_ITS | Continuity of Care Document ---
Author Organization [facility] Address [address] [facility] [address] [place] [address]- Care Team Providers Care Psychological Operations Officer Name Role Phone Heron Diane MD, Kellie Sanchez Primary Care Diamohinder hoyt Encounter [facility] Date(s): 04/08/24 - 05/29/24 [facility] [address] [facility] [address] [place] [address]- Attending Physician: Tyler Bahena MD Admitting Physician: Shruti CALVILLO, Tyler Medications atorvastatin 40 mg oral tablet 1 [...] Care Team Personnel Name: Tish Escalera Position: [facility] Outreach Member Role: Lifetime Consulting Physician Name: Leisa Braden [place] Position: [facility] CRIS [place]IE[place]ER Member Role: Lifetime Consulting Physician Name: Heron Diane MD, Kellie Sanchez Position: [facility] Outreach Member Role: PCP Address: Address: [address] [place] [id number]
--- OUTSIDE RECORDS SUMMARY | 2024-08-29 10:48 | XMS_ITS | Continuity of Care Document ---
Author Organization [facility] Address [address] [facility] [address] [place] [address]- Care Team Providers Care Syrup Maker Cook Name Role Phone Heron Diane MD, Kellie Sanchez Primary Care Benjamin hoyt Encounter [facility] [place] Date(s): 04/29/24 - 05/29/24 [facility] [address] [facility] [address] [place] [address]- Attending Physician: Luz Velazco Admitting Physician: Luz [...] Care Team Personnel Name: Tish Escalera Position: [facility] Outreach Member Role: Lifetime Consulting Physician Name: Leisa Braden [place] Position: [facility] CRIS [place] Member Role: Lifetime Consulting Physician Name: Heron Diane MD, Kellie Sanchez Position: [facility] Outreach Member Role: PCP Address: Address: [address] [place] [id number]
--- OUTSIDE RECORDS SUMMARY | 2024-08-29 10:48 | XMS_ITS | Continuity of Care Document ---
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 Name Role Phone Heron Diane MD, Kellie Sanchez Primary Care Benjamin hoyt [facility] [phone] Date(s): 06/29/24 - 07/06/24 [facility] [address] [place] [address]- Attending Physician: Kvng Garcia MD Referring Physician: Sarah Nguyễn MD Medications atorvastatin 40 mg oral tablet [...] Active Hyperlipidemia Confirmed Active Hypertension Confirmed Active Vital Signs Most recent to oldest [Reference Range]: 1 Weight 80.1 kg (06/29/24 1:16 PM) Oxygen Saturation [94-100 %] 97 % (06/29/24 1:16 PM) Pulse Rate [55-90 bpm] 66 bpm (06/29/24 1:16 PM) Blood Pressure [90-138/55-84 mm Hg] 148/ 61mm Hg *H* (06/29/24 1:16 PM) Respiratory Rate [16-30 br/min] 14 br/mi n *L* (06/29/24 1:16 PM) Mode of Delivery (Oxygen) Room air (06/29/24 1:16 PM) Blood pressure sites Arm, right (06/29/24 1:16 PM) Dry Weight 80.1 kg (06/29/24 1:16 PM) Weight Obtained Via Standing scale (06/29/24 1:16 PM) Dry Weight Obtained Via Standing scale (06/29/24 1:16 PM) Social History Social History Type Response Smoking Status Never (less than 100 in lifetime) entered on: 06/29/24 Sex Note * Adriana-Marlene Zavala: PERFORM, SIGN, VERIFY Event Display: Patient Education/Instruction Authored Date: [id number] [facility] *BMA Preop Clinical Summary Name ZAHEER FREEMAN Age 68 Years 1955 PCP Heron Diane MD, Kellie Sanchez PCP Visit Date 06/29/2024 13:11:00 Patient Instructions Jaison por venir a alas visita hoy en la cl??mariajose de evaluaci??n m??dica preoperatoria.?? Le deseamos darwin r??pida recuperaci??n de alas cirug??a.?? Las instrucciones de jai medicamentos se resumen a continuaci??n.?? Si le recetan alg??n medicamento nuevo, desarrolla alg??n problema m??dico nuevo o es hospitalizado por cualquier motivo antes de la cirug??a; comun??quese con nosotros al [phone] y con el consultorio de alas cirujano de inmediato.?? Deje de ifeoma todos los medicamentos de venta gerardo, incluidos ibuprofeno (Advil, Motrin), naproxeno (Aleve), aceite de pescado, multivitaminas, vitamina E, c??rcuma y todos los suplementos a base dehierbas, 10 d??as antes de alas procedimiento, ya que podr??an aumentar alas riesgo de complicaciones he morr??gicas. .? Si necesita algo para el dolor o el dolor de angelica dentro de los 10 d??as posteriores a la cirug??a, es seguro usar acetaminof??n (Tylenol) o cualquier opi??offal separator que le hayan recetado.?? Ejemplos de opi??ceos incluyen oxicodona, hidrocodona y tramadol. La ma??andrew de la cirug??a, con un sorbo de agua, tome todos los medicamentos habituales de la ma??andrew, a menos que se le indique lo contrario. Siga las instrucciones de alas cirujano sobre las gotas para los ojos. Sin insulina la ma??andrew de la cirug??a. Marlene Zambrano, PAC [facility]ina preoperatoria de [facility] Additional Instructions: Scheduled Appointments?? Future Appointments ?No Future Appointments Scheduled Follow-Up Instructions ?? Allergy Info:?? Medications Given This Visit Vital Signs Height Weight 80.1 kg BMI Blood Pressure 148 mm Hg/61 mm Hg Temperature Pulse Rate 66 bpm Respiratory Rate 14 br/min 02 Sat Mode of Delivery 97 %/Room air You can now view a summary of your hospital visit from the comfort of your home through a free online portal called [employer]. [employer] is a website that allows you to securely view your medical information including discharge summary, medications and follow-up visits. ??You can alsosend a secure electronic message to your doctor???s office to request appointments, renew medications or just ask a question. You can enroll at [email or web address] or register during your next office visit. Disclaimer:?? The information provided is of a general nature and is intended to be used in conjunction with the recommendations and advice of your health care practitioner. ??Every effort has been made to ensure that the information provided is accurate and complete at the time it is provided to you however, as your needs change, or, as new ??information becomes available, different or additional instructions may be required. If you have questions, please consult with your primary care provider or pharmacist, as appropriate. ??This information is not intended to serve as substitution for assessment and evaluation by a qualified health care provider. If you do not have a primary care provider, you may find a [facility] provider by calling [facility] [employer] at [phone]. [facility], in keeping with [facility] guidance, no longer requires face masks for staff, patientsor visitors in most situations. Similar to time spent indoors at other locations, there is the chance that you were exposed to respiratory viruses during your time with us (such as flu or COVID-19).? If you develop symptoms concerning for a viral respiratory infection, please seek testing (and treatment if indicated) from your medical provider or home test kit. For information about the plan of care including goals and instructions for your diagnosis, please see the patient education orders section of this document. Patient Education Materials?? The content of this educational material or handout may have been modified, supplemented, or adapted from its original content and format to support your individualized medical care. Patient Care team information Care Team Personnel Name: Jw Tish Position: [facility] Outreach Member Role: Lifetime Consulting Physician Name: Leisa Braden MA Position: [facility] CRIS [place] Member Role: Lifetime Consulting Physician Name: Heron Diane MD, Kellie Sanchez Position: [facility] Outreach Member Role: PCP Address: Address: [address] [place] [id number]- Care Team Related Persons Name: GEE TONY Address: home [address] [place] [address] [address] [place] [address]
--- OUTSIDE RECORDS SUMMARY | 2024-08-29 10:48 | XMS_ITS | Continuity of Care Document ---
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 Name Role Phone Heron Diane MD, Kellie Sanchez Primary Care Benjamin hoyt Encounter [facility] Date(s): 07/07/24 - 07/08/[address] [id number]- Discharge Disposition: A-D/C Home Attending Physician: Dre Sanchez MD Admitting Physician: Zi Quan MD Referring Physician: Not on Staff, Referring MD Allergies, Adverse Reactions, Alerts No Known Allergies Medications Acetaminophen Tablet 650 mg, Tablet, By Mouth, Every 4 hours, PRN for Pain , Mild, Temperature Greater than 100.5, Routine, 07/07/24 16:12:00 EDT Start Date: 07/07/24 Stop Date: 07/09/24 Status: Discontinued atorvastatin 40 mg oral tablet 1 tablet = 40 mg, By Mouth, Daily, # 30 tablet, 5 Refills, Maintenance, 07/17/22 13:17:00 EDT, Tablet, Partial fill upon patient request if the prescription is for a schedule II opioid drug. Start Date: 07/17/22 Status: Ordered calcium acetate 667 mg oral capsule See Instructions, 1 capsule By Mouth 3 times a day after meals, 0 Refills, Maintenance, 07/08/24 1:50:00 EDT, Capsule, Partial fill upon patient request if the prescription is for a schedule II opioid drug. Start Date: 07/08/24 Status: Ordered Coreg 12.5 mg oral tablet 12.5 mg, Tablet, By Mouth, 07/08/24 9:00:00 EDT Start Date: 07/08/24 Stop Date: 07/08/24 Status: Completed Coreg 12.5 mg oral tablet 12.5 mg, By Mouth, 2 times a day, Refills 0, Maintenance, 07/08/24 16:44:00 EDT, Partial fill upon patient request if the prescription is for a schedule II opioid drug. Start Date: 07/08/24 Status: Ordered ketorolac 0.5% ophthalmic solution INSTILL 1 DROP IN AFFECTED EYE(S) THREE TIMES DAILY START 2 DAYS BEFORE DE LA SURGERY Start Date: 07/08/24 Status: Ordered lisinopril 20 mg oral tablet 20 mg, Tablet, By Mouth, Hold for: k > 5.0, 07/08/24 9:00:00 EDT Start Date: 07/08/24 Stop Date: 07/08/24 Status: Completed lisinopril 40 mg oral tablet 1 tablet = 40 mg, By Mouth, Daily, # 30 tablet, 0 Refills, Maintenance, 07/17/22 13:15:00 EDT, Tablet, Partial fill upon patient request if the prescription is for a schedule II opioid drug. Start Date: 07/17/22 Status: Ordered Novolin 70/30 human recombinant subcutaneous injection See Instructions, Inject 20 units subcutaneously daily with breakfast and 12 units with dinner, # 10 mL, 0 Refills, Maintenance, 07/08/24 17:37:00 EDT, Injection, Partial fill upon patient request ifthe prescription is for a schedule II opioid drug. Start Date: 07/08/24 Status: Ordered omeprazole 40 mg oral enteric coated capsule 1 capsule = 40 mg, By Mouth, Daily, # 90 capsule, 0 Refills, Maintenance, 07/08/24 17:42:00 EDT, ECCapsule, Partial fill upon patient request if the prescription is for a schedule II opioid drug. Start Date: 07/08/24 Status: Ordered Problem List Condition Confirmation Course Effective Dates Status Health St atus Informant Cataract Confirmed Active Diabetes Confirmed Active Chronic GERD Confirmed Active Hyperlipidemia Confirmed Active Hypertension Confirmed Active Vital Signs Most recent to oldest [Reference Range]: 1 2 3 Oxygen Saturation [94-100 %] 100 % (07/08/24 11:35 AM) 95 % (07/08/24 8:07 AM) 97 % (07/08/24 3:00 AM) Pulse Rate [55-90 bpm] 88 bpm (07/08/24 11:35 AM) 75 bpm (07/08/24 8:50 AM) 75 bpm (07/08/24 8:07 AM) Blood Pressure [90-138/55-84 mm Hg] 159/52mm Hg *H* (07/08/24 11:35 AM) 167/78mm Hg *H* (07/08/24 8:50 AM) 167/78mm Hg *H* (07/08/24 8:50 AM) Respiratory Rate [16-30 br/min] 16 br/min (07/08/24 11:35 AM) 17 br/min (07/08/24 8:07 AM) 18 br/min (07/08/24 4:31 AM) Temperature [96.8-100.4 DegF] 98.1 DegF (07/08/24 11:35 AM) 98.0 DegF (07/08/24 8:07 AM) 98.5 DegF (07/08/24 3:00 AM) Mode of Delivery (Oxygen) Room air (07/08/24 11:35 AM) Room air (07/08/24 8:07 AM) Room air (07/08/24 3:00 AM) Blood pressure sites Arm, right (07/08/24 11:35 AM) Arm, right (07/08/24 8:07 AM) Arm, right (07/08/24 3:00 AM) Temperature Route Oral (07/08/24 11:35 AM) Oral (07/08/24 8:07 AM) Oral (07/08/24 3:00 AM) Social History Social History Type Response Smoking Status Never (less than 100 in lifetime) entered on: 06/29/24 Sex History and physical note * Oleg Turner DO: PERFORM, MODIFY, MODIFY Event Display: History and Physical Hospital Authored Date: [id number] Patient: ??STEPHANIE FREEMAN ? Age:??68 Years?Sex:??Female?:??1955?? Chief Complaint/Reason for Consultation Transfer from [facility] ED for weakness and hyperkalemia History of Present Illness This is a 68-year-old primarily Greenlandic-speaking??female with past medical history including hypertension, hyperlipidemia, end-stage renal disease on hemodialysis, hyperparathyroidism,??anemia??of chronic disease,??and diabetes mellitus on insulin, who currently presents to the hospital as??a transfer??from [facility] where??she presented yesterday??with concern of weakness..?The patient is accompanied by her and both help to provide??the medical information and history.?? The patient??underwent cataract surgery on her??right eye yesterday, and following that she went out to eat at a restaurant.?Her reports that after getting home, he noted that she was very weak.?Her speech seemed to be slower than her usual baseline, though not slurred??according to him.?According to the notes from [facility] ED, she presented as a potential stroke due to the weakness.?? [facility] notes also mention that the patient was altered from her baseline, not speaking, and not able to walk with development of left-sided weakness.?? The patient's states that she had generalized weakness but was still able to talk, though her speech is slow.?? She did report some cough and runny nose recently.?? She was found to be febrile at [facility] with a fever of 101.2.?? Lab work obtained there was fairly unremarkable with a white count of 5.6 and hemoglobin 10.8.?? The patient's potassium was noted to be elevated at 6.1 with a BUN of 58 and a creatinine of 7.34.?? She was found to be COVID-positive at the outside hospital.?? 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 She is normally on a TTS schedule.?? The patient was noted to be COVID-19 positive at the outside hospital as well.?Presently, the patient denies??any complaints and states thatshe feels??back to her usual baseline. Review of Systems A complete review of systems was obtained and noted to be negative except as stated above in the HPI. Objective ? Vital Signs?? Temperature: 98.9 DegF (07/07/24 20:28:00) Temperature Route: Oral (07/07/24:28:00) Pulse Rate: 70 bpm (07/07/24:25:00) Respiratory Rate: 18 br/min (07/07/24::00) Systolic Blood Pressure:??161 mm Hg??High (07/07/24::) Diastolic Blood Pressure:??47 mm Hg??Low (07/07/24::) Blood pressure sites: Arm, right (07/07/24::00) Mean Arterial Pressure: 85 mm Hg (07/07/24::) Pulse Pressure: 114 mm Hg (07/07/24::) Oxygen Saturation: 97 % (07/07/24::00) Mode of Delivery (Oxygen): Room air (07/07/24::00) Early Warning Score: 1 (07/07/24::38) ? Physical Exam General: Alert, in no acute cardiopulmonary distress. Mental Status: Oriented to person, place and time. Normal affect. Head: Normocephalic. Eyes: Pupils are equal, round and reactive to light. Extraocular muscles intact. Ear, Nose and Throat: Oropharynx clear, mucous membranes moist. Ears and nose without masses, lesions or deformities. Trachea midline. Neck: Supple, Full range of motion. Respiratory: Clear to auscultation and percussion. No wheezing, rales or rhonchi. Cardiovascular: Heart sounds normal. Regular rate and rhythm, no murmurs, rubs or gallops. Gastrointestinal: Abdomen soft, non-tender, non-distended. Normal bowel sounds. No pulsatile mass. No hepatosplenomegaly. Neurologic: Cranial nerves II-XII grossly intact. No focal neurological deficits. Moves all extremities spontaneously. Sensation intact bilaterally. Skin: No rashes or lesions. No petechiae or purpura. No edema. Musculoskeletal: No cyanosis or clubbing. No gross deformities. Normal range of motion. Assessment/Plan Assessment:??This is a 68-year-old female??with past medical history??as noted above,??was transferred here from [facility] ED where she presented yesterday due to weakness.??She was found to be COVID-19 positive??and also had mild hyperkalemia.??She has been transferred here for further management. ?? Acute COVID-19 (U07.1) This patient will be admitted to an inpatient medical bed.??She was noted to be COVID-19 positive at the outside hospital.??She currently??is asymptomatic, and we will treat her supportively if she should??develop any significant symptoms.??She is??afebrile??and not hypoxic presently. ?? Hyperkalemia (E87.5) ?Grouped with??ESRD (end stage renal disease) (N18.6) ? Patient's labs??at the outside hospital showed a potassium of 6.1.??She was given Lokelma and dextrose and insulin.??Potassium had decreased to 5, and presently is noted to be 5.4.??We will give the patient another dose of Lokelma,??until she can undergo dialysis.??RTANE??was consulted to follow this patient.??Will continue patient on??calcium acetate ?? Diabetes mellitus (E11.9) We will follow POC's??and cover with sliding scale insulin coverage as needed. ?? Hypertension (I10) ?Grouped with??Hyperlipidemia (E78.5) ? The patient is normally on carvedilol and lisinopril.??We will resume both, with hold parameters on the lisinopril??in case her potassium??remains elevated.??The patient is also on statin treatment which will be continued. ?? VTE Prophylaxis We will use subcu??heparin and encourage early mobilization. ?VTE Prophylaxis Assessment:??VTE Prophylaxis Ordered ?? Code Status Confirmed with the patient that she is DNR. ?Order Code Status:??Code Status Ordered ?? Patient seen on July 07, 2024.?? Total time spent with patient and in coordination of care: including reviewing the chart/medical records, speaking with the patient, formulating and discussing the treatment plan, and documenting the findings and encounter: ??70 + min ?? Histories Allergies Allergies ?(Active and Proposed Allergies Only) NKA? (Severity: Unknown severity, Onset: Unknown) ? Past Medical History/Problem List Active Problems(5) Cataract Chronic GERD Diabetes Hyperlipidemia Hypertension ? Past Surgical History Right cataract??extraction??July 07, 2024 Left cataract extraction x 3 AV fistula ? Social History Patient and lives with??spouse Alcohol Details:??Use: Never. Substance Abuse Details:??Use: Never. Tobacco Details:??Use: Never (less than 100 in lifetime). Electronic Cigarette/Vaping Details:??Electronic Cigarette Use: Never. ?? Family Medical History Father with brain cancer, mother at 84??with breast cancer.?? Patient also has a sister with breast cancer. Medications Home Medications??(Confirmed with the patient) Atorvastatin (atorvastatin 40 mg oral tablet)?1?tab(s)?40?Milligram?By Mouth?Daily Calcium Acetate (calcium acetate 667 mg oral capsule)?See Instructions?1 capsule By Mouth 3 times a day after meals Coreg 12.5 mg??1 tablet twice daily Novolin??70/30 20 units??subcu in the morning and??10 units??daily with dinner Ketorolac Ophthalmic (ketorolac 0.5% ophthalmic solution)?INSTILL 1 DROP IN AFFECTED EYE(S) THREE TIMES DAILY START 2 DAYS BEFORE DE LA SURGERY Lisinopril (lisinopril 40 mg oral tablet)?1?tab(s)?40?Milligram?By Mouth?Daily Omeprazole??40 mg by Mouth?Daily ? Results Recent Labs CHEM GENERAL Sodium 134 mmol/L ()?? 07/07/2024 16:16 Potassium 5.4 mmol/L (High)?? 07/07/2024 16:16 Chloride 96 mmol/L (Low)?? 07/07/2024 16:16 Bicarbonate Level 19 mmol/L (Low)?? 07/07/2024 16:16 Anion Gap 19 (High)?? 07/07/2024 16:16 Glucose Level 168 mg/dL (High)?? 07/07/2024 16:16 Glucose, POC 200 mg/dL (High)?? 07/07/2024 20:25 BUN 65 mg/dL (High)?? 07/07/2024 16:16 Creatinine-Blood 8.25 mg/dL (High)?? 07/07/2024 16:16 Estimated GFR Creatinine 5 ML/MIN/1.73 M2 ()?? 07/07/2024 16:16 Calcium 8.0 mg/dL (Low)?? 07/07/2024 16:16 ? Hospital Progress note * Christina Molina RN: PERFORM, SIGN, VERIFY Event Display: Progress Note Hospital Authored Date: Patient: STEPHANIE FREEMAN Age: 68 years Sex: Female : 1955 Associated Diagnoses: None Author: Christina Molina RN Findings Evaluation HEMODIALYSIS SBAR/REPORT Verbal necessary per protocol: yes Name:INES Tyler 3hour HD 2K bath 4.9K blood level Access- AVF - site assessment: No s/s infection - Hemostasis achieved within expected time frame- Yes 1.7liters pulled 14% blood volume change N - Antibiotics given see MAR for documentation N - blood products given see task for documentation NA - Temporary access removed - (describe site assessment and dressing applied) N - meds given see MAR for documentation N- complication Post HD Vital signs documented in flow sheet . * Jayson Santos RN: PERFORM, SIGN, VERIFY Event Display: Progress Note Hospital Authored Date: Patient: STEPHANIE FREEMAN Age: 68 years Sex: Female : 1955 Associated Diagnoses: None Author: Jayson Santos RN Findings Problem Related to Alteration in Fluid Electrolyte : Alteration in Fluid Electrolyte Func/new 07/08/2024 9:00 EDT Alteration Fluid Electrolytes Related to Electrolyte Imbalance Goals & Outcomes, Fluid/Electrolyte Vital signs, electrolytes & glucose levels will stabilize, Pt will maintain adequate GI/ function appropriate for pt, Pt will maintain skin turgor, Pt will resume/maintain adequate cardiac output Interventions, Fluid Electrolyte monitor cardiac status, monitor for s/s of hyper/hypokalemia, monitor GI/ status Goals/Interventions,Fluid Electrolyte Yes Fluid Electrolyte, Problem Start 07/08/2024 9:00 Reviewed plan with, Fluid Electrolyte Patient, Spouse/significant other Patient Progression, Fluid Electrolyte Plan Initiation . Alteration in Genitourinary : Alteration in Genitourinary Function/new 07/08/2024 9:00 EDT Alteration in Status Related to Renal failure Goals & Outcomes, Genitourinary Pt will achieve normal/improved fluid balance, Pt will maintainadequate GI function appropriate for pt, Pt will maintain adequate function appropriate for pt, Pt will maintain normal fluid balance, Pt will resume normal pattern of elimination, Pt/caregiver will state understanding of self-care skills Interventions, Assess/monitor/maintain Genitourinary status, Assist & encourage pt with meticulous lionel care, Encourage PO fluid intake as allowed by diet, Assess/monitor dialysis access site,Assess/monitor effects of re- hydration, Monitor effects of diuretics, Monitor for jugular vein distention, Reduce bleeding risk minimizing blood draws, razor use, Apply pressure to all injection sites, Monitor serum levels of immunosuppression Goals/Interventions, Genitourinary Yes Genitourinary, Problem Start 07/08/2024 9:00 Reviewed Plan with, Genitourinary Patient Patient Progression, Genitourinary Plan Initiation Genitourinary, Problem Ongoing Yes . Nursing Data Vital Signs : VITAL SIGNS SECTION 07/08/2024 8:07 EDT Temperature 98.0 DegF Temperature Route Oral Pulse Rate 75 bpm Respiratory Rate 17 br/min Systolic Blood Pressure 167 mm Hg H Diastolic Blood Pressure 78 mm Hg Blood pressure sites Arm, right Mean Arterial Pressure 108 mm Hg Pulse Pressure 89 mm Hg Oxygen Saturation 95 % Mode of Delivery (Oxygen) Room air . Narrative/Incidental Patient is alert and oriented x 4. Patient is primarily Greenlandic-speaking. Patient remains on enhanced respiratory precautions for + COVID-19 infection. Patient denies pain. Patient on room air without cough. Patient continues on telemetry monitoring resulting in SR. Patient has left upper arm AV fistula, positive bruit/thrill. Patient ambulating independently in the room. Patient to have dialysisthis afternoon today. Patient resting comfortably in room. Safety maintained, call oconnor within reach, and purposeful rounding in place. . Consult note * Rui MOREJON, Bravo Ewing: PERFORM Event Display: Consultation Note Authored Date: Patient: ??STEPHANIE FREEMAN ? Age:??68 Years?Sex:??Female?:??1955?? Chief Complaint/Reason for Consultation ESRD History of Present Illness Stephanie Freeman is a 68-year-old primarily Greenlandic-speaking??female with past medical history of hypertension, hyperlipidemia, ESRD on hemodialysis TTS, hyperparathyroidism,??anemia??of chronic disease,??and diabetes mellitus on insulin??who presented to [facility] ED for weakness, was found to have COVID,and was transferred to [facility] on 07/08 for dialysis needs. ?? Patient underwent cataract??surgery on her??right eye yesterday, and following that she went out toeat at a restaurant.??Her reports that after getting home, he noted that she was very weak.Her speech seemed to be slower than her usual baseline, though not slurred??according to him. According to the notes from [facility] ED, she presented as a potential stroke due to the weakness. [facility] ED notes also mention that the patient was altered from her baseline, not speaking, and not able to walk with development of left-sided weakness.?? The patient's states that she had generalized weakness but was still able to talk, though her speech is slow.??She did report some cough and runny nose recently. ?? At [facility], patient??found to be febrile at [facility] with a fever of 101.2. Lab work notable for a potassium level of 6.1, otherwise unremarkable.??She was found to be COVID-positive at the outside hospital.??She did undergo CT scan of the head and CTA of the head and neck, which showed no proximal occlusion or high-grade stenosis in the major arteries of the head and neck with a possible 2 mm posteriorprojecting aneurysm arising from the communicating segment of the right ICA versus infundibulum of nonvisualized PCOM artery origin.??Given that the patient was hyperkalemic at the outside hospital, it was determined that she would be transferred here so she could undergo dialysis. Patient receivedLokelma overnight with pre-dialysis labs this morning with K improved to 4.9. ?? On my assessment, patient is resting comfortably in bed. She reports feeling much better today and is hoping to be discharged. She missed dialysis yesterday so will plan for dialysis prior to discharge. Denies shortness of breath or edema. Review of Systems Constitutional: No weight loss, fever, chills, weakness or fatigue. HEENT: No visual loss, blurred vision, double vision or yellow sclera. No hearing loss, sneezing, congestion, runny nose or sore throat. Skin: No rash or itching. Cardiovascular: No chest pain, chest pressure or chest discomfort. No palpitations or pedal edema. Respiratory: No shortness of breath, cough or sputum production. Gastrointestinal: Negative for nausea, vomiting & diarrhea. No abdominal pain or blood in stool. Genitourinary: No burning micturition. No urinary frequency or incontinence. Neurologic: No headache, dizziness, syncope, unilateral weakness, ataxia Musculoskeletal: No muscle pain, back pain, joint pain or stiffness. Hematologic: No bleeding or bruising. Lymphatics: No enlarged lymph nodes. Psychiatric: No depression or anxiety. Endocrine: No reports of sweating. No cold or heat intolerance. No polyuria or polydipsia. ? Objective Vital Signs?? Temperature: 98 DegF (07/08/24 08:07:00) Temperature Route: Oral (07/08/24 08:07:00) Pulse Rate: 75 bpm (07/08/24 08:50:00) Respiratory Rate: 17 br/min (07/08/24 08:07:00) Systolic Blood Pressure:??167 mm Hg??High (07/08/24 08:50:00) Systolic Blood Pressure:??167 mm Hg??High (07/08/24 08:50:00) Diastolic Blood Pressure: 78 mm Hg (07/08/24 08:50:00) Diastolic Blood Pressure: 78 mm Hg (07/08/24 08:50:00) Blood pressure sites: Arm, right (07/08/24 08:07:00) Mean Arterial Pressure: 108 mm Hg (07/08/24 08:07:00) Pulse Pressure: 89 mm Hg (07/08/24 08:07:00) Oxygen Saturation: 95 % (07/08/24 08:07:00) Mode of Delivery (Oxygen): Room air (07/08/24 08:07:00) Early Warning Score: 9 (07/08/24 09:54:33) ? Intake/Output? 07/07 15:33 07/08 07:00 07/07 07:00 07/06 07:00 ?? 07/08 10:51 07/08 10:51 07/08 06:59 07/07 06:59 Urine Count ?2 ?0 ?2 ?0 ? Physical Exam ?General: No acute distress ?HEENT: Mucous membranes moist ?CV: Regular rate and rhythm ?Respiratory: CTAB ?Abdominal: Soft ?Extremities: No peripheral edema ?Neuro: AAO x3 ?Skin: No rashes Assessment/Plan Assessment:??Stephanie Freeman is a 68-year-old primarily Greenlandic-speaking??female with past medical history of hypertension, hyperlipidemia, ESRD on hemodialysis TTS, hyperparathyroidism,??anemia??of chronic disease,??and diabetes mellitus on insulin??who presented to [facility] ED for weakness, was found to have COVID, and was transferred to [facility] on 07/08 for dialysis needs (K 6.1 in the setting of missed d ialysis). ?? 1. ESRD Dialyzes TTS at [facility] via LUE AVF K 6.1 on arrival to [facility], improved with medical management prior to HD ?? 2. HTN / Volume Chronically takes Coreg 12.5mg BID and lisinopril 20mg daily ?? 3. Nephrogenic Anemia Hgb at goal for ESRD Tsat 65%, ferritin 1343 (06/09) ?? 4. Secondary Hyperparathyroidism / MBD Ca 8.1 (07/08) Phos 4.9 (06/09) PTH 401 (04/07) ?? Plan - HD today then ok for discharge from renal standpoint- will then continue regular TTS schedule - Continue Coreg 12.5mg BID and lisinopril 20mg daily - Continue home calcium acetate 667mg TID w/ meals and calcitriol 0.25mcg TTS - Renal diet ?Thank you for the courtesy of this consult, [facility] will continue monitoring the patient along with you. Please do not hesitate to call us with any further questions. ?Bravo Fabian PA-C ?[facility] ?? Discussed with Dr. Rosas Histories Allergies Allergies ?(Active and Proposed Allergies Only) NKA? (Severity: Unknown severity, Onset: Unknown) ? Past Medical History/Problem List Active Problems(5) Cataract Chronic GERD Diabetes Hyperlipidemia Hypertension ? Past Surgical History No surgery history documented. ? Social History Alcohol Details:??Use: Never. Substance Abuse Details:??Use: Never. Tobacco Details:??Use: Never (less than 100 in lifetime). Electronic Cigarette/Vaping Details:??Electronic Cigarette Use: Never. ? Family History No Family History documented. ? Medications Home Medications Atorvastatin (atorvastatin 40 mg oral tablet)?1?tab(s)?40?Milligram?By Mouth?Daily Calcium Acetate (calcium acetate 667 mg oral capsule)?See Instructions?1 capsule By Mouth 3 times a day after meals Insulin Regular Human (Insulin Novolin R Sliding Scale)?unit(s)?Subcutaneous Injection Ketorolac Ophthalmic (ketorolac 0.5% ophthalmic solution)?INSTILL 1 DROP IN AFFECTED EYE(S) THREE TIMES DAILY START 2 DAYS BEFORE DE LA SURGERY Lisinopril (lisinopril 40 mg oral tablet)?1?tab(s)?40?Milligram?By Mouth?Daily Omeprazole?By Mouth?Daily ? Inpatient Medications Medications (22) Active SCHEDULED: (11) Atorvastatin 40 mg Tablet (atorvastatin 40 mg oral tablet) ??40 mg, By Mouth, Daily at bedtime Calcium Acetate 667 mg Tablet (calcium acetate 667 mg oral tablet) ??667 mg 1 tablet, By Mouth, 3 times a day with meals Carvedilol 12.5 mg Tablet (Coreg 12.5 mg oral tablet) ??12.5 mg, By Mouth, 2 times a day Heparin 5000 units/mL Inj (1 mL) (Heparin Inj) ??5,000 units 1 mL, Subcutaneous Injection, 3 times a day Insulin Lispro 100 units/mL Inj (Insulin LISPRO Sliding Scale) ??2-10 units, Subcutaneous Injection, 3 times a day before meals Insulin N 100 units/mL (10mL) (Insulin NPH Human Inj) ??14 units 0.14 mL, Subcutaneous Injection, Daily in AM Insulin N 100 units/mL (10mL) (Insulin NPH Human Inj) ??7 units 0.07 mL, Subcutaneous Injection, Daily at supper Lisinopril 20 mg Tablet (lisinopril 20 mg oral tablet) ??20 mg, By Mouth, Daily NaCl 0.9% Flush 3ml (NaCL 0.9% Flush) ??3 mL, IV Push, Every 8 hours Pantoprazole 40 mg EC Tablet (Protonix 40 mg oral delayed release tablet) ??40 mg, By Mouth, Daily Pt.'s Own Meds (Ketorolac 0.5% Ophthalmic Drops) ??1 drop, Eye, Right, 3 times a day CONTINUOUS: (0) PRN: (11) Acetaminophen 325 mg Tablet (Acetaminophen Tablet) ??650 mg, By Mouth, Every 4 hours Dextrose Inj Syringe (Dextrose 50% Inj Syringe (25Gm)) ??12.5 Gm, IV Push Slowly, Every 20 minutes Dextrose Inj Syringe (Dextrose 50% Inj Syringe (25Gm)) ??25 Gm, IV Push Slowly, Every 15 minutes Docusate Sodium 100 mg Capsule (Docusate Sodium Capsule) ??100 mg 1 capsule, By Mouth, 2 times a day Glucagon 1 mg Inj (Glucagon Inj) ??1 mg, Intramuscular, Once Glucose 40% Gel (15 Gm) (Glucose Gel) ??15 Gm, By Mouth, Every 20 minutes Glucose 40% Gel (15 Gm) (Glucose Gel) ??30 Gm, By Mouth, Every 20 minutes Melatonin 3 mg Tablet (Melatonin Tablet) ??3 mg, By Mouth, Daily at bedtime NaCl 0.9% Flush 3ml (NaCL 0.9% Flush) ??3 mL, IV Push, Every 8 hours Polyethylene Glycol 17 Gm Powder (MiraLax Powder) ??17 Gm 1 pack/packet, By Mouth, Daily Senna Tablet ??8.6 mg 1 tablet, By Mouth, 2 times a day ? Results Recent Labs BLOOD COUNT & DIFF WBC 3.1 k/mm3 (Low)?? 07/08/2024 08:15 RBC 3.17 m/mm3 (Low)?? 07/08/2024 08:15 Hgb 10.1 Gm/dL (Low)?? 07/08/2024 08:15 Hct 32.3 % (Low)?? 07/08/2024 08:15 MCV 101.9 femtoliters (High)?? 07/08/2024 08:15 MCH 31.9 pg ()?? 07/08/2024 08:15 MCHC 31.3 Gm/dL (Low)?? 07/08/2024 08:15 Platelet Count 109 k/mm3 (Low)?? 07/08/2024 08:15 RDW-SD 52.9 femtoliters (High)?? 07/08/2024 08:15 MPV 11.6 femtoliters ()?? 07/08/2024 08:15 Nucleated RBC (Automated) 0.0 #/100 WBC'S ()?? 07/08/2024 08:15 Abs. NRBC 0.0 k/mm3 ()?? 07/08/2024 08:15 Abs. Neut 1.7 k/mm3 ()?? 07/08/2024 08:15 Abs. Lymph 0.7 k/mm3 (Low)?? 07/08/2024 08:15 Abs. Craig 0.5 k/mm3 ()?? 07/08/2024 08:15 Abs. Eo 0.2 k/mm3 ()?? 07/08/2024 08:15 Abs. Baso 0.0 k/mm3 ()?? 07/08/2024 08:15 Neut % 55.2 % ()?? 07/08/2024 08:15 Lymph % 22.1 % ()?? 07/08/2024 08:15 Craig % 17.0 % (High)?? 07/08/2024 08:15 Eos % 4.8 % ()?? 07/08/2024 08:15 Baso % 0.6 % ()?? 07/08/2024 08:15 Imm Gran 0.3 % ()?? 07/08/2024 08:15 Abs. Imm Gran 0.0 k/mm3 ()?? 07/08/2024 08:15 ?? CHEM GENERAL Sodium 134 mmol/L ()?? 07/08/2024 08:15 Potassium 4.9 mmol/L ()?? 07/08/2024 08:15 Chloride 96 mmol/L (Low)?? 07/08/2024 08:15 Bicarbonate Level 23 mmol/L ()?? 07/08/2024 08:15 Anion Gap 15 ()?? 07/08/2024 08:15 Glucose Level 127 mg/dL (High)?? 07/08/2024 08:15 Glucose, POC 130 mg/dL (High)?? 07/08/2024 07:59 BUN 67 mg/dL (High)?? 07/08/2024 08:15 Creatinine-Blood 9.53 mg/dL (High)?? 07/08/2024 08:15 Estimated GFR Creatinine 4 ML/MIN/1.73 M2 ()?? 07/08/2024 08:15 Calcium 8.1 mg/dL (Low)?? 07/08/2024 08:15 ? CBC, CBC w/Diff?? CBC?? Differential?? WBC:??3.1 k/mm3??Low (08:15) Abs. Neut: 1.7 k/mm3 (08:15) RBC:??3.17 m/mm3??Low (08:15) Abs. Lymph:??0.7 k/mm3??Low (08:15) Hct:??32.3 %??Low (08:15) Abs. Craig: 0.5 k/mm3 (08:15) RDW-SD:??52.9 femtoliters??High (08:15) Abs. Eo: 0.2 k/mm3 (08:15) Nucleated RBC (Automated): 0 #/100 WBC'S (08:15) Abs. Baso: 0 k/mm3 (08:15) Abs. NRBC: 0 k/mm3 (08:15) Neut %: 55.2 % (08:15) ?? Lymph %: 22.1 % (08:15) ?? Craig %:??17 %??High (08:15) ?? Eos %: 4.8 % (08:15) ?? Baso %: 0.6 % (08:15) ?? Imm Gran: 0.3 % (08:15) ?? Abs. Imm Gran: 0 k/mm3 (08:15) ? BMP, Mg, and Phos Anion Gap: 15 (08:15) Bicarbonate Level: 23 mmol/L (08:15) BUN:??67 mg/dL??High (08:15) Calcium:??8.1 mg/dL??Low (08:15) Chloride:??96 mmol/L??Low (08:15) Creatinine-Blood:??9.53 mg/dL??High (08:15) Estimated GFR Creatinine: 4 ML/MIN/1.73 M2 (08:15) Glucose Level:??127 mg/dL??High (08:15) Potassium: 4.9 mmol/L (08:15) Sodium: 134 mmol/L (08:15) ?? Urinalysis?? No qualifying data available. ? * Kathy Rosas MD: PERFORM Event Display: Consultation Note Authored Date: Patient and charted reviewed. Management discussed with PA. ??Continue the current management as documented in PA's chart?? Note * ForretJayson chiang RN: PERFORM Event Display: Discharge/Transfer Note Hospital Authored Date: [id number] Nursing Discharge Note Entered On: 07/08/2024 18:41 EDT Performed On: 07/08/2024 18:30 EDT by Jayson Santos RN Nursing Discharge Note 2 Discharge Time : 07/08/2024 18:30 EDT Discharge Level of Care at Discharge : Home/Correction/Foster Care Patient Left Unit Via : Ambulatory Patient Accompanied Off Unit with : Significant other DC Instructions Provided & Signed by Pt : No (Comment: [Jayson Santos RN - 07/08/2024 18:40 EDT] ) Patient Understands D/C Instructions : Yes Patient Instructions Discharge Signed : Yes Did Pt have Specialty Bed or Wound Vac : No Jayson Santos RN - 07/08/2024 18:40 EDT * Bettye Shearer: PERFORM, MODIFY Event Display: Discharge/Transfer Note Hospital Authored Date: [id number] Patient: ??STEPHANIE FREEMAN ? Age:??68 Years?Sex:??Female?:??1955?? Patient Information Discharge Location: [facility] Primary Care Physician: Kellie Tan MD Admit Date/Time: 07/07/24 15:33 Discharge Date:??07/08/2024 11:51 Discharge Disposition Discharge Disposition: Home: No Services Discharge Diagnosis COVID-19 ESRD (end stage renal disease) (N18.6) Hypertension (I10) Hyperlipidemia (E78.5) Diabetes mellitus (E11.9) _ Discharge Medications Atorvastatin (atorvastatin 40 mg oral tablet)?1?tab(s)?40?Milligram?By Mouth?Daily Calcium Acetate (calcium acetate 667 mg oral capsule)?See Instructions?1 capsule By Mouth 3 times a day after meals Carvedilol (Coreg 12.5 mg oral tablet)?12.5?Milligram?By Mouth?2 times a day Insulin Isophane-Insulin Regular (Novolin 70/30 human recombinant subcutaneous injection)?See Instructions?Inject 20 units subcutaneously daily with breakfast and 12 units with dinner Ketorolac Ophthalmic (ketorolac 0.5% ophthalmic solution)?INSTILL 1 DROP IN AFFECTED EYE(S) THREE TIMES DAILY START 2 DAYS BEFORE DE LA SURGERY Lisinopril (lisinopril 40 mg oral tablet)?1?tab(s)?40?Milligram?By Mouth?Daily Omeprazole (omeprazole 40 mg oral enteric coated capsule)?1?capsule?40?Milligram?By Mouth?Daily ?? Medications Started None Medications Discontinued None Doses Changed None Allergies Allergies ?(Active and Proposed Allergies Only) NKA? (Severity: Unknown severity, Onset: Unknown) Hospital Course Ms. Freeman is a 68 year old female with a past medical history of hypertension, hyperlipidemia, end-stage renal disease on hemodialysis, hyperparathyroidism, anemia of chronic disease, and diabetes mellitus on insulin who was transferred from [facility] for dialysis. She presented with generalized weakness and slow speech. Her was concerned about a possible infection as this is how she typicallyacts. Stroke work up at [facility] was negative. She was found to have COVID. Labs showed hyperkalemia, therefor she was transferred for dialysis. On the day of discharge, the patient was seen with a hourly sign language interpreter, Elis Rodney, she reported feeling well and had no acute complaints. Her weakness has improved, denied any cough or shortness of breath. She was very eager to be discharged home after dialysis. At this time, she is safe and stable for discharge with close and appropriate follow up care. ?? See below for problem focused plan: Objective Acute COVID-19 (U07.1) She was noted to be COVID-19 positive at the outside hospital.??She currently??is asymptomatic. CDCisolation recommended ?? Hyperkalemia (E87.5) ?Grouped with??ESRD (end stage renal disease) (N18.6) ? Patient's labs??at the outside hospital showed a potassium of 6.1.??She was given Lokelma and dextrose and insulin.??Potassium normalized. She is being dialyzed today and instructed to resume her [facility] schedule ?? Diabetes mellitus (E11.9) Continue home insulin regimen ?? Hypertension (I10) ?Grouped with??Hyperlipidemia (E78.5) ? Continue home carvedilol and lisinopril. Continue statin . Physical Exam Constitutional: 68 year old Greenlandic speaking??female,??well??appearing, alert, in no??acute distress. Mental Status: Oriented to person, place and time. HEENT:??Bandage covering??right eye?? Respiratory: Clear to auscultation. No wheezing, rales or rhonchi. Cardiovascular: RRR, S1 S2 regular. No murmurs, rubs or gallops. No??LE??edema?? Gastrointestinal: Abdomen soft, non-tender, non-distended. Normal bowel sounds. Neurologic: No focal deficits. Consultants [facility] Follow-Up Appointments Added Follow Up ?Time Frame ?Comments Heron Diane MD, Kellie Sanchez?Within two weeks Patient Instructions Diagnosis: -COVID ?? Important results/instructions: -Current??CDC recommendations ?-Recommending that if you test positive for COVID-19, you stay home for at least 5 days and isolate from others in your home.?? You are likely most infectious during these first 5 days. Wear a high-quality mask when you must be around others at home and in public. ?-If after 5 days you are fever-free for 24 hours without the use of medication, and your symptoms are improving, or you never had symptoms, you may end isolation after day 5. ?-Regardless of when you end isolation, avoid being around people who are more likely to get very sick from COVID-19 until at least day 11. ?-You should wear a high-quality mask through day 10. ?? Medication changes: -No changes to your home medications? It was a pleasure caring for you, I am glad you are feeling better! Please follow up with your PCP in the next 1-2 weeks for a post-hospitalization follow up Post Discharge Care Discharge ?after HD, 07/08/24 11:50:00 EDT Discharge Prescriptions ?None, 07/08/24 11:50:00 EDT Home Health Face to Face ^[facility]Health[facility] Results Discharge Labs BLOOD COUNT & DIFF WBC 3.1 k/mm3 (Low)?? 07/08/2024 08:15 RBC 3.17 m/mm3 (Low)?? 07/08/2024 08:15 Hgb 10.1 Gm/dL (Low)?? 07/08/2024 08:15 Hct 32.3 % (Low)?? 07/08/2024 08:15 MCV 101.9 femtoliters (High)?? 07/08/2024 08:15 MCH 31.9 pg ()?? 07/08/2024 08:15 MCHC 31.3 Gm/dL (Low)?? 07/08/2024 08:15 Platelet Count 109 k/mm3 (Low)?? 07/08/2024 08:15 RDW-SD 52.9 femtoliters (High)?? 07/08/2024 08:15 MPV 11.6 femtoliters ()?? 07/08/2024 08:15 Nucleated RBC (Automated) 0.0 #/100 WBC'S ()?? 07/08/2024 08:15 Abs. NRBC 0.0 k/mm3 ()?? 07/08/2024 08:15 Abs. Neut 1.7 k/mm3 ()?? 07/08/2024 08:15 Abs. Lymph 0.7 k/mm3 (Low)?? 07/08/2024 08:15 Abs. Craig 0.5 k/mm3 ()?? 07/08/2024 08:15 Abs. Eo 0.2 k/mm3 ()?? 07/08/2024 08:15 Abs. Baso 0.0 k/mm3 ()?? 07/08/2024 08:15 Neut % 55.2 % ()?? 07/08/2024 08:15 Lymph % 22.1 % ()?? 07/08/2024 08:15 Craig % 17.0 % (High)?? 07/08/2024 08:15 Eos % 4.8 % ()?? 07/08/2024 08:15 Baso % 0.6 % ()?? 07/08/2024 08:15 Imm Gran 0.3 % ()?? 07/08/2024 08:15 Abs. Imm Gran 0.0 k/mm3 ()?? 07/08/2024 08:15 ?? CHEM GENERAL Sodium 134 mmol/L ()?? 07/08/2024 08:15 Potassium 4.9 mmol/L ()?? 07/08/2024 08:15 Chloride 96 mmol/L (Low)?? 07/08/2024 08:15 Bicarbonate Level 23 mmol/L ()?? 07/08/2024 08:15 Anion Gap 15 ()?? 07/08/2024 08:15 Glucose Level 127 mg/dL (High)?? 07/08/2024 08:15 Glucose, POC 214 mg/dL (High)?? 07/08/2024 11:24 BUN 67 mg/dL (High)?? 07/08/2024 08:15 Creatinine-Blood 9.53 mg/dL (High)?? 07/08/2024 08:15 Estimated GFR Creatinine 4 ML/MIN/1.73 M2 ()?? 07/08/2024 08:15 Calcium 8.1 mg/dL (Low)?? 07/08/2024 08:15 ? 35??minutes spent on discharge * Lovely Bowen RN: PERFORM Event Display: Patient Education/Instruction Authored Date: Inpatient Adult Discharge Instructions. [address] [address] Name: STEPHANIE FREEMAN : 1955?? Visit: 07/07/2024 15:33?? Current Date: 07/08/2024 18:07 ?? Account: [id number]?? Inpatient Adult Discharge Instructions We would like to thank you for allowing us to assist you with your healthcare needs. The following includes patient education materials and information regarding your injury/illness. Our entire staffstrives to provide an excellent experience for our patients and their families. PLEASE ENSURE YOU FOLLOW-UP PER THE INSTRUCTIONS BELOW! ?? YOUR OPINION IS IMPORTANT TO US! Please complete the survey you may receive by mail or email. Your feedback will be used to make improvements to the healthcare experiences of our patients and their families. Surveys are administered by [employer]. ?? If further treatment with your primary care physician or another doctor is recommended, it is important for you to keep the appointment. Call your primary care physician or return to the Emergency Department immediately if your condition worsens, fails to improve, or new symptoms develop. If you need to find a doctor, you can call [facility] Link for a referral at [phone] or toll free at [phone] ([phone]) or log in to [email or web address].. ?? [facility], in keeping with [facility] guidance, no longer requires face masks for staff, patientsor visitors in most situations. Similiar to time spent indoors at other locations, there is the chance that you were exposed to repiratory viruses during your time with us (such as flu or COVID-19). If you develop symptoms concerning for a viral respiratory infection, please seek testing (and treatment if indicated) from your medical provider or home test kit. ?? You can view and manage your care through the patient portal or by using a health care mi of your choosing. [employer] is a website that allows you to securely view your medical information including your hospital discharge summary, office visit summaries, medications and follow-up visits. You can also request appointments, renew medications, and request access to your medical information using a health care mi of your choosing, or just ask a question. You can enroll at [email or web address] or register during your next office visit. You have been discharged from [facility], Patient Care Unit: D6A??. If you have any questions regarding these instructions, including results of studies pending, afteryou leave, please call us and we will be happy to assist you 27/04. [facility] Your Care Team Attending Physician Dre Sanchez MD?? Consulting Providers Dre Sanchez MD?? Discharging Providers Bettye Shearer Reason for Your Visit Transfer from [facility] for weakness and hyperkalemia?? Your Diagnosis Acute COVID-19 Diabetes mellitus ESRD (end stage renal disease) Hyperkalemia Hyperlipidemia Hypertension Tests Performed Below is a partial list of the tests performed during your hospitalization. You may have had other tests and procedures not included in this list. Please discuss all test results with your provider. Basic Metabolic Panel CBC w/ Differential GLUCOSE POC Basic Metabolic Panel?? CBC w/ Differential?? Glucose POC?? Primary Care Provider Heron Diane MD, Kellie Sanchez? Advance Directive Health Care Proxy on File No Patient refuses to discuss Discharge Vitals Temperature: 98.1 DegF Pulse Rate: 88 bpm Respiratory Rate: 16 br/min Systolic Blood Pressure:??159 mm Hg??High Diastolic Blood Pressure:??52 mm Hg??Low Oxygen Saturation: 100 % Studies Pending All studies ordered during this hospital stay have been completed unless listed below. Please discuss all pending results with your provider listed above in these instructions. ?? No incomplete studies found?? What to do next Instructions From Your Doctor Diagnosis: -COVID ?? Important results/instructions: -Current??CDC recommendations ?-Recommending that if you test positive for COVID-19, you stay home for at least 5 days and isolate from others in your home.?? You are likely most infectious during these first 5 days. Wear a high-quality mask when you must be around others at home and in public. ?-If after 5 days you are fever-free for 24 hours without the use of medication, and your symptoms are improving, or you never had symptoms, you may end isolation after day 5. ?-Regardless of when you end isolation, avoid being around people who are more likely to get very sick from COVID-19 until at least day 11. ?-You should wear a high-quality mask through day 10. ?? Medication changes: -No changes to your home medications? It was a pleasure caring for you, I am glad you are feeling better! Please follow up with your PCP in the next 1-2 weeks for a post-hospitalization follow up ?? Orders?? HD, ??07/08/24 11:50:00 EDT?? Prescriptions??, ??07/08/24 11:50:00 EDT?? You Need to Schedule the Following Appointments Follow Up with??Heron Diane MD, Kellie Sanchez When:??Within Within two weeks Where: [address] [place] [address]- Discharge Medications STEPHANIE FREEMAN :1955 Visit Date:07/07/2024 Medications: Please continue your medications until treatment is completed or stopped by your provider. Medications not listed below should be discontinued. Discuss any questions related to medications with your provider. What How Much When Instructions Next Dose Changed Carvedilol (Coreg 12.5 mg oral tablet) 12.5 Milligram Oral Twice a day 07/08 9pm Changed Insulin Isophane-Insulin Regular (Novolin 70/ 30 human recombinant subcutaneous injection) See instructions Inject 20 units subcutaneously daily with breakfast and 12 units with dinner ?? 07/08 with dinner Changed Omeprazole (omeprazole 40 mg oral enteric coated capsule) 1 capsule Oral Daily 07/09 9am Unchanged Atorvastatin (atorvastatin 40 mg oral tablet) 1 tab(s) Oral Daily 07/09 9am Unchanged Calcium Acetate (calcium acetate 667 mg oral capsule) See instructions 1 capsule By Mouth 3 times a day after meals ?? 07/08 9pm Unchanged Ketorolac Ophthalmic (ketorolac 0.5% ophthalmic solution) INSTILL 1 DROP IN AFFECTED EYE(S) THREE TIMES DAILY START 2 DAYS BEFORE DE LA SURGERY ?? as previously taking Unchanged Lisinopril (lisinopril 40 mg oral tablet) 1 tab(s) Oral Daily 07/09 9am ?? What How Much When Comments Stop Taking Insulin Regular Human (Insulin Novolin R Sliding Scale) Subcutaneous Injection Prescription Given During Visit Insulin Isophane-Insulin Regular (Novolin 70/30 human recombinant subcutaneous injection) - , # 10 mL, 0 Refills, Inject 20 units subcutaneously daily with breakfast and 12 units with dinner?? Omeprazole (omeprazole 40 mg oral enteric coated capsule) - 1 capsule = 40 mg, By Mouth, Daily, # 90 capsule, 0 Refills?? Laboratory Results Below is a partial list of the most recent Laboratory test results done prior to this discharge. You may have had other tests and procedures not included in this list. Please discuss all test resultswith your provider. Basic Metabolic Panel (07/08/2024) ???Sodium - 134 mmol/L???Potassium - 4.9 mmol/L???Chloride - 96 mmol/L???Bicarbonate Level - 23 mmol/L???Anion Gap - 15???Glucose Level - 127 mg/dL???BUN - 67 mg/dL???Creatinine-Blood - 9.53 mg/dL???Estimated GFR Creatinine - 4 ML/MIN/1.73 M2???Calcium - 8.1 mg/dL CBC w/ Differential (07/08/2024) ???WBC - 3.1 k/mm3???RBC - 3.17 m/mm3???Hgb - 10.1 Gm/dL???Hct - 32.3 %???MCV - 101.9 femtoliters???MCH - 31.9 pg???MCHC - 31.3 Gm/dL???Platelet Count - 109 k/mm3???RDW-SD - 52.9 femtoliters???MPV - 11.6 femtoliters???Nucleated RBC (Automated) - 0.0 #/100 WBC'S???Abs. NRBC - 0.0 k/mm3???Abs. Neut -1.7 k/mm3???Abs. Lymph - 0.7 k/mm3???Abs. Craig - 0.5 k/mm3???Abs. Eo - 0.2 k/mm3???Abs. Baso - 0.0 k/mm3???Neut % - 55.2 %???Lymph % - 22.1 %???Craig % - 17.0 %???Eos % - 4.8 %???Baso % - 0.6 %???Imm Gran - 0.3 %???Abs. Imm Gran - 0.0 k/mm3 GLUCOSE POC (07/08/2024) ???Glucose, POC - 214 mg/dL You will be contacted within 72 hours with your results. Allergies (NKA means No Known Allergies) NKA Problems Active Problems??(5) Cataract?? Chronic GERD?? Diabetes?? Hyperlipidemia?? Hypertension?? Education Materials Below is the list of Educational Leaflet Providered with your Discharge Instructions. [employer] Patient Education - COVID-19- Caring ?for ?Yourself ?and ?Others?? [employer] Patient Education - COVID-19- Overview?? Valuables and Belongings I fully understand and agree that [facility] accepts no responsibility for all my personal property including clothing, toilet articles, radios, jewelry, dentures, hearing aids, rings, money, or any other property that is in my possession or is brought to me after admission. I understand certain valuables may be placed in a hospital safe for a short period of time. I understand that the hospital is not liable for loss or damage due to accident, fire, or other natural occurrence while said property is in the safe. I accept full responsibility for any personal property that I keep with me, and will not hold the hospital responsible in case of loss or disappearance. I acknowledge that i have been encouraged to send valuables and belongings home. ? Other Discharge Information ? Pulmonary Rehab Status?? Pulmonary Rehab Discharge Status?? Respiratory Rate: 16 br/min ? Common Emergency Awareness Tips IS IT A STROKE? Act FAST and Check for these signs: FACE Does the face look uneven? ARM Does one arm drift down? SPEECH Does their speech sound strange? TIME Call at any sign of stroke ?? Heart Attack Signs Chest discomfort: Most heart attacks involve discomfort in the center of the chest and lasts more than a few minutes, or goes away and comes back. It can feel like uncomfortable pressure, squeezing, fullness or pain. Discomfort in upper body: Symptoms can include pain or discomfort in one or both arms, back, neck, jaw or stomach. Shortness of breath: With or without discomfort. Other signs: Breaking out in a cold sweat, nausea, or lightheaded. Remember, MINUTES DO MATTER. If you experience any of these heart attack warning signs, call to get immediate medical attention! ?? Smoking can increase your chances of developing chronic health problems and can cause harmful effects to other family members in your house. If you smoke, you are strongly encouraged to quit. Please call [facility] Health Link at [phone] or [phone] ([phone]) or log in to [email or web address] for referrals to smoking cessation programs. ?? 887 Suicide & Crisis Lifeline is available 27/04 if you or someone you know needs to find a reason to keep living. By calling 112 you'll be connected to a skilled, trained counselor at a crisis center in your area. INPATIENT DISCHARGE INSTRUCTIONS SIGNATURE PAGE STEPHANIE FREEMAN Location:[facility] Registration Date and Time:07/07/2024 15:33 EDT Primary Care Physician: Heron Diane MD, Kellie Sanchez, Attending Physician: Laura CALVILLO, Dre, I STEPHANIE FREEMAN, have received the above patient education materials/instructions and have verbalized understanding. If ambulance or transport services are being used I further acknowledge being given a choice of service. ?? If you need to contact me, please call me at this number: . Patient/R[employer] Custodian Name: Patient/[employer] Custodian Signature: Relationship to Patient: Witness Name/Signature: Date: * Lovely Bowen RN: PERFORM Event Display: Patient Education Leaflets Authored Date: [id number] COVID-19- Caring ???for ???Yourself ???and ???Others ?? [id number] COVID-19: cuidarse y cuidar a los dem??s Si usted o alg??n miembro del n??sienna familiar sil positivo para COVID-19 o tienen s??ntomas, alexx fiebre, tos, fatiga y p??rdida del gusto o del olfato, siga las pautas a continuaci??n para prevenirla propagaci??n del virus y controlar los s??ntomas. Estas pautas se aplican incluso si est?? vacunado. Cu??ndo llamar al proveedor de atenci??n m??dica Si tiene COVID-19 y m??s probabilidades de enfermarse de forma muy grave, llame al proveedor de atenci??n m??dica o busque atenci??n de inmediato. Hay tratamientos disponibles para reducir el riesgo de enfermarse de forma muy grave o de que deban hospitalizarlo. No pierda tiempo y llame al proveedor o busque tratamiento. El tratamiento debe iniciarse dentro de los 5 a 7??d??as posteriores a la aparici??n de los primeros s??ntomas. ?Qu?? hacer si tiene s??ntomas o le diagnosticaron COVID-19? Si tiene s??ntomas de COVID-19 o da positivo (incluso sin s??ntomas), kiara lo siguiente: ??? Qu??dese en casa y alejado de los dem??s (incluidas las personas con las que vive y que no est??n enfermas) si tiene s??ntomas de virus respiratorio que no se explican mejor con otra causa. Puederetomar jai actividades normales cuando, mallika al menos 24??horas, se cumplan las siguientes dos condiciones: o Los s??ntomas est??n mejorando en general y o No tiene fiebre ni est?? usando medicamentos para bajar la fiebre. ??? Cuando regrese a jai actividades normales, tome precauciones adicionales mallika los pr??ximos 5??d??as, alexx las siguientes: o Mejorar el flujo de aire en el hogar. Por ejemplo, gerardo las ventanas para mejorar el flujo de aire, cambie los filtros de la unidad de aire acondicionado y ponga el termostato en encendido en lugar de autom??clarissa para mejorar el flujo de aire y la filtraci??n. Para obtener m??s consejos, consulte los Centros para el Control y la Prevenci??n de Enfermedades (CDC, por alas sigla en ingl??s). o No comparta art??culos personales, alexx utensilios para comer o beber y ropa de cama o comida. o Use darwin mascarilla de lisy calidad kai ajustada si debe estar cerca de otras personas en casa o en p??blico. o Si tiene fiebre o comienza a sentirse peor despu??s de derek regresado a jai actividades normales, qu??dese en casa y alejado de los dem??s de nuevo y repita el proceso. Qu??dese en casa hasta que, mallika al menos 24??horas, los s??ntomas mejoren y no haya tenido fiebre y no est?? usando medicamentos para bajar la fiebre. [place] precauciones adicionales mallika otros 5??d??as. ??? Si necesita toser o estornudar, h??slava en un pa??uelo desechable. Luego arroje el pa??uelo desechable a la basura. Si no tiene un pa??uelo, tosa o estornude en el pliegue del codo. ??? L??vese las gorge con frecuencia. ?? Cuidados personales en alas casa?? Protecci??n Puede protegerse y proteger a los dem??s de contraer COVID-19 o de enfermarse de forma muy grave silo contrae tomando estas medidas: ??? Vac??nese. Desde los [facility], se recomiendan las vacunas contra la COVID-19 actualizadas para [id number] a fin de reducir la gravedad de la enfermedad si contrae el virus. Ninguna vacuna es eficaz al 100??% en prevenir ninguna enfermedad, patricia las vacunas contra la COVID-19 funcionan kai y son seguras. Los grupos de expertos, incluidos el [employer] y [employer]inec??logos ([place] [employer], ACOG) y los [facility], aconsejan que las personas embarazadas o que est??n amamantando se vacunen. Hable con el proveedor de atenci??n m??dica para saber qu??vacuna contra la COVID-19 es mejor para usted y para alas sveta. ??? Tenga el h??bito de lavarse kai las gorge. ??? Conozca el nivel comunitario de transmisi??n en alas bere y qu?? hacer si estuvo expuesto. Qu??dese en casa si tiene sospecha o confirmaci??n de derek contra??do la COVID-19. ??? Cuando sea posible, mantenga distancia de cualquier persona que est?? enferma o que haya dado positivo para COVID-19. ??? H??gase poner la prueba si es necesario. ??? Use darwin mascarilla de lisy calidad kai ajustada seg??n las recomendaciones. ??? Mejore el flujo de aire en el interior y traslade las actividades del interior al exterior. Tratamiento La mayor??a de las personas con la COVID-19 se recuperan con cuidados de apoyo. [place] incluye lo siguiente: ??? Descanse. [place] ayuda al cuerpo a combatir la enfermedad. ??? Mant??ngase hidratado. La mejor manera de prevenir la deshidrataci??n es beber l??quidos. Intente beber de 6??a 8??vasos de l??quido al d??a o lo que le aconseje el proveedor. Hable tambi??n con el proveedor para saber qu?? l??quidos son los m??s adecuados para usted. No tome bebidas que contengan cafe??na o alcohol. ??? [place] analg??sicos de venta gerardo (OTC, por alas sigla en ingl??s). Sirven para aliviar el dolor y bajar la fiebre. Siga las instrucciones del proveedor de atenci??n m??dica sobre qu?? medicamentos de venta gerardo consumir. Si le dieron tratamiento por COVID-19, ya sea por darwin sospecha o un resultado positivo, siga todas las instrucciones del equipo de atenci??n m??dica. Tambi??n es posible que le den indicaciones sobrelos cambios de posici??n que pueden ayudarlo a respirar, alexx acostarse boca abajo (dec??bito prono). Si estuvo hospitalizado y fue dado de lisy, es posible que lo env??en a alas casa con un pulsiox??metro. Olga es un dispositivo electr??carol iron??o que se sujeta en la punta del dedo. Mide la cantidad de ox??maria luisa en el cuerpo. Siga las instrucciones del equipo de atenci??n m??dica acerca del uso del dispositivo y del modo en el que se comunicar??n con usted; tambi??n le indicar??n cu??ndo puedellamarlos. ?? Cuidados en el hogar para darwin persona enferma? Siga todas las instrucciones que le d?? el personal de atenci??n m??dica. ??? L??vese las gorge con frecuencia. ??? Use darwin mascarilla cuando cuidea alguien con COVID-19 y mallika 10??d??as cuando est?? cerca de otras personas en alas casa o en p??blico. ??? Aseg??rese de que la persona enferma use darwin mascarilla. Si no puede hacerlo, limite el tiempo que pasa en la misma habitaci??n con rusty persona y use darwin mascarilla cerca de joce. ??? Lleveun registro de los s??ntomas de la persona enferma. ??? Est?? atento a los s??ntomas y h??gase darwin prueba de COVID-19 alexx se recomienda desde los CDC . H??gase la prueba incluso si se siente kai. ??? Limpie con frecuencia las superficies de la casa con un desinfectante. [place] incluye tel??fonos, mesadas de la cocina, la manija de la heladera, superficies en el ba??o y otras superficies. ??? No permita que nadie comparta art??culos dom??sticos con la persona enferma. [place] incluye utensilios para comer y beber, toallas, s??vania y mantas. ??? Limpie meticulosamente las telas y la ropa. ??? Useuna mascarilla de lisy calidad cuando est?? cerca de otras personas, seg??n las recomendaciones. ?? Cu??ndo llamar al proveedor de atenci??n m??dica Si tiene COVID-19 y m??s probabilidades de enfermarse de forma muy grave, llame al proveedor de atenci??n m??dica o busque atenci??n de inmediato. Hay tratamientos disponibles para reducir el riesgo de enfermarse de forma muy grave o de que deban hospitalizarlo. No pierda tiempo y llame al proveedor o busque tratamiento. El tratamiento debe iniciarse dentro de los 5 a 7??d??as posteriores a la aparici??n de los primeros s??ntomas. Llame enseguida al proveedor de atenci??n m??dica si alguna persona enferma presenta algo de lo siguiente: ??? Dificultad para respirar ??? Dolor o presi??n en el pecho Si darwin persona enferma tiene alguno de estos s??ntomas, llame al 911: ??? Dificultad para respirar que empeora ??? Dolor o presi??n en el pecho que empeora ??? Coloraci??n azulada en los labios o la demetrio ??? Ritmo card??aco irregular o acelerado ??? Confusi??n o problemas para despertarse ??? Desmayo o p??rdida del conocimiento ??? Tos con lul ?? Fecha de ??ltima modificaci??n: 12/10/2023 ? [id number] [email or web address]. All rights reserved. This information is not intended as a substitute for professional medical care. Always follow your healthcare professional's instructions. ?? * Lovely Bowen RN: PERFORM Event Display: Patient Education Leaflets Authored Date: [id number] COVID-19- Overview ?? 10933ad COVID-19 La COVID-19 es darwin enfermedad que infecta los pulmones. Puede que la llamen COVID o enfermedad del coronavirus de 2019. La causa es un tipo de coronavirus. Olga virus se llama SARS-CoV-2. Hay muchos tipos de coronavirus. Los coronavirus son darwin causa com??n de los resfriados y las bronquitis. Estosvirus puede producir darwin infecci??n en los pulmones llamada neumon??a. Los s??ntomas pueden variar de leves a graves. Algunas personas no presentan s??ntomas. Estos tipos de virus tambi??n se encuentran en algunos animales. Los virus cambian (mutan) todo el tiempo. Las mutaciones derivan en diferentes formas del virus. Estas versiones se conocen alexx variantes. Las variantes del virus de la COVID-19 pueden transmitirse con m??s facilidad de darwin persona a otra. Es posible que causen s??ntomas m??s leves. O kai pueden causar s??ntomas m??s graves.?? El virus se propaga e infecta a las personas con facilidad. Puede infectar a darwin persona con m??s facilidad si esta no desarroll?? inmunidad. El virus principalmente se propaga a elsy??s de las gotasde l??quido iron??as que hay en el aire cuando darwin persona tose o estornuda. En algunos casos, puede contraerlo si toca darwin superficie en la que est?? el virus y, luego, se toca los ojos, la nariz andrei boca. Para ayudar a evitar que la infecci??n se propague, l??vese las gorge con frecuencia o utilice un desinfectante para gorge a base de alcohol. M??s informaci??n Para obtener la ??ltima informaci??n de los Centros para el Control y la Prevenci??n de Enfermedades ([facility], por alas sigla en ingl??s): ??? Consulte el sitio web de los [facility] ??? Llame al [phone] ([phone]) ?Cu??les son los s??ntomas de la COVID-19? Algunas personas no presentan s??ntomas. Algunas tienen s??ntomas leves. Otras pueden presentar s??ntomas graves. [place] mg??a seg??n la persona. Los s??ntomas pueden comenzar de 2??a 14??d??as despu??s de entrar en contacto con el virus. Pueden incluir los siguientes: ??? Fiebre ??? Escalofr??os ??? Tos ??? Dificultad para respirar o sensaci??n de falta de aire ??? Dolor de garganta ??? Congesti??n o goteo nasal ??? Dolor de angelica ??? Karen corporales ??? Cansancio ??? N??useas, v??mitos, diarrea o dolor abdominal ??? P??rdida reciente del sentido del olfato o del gusto ?Cu??les son las complicaciones posibles de la COVID-19? El virus puede causar darwin infecci??n en los pulmones. Se la llama neumon??a. Puede causar la muerteen algunos casos. Los expertos siguen estudiando las complicaciones de la COVID-19. Pueden incluir las siguientes: ??? Presi??n arterial baja ??? Insuficiencia renal ??? Inflamaci??n del cerebro o del coraz??n ??? Sarpullidos Algunas personas corren un riesgo mayor de sufrir complicaciones. Por ejemplo: ??? Adultos mayores ??? Personas con enfermedades del coraz??n o los pulmones ??? Personas con diabetes o enfermedad renal ??? Personas con afecciones de raysa que limitan la funci??n del sistema inmunitario ??? Personas que danial medicamentos que limitan la funci??n del sistema inmunitario Raras veces, los ni??os pueden tener darwin complicaci??n grave. Se la conoce alexx s??ndrome inflamatorio multisist??hattie pedi??trico (MIS-C, por alas sigla en ingl??s). El MIS-C se parece a la enfermedadde [place]. Es darwin enfermedad poco frecuente. Causa hinchaz??n de los vasos sangu??neos y de los ??rganos del cuerpo. El s??ndrome inflamatorio multisist??hattie tambi??n puede ocurrir en adultos. Aunque es menos frecuente. ?C??mo se diagnostica la COVID-19? El proveedor de atenci??n m??dica le anita?? preguntas sobre lo siguiente: ??? Qu?? s??ntomas tiene ??? Si tuvo contacto estrecho reciente con alguien que se sabe que tiene COVID-19 ??? D??nde vive ??? Si nails viajado recientemente ??? Si tuvo contacto con personas enfermas ??? Si est?? vacunado contra la COVID-19 ??? Si nails tenido COVID-19 Es posible que le francisco darwin de las siguientes pruebas de COVID-19: ??? Prueba viral (molecular). Tambi??n se la llama an??lisis de reacci??n en sky de la polimerasa (PCR, por alas sigla en ingl??s) o PCR con transcripci??n inversa (RT-PCR, por alas sigla en ingl??s).Las pruebas virales son muy precisas. Mediante darwin prueba viral, se detecta el material gen??clarissa (ARN) del virus SARS-CoV-2. Hay varias formas de hacerla. Pueden pasarle un hisopo de algod??n por elinterior de la nariz o la garganta. Otra opci??n es insertarle un hisopo gregg por la fosa nasal para frotar la parte posterior de la garganta. O podr??an tomarle darwin muestra de saliva. Los resultados de la prueba pueden estar listos en 45??minutos, patricia pueden tardar varias horas. [place] depender?? del tipo de prueba. Algunas pruebas se deben enviar a un laboratorio. Los resultados pueden tardar varios d??as. Ahora, puede conseguir kits de pruebas para usar en alas casa. Algunos requieren darwin receta. Si usa jose de estos kits, siga las instrucciones con atenci??n. Con algunos kits, puede obtener resultados en casa r??pidamente. Otros se deben enviar a un laboratorio para conocer los resultados.??? Prueba de ant??genos. Mediante esta prueba, se detectan las prote??fletcher del virus SARS-CoV-2. Pueden pasarle un hisopo de algod??n por el interior de la nariz o la garganta. Otra opci??n es insertarle un hisopo gregg por la fosa nasal para frotar la parte posterior de la garganta. Algunos resulta dos est??n disponibles en un plazo de 15??a 60??minutos. [place] depender?? del tipo de prueba. Los resultados positivos son muy precisos. Sin embargo, puede derek casos de falsos positivos. Y los resultados pueden salir negativos incluso si la persona tiene el virus de la COVID-19. Con las pruebas deant??genos, hay m??s probabilidades de pasar por alto darwin infecci??n por COVID-19 que con darwin prueba viral (molecular). Si el resultado de la prueba de ant??genos es negativo, patricia tiene s??ntomas deCOVID-19, es posible que deban hacerle darwin prueba viral. ??? Prueba del aliento. Actualmente, no est?? disponible para todas las personas. Detecta la infecci??n por SARS-CoV-2 en el aliento. La prueba se hace en el consultorio del proveedor de atenci??n m??dica, en hospitales y en centros m??viles. Puede hacerse otras pruebas si el proveedor berry o confirma que tiene COVID-19. Estas pruebas pueden incluir las siguientes: ??? An??lisis de anticuerpos. En olga tipo de prueba, se puede observar si tuvo el virus en el pasado. Muestra los anticuerpos para el virus en la lul. La precisi??n de estos an??lisis mg??a. Y dichos an??lisis no est??n disponibles en todos lados. Es posible que darwin prueba de anticuerpos no detecte si usted tiene actualmente darwin infecci??n. [place] sucede porque el cuerpo puede demorar algunas semanas en desarrollar anticuerpos. Todav??a no puede usarse ngozi??n an??lisis de anticuerpos para saber si darwin persona es inmune al virus. ??? Cultivo de esputo. Si tiene darwin tos productiva, pueden pedirle que tosa para obtener darwin iron??a muestra de la mucosidad de los pulmones (esputo). [place] se h aime para comprobar la presencia del virus. Se puede analizar tambi??n para detecci??n de neumon??a.??? Pruebas de diagn??stico por im??genes. Puede que le realicen darwin radiograf??a de t??rax o darwin tomograf??a computarizada. ??Puedo tener COVID-19 otra vez? S??, es posible contraer COVID-19 m??s de darwin vez. Es posible que no tenga inmunidad. Quiz??s haya perdido la inmunidad. O quiz??s tenga COVID-19 por darwin cepa (variante) diferente del virus a la que no es inmune. Sin embargo, la vacuna contra la COVID-19 ayuda a reducir el riesgo de contraer la enfermedad. ?? Vacunas contra la COVID-19 Desde la Administraci??n de Alimentos y Medicamentos de [place] (FDA, por alas sigla en ingl??s) y los Centros para el Control y la Prevenci??n de Enfermedades (CDC, por alas sigla en ingl??s), seaconsejan las vacunas contra la COVID-19 actualizadas de [id number] para personas a partir de los 6??meses de edad. Estas vacunas son Pfizer-BioNTech, Moderna o Novavax. Las vacunas permiten que la enfermedad sea menos grave en chetan de que igualmente se contagie de COVID-19. Adem??s, pueden evitar que tenga que ir al hospital. As?? alexx evitar que el virus se propague a otras personas. Ninguna vacuna es 100??% eficaz para prevenir darwin enfermedad. [place] vacunarse es importante. Tambi??n se aconseja vacunar a las personas embarazadas o en periodo de lactancia. Las vacunas contra la COVID-19 se inyectan en el m??sculo. Consulte con el proveedor de atenci??n m??dica qu?? vacuna es m??s adecuada para usted y jai seres queridos. ?C??mo se trata la COVID-19? Actualmente, los mejores tratamientos son aquellos que ayudan al cuerpo mientras combate el virus. [place] es lo que se conoce alexx cuidados de apoyo. Incluye lo siguiente: ??? Reposo. [place] ayuda al cuerpo a combatir la enfermedad. ??? L??quidos. Intente beber de 6 a 8??vasos de l??quido al d??a. Preg??ntele al proveedor de atenci??n m??dica qu?? bebidas son m??s recomendables para usted. No tome bebidas con cafe??na o alcohol. ??? Medicamentos de venta gerardo. Se usanpara aliviar el dolor y bajar la fiebre. Preg??ntele al proveedor qu?? medicamentos de venta gerardo puede usar. Si se confirma que tiene COVID-19, hable con el proveedor. Es posible que califique para recibir medicamentos aprobados por la FDA para prevenir darwin infecci??n grave por COVID-19. Es posible que deba quedarse en el hospital si la enfermedad es grave. La atenci??n puede incluir lo siguiente: ??? Administraci??n de l??quidos por v??a intravenosa. Se administran a elsy??s de darwin vena. [place] procedimiento ayuda a reemplazar los l??quidos del cuerpo. ??? Ox??maria luisa. Es posible que le den ox??maria luisa adicional. O quiz??s necesite un respirador artificial. [place] se hace para que el cuerpo reciba el ox??maria luisa necesario. ??? Posicionamiento boca abajo. El equipo de atenci??n m??dica puede acostarlo boca abajo lionel??dicamente. [place]ga posicionamiento tambi??n se conoce alexx dec??bito prono. Ayuda a aumentar la cantidad de ox??maria luisa que llega hasta los pulmones. Siga jai instrucciones sobre cambios de posici??n mientras est?? en el hospital y en casa. ??? Medicamentos antivirales. Los antivirales evitan que el virus SARS-CoV-2 se propague en el cuerpo. La FDA autoriz?? ciertos medicamentos antivirales para tratar la COVID- 19 de leve a moderada en algunas personas que son m??s propensas a enfermedades graves. Estos tratamientos no est??n disponibles para todos. Hable con el proveedor para obtener m??s informaci??n. ??? Corticosteroides u otros medicamentos antinflamatorios. Se usan para disminuir la inflamaci??n que tienen algunas personas con COVID-19. La inflamaci??n puede provocar m??s dificultad para respirar. [place] puede conducir a otras complicaciones e incluso causar la m uerte. ??? Anticuerpos monoclonales. Al principio, se usaron para las cepas anteriores de la COVID-19, patricia el tratamiento con anticuerpos monoclonales no es eficaz para la ??ltima variante. Hable con el proveedor para obtener m??s informaci??n. ??? Donaci??n de plasma de convaleciente de COVID-19.El plasma es la parte l??quida de la lul. Probablemente se les pida a las personas que tuvieron COVID-19 que donen plasma. [place] se denomina donaci??n de plasma de convaleciente de COVID-19. El plasma puede tener anticuerpos. Algunas personas con COVID-19 que tienen sistemas inmunitarios muy d??bradley pueden beneficiarse de olga tratamiento. El proveedor puede ayudarlo a decidir si es adecuado para usted. ?Est?? en riesgo de tener COVID-19? El riesgo de tener COVID-19 es mayor si algo de lo siguiente corresponde a alas chetan: ??? Vive o viaj?? a un ??nadia con casos de COVID-19 ??? Tuvo contacto cercano (menos de 1.8??m [6??ft]) con alguien que ten??a COVID-19 La COVID-19 puede propagarse a elsy??s de personas que no manifiestan s??ntomas. Fecha de ??ltima modificaci??n: 11/19/2023 ? [id number] [employer]. All rights reserved. This information is not intended as a substitute for professional medical care. Always follow your healthcare professional's instructions. ?? Patient Care team information Care Team Personnel Name: Jose Luis CHACON, Johanna Position: [facility] RN Member Role: Primary Care Nurse Name: Tish Escalera Position: [facility] Outreach Member Role: Lifetime Consulting Physician Name: Mike Camilo RN, Renée Position: [facility] RN Member Role: Primary Care Nurse Name: Leisa Braden MA Position: [facility] CRIS MA Member Role: Lifetime Consulting Physician Name: Heron Diane MD, Kellie Sanchez Position: [facility] Outreach Member Role: PCP Address: Address: [address] [place] [id number]- Care Team Related Persons Name: GEE TONY Address: home [address] [place] [address] [address] [place] [address]
--- OUTSIDE RECORDS SUMMARY | 2024-08-29 10:48 | XMS_ITS | Continuity of Care Document ---
Author Organization [facility] Address [address] [place] [id number]- Care Team Providers Care Sales Vendor Name Role Phone Heron Diane MD, Kellie Sanchez Primary Care Benjamin hoyt [place] [facility] [id number] Date(s): 06/29/24 - 07/29/24 [facility] [address] [place] [address]- Attending Physician: Luz Velazco Admitting Physician: Admtr, [id number] Referring Physician: Admtr, [id number] Allergies, Adverse Reactions, Alerts No Known Allergies Medications atorvastatin 40 mg oral tablet 1 [...] SURGERY Start Date: 07/08/24 Status: Ordered lisinopril 40 mg oral tablet [...] Care team information Care Team Personnel Name: Johanna Amaya RN Position: [facility] RN Member Role: Primary Care Nurse Name: Tish Escalera Position: [facility] Outreach Member Role: Lifetime Consulting Physician Name: Renée Galvez RN Position: S RN Member Role: Primary Care Nurse Name: Leisa Braden MA Position: [facility] MA Member Role: Lifetime Consulting Physician Name: Heron Diane MD, Kellie Sanchez Position: [facility] Outreach Member Role: PCP Address: Address: [address] [place] [id number]- Care Team Related Persons Name: GEE TONY Address: home [address] [place] [address] [address] [place] [address]
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
[2024-08-29] MEDS: fentaNYL citrate/PF 100 MCG/2 ML VIAL 50 MCG IVPUSH (11:41)
[2024-08-29 11:51] LABS: MANUAL DIFF FLAG NO
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
[2024-08-29 11:58] LABS: Basophils Percent Auto 0.6 % (0-2); Eosinophils Absolute Auto 0.2 X10*3/uL (0.0-0.4); Eosinophils Percent Auto 2.2 % (0-4); Hematocrit 30.6 % (37.0-47.0); Hemoglobin 10.2 g/dl (12.0-16.0); Imm Gran Abs Auto 0.05 X10*3/uL (0.00-0.03); Imm Gran Pct Auto 0.7 % (0.0-0.4); Lymphocytes Absolute Auto 0.9 X10*3/uL (1.2-4.9); Lymphocytes Percent Auto 13.1 % (20-40); Mean Corpuscular HGB Conc 33.3 g/dl (31.0-35.0); Mean Corpuscular Hemoglobin 33.4 pg (27.0-33.0); Mean Corpuscular Volume 100.3 fL (80.0-98.0); Mean Platelet Volume 12.1 fL (9.4-12.3); Monocytes Absolute Auto 0.6 X10*3/uL (0.1-1.2); Monocytes Percent Auto 7.8 % (2-11); Neutrophils Absolute Auto 5.4 x10*3/uL (2.0-8.3); Neutrophils Percent Auto 75.6 % (45-73); Platelet Count 157 X10*3/uL (160-400); Red Blood Count 3.05 X10*6/uL (4.20-5.50); Red Cell Distribution Width 14.5 % (11.0-16.0); White Blood Count 7.2 X10*3/uL (4.8-10.8)
[2024-08-29 12:22] LABS: Alanine Aminotransferase 16 U/L (0-31); Albumin Level 3.4 g/dL (3.5-5.0); Alkaline Phosphatase 132 U/L (39-117); Anion Gap 19 (12-20); Aspartate Amino Transferase 35 U/L (5-31); Bilirubin Total 0.5 mg/dL (0.0-1.0); Blood Urea Nitrogen 75 mg/dL (9-16); Calcium 8.1 mg/dL (8.4-10.2); Carbon Dioxide 25 mmol/L (22-29); Chloride 97 mmol/L (96-108); Creatinine Clr Calc Pharmacy 6.8; Estimated Glomerular Filt Rate 5; Glucose Random 168 mg/dL (60-115); Potassium 5.3 mmol/L (3.3-5.1); Sodium 136 mmol/L (135-145); Total Protein 6.5 g/dL (6.5-8.0)
[2024-08-29 13:39] LABS: MANUAL DIFF FLAG NO
[2024-08-29 13:48] LABS: Basophils Absolute Auto 0.1 X10*3/uL (0.0-0.2); Basophils Percent Auto 0.5 % (0-2); Eosinophils Absolute Auto 0.2 X10*3/uL (0.0-0.4); Eosinophils Percent Auto 1.4 % (0-4); Hematocrit 29.4 % (37.0-47.0); Hemoglobin 9.4 g/dl (12.0-16.0); Imm Gran Abs Auto 0.06 X10*3/uL (0.00-0.03); Imm Gran Pct Auto 0.5 % (0.0-0.4); Lymphocytes Absolute Auto 1.3 X10*3/uL (1.2-4.9); Lymphocytes Percent Auto 11.7 % (20-40); Mean Corpuscular Hemoglobin 32.6 pg (27.0-33.0); Mean Corpuscular Volume 102.1 fL (80.0-98.0); Monocytes Absolute Auto 0.8 X10*3/uL (0.1-1.2); Monocytes Percent Auto 7.1 % (2-11); Neutrophils Absolute Auto 8.9 x10*3/uL (2.0-8.3); Neutrophils Percent Auto 78.8 % (45-73); Platelet Count 168 X10*3/uL (160-400); Red Blood Count 2.88 X10*6/uL (4.20-5.50); Red Cell Distribution Width 14.4 % (11.0-16.0); White Blood Count 11.3 X10*3/uL (4.8-10.8)
--- NOTE | 2024-08-29 15:12 | PC.NURSE ---
Report called to [facility] ED INES Mckeon
== END 2024-08-29 15:14 | disposition short-term general hospital (02) ==
PROVIDERS: Registered Nurse Emergency; Emergency Provider Emergency Medicine; PCP Student in an Organized Health Care Education/Training Program
DX: S30.1XXA Contusion of abdominal wall, initial encounter (principal); V43.62XA Car passenger injured in collision with other type car in traffic accident, initial encounter; W22.10XA Striking against or struck by unspecified automobile airbag, initial encounter; Y93.9 Activity, unspecified; Y92.410 Unspecified street and highway as the place of occurrence of the external cause; Y99.9 Unspecified external cause status; R10.9 Unspecified abdominal pain; E11.22 Type 2 diabetes mellitus with diabetic chronic kidney disease; I13.2 Hypertensive heart and chronic kidney disease with heart failure and with stage 5 chronic kidney disease, or end stage renal disease; N18.5 Chronic kidney disease, stage 5; I50.9 Heart failure, unspecified; E78.5 Hyperlipidemia, unspecified; R07.9 Chest pain, unspecified; M79.643 Pain in unspecified hand; R10.31 Right lower quadrant pain; Z79.899 Other long term (current) drug therapy
CPT/HCPCS: 36415; 70450; 71250; 72125; 73110; 73130; 73590; 74176; 80053; 85025; 86850; 86900; 86901; 96374; 99285; J3010

== ENCOUNTER 2025-01-03 01:43 | Emergency (ER) | payer OTHER, SELFPAY ==
[2025-01-03 01:46] VITALS: BP 181/75; PULSE 73; RESP 18; TEMP 36.1; O2SAT 98; BMI 35.9
--- NOTE | 2025-01-03 02:16 | ED.NAVMDI ---
HPI - Nausea/Vomiting/Diarrhea General Chief complaint: Nausea/Vomiting/Diarrhea Stated complaint: Vomiting, high BP Time Seen by Provider: 01/03/25 02:15 Source: patient Mode of arrival: ambulatory Limitations: no limitations History of Present Illness ED Provider: HPI Narrative: patient's history of end-stage renal disease on dialysis Thursday//Thursday with history of hypertension and diabetes comes here for bilateral upper abdominal pain after eating dinner at 20:30 vomited 4 time prior to arrival no fever no chills Related Data Home Medications ?Medication ?Instructions ?Recorded ?Confirmed cyanocobalamin (vitamin B-12) 1,000 mcg PO DAILY 03/15/23 05/12/23 1,000 mcg tablet atorvastatin 40 mg tablet 40 mg PO DAILY cholesterol 05/12/23 05/12/23 calcitriol 0.25 mcg capsule 0.25 mcg PO TUTHSA 05/12/23 05/12/23 insulin human U-100 NPH-regulr 20 unit subcut BEDTIME 05/12/23 05/12/23 70-30 mix 100 unit/mL subcutaneous susp (Humulin 70/30 U-100 Insulin) insulin human U-100 NPH-regulr 25 unit subcut DAILY 05/12/23 05/12/23 70-30 mix 100 unit/mL subcutaneous susp (Humulin 70/30 U-100 Insulin) midodrine 2.5 mg tablet 2.5 mg PO DAILY PRN low blood 05/12/23 05/12/23 pressure omeprazole 40 mg capsule,delayed 40 mg PO DAILY@0630 05/12/23 05/12/23 release vitamin B complex-vitamin C-folic 1 tab PO DAILY 05/12/23 05/12/23 acid 0.8 mg tablet (Mindy-Mert) Previous Rx's ?Medication ?Instructions ?Recorded ondansetron 4 mg disintegrating 4 mg PO Q6-8H PRN nausea and 01/03/25 tablet vomiting #7 tabs Allergies Allergy/AdvReac Type Severity Reaction Status Date / Time No Known Allergies Allergy Verified 01/03/25 01:55 Review of Systems Review of Systems: Yes all other systems are reviewed and are negative PMFSH Past Medical History Medical History Anemia due to chronic kidney disease CHF (congestive heart failure) CKD (chronic kidney disease) CKD stage 5 secondary to hypertension CKD (chronic kidney disease), stage V 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 2 diabetes mellitus Chronic kidney disease Hyperlipidemia Diabetes mellitus Hypertension Social History Social History Household Members: Spouse Housing: Apartment Do you presently have visiting nurse or other home services: No Alcohol intake: never Patient Tobacco Use Status: Never used Tobacco Advance Directives: No Advance Directives Information Provided: Yes Do you have a plan to hurt others: No Plan service: No Current occupational status: unemployed Physical Exam Vital Signs: Vital Signs: Last Vital Signs Temp 99.0 F 01/03/25 05:34 Pulse 75 01/03/25 05:34 Resp 18 01/03/25 05:34 BP 173/72 H 01/03/25 05:34 Pulse Ox 96 01/03/25 05:34 O2 Del Method Room Air 01/03/25 05:34 BMI result Body Mass Index 35.9 Appearance: Alert. Oriented X3. No acute distress. Eyes: pallor+ ENT: Pharynx normal. Oral Mucosa moist Neck: Normal inspection. Neck supple. CVS: Normal heart rate and rhythm. Pulses normal. Respiratory: No respiratory distress. Equal air entry bilateral, no wheezing/rales/rhonchi Abdomen: Soft and upper abdominal tenderness no rebound tenderness. Bowel sounds are present, no mass palpable, no CVA tenderness Skin: Skin warm and dry. Normal skin color. Normal skin turgor. Extremities: No lower extremity edema. No calf tenderness Neuro: Oriented X 3. No motor deficit. Medications Administered Discontinued Medications Generic Name Dose Route Start Last Admin Trade Name Freq PRN Reason Stop Dose Admin Sodium Chloride 500 mls @ 250 mls/hr 01/03/25 02:34 01/03/25 06:42 Ns IVCONT 01/03/25 04:33 Infused .Q2H ONE Infusion Ondansetron HCl 4 mg 01/03/25 02:31 01/03/25 03:21 Ondansetron Hcl 4 Mg/2 Ml Vial IVPUSH 01/03/25 02:32 4 mg ONCE ONE Administration Sodium Zirconium Cyclosilicate 10 gm 01/03/25 03:15 01/03/25 03:21 Sodium Zirconium Cyclosilicate 10 Gm Powd.Pack PO 01/03/25 03:16 10 gm ONCE ONE Administration Medical Decision Making Medical Decision Making [facility] Narrative: Patient has acute gastritis feeling much better during stay in the ER taking p.o. fluids will discharge patient home labs are stable patient just had dialysis Lab Data [facility] Lab Attestation statement: I reviewed the patient's lab results. 01/03/25 02:21 01/03/25 02:21 Labs: Lab Results 01/03/25 01/03/25 Range/Units 01:50 02:21 WBC 6.4 (4.8-10.8) X10*3/uL RBC 3.43 L (4.20-5.50) X10*6/uL Hgb 11.0 L (12.0-16.0) g/dl Hct 33.5 L (37.0-47.0) % MCV 97.7 (80.0-98.0) fL MCH 32.1 (27.0-33.0) pg MCHC 32.8 (31.0-35.0) g/dl RDW 14.6 (11.0-16.0) % Plt Count 128 L (160-400) X10*3/uL MPV 11.4 (9.4-12.3) fL Immature Gran % (Auto) 0.8 H (0.0-0.4) % Neut % (Auto) 73.9 H (45-73) % Lymph % (Auto) 13.6 L (20-40) % [place] % (Auto) 8.0 (2-11) % Eos % (Auto) 3.1 (0-4) % Baso % (Auto) 0.6 (0-2) % Lymph # (Auto) 0.9 L (1.2-4.9) X10*3/uL [place] # (Auto) 0.5 (0.1-1.2) X10*3/uL Eos # (Auto) 0.2 (0.0-0.4) X10*3/uL Baso # (Auto) 0.0 (0.0-0.2) X10*3/uL Abs Immat Gran (auto) 0.05 H (0.00-0.03) X10*3/uL Absolute Neuts (auto) 4.7 (2.0-8.3) x10*3/uL Absolute Nucleated RBC 0.000 (0.0-0.012) X10*3/uL Nucleated RBC % (auto) 0.0 (0.0-0.2) /100WBC Sodium 141 (135-145) mmol/L Potassium 5.6 H (3.3-5.1) mmol/L Chloride 101 (96-108) mmol/L Carbon Dioxide 24 (22-29) mmol/L Anion Gap 22 H (12-20) BUN 70 H (9-16) mg/dL Creatinine 8.60 H* (0.5-1.4) mg/dL Estim Creat Clear Calc 5.8 Estimated GFR 5 POC Glucose 159 H (60-115) mg/dL Random Glucose 173 H (60-115) mg/dL Calcium 8.3 L (8.4-10.2) mg/dL Total Bilirubin 0.5 (0.0-1.0) mg/dL Direct Bilirubin 0.1 (0.0-0.5) mg/dL AST 37 H (5-31) U/L ALT 23 (0-31) U/L Alkaline Phosphatase 117 (39-117) U/L Total Protein 7.3 (6.5-8.0) g/dL Albumin 3.7 (3.5-5.0) g/dL Lipase 78 (8-78) U/L Influenza Type A (PCR) NEGATIVE (Negative) Influenza Type B (PCR) NEGATIVE (Negative) RSV RNA Qual (PCR) NEGATIVE (Negative) SARS-CoV-2 RNA (RT-PCR) NEGATIVE (Negative) Discharge Plan Discharge Clinical Impression: Vomiting Patient Disposition: Home, Self-Care Instructions: Acute Nausea and Vomiting (ED) Additional Instructions: Continue medication as prescribed follow up with your dialysis Take nausea medication as prescribed Your vomiting was likely from the food you had Prescriptions: New ondansetron 4 mg tablet,disintegrating 4 mg PO Q6-8H PRN (Reason: nausea and vomiting) Qty: 7 0RF No Action cyanocobalamin (vitamin B-12) 1,000 mcg Tablet 1,000 mcg PO DAILY atorvastatin 40 mg tablet 40 mg PO DAILY omeprazole 40 mg capsule,delayed release(DR/EC) 40 mg PO DAILY@0630 Mindy-Mert 0.8 mg tablet 1 tab PO DAILY Humulin 70/30 U-100 Insulin 100 unit/mL (70-30) suspension 20 unit subcut BEDTIME Humulin 70/30 U-100 Insulin 100 unit/mL (70-30) suspension 25 unit subcut DAILY midodrine 2.5 mg Tablet 2.5 mg PO DAILY PRN (Reason: low blood pressure) Rx Instructions: do not give last dose of day after 6PM or within 4 hrs of bedtime calcitriol 0.25 mcg Capsule 0.25 mcg PO TUTHSA Rx Instructions: administer after dialysis on dialysis days Print Language: Divehi
[2025-01-03 02:28] LABS: Basophils Percent Auto 0.6 % (0-2); Eosinophils Absolute Auto 0.2 X10*3/uL (0.0-0.4); Eosinophils Percent Auto 3.1 % (0-4); Hematocrit 33.5 % (37.0-47.0); Imm Gran Abs Auto 0.05 X10*3/uL (0.00-0.03); Imm Gran Pct Auto 0.8 % (0.0-0.4); Lymphocytes Absolute Auto 0.9 X10*3/uL (1.2-4.9); Lymphocytes Percent Auto 13.6 % (20-40); MANUAL DIFF FLAG NO; Mean Corpuscular HGB Conc 32.8 g/dl (31.0-35.0); Mean Corpuscular Hemoglobin 32.1 pg (27.0-33.0); Mean Corpuscular Volume 97.7 fL (80.0-98.0); Mean Platelet Volume 11.4 fL (9.4-12.3); Monocytes Absolute Auto 0.5 X10*3/uL (0.1-1.2); Neutrophils Absolute Auto 4.7 x10*3/uL (2.0-8.3); Neutrophils Percent Auto 73.9 % (45-73); Platelet Count 128 X10*3/uL (160-400); Red Blood Count 3.43 X10*6/uL (4.20-5.50); Red Cell Distribution Width 14.6 % (11.0-16.0); White Blood Count 6.4 X10*3/uL (4.8-10.8)
[2025-01-03 02:58] LABS: Alanine Aminotransferase 23 U/L (0-31); Albumin Level 3.7 g/dL (3.5-5.0); Alkaline Phosphatase 117 U/L (39-117); Anion Gap 22 (12-20); Aspartate Amino Transferase 37 U/L (5-31); Bilirubin Direct 0.1 mg/dL (0.0-0.5); Bilirubin Total 0.5 mg/dL (0.0-1.0); Blood Urea Nitrogen 70 mg/dL (9-16); Calcium 8.3 mg/dL (8.4-10.2); Carbon Dioxide 24 mmol/L (22-29); Chloride 101 mmol/L (96-108); Creatinine Clr Calc Pharmacy 5.8; Estimated Glomerular Filt Rate 5; Glucose Random 173 mg/dL (60-115); Lipase 78 U/L (8-78); Potassium 5.6 mmol/L (3.3-5.1); Sodium 141 mmol/L (135-145); Total Protein 7.3 g/dL (6.5-8.0)
[2025-01-03 03:12] LABS: Influenza A PCR NEGATIVE (Negative); Influenza B PCR NEGATIVE (Negative); Resp Syncy Virus RNA Qual PCR NEGATIVE (Negative); SARS COV2 PCR INHOUSE NEGATIVE (Negative)
[2025-01-03] MEDS: Sodium Zirconium Cyclosilicate 10 GM POWD.PACK PO (03:21)
[2025-01-03] MEDS: 0.9 % Sodium Chloride 500 ML 250 ML IVCONT (03:21)
[2025-01-03] MEDS: ondansetron HCL 4 MG/2 ML VIAL IVPUSH (03:21)
[2025-01-03 04:24] LABS: Glucose, Whole Blood 159 mg/dL (60-115)
[2025-01-03 05:34] VITALS: BP 173/72; PULSE 75; RESP 18; TEMP 37.2; O2SAT 96
[2025-01-03 06:50] VITALS: BP 137/61; PULSE 78; RESP 18; TEMP 37.4; O2SAT 93
[2025-01-03 07:09] VITALS: BP 137/61; PULSE 78; RESP 18; TEMP 37.4; O2SAT 93
== END 2025-01-03 07:10 | disposition home or self-care (01) ==
PROVIDERS: Emergency Provider Internal Medicine; PCP Student in an Organized Health Care Education/Training Program
DX: R11.2 Nausea with vomiting, unspecified (principal); R10.10 Upper abdominal pain, unspecified; E11.22 Type 2 diabetes mellitus with diabetic chronic kidney disease; I12.0 Hypertensive chronic kidney disease with stage 5 chronic kidney disease or end stage renal disease; N18.6 End stage renal disease; Z99.2 Dependence on renal dialysis; D63.1 Anemia in chronic kidney disease; E78.5 Hyperlipidemia, unspecified; Z79.4 Long term (current) use of insulin; Z03.818 Encounter for observation for suspected exposure to other biological agents ruled out
CPT/HCPCS: 0241U; 36415; 80053; 82248; 82947; 83690; 85025; 96361; 96374; 99284; J2405

== ENCOUNTER 2025-01-27 16:17 | Outpatient (REF) | payer OTHER, SELFPAY ==
--- NOTE | ~2025-01-27 | XR_ITS ---
EXAMINATION: XR FOOT, LEFT CLINICAL INFORMATION: left foot 2nd toe discooration and growth; diabetic. COMPARISON: None available. TECHNIQUE: AP, lateral, and oblique views of the left foot. FINDINGS: No fracture, dislocation, or suspicious bone lesion. No erosive bony changes. Specifically, the second digit appears normal. Normal bony alignment. Normal plantar arch. Large dorsal and plantar calcaneal spurs. Mild arthritic changes in the intertarsal joints. Soft tissues demonstrate diffuse vascular calcifications. XR/XR foot LT min 3V IMPRESSION: 1. No acute bony abnormality. Specifically, the second digit has a normal appearance. 2. Arthritic changes with large plantar and dorsal calcaneal spurs. 3. Diffuse vascular calcifications. Electronically signed by: Daniel Erazo MD 01/30/2025 08:08 AM EDT
--- OUTSIDE RECORDS SUMMARY | 2025-01-27 16:21 | XMS_ITS | Clinical Summary ---
Author Organization [facility] Address [address] [place] [address] [address] [place] [phone] Phone Care Team Providers Care Clarifier Operator Name Role Phone Falguni Gonzalez RN Primary Care Provider Unavaila ble Allergies No known active allergies Medications omeprazole (PriLOSEC) [address] capsule Take 1 capsule by mouth 1 (one) time each day 08/20/2018 Active atorvastatin (LIPITOR) 40 MG tablet Take 40 mg by mouth 1 (one) time each day Active labetalol (NORMODYNE) 100 MG tablet Take 150 mg by mouth in the morning and 150 mg in the evening. 03/11/2022 Active NovoLIN 70/30 (70-30) 100 UNIT/ML injection 06/26/2022 Active glucose 4 g chewable tablet 15 g 06/18/2022 Act brenda sodium bicarbonate 650 MG tablet Take 650 mg by mouth in the morning and 650 mg in the evening. Active metoprolol succinate XL (TOPROL XL) 25 MG 24 hr tablet Take 25 mg by mouth 1 (one) time each day Do not crush or chew. Active amLODIPine (NORVASC) 5 MG tablet Take 5 mg by mouth 1 (one) time each day Active furosemide (LASIX) 80 MG tablet Take 1 tablet (80 mg total) by mouth 3 (three) times a week 45 tablet 3 01/14/2023 Active Active Problems Problem Noted Date Diagnosed Date Stage 5 chronic kidney disease 04/15/2022 Chronic kidney disease due to hypertension 03/10 Anemia in chronic kidney disease 03/10/2022 Hyperkalemia 03/10/2022 Hyperparathyroidism due to renal insufficiency 0 03/10/2022 Renal disorder due to type 2 diabetes mellitus 0 03/10/2022 Anemia 03/10/2022 Acute kidney failure 03/10/2022 Gastroesophageal reflux disease 02/28/2022 Essential hypertension 09/10/2017 Overview (03/10/2022): Last Assessment & Plan: Blood pressure continues to be elevated above goal of 130/80 Continues on ACEi and HCTZ Hyperlipidemia 09/10/2017 Overview (03/10/2022): Last Assessment & Plan: LDL very elevated on most recent lipid panel Stephanie is not on statin therapy at this time though this would be strongly recommended She is encouraged to continue healthy diet and daily exercise Type 2 diabetes mellitus 09/10/2017 Overview (03/10/2022): Last Assessment & Plan: Due for routine eye exam Blood pressure is borderline Blood sugar is well controlled Last Assessment & Plan: Blood pressure slightly above goal Continues on ACEi Resolved Problems Problem Noted Date Diagnosed Date Resolved Date Type 2 diabetes mellitus wit h diabetic neuropathy 09/10/2017 04/15/2022 Overview (03/10/2022): Last Assessment & Plan: Overall excellent stable control Stable DPN symptoms, no pain Remains active, following overall healthy lifestyle We did not adjust insulin dose today, requiring modest basal insulin dosing Encouraged to call us with any questions or concerns Encounters Date Type Department Care Team Description 01/24/2025 Treatment [facility] [address] [facility] [address] [place] [phone] Hmalet Rousseau MD End stage renal disease; Dependence on renal dialysis 01/21/2025 Treatment [facility] [address] [facility] [address] [place] [phone] Hamlet Rousseau MD End stage renal disease; Dependence on renal dialysis 01/14/2025 Treatment [facility] [address] [phone] Hamlet Rousseau MD End stage renal disease; Dependence on renal dialysis 01/10/2025 Treatment [facility] [address] [phone] Hamlet Rousseau MD End stage renal disease; Dependence on renal dialysis 12/29/2024 Treatment [facility] [address] [phone] Hamlet Rousseau MD End stage renal disease; Dependence on renal dialysis 12/20/2024 Treatment [facility] [address] [phone] Hamlet Rousseau MD End stage renal disease; Dependence on renal dialysis 12/17/2024 Treatment [facility] [address] [phone] Hamlet Rousseau MD End stage renal disease; Dependence on renal dialysis 12/15/2024 Treatment [facility] [address] [phone] Hamlet Rousseau MD End stage renal disease; Dependence on renal dialysis 11/26/2024 Treatment [facility] [address] [phone] Hamlet Rousseau MD 11/19/2024 Treatment [facility] [address] [phone] Hamlet Rousseau MD 11/15/2024 Treatment [facility] [address] [phone] Gilmer Gomez MD 11/08/2024 Treatment [facility] [address] [phone] Hamlet Rousseau MD from Last 3 Months Immunizations Immunization Administration Dates Next Due Moderna SARS-COV-2 02/15/2021,01/19/2021 Pneumococcal Conjugate Pcv 20 06/05/2022 Shingrix 06/05/2022 Tdap 04/11/2022 Family History Medical History Relation Comments Cancer Father brain Diabetes Father Cancer Mother breast Diabetes Mother Hypertension Mother Cancer Sibling 1 sister/breast Diabetes Sibling 1 sister Heart disease Sibling 1 sister Stroke Sibling 1 sister Heart disease Sibling 2 sister Cancer Sibling 3 sister Relation Status Comments Father Mother Alive Sibling 1 Sibling 2 Sibling 3 Social History Tobacco Use Types Packs/Day Years Used Date Smoking Tobacco: Never Smokeless Tobacco: Never Tobacco Cessation:Counseling Given: Not Answered Alcohol Use Standard Drinks/Week Comments No 0 (1 standard drink = 0.6 oz pur e alcohol) Comments Unknown Sex and Gender Information Value Date Recorded Sex Assigned at Not on file Legal Sex Female 4:36 PM EST Gender Identity Not on file Sexual Orientation Not on file Last Filed Vital Signs Vital Sign Reading Time Taken Comments Blood Pressure 148/66 01/14/2023 1:42 PM EDT Pulse 74 11/19/2022 1:49 PM EST Temperature 36.7 ??C (98 ??F) 05/17/2019 12:00 PM EDT Respiratory Rate 14 07/14/2022 1:39 PM EDT Oxygen Saturation - - Inhaled Oxygen Concentration - - Weight 78.3 kg (172 lb 9.6 oz) 01/14/2023 1:42 P M EDT Height 162.6 cm (5' 4 ) 07/14/2022 1:39 PM EDT Body Mass Index 29.63 07/14/2022 1:39 PM EDT Plan of Treatment Health Maintenance Due Date Last Done Comments Breast Cancer Screening 1955 Hepatitis B Vaccine (1 of 5 - Risk Dialysis 4-dose series) 1974 Colorectal Cancer Screening: Annual FOBT 2003 Colorectal Cancer Screening: Colonoscopy 2003 Colorectal Cancer Screening: Sigmoidoscopy 2003 Diabetes: Ophthalmology Exam 12/26/2019 Diabetes: Pedal Pulse Checked 12/26/2019 Diabetes: Sensory Foot Exam 12/26/2019 Diabetes: Visual Foot Exam 12/26/2019 Diabetes: Hemoglobin A1C 03/25/2025 025, 11/25/2024, 11/06/2022, Additional history exists Influenza Vaccine (Season Ended) 2025 Pneumococcal Vaccine: 50+ Years Completed Pneumococcal Vaccine: Peds ( 0 to 5 Years) and At-Risk Patients (6 to 49 Years) Discontinued 06/05/2022 Procedures Procedure Name Priority Date/Time Associated Diagnosis Comments LAB COMPUTER OPERATIONS MANAGER Routine 09/10/2017 5:00 PM EST from Last 3 Months or Most Recently Relevant to Health Maintenance Results * Lab Sheet Tailer (09/10/2017 5:00 PM EST) Hemoglobin A1C 8.0 % KCTMA 09/10/2017 5:00 PM EST us Kctma Conversion LAB [id number] LICITED RESULTS Final Result KCTMA from Last 3 Months or Most Recently Relevant to Health Maintenance Insurance [facility] ([id number]) [address] [place] [address] [place] [facility] ([id number]) Care Teams Clarifier Operator Relationship Specialty Start Date End Date Falguni Gonzalez RN PCP - General Family Medicine 11/09/24
--- OUTSIDE RECORDS SUMMARY | 2025-01-27 16:21 | XMS_ITS | Data Portability ---
Author Organization [place] - .[employer] [facility], [facility] [place] Address [address] [place] [phone] Assessment No assessment recorded. Plan of Treatment Reminders Order Date Submit Date Provider Last Modified By Organization Details Last Modified Time Details Appointments None recorded. Lab rapid SARS CoV 2 Ag, QL IA, respiratory specimen 2020 021 [email or web address] [facility]_ [facility], [address] [place], [address], 12:27:57 Referral None recorded. Procedures None recorded. Surgeries None recorded. Imaging None recorded. Medication Orders None recorded. Patient TargetsNo targets recorded. Patient Instructions Encounter Date Encounter Id Patient Instructions Last Modified By Organization Details Last Modified Time 09/19/2021 [id number] A healthy lifestyle: care instructions [email or web address] Not available 09/19/2021 12:27:57 Thank you for visiting [facility]. There are two ways to view your lab results: : 1. The [employer] arjun is available to all patients 18 and older in the Arjun Store and [employer]. First-time arjun users will need to create an account; please note you? l l need to select a login and password for the arjun versus just using your patient portal login credentials. Your lab results will be posted to the [employer] arjun as soon as they? r e available. 2. Via email , as soon as lab results are available. If you don? t receive an email within the estimated time frame, give our Aftercare team a call at [phone]. Test Name: SARS-CoV-2 rapid ag (COVID-19); Result: POSITIVE Symptomatic : If you're having symptoms and test positive for COVID-19, you are recommended to self-quarantine for 10 days from the onset of symptoms. After 10 days, you may return to work provided your respiratory symptoms (ie. cough, runny nose, etc) are improving AND you are fever-free for 24 hours (without using fever reducing medications like acetaminophen or ibuprofen). Asymptomatic: If you are without symptoms and test positive, depending on where you were tested, your medical provider may have sent a second confirmatory PCR test to an outside lab to confirm that today's test was truly positive. If you live in [facility]: The [facility] Department of Health is allowing asymptomatic patients to be cleared to return to work if a confirmatory PCR test is negative. If this PCR test was performed, the results will be published to your [facility] patient portal ([email or web address]) as soon as they are available (typically 5 to 7 days). For now, we ask that you go home under strict QUARANTINE. If your send-out PCR test is POSITIVE or if you develop symptoms of COVID (fever, cough loss of smell, congestion, sore throat etc) you should self-quarantine for a minimum of 10 days from date of testing. After 10 days, you may return to work provided you remain asymptomatic or your respiratory symptoms (ie. cough, runny nose, etc) are improving AND you are fever-free for 24 hours (without using fever reducing medications like acetaminophen or ibuprofen), AND you have been cleared by your local DANE. If your send-out PCR test is NEGATIVE and you live in [facility], you may return to work/school (or as per their policy). Outside [facility]: The rest of [place] and [place] have NOT adopted this approach, and their respective DANE's treat all positive results as true positives, regardless of symptomatology. Since your rapid COVID test was POSITIVE, you are recommended to self-quarantine for 10 days from the onset of symptoms. After 10 days, you may return to work/school (as per their policy) provided your respiratory symptoms (ie. cough, runny nose, etc) are improving AND you are fever-free for 24 hours (without using fever reducing medications like acetaminophen or ibuprofen), AND you have been cleared by your local DANE. MONITOR FOR SYMPTOMS: If at any point your symptoms become worse or severe (such as fever that will not improve with medicine, shortness of breath, chest pain or discomfort, abdominal pain, inability to tolerate eating and drinking) please return to [facility] or go to the closest Emergency Room. QUARANTINE: Please stay in your own part of the house away from everyone else, using your own bedroom and bathroom, if possible. Continue to use good hand hygiene. If you need to be in a common area, please ensure that both you and anyone else around you is wearing a mask and nose covering. REPEAT TESTING: It is generally NOT required (or even recommended) to get repeat testing for COVID-19 until at least 90 days after receiving a positive test result. (Consult your employer/school for their specific requirements). If you are age 18 to 65 and have recently tested positive for SARS-CoV-19, you can help in the fight against COVID-19! Antibodies from your blood can be given to patients with COVID-19 to help save lives. Sign up using the link below. If you are eligible, a member of our team will contact you to schedule an appointment. Donors are compensated at each donation! Please visit [employer] and complete the screening form to see if you are eligible for donation [email or web address] Not available 09/19/2021 12:16:01 Reason for Referral None Reported. Results Created Date Observation Date Name Description Value Unit Range Abnormal Flag Note LastModifiedBy Organization Detail LastModifiedTime 09/19/20 21 09/19/2021 rapid SARS CoV 2 Ag, QL IA, respi rator y speci men Rapid COVID-19 Antigen (Internal Control Positive) Positi ve Not Available [facility]_ [facility] [address] [place], [address], 09/19/2021 11:48:10 Result Notes None recorded. Problems Name Problem SNOMED Code Status Onset Date Resolution Date Notes Provider Name and Address Organization Details Recorded Time Hyperlipidemia 77274287 Active 2020 TARSHA Whitt - .[facility] 12:08:37 Hypertensive disorder 75750716 Active 2020 TARSHA Whitt - .[facility] 12:08:44 Diabetes mellitus 77670506 Active 2020 Bony darnell [place] - .[facility] 12:08:48 Gastritis 2815818 Active 2020 Bony darnellTARSHA - .[facility] 12:13:24 Problem Notes None recorded. Medical Equipment None Reported. Allergies No known drug allergies Medications Name Sig Start Date Stop Date Status Note LastModified by Organization Details LastModified Time atorvastatin active Not Available Not Available Not Available enalapril maleate active Not Available Not Available Not Available Prilosec active Not Available Not Avai lable Not Available insulin asp prt-insulin aspart active Not Available Not Available Not Available Vitals Date Recorded Body height Body mass index (BMI) Body weight Heart rate Body temperature Respiratory rate Oxygen saturation Oxygen saturation in Arterial blood by Pulse oximetry Systolic blood pressure Diastolic blood pressure Provider Name and Address Organization Details Last Updated DateTime 157.48 cm 30.2 kg/m2 02250.7 4 g 96 /min 99 [degF] 16 /min 96 % 96 % 134 mm[Hg] 72 mm[Hg] Bony oakes TARSHA - .[facility] 12:14:14 Social History Question Answer Notes LastModified by Organizat ion Details LastModified Time Tobacco Smoking Status Never Smoker Bony darnellTARSHA - .[facility] 09/19/2021 12:13:38 RISK LEVEL - Segmentation Level 0 - Unknown/Ins ufficient Recent Data [email or web address] Information not available 11/20/2022 Sex: Unknown Functional Status None recorded. Mental Status None recorded. Family History Relationship Description Onset Age of this Age Resolved Age Notes LastModified by Organization Details LastModified Time Father No current problems or disability acorozomorale s Not available 09/19/2021 12:13:34 Mother No current problems or disability acorozomorale s Not available 09/19/2021 12:13:34 Medical History No medical history recorded. Gynecological HistoryNo gynecological history recorded. Obstetrics History GPAL:G 0 P 0 0 0 0 Past Encounters Encounter ID Performer Location Encounter Start Date Encounter Closed Date Diagnosis/Indication Diagnosis SNOMED-CT Code Diagnosis ICD10 Code Diagnosis Note [id number] Liane Aleman MD [facility] [address] [place] [address] 09/19/2021 11:19:25 09/19/2021 12:16:41 Exposure to SARS-CoV-2 333626435 Z20.822 Health Concerns Section Related Observation LastModified by Organization Detai ls LastModified Time None Recorded Concern Status LastModified by Organization Details LastModified Time None Recorded Advance Directives Directive None Recorded Payers Encounter Date Sequence Insurance Name Policy Number Policy Winkler Covered Member ID Winkler Member ID Guarantor Name 09/19/2021 1 [facility] Stephanie Gabrielle [id number] Stephanie Anthony Notes Date Note Type Note Provider Name and Address Organization Details Recorded Time 09/19/2021 text/html COVID-19 VISIT - cmdReported bypatient.Patient presents forCOVID-19 VISIT Pertinent findings:NO sore throat; NO nasal symptoms; No CP; No leg swelling; No neurologic deficits; No SOB;(+) fever (T > 100.0);(+) body aches;(+) cough COVID vaccination status:(+) COVID Vaccination Moderna and HAS been > 2 weeks since the FINAL scheduled dose;Received BOOSTER? Yes Employer / School informationNOT in school; NOT working; NOT volunteering Chronic conditions considered and addressed:DM (diabetes mellitus); dyslipidemia (lipid d/o); HTN (hypertension) Liane Aleman MD [address] [place] [address],[address] [facility], [place], [place], [address] [place] [address] - .[facility] 09/19/2021 17:17:32 OBGyn Episode No OBEpisode recorded.
--- OUTSIDE RECORDS SUMMARY | 2025-01-27 16:21 | XMS_ITS | Clinical Summary ---
Author Organization [employer] Address [address] [place] [address] Care Team Providers Care Pack Out Operator Name Role Phone Kellie Tan MD Primary Care Pro vider Andressa Gomez PharmD Unavailable [phone] Allergies No known active allergies Medications Blood Glucose Monitoring Suppl (K-12 Techno ServicesTouch Verio) w/Device kitIndications:T ype 2 diabetes mellitus with diabetic neuropathy, with long-term current use of insulin (CMS/HCC) 1 kit 3 times daily. 1 kit Active calcium acetate (Phoslo) 667 MG capsule Take 667 mg by mouth with breakfast, with lunch, and with evening meal. Active carvedilol (Coreg) 12.5 MG tablet Take 12.5 mg by mouth 2 times daily. Active Alcohol Swabs (Alcohol Pads) 70 % pads Use as directed on skin 100 each Active lisinopril 20 MG tablet Take 20 mg by mouth Once per day. Active insulin syringe-needle U-100 (BD Insulin Syringe U/F 2Unit) 31G X 5/16 0.3 mL miscIndications: Type 2 diabetes mellitus with stage 5 chronic kidney disease not on chronic dialysis, with long-term current use of insulin (CMS/HCC) Use 4 times a day with Lantus and Novolog 100 each 11 024 Active glucose blood (OneTouch Verio) test stripIndications :Type 2 diabetes mellitus with stage 5 chronic kidney disease not on chronic dialysis, with long-term current use of insulin (CMS/[facility]) 4 times a day 100 strip 11 024 Active Lancets (OneTouch Delica Plus [id number]) miscIndications: Type 2 diabetes mellitus with stage 5 chronic kidney disease not on chronic dialysis, with long-term current use of insulin (CMS/HCC) TEST BLOOD SUGAR FOUR TIMES DAILY 100 each 11 024 Active Baqsimi Two Pack 3 MG/DOSE nasal powder USE 1 SPRAY (3MG) IN ONE NOSTRIL FOR A PATIENT WITH SEVERE HYPOGLYCEMIA WHO IS NOT RESPONSIVE AND UNABLE SELF-TREAT WITH GLUCOSE. AFTERWARDS TURN ON SIDE. MAY REPEAT IN 15MINUTES IF PATIENT DOES NOT RESPOND. 2 each 1 024 Active atorvastatin (Lipitor) 40 MG tablet TAKE 1 TABLET BY MOUTH EVERY MORNING 90 tablet 025 Active glucose 4 g chewable tablet CHEW 4 TABLETS BY MOUTH AT ONSET OF LOW BLOOD SUGAR, WAIT 15 MINUTES, THEN TEST BLOOD SUGAR, IF BLOOD SUGAR < 70 REPEAT AND EAT NEEDED 90 tablet 1 025 Active epoetin feli (Epogen) 14987 UNIT/ML injection as directed SQ every 2 weeks for 90 days Active B Uwtqeyy-D-Eajde Acid (Mindy-Mret) tablet Take 1 tablet by mouth Once per day. 30 tablet 1 025 Active insulin NPH-insulin regular (NovoLIN 70/30) (70-30) 100 UNIT/ML injectionIndicat ions:Type 2 diabetes mellitus with diabetic neuropathy, with long-term current use of insulin ([facility]) Inject 20 units subcutaneously every morning before breakfast and 14 units every evening before dinner. 025 Active omeprazole (PriLOSEC) [address] capsuleIndicatio ns:Gastroesophag eal reflux disease without esophagitis TAKE 1 CAPSULE BY MOUTH EVERY MORNING 90 capsule 1 025 Active B Wwijhry-U-Arpkm Acid (Mindy-Mert) tablet Take 1 tablet by mouth in the morning. 023 2024 Discontinued(Sin silvestre (will not trigger notification to Pharmacy)) omeprazole (PriLOSEC) [address] capsuleIndicatio ns:Gastroesophag eal reflux disease without esophagitis TAKE 1 CAPSULE BY MOUTH BEFORE A MEAL 90 capsule 1 024 2024 Discontinued insulin NPH-insulin regular (NovoLIN 70/30) (70-30) 100 UNIT/ML injection Inject 20 units subcutaneously every morning before breakfast and 12 units every evening before dinner. 10 mL 12 024 2024 Discontinued Blood Pressure Monitoring (Blood Pressure Kit) kitIndications:E ssential hypertension Use to check your blood pressure 1 kit 025 2024 Discontinued(M ed list cleanup (will not trigger notification to Pharmacy)) ondansetron ODT (Zofran-ODT) 4 MG disintegrating tablet DISSOLVE 1 TABLET ON TONGUE EVERY 6 TO 8 HOURS NEEDED FOR NAUSEA AND VOMITING 025 2024 Discontinued(O ther) Hospital, Clinic, or Other Facility Administered Medication Ordered Dose Route Frequency Start Date End Date Status cloNIDine (Catapres) tablet 0.1 mgIndications:Hypertension, unspecified type 0.1 mg PO Once 01/27/2025 01/27/2025 Ended Active Problems Problem Noted Date Diagnosed Date [place] of toe 12/23/2024 Poor memory 08/18/2024 Health care maintenance 02/24/2024 Obesity (BMI 30-39.9) 02/24/2024 Heart murmur 02/24/2024 Family history of cancer 02/24/2024 CHF (congestive heart failure) 03/20/2023 Overview (04/07/2023): New onset CHF, diagnosed at [facility] during admission 03/15/23 Unknown if have cardiology Discontinued furosemide during recent hospital admission Assessment & Plan (04/29/2023 5:44 PM EDT): Encouraged pt to call Cardiology and reschedule. Appt should be for a M, W, F to not interfere w/ dialysis treatment F/u 3 month or sooner PRN with new PCP Assessment & Plan (04/07/2023 8:10 PM EDT): Will refer to Cardiology Encouraged pt to monitor fluid intake Followup 1 month or sooner PRN Diabetic nephropathy associa unique with type 2 diabetes mellitus 03/10/2022 Hyperparathyroidism due to renal insufficiency 0 03/10/2022 Anemia 03/04/2022 CKD stage 5 secondary to hypertension 03/04/2022 Overview (04/29/2023): ESRD, started dialysis [facility] [place] Intaking too much fluid in between dialysis days and is causing fluid overload Pending fistula placement Continue , , Thursday Swelling in legs has improved. Pt has lost 15 pounds in the last month Assessment & Plan (04/29/2023 5:41 PM EDT): Encouraged pt to follow fluid intake recommendations Will task RN to check on recommendation from dialysis center d/t hypotensive episodes since starting dialysis Fistula placement still pending F/u 3 month or sooner PRN with new PCP Assessment & Plan (04/07/2023 8:12 PM EDT): Encouraged pt to follow fluid intake recommendations Called [facility] and notified of starting dialysis. Will continue care with dialysis center F/u 1 month or sooner PRN Gastroesophageal reflux disease 02/28/2022 ASCUS of cervix with negative high risk HPV 04/04 Overview (03/20/2023): 2018 No hx of dysplasia. Last Assessment & Plan: 2018 No hx of dysplasia. Pap smear results explained to patient. Plan repeat cotesting in 3 years- 2021. Essential hypertension 09/10/2017 Overview (04/29/2023): Treatment plan was Labetalol 100mg, 1.5 tablets BID hydrochlorothiazide discontinued in March with new onset CHF Referred cardiology, pending Appt Multiple episodes of hypotension since starting dialysis Has stopped labetalol, increased sodium in diet as of 04/29/23 Assessment & Plan (04/29/2023 5:47 PM EDT): Pt BP elevated today in clinic Concern about multiple episodes of hypotension requiring high saline IV treatment at dialysis center, and 1 subsequent fall d/t low BP Will task RN to contact Dialysis and confirm current recommendations on BP treatment Continue checking BP daily Notify clinic if BP remains elevated, either systolic or diastolic >140/90 F/u 3 month or sooner PRN with new PCP Hyperlipidemia 09/10/2017 Overview (03/20/2023): Last Assessment & Plan: LDL very elevated on most recent lipid panel Stephanie is not on statin therapy at this time though this would be strongly recommended She is encouraged to continue healthy diet and daily exercise Last Assessment & Plan: LDL very elevated on most recent lipid panel Stephanie is not on statin therapy at this time though this would be strongly recommended She is encouraged to continue healthy diet and daily exercise Type 2 diabetes mellitus with diabetic neuropath y 09/10/2017 Overview (04/29/2023): Current regimen is Novolin 13 units AM and 8 units PM with dinner. Declines insulin pen needles Reminded pt at last visit 09/02/22 because she was not using as prescribed Note 09/02/22 Pt reports episodes of hypoglycemia Not using insulin as prescribed Educated pt to take Novolin 13 units AM, 8 units PM If hypoglycemia occurs, take 4mg tablet glucose as prescribed followed by high protein snack. Encouraged to track Hypoglycemic episodes. May be too tightly controlled. Denies hypoglycemia episodes today 11/06/22 Med rec not performed today since pt does not know her meds Will refer for med rec by nurse over the phone with her Lab Results Component Value Date ?? HGBA1C 7.1 (A) 11/06/2022 ?? Glucose 277 11/06/22 has just eaten breakfast Lipid panel: Elevated 02/2022, will check at next visit Statin: Atorvastatin 40mg Alexandr/Arb: Not recommended due to CKD Assessment & Plan (04/29/2023 6:00 PM EDT): Diabetic eye exam pending Educated pt to continue increased dose of Humulin, until they receive the Novolin will bring paperwork from eye doctor to [facility] medical records Will rx Novolin 70/30 again and see if approved by insurance now. If not will call for a PA F/u 3 months or sooner PRN with new PCP Encounters Date Type Department Care Team Description 01/27/2025 1:00 PM EDT Office Visit [place] [place] [address] Kellie Tan MD Breast cancer screening by mammogram (Primary Dx); Dietary counseling; Exercise counseling; 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); Chronic congestive heart failure, unspecified heart failure type (CMS/HCC); Osteoporosis screening; Foot lesion; Cardiac murmur; Hypertension, unspecified type; Type 2 diabetes mellitus with diabetic neuropathy, with long-term current use of insulin (CMS/HCC) 01/27/[address] [phone] Abigail Marte RN Memory Evaluation Scheduling 01/27/2025 Travel 01/25/2025 Refill [facility] [address] [place] [address] Nicole Peralta MD Gastroesophageal reflux disease without esophagitis 01/20/2025 Telephone [facility] [address] [place] [address] Kellie Tan MD Med Refill 01/11/2025 Travel 01/03/2025 Orders Only GENERIC EXTERNAL DATA DEPARTMENT Provider, Generic External Data 12/29/2024 Refill [facility] [address] [place] [address] Kellie Tan MD 12/23/2024 11:15 AM EDT Office Visit [place] [address] Keya Alanis CNP [place] of toe (Primary Dx); Type 2 diabetes mellitus with diabetic neuropathy, with long-term current use of insulin ([facility]) 12/23/2024 Travel 12/22/2024 Telephone [facility] [address] [place] [address] Kellie Tan MD Chart Prep 12/20/[address] [address] Kellie Tan MD Referral 12/18/[address] [address] Andressa Gomez, PharmD Essential hypertension 11/25/2024 Travel 11/24/2024 Telephone [facility] [address] [facility], [place] [phone] Kellie Tan MD January11/19/2024 Refill [facility] [address] [place] [address] Kellie Tan MD from Last 3 Months Immunizations Name Administration Dates Next Due Moderna Covid-19 Vaccine 12+ 02/15/2021,01/20/20 21 Pneumococcal Conjugate PCV 20 06/05/2022 Tdap 04/11/2022 Zoster, Recombinant 06/05/2022 Zoster, live 06/05/2022 Family History Medical History Relation Name Comments Breast cancer Cousin breast ca Cousin Brain cancer Father Breast cancer Mother breast ca- 45;s Mother colon ca-at 60s Other Prostate cancer Paternal Grandmother Breast cancer Sister breast ca-50s Sister x 2 breast ca Sister Relation Name Status Comments Cousin Other Father Mother Other Paternal Grandmother Sister Social History Tobacco Use Types Packs/Day Years Used Date Smoking Tobacco: Never Passive Smoke Exposure: Never Smokeless Tobacco: Never Tobacco Cessation:Counseling Given: Not Answered Alcohol Use Standard Drinks/Week Comments Never 0 (1 standard drink = 0.6 oz pur e alcohol) Depression Answer Date Recorded Patient Health Questionnaire-9 Score 0 04/13/2024 Patient Health Questionnaire-9 Score 0 04/13/2024 Last PHQ-9: Questionnaire Data Not on file 0 04/13/2024 Housing Stability Answer Date Recorded What is your housing situation today? I have bina tran 07/21/[address] you li ve. Do you have problems with any of the following? None of the above 07/21/2023 Food Insecurity Answer Date Recorded Within the past 12 months, y ou worried that your food would run out before you got money to buy more: Never True 07/21/2023 Within the past 12 months,th e food you bought just didn't last and you didn't have enough money to get more: Never True Transportation Answer Date Recorded In the past 12 months, has l ack of transportation kept you from medical appts, meetings, work or from getting things needed for daily living? No 07/21/2023 Utilities Answer Date Recorded In the past 12 months, has t he electric, gas, oil or water company threatened to shut off services in your home? No 07/21/2023 Depression Answer Date Recorded Patient Health Questionnaire-2 Score 0 04/13/2024 Comments No Sex and Gender Information Value Date Recorded Sex Assigned at Female 08/04/2022 10:40 AM EDT Legal Sex Female 10:40 AM EDT Gender Identity Female 08/04/2022 10:40 AM EDT Sexual Orientation Straight 08/04/2022 10 :40 AM EDT Last Filed Vital Signs Vital Sign Reading Time Taken Comments Blood Pressure 118/62 01/27/2025 3:45 PM EDT Pulse 76 01/27/2025 1:31 PM EDT Temperature 35.4 ??C (95.7 ??F) 01/27/2025 1:31 PM ED T Respiratory Rate 16 01/27/2025 1:31 PM EDT Oxygen Saturation 96% 01/27/2025 1:31 PM EDT Inhaled Oxygen Concentration - - Weight 84.6 kg (186 lb 6.4 oz) 01/27/2025 1:31 P M EDT Height 163.8 cm (5' 4.5 ) 01/27/2025 1:31 PM EDT Body Mass Index 31.5 01/27/2025 1:31 PM EDT Plan of Treatment Upcoming Encounters Date Type Department Care Team (Late st Contact Info) Description 02/08/2025 2:00 PM EDT Medication Management [address] [address] Andressa Gomez, PharmD [address] [place] [phone] 04/03/2025 2:00 PM EDT Clinical Support [address] [address] 04/05/2025 11:30 AM EDT Office Visit [address] [phone] Kellie Tan MD [address] [place] [address] Health Maintenance Due Date Last Done Comments CT Colonography 1954 FIT DNA/Cologuard 1954 FIT 1954 FOBT 1954 Sigmoidoscopy 1954 Eye Exam 1964 RSV Patients and Patients Aged 60 years or older (1 - Risk 60-74 years 1-dose series) 2014 Zoster Vaccines (2 of 2) 07/31/2022 06/05/2022, 090 10/2021 Influenza Vaccine (#1) 2024 COVID-19 Vaccine ( season) 2024 05/04/2024, 02/15/2021, 01/19/2021 SDOH Screening 02/15/2025 02/16/2024 Diabetes: Hemoglobin A1C 03/25/2025 025, 11/25/2024, 08/12/2024, Additional history exists Lipid Panel 04/11/2025 04/11/2024, 02/28/2022 Depression Screening 04/13/2025 04/13/2024, 04/13/20 24 Mammogram 07/29/2025 07/29/2023, 05/06, 11/15/2018, Additional history exists Alcohol/Substance Use Screening 08/17/2025 08/17/2024 Diabetes: Foot Exam 12/23/2025 12/23/2024, 12/23/2024, 12/23/2024, Additional history exists Tobacco Screening 01/27/2026 01/27/2025 HPV/Cotest 12/02/2026 12/02/2023 Pap Smear 12/02/2026 12/02/2023 Colonoscopy 01/21/2029 01/21/2019 Colorectal Cancer Screening 01/21/2029 DTaP/Tdap/Td Vaccines (2 - Td or Tdap) 04/11/2032 04/11/2022 Pneumococcal Vaccine: 50+ Years Completed 06/05/2022 Hepatitis C Screening Completed 04/11/2024 HIB Vaccines Aged Out No longer eligi ble based on patient's age to complete this topic HPV Vaccines Aged Out No longer eligi ble based on patient's age to complete this topic Hepatitis A Vaccines Aged Out No long er eligible based on patient's age to complete this topic Hepatitis B Vaccines Aged Out No long er eligible based on patient's age to complete this topic IPV Vaccines Aged Out No longer eligi ble based on patient's age to complete this topic Meningococcal Vaccine Aged Out No brady caryl eligible based on patient's age to complete this topic RSV under 20 months Aged Out No longe r eligible based on patient's age to complete this topic Rotavirus Vaccines Aged Out No longer eligible based on patient's age to complete this topic Procedures Procedure Name Priority Date/Time Associated Diagnosis Comments ECG 12-LEAD Routine 01/27/2025 3:31 PM EDT Hypertension, unspecified type POCT GLUCOSE Routine 01/27/2025 2:54 PM EDT Type 2 diabetes mellitus with diabetic neuropathy, with long-term current use of insulin (CMS/HCC) CBC WITH AUTO DIFFERENTIAL Routine 01/03/2025 2:21 AM EDT SARS COV2/INFLUENZA A/B AND RSV RNA QL NAAT Routine 01/03/2025 2:21 AM EDT GLUCOSE, WHOLE BLOOD Routine 01/03/2025 1:50 AM EDT POCT GLUCOSE Routine 12/23/2024 11:13 AM EDT Type 2 diabetes mellitus with diabetic neuropathy, with long-term current use of insulin (CMS/HCC) POCT GLYCATED HEMOGLOBIN, TOTAL Routine 12/23/2024 11:13 AM EDT Type 2 diabetes mellitus with diabetic neuropathy, with long-term current use of insulin (CMS/HCC) POCT GLYCATED HEMOGLOBIN, TOTAL Routine 11/25/2024 2:22 PM EST Type 2 diabetes mellitus with diabetic neuropathy, with long-term current use of insulin (CMS/HCC) LIPID PANEL, STANDARD Routine 04/11/2024 8:36 AM EDT Annual physical exam HEPATITIS C AB W/REFL TO HCV RNA, QN, PCR Routine 04/11/2024 8:34 AM EDT Annual physical exam HPV MRNA E6/E7 REFLEX TO HPV 16, 18/45 Routine 12/02/2023 9:45 AM EST PAP SMEAR Routine 12/02/2023 9:45 AM EST ASCUS of cervix with negative high risk HPV BI MAMMOGRAM SCREENING TOMOSYNTHESIS BILATERAL Routine 07/29/2023 2:07 PM EDT HM COLONOSCOPY Routine 01/21/2019 4:25 PM EDT from Last 3 Months or Most Recently Relevant to Health Maintenance Results * ECG 12 lead (01/27/2025 3:31 PM EDT) Narrative Kellie Tan MD - 01/27/2025 3:31 PM EDT -EKG today HR 63x', QTc 463 ,NSR,no ischemic changes Kellie Diane MD ECG ORDERABLES F inal Result * (ABNORMAL) POCT glucose manually resulted (01/27/2025 2:54 PM EDT) Only the most recent of2 resultswithin the time period is included. Pathologist [facility] Glucose Blood, POC 238(A) 60 - 200 mg/dL QC Media Lot # [id number] Lot# Expiration Date Blood Capillary blood specimen / Unknown 01/27/2025 2:54 PM EDT Kellie Diane MD POINT OF CARE JOAQUINA T ENTER/EDIT ORDERABLES Final Result * SARS-CoV-2 RNA, Influenza A/B, and RSV RNA, Ql NAAT (01/03/2025 2:21 AM EDT) Pathologist [facility] Influenza A PCR NEGATIVE Negative [facility] Influenza B PCR NEGATIVE Negative [facility] Resp Syncy Virus RNA Qual PCR NEGATIVE Negative [facility] SARS COV2 PCR NEGATIVE Negative [facility] Comment:All test results mus t be correlated with clinical findings.Negative results do not preclude SARS-CoV2, influenza Avirus, influenza B virus and/or RSV infectionand should not be used as the sole basis for treatment orother patient management decisions. Negative results must becombined with clinical observations, patient history, andepidemiological information.This test has not been evaluated for monitoring treatment ofinfection.This test has been authorized by the FDA under an EmergencyUse Authorization (EUA) for use by authorized laboratories.Testing performed on the [employer] GeneXpert utilizingreal-time RT-PCR.All SARS CoV2 and positive influenza A/B results arereported to [facility]. 01/03/2025 2:21 AM EDT 01/03/2025 2:34 AM EDT us Generic External Data Provider LAB MICROBIOLOGY - GENERAL ORDERABLES Final Result [facility] [address] [place] [phone] * (ABNORMAL) CBC auto differential (01/03/2025 2:21 AM EDT) White Blood Count 6.4 4.8 - 10.8 X10*3/uL [facility] Red Blood Count 3.43(L) 4.20 - 5.50 X10*6/uL [facility] Hemoglobin 11.0(L) 12.0 - 16.0 g/dl [facility] Hematocrit 33.5(L) 37.0 - 47.0 % [facility] Mean Corpuscular Volume 97.7 80.0 - 98.0 fL [facility] Mean Corpuscular Hemoglobin 32.1 27.0 - 33.0 pg [facility] Mean Corpuscular HGB Conc 32.8 31.0 - 35.0 g/dl [facility] Red Cell Distribution Width 14.6 11.0 - 16.0 % [facility] Platelet Count 128(L) 160 - 400 X10*3/uL [facility] Mean Platelet Volume 11.4 9.4 - 12.3 fL [facility] Neutrophils Percent Auto 73.9(H) 45 - 73 % [facility] Imm Gran Pct Auto 0.8(H) 0.0 - 0.4 % [facility] Lymphocytes Percent Auto 13.6(L) 20 - 40 % [facility] Monocytes Percent Auto 8.0 2 - 11 % [facility] Eosinophils Percent Auto 3.1 0 - 4 % [facility] Basophils Percent Auto 0.6 0 - 2 % [facility] NRBC Pct Auto 0.0 0.0 - 0.2 /100WBC [facility] Neutrophils Absolute Auto 4.7 2.0 - 8.3 x10*3/uL [facility] Imm Gran Abs Auto 0.05(H) 0.00 - 0.03 X10*3/uL [facility] Lymphocytes Absolute Auto 0.9(L) 1.2 - 4.9 X10*3/uL [facility] Monocytes Absolute Auto 0.5 0.1 - 1.2 X10*3/uL [facility] Eosinophils Absolute Auto 0.2 0.0 - 0.4 X10*3/uL [facility] Basophils Absolute Auto 0.0 0.0 - 0.2 X10*3/uL [facility] NRBC Abs Auto 0.000 0.0 - 0.012 X10*3/uL [facility] 01/03/2025 2:21 AM EDT 01/03/2025 2:26 AM EDT us Generic External Data Provider LAB BLOOD ORDERAB LES Final Result [facility] [address] [place] [phone] * (ABNORMAL) Glucose, Whole Blood (01/03/2025 1:50 AM EDT) Glucose, Whole Blood 159(H) 60 - 115 mg/dL [facility] Comment:METER #: [id number] 01/03/2025 1:50 AM EDT 01/03/2025 4:23 AM EDT Generic External Data Provider LAB BLOOD ORDERAB LES Final Result [facility] [address] [place] [phone] * (ABNORMAL) POCT HGB A1C (12/23/2024 11:13 AM EDT) Only the most recent of2 resultswithin the time period is included. Hemoglobin A1C 9.5(A) 4.0 - 6.0 % QC Media Lot # [id number] Lot# Expiration Date Blood 12/23/2024 11:1 3 AM EDT [facility] POINT OF CARE TEST ENTER/ EDIT ORDERABLES Final Result * (ABNORMAL) Lipid Panel, Standard (04/11/2024 8:36 AM EDT) Triglycerides 121 <150 mg/dL [facility] Comment:Desirable Triglyceri de: less than 150 mg/dLBorderline High Triglyceride 150-199 mg/dLHigh Triglyceride: 200-499 mg/dLVery High Triglyceride: greater than or equal to 5OO mg/dL Cholesterol 139 <200 mg/dL [facility] Comment:Desirable Cholestero l: less than 200 mg/dLBorderline High Cholesterol: 200-239 mg/dLHigh Cholesterol: greater than 239 mg/dL LDL Cholesterol Calculated 79 <100 mg/dL [facility] Comment:Desirable LDL: less than 100 mg/dLNear Optimal/Above Optimal LDL: 110- 129 mg/dLBorderline High LDL: 130-159 mg/dLHigh LDL: 160-189 mg/dLVery High LDL: greater than or equal to 190 mg/dL HDL Cholesterol 36(L) >40 mg/dL [facility] Comment:Desirable HDL: great er than 40 mg/dL Note: This HDL assay may give artificially low results in patients with liver disease. Blood Venous blood specimen / Unknown 04/11/2024 8:36 AM EDT 04/11/2024 10:51 AM EDT Kellie Diane MD LAB BLOOD ORDERAB LES Final Result Performing Organization Address [facility]/State/ZIP Co de Phone Number [facility] [address] [place] [phone] * Hepatitis C Antibody with Reflex to HCV, RNA, Quantitative, Real-Time PCR (04/11/2024 8:34 AM EDT) Hepatitis C Antibody Nonreactive Nonreactive [facility] Comment:Antibodies to HCV no t detected; does not exclude early acuteHCV infection. Blood Venous blood specimen / Unknown 04/11/2024 8:34 AM EDT 04/11/2024 10:51 AM EDT Kellie Diane MD LAB BLOOD ORDERAB LES Final Result Performing Organization Address [facility]/ZIP Co de Phone Number [facility] [address] [place] [address] [phone] * HPV mRNA E6/E7 w/Reflex to HPV Genotypes 16, 18/45 (12/02/2023 9:45 AM EST) HPV nRNA E6/E7 Not Detected Not Detected [facility] Comment:Methodology: Transcr iption-Mediated AmplificationThis assay detects E6/E7 viral messenger RNA (mRNA) from 14high-risk HPV types (16,18,31,33,35,39,45,51,52,56,58,59,66,68).Cervical sources are required for HPV testing.If a vaginal source from a patient who has had atotal hysterectomy with removal of cervix wassubmitted, please contact the testing laboratoryfor alternative testing options.For additional information, please refer tohttp://education.Guide/faq/[email or web address](This link if provided for information/educational purposes only.)THIS TEST WAS PERFORMED AT:[facility] [place] [id number] JUAN MD HPV mRNA E6/E7 TNP [facility] HPV 16 RNA TNP [facility] HPV 18/45 RNA TNP [facility] 12/02/2023 9:45 AM EST 12/03/2023 10:00 AM EST Trinity Smith CNM LAB CYTOLOGY ORDERABLES F inal Result [facility] [address] [place] [address] [phone] * Pap Smear (12/02/2023 9:45 AM EST) Swab Cervix uteri structure / Unknown 12/02/2023 9:45 AM EST 12/03/2023 10:00 AM EST Narrative [facility] - 12/16/2023 4:14 PM EDT ----- ------- Name: Stephanie Anthony ?Age/Sex: 68/F ? : 1955 Unit#: [id number] ?? Attend Dr: TRINITY SMITH CNM ?Re12/02/23 ?Status: DEP REF ? Location: HO.HHCLNP ? Disch: ? ----- ------- SPEC : [id number] ? RECD: 12/03/23-1000 ? STATUS: ??SOUT ? REQ NUM: [id number] ? EARLENE: 12/02/23 ? SUBM DR: TRINITY SMITH CNM ? ENTERED: ??12/03/23 ?SP TYPE: Pap Smr ?OTHR : ? ORDERED: ??Pap Smear ? Interpretation ?? Satisfactory for evaluation. ?? Negative for intraepithelial lesion or malignancy. ?HPV mRNA E6/E7: ?NOT DETECTED ? This assay detects E6/E7 viral messenger RNA (mRNA) from 14 high-risk HPV types (16, 18, ?? 31, 33, 35, 39, 45, 51, 52, 56, 58, 59, 66, 68) ?? HPV testing performed by [facility], [place], [place]. ??See reference laboratory ?? portion of the EMR for entire report. ?Clinical Information LMP: Postmenopausal Previous PAP test: Unknown date/findings Other history: ASCUS of cervix with negative high risk HPV ? Material Received ?? ThinPrep-Cervical ----- ------- Signed (signature on file) JORI Mesa (ASCP) 12/16/23 1614 ? ----- ------- ? END OF REPORT ? us Trinity Smith [facility] CYTOLOGY ORDERABLES F inal Result [facility] [address] [place] [address] [phone] * BI Mammogram Screening Tomosynthesis Bilateral (07/29/2023 2:07 PM EDT) Anatomical Region Laterality Modality Breast Bilateral Mammography 07/29/2023 2:07 PM EDT Narrative 08/17/2023 5:19 AM EST ? [facility] ? [address] ?[place] [address] ? Mammography Report ? Signed ? Patient: Anthony,Stephanie ?MR#: [id number] ?? 4 ? : 1955 ?Acct:[id number] ? Age/Sex: 67 / F ?ADM Date: 10/25/23 ? Loc: HO.MAMMO ? Attending Dr: Kellie Diane MD ? Ordering Physician: Kellie Tan MD ?Re ?? sults: 1Negative ? Date of Service: 07/29/23 ?Follow Up: 1 Year From Orig ?? inal Mammogram ? Procedure(s): MM tomosynthesis screening BI ?? Accession Number(s): [id number] ? cc: Kellie Tan MD ? EXAMINATION: ?? MM SCREENING DIGITAL BREAST TOMOSYNTHESIS, BILATERAL ? CLINICAL INFORMATION: ? Screening. Asymptomatic. ? COMPARISON: ?? Mammography: There are no prior mammograms for comparison. ?? TECHNIQUE: ?? Digital breast tomosynthesis is performed in both the craniocaudal and ?? mediolateral oblique views along with computer-aided detection (CAD). ?? Synthesized 2D images are generated from the tomosynthesis. ? FINDINGS: ?? There are scattered areas of fibroglandular density (ACR BI-RADS breast ?? composition Category b). ? There are no significant masses, abnormal calcifications, or other ?? abnormalities. ? MM/MM tomosynthesis screening BI ?? IMPRESSION: ?? No mammographic evidence of malignancy. ? ASSESSMENT: ? BI-RADS BI-RADS 1 - Negative ? RECOMMENDATION: ?? Routine annual mammography screening. ? 1 year F/U ? This examination should not preclude the clinical evaluation of a ?? suspicious palpable abnormality. ? This patient's information was entered into a reminder system with a ?? target due date for their next mammogram. ? Dictated By: ?Sparkle Hayes MD ? Signed By: ?<Electronically signed by Sparkle Hayes MD in OV> ? 08/17/23 0515 ? DD/ 1407 ? TD/TT: ? Hand Spring Repairer Helper: ? Procedure Note Donyovanater, Image - 08/17/2023 Isidoro [facility] [address] [place], [place] [address] Mammography Report Signed Patient: Ike Anthony#: [id number] 4 : 5Acct:[id number] Age/Sex: 67 / FADM Date: 07/29/23 Loc: HO.MAMMO Attending Dr: Kellie Diane MD Ordering Physician: Kellie Tan sults: 1Negative Date of Service: 07/29/23Follow Up: 1 Year From Orig inal Mammogram Procedure(s): MM tomosynthesis screening BI Accession Number(s): [id number] cc: Kellie Tan MD EXAMINATION: MM SCREENING DIGITAL BREAST TOMOSYNTHESIS, BILATERAL CLINICAL INFORMATION: Screening. Asymptomatic. COMPARISON: Mammography: There are no prior mammograms for comparison. TECHNIQUE: Digital breast tomosynthesis is performed in both the craniocaudal and mediolateral oblique views along with computer-aided detection (CAD). Synthesized 2D images are generated from the tomosynthesis. FINDINGS: There are scattered areas of fibroglandular density (ACR BI-RADS breast composition Category b). There are no significant masses, abnormal calcifications, or other abnormalities. MM/MM tomosynthesis screening BI IMPRESSION: No mammographic evidence of malignancy. ASSESSMENT: BI-RADS BI-RADS 1 - Negative RECOMMENDATION: Routine annual mammography screening. 1 year F/U This examination should not preclude the clinical evaluation of a suspicious palpable abnormality. This patient's information was entered into a reminder system with a target due date for their next mammogram. Dictated By: Sparkle Hayes MD Signed By: <Electronically signed by Sparkle Hayes MD in OV> 08/17/23 0515 DD/ 1407 TD/TT: Hand Spring Repairer Helper: Kellie Diane MD IMG BI PROCEDURES Final Result * Hm Colonoscopy (01/21/2019 4:25 PM EDT) Historical Provider HEALTH MAINTENANCE Final Result from Last 3 Months or Most Recently Relevant to Health Maintenance Insurance [facility] Care Teams Pack Out Operator Relationship Specialty Start Date End Date Kellie Tan MD [address] [place] [address] PCP - General Internal Medicine 04/29/23 Andressa Gomez, AriD [address] [place] [phone] Pharmacist Internal Medicine 11/25/24
--- OUTSIDE RECORDS SUMMARY | 2025-01-27 16:21 | XMS_ITS | Encounter Summary ---
Author Organization [facility] Address [address] [address] Phone Care Team Providers Care Well Services Operator Name Role Phone Falguni Gonzalez RN Primary Care Provider Renetta english Encounter Details Date Type Department Care Team ([facility] st Contact Info) Description 01/24/2025 Treatment [facility]. [address] [address] Angela Rousseau MD [address] [address] End stage renal disease; Dependence on renal dialysis Social History Tobacco Use Types Packs/Day Years Used Date Smoking Tobacco: Never Smokeless Tobacco: Never Alcohol Use Standard Drinks/Week Comments No 0 (1 standard drink = 0.6 oz pur e alcohol) Comments Unknown Sex and Gender Information Value Date Recorded Sex Assigned at Not on file Legal Sex Female 4:36 PM EST Gender Identity Not on file Sexual Orientation Not on file documented as of this encounter Miscellaneous Notes * Dialysis Note - Angela Rousseau MD - 01/24/2025 12:00 AM EDT BASIC NOTE Patient: Stephanie Anthony : 1955 Note Author: ANGELA ROUSSEAU MD Service Date: 01/24/2025 This patient was personally seen for a basic visit as part of routine monthly dialysis care for end stage renal disease. Attending Lumber Cutter: ANGELA ROUSSEAU MD Dialysis Location: [facility] Schedule: Shift: 2 OVERVIEW Patient is stable. COMMENTS: Note in dialysis credit and collection manager ADDITIONAL COMMENT COMMENTS: Note in dialysis credit and collection manager 07/14/24 stable 10/18/24 stable 11/15/24 stable Signed by: ANGELA ROUSSEAU MD on 01/24/2025 at 12:15:25 PM documented in this encounter Plan of Treatment Not on file documented as of this encounter Visit Diagnoses Diagnosis End stage renal disease Dependence on renal dialysis documented in this encounter Care Teams Well Services Operator Relationship Specialty Start Date End Date Falguni Gonzalez RN PCP - General Family Medicine 11/09/24 documented as of this encounter
--- OUTSIDE RECORDS SUMMARY | 2025-01-27 16:21 | XMS_ITS | Encounter Summary ---
Author Organization [facility] Address [address] [address] Phone Care Team Providers Care Websphere Commerce Architect Name Role Phone Falguni Gonzalez RN Primary Care Provider Renetta english Encounter Details Date Type Department Care Team ([facility] st Contact Info) Description 01/21/2025 Treatment [facility]. [address] [phone] Angela Rousseau MD [address] [address] End stage renal disease; Dependence [...] Dialysis Note - Angela Rousseau MD - 01/21/2025 12:00 AM EDT BASIC NOTE Patient: Stephanie Anthony : 1955 Note Author: ANGELA ROUSSEAU MD Service Date: 01/21/2025 This patient was personally seen for a basic visit as part of routine monthly dialysis care for end stage renal disease. Attending Web Ui Designer: ANGELA ROUSSEAU MD Dialysis Location: [facility] Schedule: Shift: 2 OVERVIEW Patient is stable. COMMENTS: Note in dialysis body corporate manager ADDITIONAL COMMENT COMMENTS: Note in dialysis body corporate manager 07/14/24 stable 10/18/24 stable 11/15/24 stable Signed by: ANGELA ROUSSEAU MD on 01/21/2025 at 11:20:36 AM documented in this encounter Plan of Treatment Not on file documented as of this encounter Visit Diagnoses Diagnosis End stage renal disease Dependence on renal dialysis documented in this encounter Care Teams Websphere Commerce Architect Relationship Specialty Start Date End Date Falguni Gonzalez RN PCP - General Family Medicine 11/09/24 documented as of this encounter
--- OUTSIDE RECORDS SUMMARY | 2025-01-27 16:21 | XMS_ITS | Encounter Summary ---
Author Organization [employer] Address [address] [place] [address] Care Team Providers Care Senior Portfolio Manager Name Role Phone Kellie Tan MD Primary Care Pro vider Andressa Gomez PharmD Unavailable [phone]- [phone] Reason for Referral * Imaging (Routine) - Pending Review Specialty Diagnoses / Procedures Referred By Nicholas chiang Referred To Contact Cardiology Diagnoses Cardiac murmur Procedures Transthoracic Echo (TTE) Complete Kellie Tan MD [address] [place] [address] Phone: tel: fax: Referral ID Status Reason Start Date Expiration Date Visits Requested Visits Authorized [id number] Pending Review Perform Procedure 01/27/2025 01/27/2026 1 1 * Consultation (STAT) - Authorized Specialty Diagnoses / Procedures Referred By Nicholas chiang Referred To Contact Podiatry Diagnoses Foot lesion Kellie Tan MD [address] [place] [address] Phone: tel: fax: Edwin Livingston DPM [address] [address] Phone: tel: fax: Referral ID Status Reason Start Date Expiration Date Visits Requested Visits Authorized [id number] Authorized Specialty Services Required 01/27/2025 01/27/2026 1 1 * Imaging (Routine) - Authorized Specialty Diagnoses / Procedures Referred By Contac t Referred To Contact Radiology Diagnoses Osteoporosis screening Procedures BD DEXA Axial Kellie Tan MD [address] [place] [address] Phone: tel: fax: [address] Phone: tel: fax: Referral ID Status Reason Start Date Expiration Date V isits Requested Visits Authorized [id number] Authorized 01/27/2025 01/27/2026 1 1 * Consultation (Routine) - Denied Specialty Diagnoses / Procedures Referred By Contac t Referred To Contact Diagnoses 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) Kellie Tan MD [address] [place] [address] Phone: tel: fax: [address] [address] Phone: tel: fax: Referral ID Status Reason Start Date Expiration Date V isits Requested Visits Authorized [id number] Denied Specialty Services Required 01/27/2025 01/27/2026 1 0 * Imaging (Routine) - Authorized Specialty Diagnoses / Procedures Referred By Contac t Referred To Contact Radiology Diagnoses Breast cancer screening by mammogram Procedures BI Mammogram Screening Tomosynthesis Bilateral Kellie Tan MD [address] [place] [address] Phone: tel: fax: [address] Phone: tel: fax: Referral ID Status Reason Start Date Expiration Date V isits Requested Visits Authorized [id number] Authorized 01/27/2025 01/27/2026 1 1 Reason for Visit * Reason Comments Follow-up Chronic condition Encounter Details Date Type Department Care Team ([facility] st Contact Info) Description 01/27/2025 1:00 PM EDT Office Visit [facility] [address] [place] [address] Kellie Tan MD [address] [place] [address] Breast cancer screening by mammogram (Primary Dx); Dietary counseling; Exercise counseling; 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); Chronic congestive heart failure, unspecified heart failure type (CMS/HCC); Osteoporosis screening; Foot lesion; Cardiac murmur; Hypertension, unspecified type; Type 2 diabetes mellitus with diabetic neuropathy, with long-term current use of insulin (CMS/HCC) Social History Tobacco Use Types Packs/Day Years Used Date Smoking Tobacco: Never Passive Smoke Exposure: Never Smokeless Tobacco: Never Alcohol Use Standard Drinks/Week Comments Never 0 [...] Orientation Straight 08/04/2022 10 :40 AM EDT documented as of this encounter Last Filed Vital Signs Vital Sign Reading [...] Mass Index 31.5 01/27/2025 1:31 PM EDT documented in this encounter Plan of Treatment Upcoming Encounters Date Type Department Care Team (Late st Contact Info) Description 02/08/2025 2:00 PM EDT Medication Management [address] [address] Andressa Gomez, PharmD [address] [place] [address] 04/03/2025 2:00 PM EDT Clinical Support [address] [address] 04/05/2025 11:30 AM EDT Office Visit [address] [phone] Kellie Tan MD [address] [place] [address] Scheduled Orders Name Type Priority Associated Diagnoses Orde r Schedule BI Mammogram Screening Tomosynthesis Bilateral Imaging Routine Breast cancer screening by mammogram Expected: 01/27/2025, Expires: 03/29/2026 BD DEXA Axial Imaging Routine Osteoporosis screening Expected: 01/27/2025, Expires: 01/27/2026 XR Foot 3+ Views Left Imaging Routine Foot lesion Expected: 01/27/2025, Expires: 01/27/2026 Transthoracic Echo (TTE) Complete Echocardiography Routine Cardiac murmur Expected: 01/27/2025 (Approximate), Expires: 01/27/2027 Comprehensive Metabolic Panel Lab Routine Hypertension, unspecified type Expected: 01/27/2025 (Approximate), Expires: 01/27/2026 Hemoglobin A1c Lab Routine Hypertension, unspecified type Expected: 01/27/2025 (Approximate), Expires: 01/27/2026 Lipid Panel, Standard Lab Routine Hypertension, unspecified type Expected: 01/27/2025 (Approximate), Expires: 01/27/2026 Vitamin B12 (Cobalamin) and Folate Panel, Serum Lab Routine Hypertension, unspecified type Expected: 01/27/2025 (Approximate), Expires: 01/27/2026 CBC Lab Routine Hypertension, unspecified type Expected: 01/27/2025 (Approximate), Expires: 01/27/2026 Scheduled Referrals Name Type Priority Associated Diagnoses Orde r Schedule Referral to Care Management Outpatient Referral Routine CKD stage 5 secondary to hypertension ([facility]) Expected: 01/27/2025 (Approximate), Expires: 01/27/2026 Referral to Podiatry Outpatient Referral STAT Foot lesion Expected: 01/27/2025 (Approximate), Expires: 01/27/2026 documented as of this encounter Procedures Procedure Name Priority Date/Time Associated Diagnosis Comments ECG 12-LEAD Routine 01/27/2025 3:31 PM EDT Hypertension, unspecified type POCT GLUCOSE Routine 01/27/2025 2:54 PM EDT Type 2 diabetes mellitus with diabetic neuropathy, with long-term current use of insulin ([facility]) documented in this encounter Results * ECG 12 lead (01/27/2025 3:31 PM EDT) Narrative Kellie Tan MD - 01/27/2025 3:31 PM EDT -EKG today HR 63x', QTc 463 ,NSR,no ischemic changes Kellie Diane MD ECG ORDERABLES F inal Result * (ABNORMAL) POCT glucose manually resulted (01/27/2025 2:54 PM EDT) Glucose Blood, POC 238(A) 60 - 200 mg/dL QC Media Lot # [id number] Lot# Expiration Date Blood Capillary blood specimen / Unknown 01/27/2025 2:54 PM EDT Kellie Diane MD POINT OF CARE JOAQUINA T ENTER/EDIT ORDERABLES Final Result documented in this encounter Visit Diagnoses Diagnosis Breast cancer screening by mammogram- Primary Dietary counseling Dietary surveillance and counseling Exercise counseling CKD stage 5 secondary to hypertension ([facility]) Chronic congestive heart failure, unspecified heart failure type ([facility]) Osteoporosis screening Special screening for osteoporosis Foot lesion Unspecified disorder of skin and subcutaneous tissue Cardiac murmur Undiagnosed cardiac murmurs Hypertension, unspecified type Type 2 diabetes mellitus with diabetic neuropathy, with long-term current use of insulin ([facility]) documented in this encounter Administered Medications Inactive Administered Medications - up to 3 most recent administrations Medication Order MAR Action Action Date Dose Rate Site cloNIDine (Catapres) tablet 0.1 mg 0.1 mg, Oral, Once, On Thu01/27/25 at 1445, For 1 doseIndications:Hypertension, unspecified type Given 01/27/2025 2:45 PM EDT 0.1 mg documented in this encounter Additional Health Concerns Assessment Noted Time PHQ-9 Depression Total Score: 0 04/13/20 24 11:25 AM EDT documented as of this encounter Care Teams Senior Portfolio Manager Relationship Specialty Start Date End Date Kellie Tan MD [address] [place] [address] PCP - General Internal Medicine 04/29/23 Andressa Gomez, AriD [address] [place] [address] Pharmacist Internal Medicine 11/25/24 documented as of this encounter
--- OUTSIDE RECORDS SUMMARY | 2025-01-27 16:21 | XMS_ITS | Encounter Summary ---
Author Organization [employer] Address [address] [facility] [address] [place] [address] Care Team Providers Care Petroleum Production Engineer Name Role Phone Kellie Tan MD Primary Care Pro vider Andressa Gomez PharmD Unavailable [phone] Reason for Visit * Reason Comments Med Refill Encounter Details Date Type Department Care Team (Late st Contact Info) Description 01/25/2025 Refill [facility] [address] [place], [place] [phone] Nicole Peralta MD [address] [place], [place] [phone] Gastroesophageal reflux disease without esophagitis Social History Tobacco Use Types Packs/Day Years [...] your housing situation today? I have bina chelsea 07/21/[address] you li [...] AM EDT documented as of this encounter Plan of Treatment Upcoming Encounters Date Type Department Care Team (Late st Contact Info) Description 02/08/2025 2:00 PM EDT Medication Management [address] [address] Andressa Gomez, PharmD [address] [place] [address] 04/03/2025 2:00 PM EDT Clinical Support [address] [address] 04/05/2025 11:30 AM EDT Office Visit [address] [address] Kellie Tan MD [address] [place] [address] documented as of this encounter Visit Diagnoses Diagnosis Gastroesophageal reflux disease without esophagitis Esophageal reflux documented in this encounter Additional Health Concerns Assessment Noted Time PHQ-9 Depression Total Score: 0 04/13/20 24 11:25 AM EDT documented as of this encounter Care Teams Petroleum Production Engineer Relationship Specialty Start Date End Date Kellie Tan MD [address] [place] [address] PCP - General Internal Medicine 04/29/23 Andressa Gomez, Duong [address] [place] [address] Pharmacist Internal Medicine 11/25/24 documented as of this encounter
--- OUTSIDE RECORDS SUMMARY | 2025-01-27 16:21 | XMS_ITS | Encounter Summary ---
Author Organization [employer] Address [address] [place] [address] 7[address] [place] [address] Care Team Providers Care Construction Skills Teacher Name Role Phone Kellie Tan MD Primary Care Pro vider Andressa Gomez PharmD Unavailable [phone] Reason for Visit * Reason Comments Med Change Request Encounter Details Date Type Department Care Team ([facility] st Contact Info) Description 04/30/2023 Refill [facility] [address] [place] [address] Sunitha Rod FNP [address] [place] [address] Dept [place] [address] Type 2 diabetes mellitus with diabetic neuropathy, with long-term current use of insulin ([facility]) Social History Tobacco Use Types Packs/Day Years Used Date Smoking Tobacco: Never Smokeless Tobacco: Never Alcohol Use Standard Drinks/Week Comments Never 0 (1 standard drink = 0.6 oz pur e alcohol) Depression Answer Date Recorded Patient Health Questionnaire-9 Score 0 03/25/2023 Depression Answer Date Recorded Patient Health Questionnaire-2 Score 0 03/25/2023 Comments Unknown Sex and Gender Information Value Date Recorded Sex Assigned at Female 08/04/2022 10:40 AM EDT Legal Sex Female 10:40 AM EDT Gender Identity Female 08/04/2022 10:40 AM EDT Sexual Orientation Straight 08/04/2022 10 :40 AM EDT documented as of this encounter Miscellaneous Notes * Telephone Encounter - AUDRYE Ramirez - 06/26/2023 4:12 PM EDT Resolved * Telephone Encounter - Luluradha Riggs - 06/23/2023 11:44 AM EDT Package Collector checked CMM and patient was approved for the Novolin 70/30, pharmacy is aware and will call patient to inform that is ready for black pickler. documented in this encounter Plan of Treatment Upcoming Encounters Date Type Department Care Team (Late st Contact Info) Description 02/08/2025 2:00 PM EDT Medication Management [address] [address] Andressa Gomez PharmD [address] [place] [address] 04/03/2025 2:00 PM EDT Clinical Support [address] [address] 04/05/2025 11:30 AM EDT Office Visit [facility] [address] [place] [address] Kellie Tan MD [address] [place] [address] documented as of this encounter Visit Diagnoses Diagnosis Type 2 diabetes mellitus with diabetic neuropathy, with long-term current use of insulin ([facility]) documented in this encounter Additional Health Concerns Assessment Noted Time PHQ-9 Depression Total Score: 0 03/25/20 23 11:53 AM EDT documented as of this encounter Care Teams Construction Skills Teacher Relationship Specialty Start Date End Date Kellie Tan MD [address] [place] [address] PCP - General Internal Medicine 04/29/23 Andressa Gomez PharmD [address] [place] [phone] Pharmacist Internal Medicine 11/25/24 documented as of this encounter
--- OUTSIDE RECORDS SUMMARY | 2025-01-27 16:21 | XMS_ITS | Encounter Summary ---
Author Organization [facility], Address [address] [place] [address] Phone Care Team Providers Care Lineman A Class Name Role Phone Falguni Gonzalez RN Primary Care Provider Unavaila ble Encounter Details Date Type Department Care Team (Late st Contact Info) Description 07/03/2022 Documentation Only [facility], [address] [place] [address] Tish Escalera [address] [place] [address] Social History Tobacco Use Types Packs/Day Years Used Date Smoking Tobacco: Never Alcohol Use Standard Drinks/Week Comments No 0 (1 standard drink = 0.6 oz pur e alcohol) Comments Unknown Sex and Gender Information Value Date Recorded Sex Assigned at Not on file Legal Sex Female 4:36 PM EST Gender Identity Not on file Sexual Orientation Not on file documented as of this encounter Plan of Treatment Not on file documented as of this encounter Visit Diagnoses Not on filedocumented in this encounter Care Teams Lineman A Class Relationship Specialty Start Date End Date Falguni Gonzalez RN PCP - General Family Medicine 11/09/24 documented as of this encounter
--- OUTSIDE RECORDS SUMMARY | 2025-01-27 16:21 | XMS_ITS | Encounter Summary ---
Author Organization [employer] Address [address] [place] [address] 7t [place] [address] Care Team Providers Care Rough Rice Tender Name Role Phone Kellie Tan MD Primary Care Pro vider Andressa Gomez PharmD Unavailable +- [phone] Encounter Details Date Type Department Care Team (Late st Contact Info) Description 04/14/2024 Orders Only [facility] [address] [place], [place] [phone] Provider, MD Radha Social History Tobacco Use Types Packs/Day Years [...] Description 02/08/2025 2:00 PM EDT Medication Management [facility] MEDICINE [address] [place] [address] Andressa Gomez, PharmD [address] [place] [address] 04/03/2025 2:00 PM EDT Clinical Support [address] [address] 04/05/2025 11:30 AM EDT Office Visit [address] [address] Kellie Tan MD [address] [place] [address] documented as of this encounter Procedures Procedure Name Priority Date/Time Associated Diagnosis Comments HM COLONOSCOPY Routine 01/21/2019 4:25 PM EDT documented in this encounter Results * Hm Colonoscopy (01/21/2019 4:25 PM EDT) us Historical Provider HEALTH MAINTENANCE Final Result documented in this encounter Visit Diagnoses Not on filedocumented in this encounter Additional Health Concerns Assessment Noted Time PHQ-9 Depression Total Score: 0 04/13/20 24 11:25 AM EDT documented as of this encounter Care Teams Rough Rice Tender Relationship Specialty Start Date End Date Kellie Tan MD [address] [place] [address] PCP - General Internal Medicine 04/29/23 Andressa Gomez, AriD [address] [place] [address] Pharmacist Internal Medicine 11/25/24 documented as of this encounter
--- OUTSIDE RECORDS SUMMARY | 2025-01-27 16:21 | XMS_ITS | Encounter Summary ---
Author Organization [employer] Address [address] [place] [address] 7t [place] [address] Care Team Providers Care Mental Health Specialist Name Role Phone Kellie Tan MD Primary Care Pro vider Andressa Gomez PharmD Unavailable [phone] Reason for Visit * Reason Comments Med Refill Encounter Details Date Type Department Care Team (Late st Contact Info) Description 06/30/2024 Refill [facility] MEDICINE [address] [place], [place] [phone] Kellie Tan MD [address] [place], [place] [phone] Type 2 diabetes mellitus with stage 5 chronic kidney disease not on chronic dialysis, with long-term current use of insulin ([facility]) Social History Tobacco Use Types [...] Description 02/08/2025 2:00 PM EDT Medication Management [address] [address] Andressa Gomez, PharmD [address] [place] [address] 04/03/2025 2:00 PM EDT Clinical Support [address] [address] 04/05/2025 11:30 AM EDT Office Visit [address] [address] Kellie Tan MD [address] [place] [address] documented as of this encounter Visit Diagnoses Diagnosis Type 2 diabetes mellitus with stage 5 chronic kidney disease not on chronic dialysis, with long-term current use of insulin ([facility]) documented in this encounter Additional Health Concerns Assessment Noted Time PHQ-9 Depression Total Score: 0 04/13/20 24 11:25 AM EDT documented as of this encounter Care Teams Mental Health Specialist Relationship Specialty Start Date End Date Kellie Tan MD [address] [place] [address] PCP - General Internal Medicine 04/29/23 Andressa Gomez, AriD [address] [place] [address] Pharmacist Internal Medicine 11/25/24 documented as of this encounter
--- OUTSIDE RECORDS SUMMARY | 2025-01-27 16:21 | XMS_ITS | Encounter Summary ---
Author Organization [facility] Address [address] [place] [address] Phone Care Team Providers Care Master Police Detective Name Role Phone Falguni Gonzalez RN Primary Care Provider Luciaa ble Encounter Details Date Type Department Care Team (Late st Contact Info) Description 05/22/2022 Documentation Only [facility], [address] [place] [address] Tish Escalera [address] [place] [address] Social History Tobacco Use Types Packs/Day Years Used Date Smoking Tobacco: Never Alcohol Use Standard Drinks/Week Comments No 0 (1 standard drink = 0.6 oz pur e alcohol) Comments Unknown Sex and Gender Information Value Date Recorded Sex Assigned at Not on file Legal Sex Female 4:36 PM EST Gender Identity Not on file Sexual Orientation Not on file COVID-19 Exposure Response Date Recorded In the last 10 days, have yo u been in contact with someone who was confirmed or suspected to have Coronavirus/COVID-19? No / Unsure 05/09/2022 10:34 AM EDT documented as of this encounter Plan of Treatment Not on file documented as of this encounter Visit Diagnoses Not on filedocumented in this encounter Care Teams Master Police Detective Relationship Specialty Start Date End Date Falguni Gonzalez RN PCP - General Family Medicine 11/09/24 documented as of this encounter
--- OUTSIDE RECORDS SUMMARY | 2025-01-27 16:21 | XMS_ITS | Encounter Summary ---
Author Organization [employer] Address [address] [facility] 7t [place] [address] Care Team Providers Care Camp Manager Name Role Phone Kellie Tan MD Primary Care Pro vider Andressa Gomez PharmD Unavailable +- [phone] Encounter Details Date Type Department Care Team (Late st Contact Info) Description 03/24/2024 Telephone [facility] MEDICINE [address] [place], [place] [phone] Kellie Tan MD [address] [place], [place] [phone] Social History Tobacco Use Types Packs/Day Years Used Date Smoking Tobacco: Never Smokeless Tobacco: Never Alcohol Use Standard Drinks/Week Comments Never 0 (1 standard drink = 0.6 oz pur e alcohol) Depression Answer Date Recorded Patient Health Questionnaire-9 Score 0 03/25/2023 Housing Stability Answer Date Recorded What is [...] Patient Health Questionnaire-2 Score 0 03/25/2023 Comments No Sex and Gender Information Value Date Recorded Sex Assigned at Female 08/04/2022 10:40 AM EDT Legal Sex Female 10:40 AM EDT Gender Identity Female 08/04/2022 10:40 AM EDT Sexual Orientation Straight 08/04/2022 10 :40 AM EDT documented as of this encounter Miscellaneous Notes * Telephone Encounter - Margarette Malhotra RN - 03/24/2024 3:16 PM EDT Referral form faxed to [facility] for GLASS CARRIER evaluation per patient request. documented in this encounter Plan of Treatment Upcoming Encounters Date Type Department Care Team (Late st Contact Info) Description 02/08/2025 2:00 PM EDT Medication Management [facility] MEDICINE [address] [place] [address] Andressa Gomez, PharmD [address] [place] [address] 04/03/2025 2:00 PM EDT Clinical Support [address] [address] 04/05/2025 11:30 AM EDT Office Visit [facility] MEDICINE [address] [place] [address] Kellie Tan MD [address] [place] [address] documented as of this encounter Visit Diagnoses Not on filedocumented in this encounter Additional Health Concerns Assessment Noted Time PHQ-9 Depression Total Score: 0 03/25/20 23 11:53 AM EDT documented as of this encounter Care Teams Camp Manager Relationship Specialty Start Date End Date Kellie Tan MD [address] [place] [address] PCP - General Internal Medicine 04/29/23 Andressa Gomez, AriD [address] [place] [address] [phone] Pharmacist Internal Medicine 11/25/24 documented as of this encounter
--- OUTSIDE RECORDS SUMMARY | 2025-01-27 16:21 | XMS_ITS | Encounter Summary ---
Author Organization [employer] Address [address] [facility] 7t [place] [address] Care Team Providers Care Pairer Inspector Name Role Phone Kellie Tan MD Primary Care Pro vider Andressa Gomez PharmD Unavailable [phone] Reason for Visit * Reason Comments Med Refill Encounter Details Date Type Department Care Team ([facility] st Contact Info) Description 08/22/2024 Refill [facility] MEDICINE [address] [place], [place] [phone] Kellie Tan MD [address] [place], [place] [phone] Type 2 diabetes mellitus with diabetic neuropathy, with long-term current use of insulin ([facility]) Social History Tobacco Use Types [...] Description 02/08/2025 2:00 PM EDT Medication Management [address] [address] Andressa Gomez, PharmD [address] [place] [address] 04/03/2025 2:00 PM EDT Clinical Support [address] [address] 04/05/2025 11:30 AM EDT Office Visit [address] [address] Kellie Tan MD [address] [place] [address] documented as of this encounter Visit Diagnoses Diagnosis Type 2 diabetes mellitus with diabetic neuropathy, with long-term current use of insulin ([facility]) documented in this encounter Additional Health Concerns Assessment Noted Time PHQ-9 Depression Total Score: 0 04/13/20 24 11:25 AM EDT documented as of this encounter Care Teams Pairer Inspector Relationship Specialty Start Date End Date Kellie Tan MD [address] [place] [address] PCP - General Internal Medicine 04/29/23 Andressa Gomez, Duong [address] [place] [address] Pharmacist Internal Medicine 11/25/24 documented as of this encounter
--- OUTSIDE RECORDS SUMMARY | 2025-01-27 16:21 | XMS_ITS | Encounter Summary ---
Author Organization [employer] [facility] Address [address] [place] [address] 7 [place] [address] Care Team Providers Care Douper Name Role Phone Sunitha Rod Primary Care Provider + [phone] Kellie Tan MD Primary Care Pro vider Andressa Gomez PharmD Unavailable [phone] Reason for Visit * Reason Comments Med Refill Encounter Details Date Type Department Care Team (Late st Contact Info) Description 09/25/2022 Refill [facility] MEDICINE [address] [place] [address] Sunitha Rod FNP [address] [place] [address] Dept [place] [address] Type 2 diabetes mellitus with stage 5 chronic kidney disease not on chronic dialysis, with long-term current use of insulin ([facility]) Social History Tobacco Use Types Packs/Day Years Used Date Smoking Tobacco: Never Assessed Comments Unknown Sex and Gender Information Value [...] Description 02/08/2025 2:00 PM EDT Medication Management [facility] MEDICINE [address] [place], [place] [phone] Andressa Gomez, PharmD [address] [place], [place] [phone] 04/03/2025 2:00 PM EDT Clinical Support [address] [address] 04/05/2025 11:30 AM EDT Office Visit [address] [address] Kellie Tan MD [address] [place] [address] documented as of this encounter Visit Diagnoses Diagnosis Type 2 diabetes mellitus with stage 5 chronic kidney disease not on chronic dialysis, with long-term current use of insulin ([facility]) documented in this encounter Care Teams Douper Relationship Specialty Start Date End Date Sunitha Rod FNP PCP - General Family Medicine 03/07/22 04/28/23 Kellie Tan MD [address] [place] [address] PCP - General Internal Medicine 04/29/23 Andressa Gomez, AriD [address] [place] [address] Pharmacist Internal Medicine 11/25/24 documented as of this encounter
--- OUTSIDE RECORDS SUMMARY | 2025-01-27 16:21 | XMS_ITS | Encounter Summary ---
Author Organization [employer] Address [address] [facility] 7t [place] [address] Care Team Providers Care Vocational Technical Education Teacher Name Role Phone Kellie Tan MD Primary Care Pro vider Andressa Gomez PharmD Unavailable +- [phone] Encounter Details Date Type Department Care Team (Latest Contact Info) Description 01/27/2025 Travel Social History Tobacco Use Types Packs/Day Years [...] is your housing situation today? I have binakellie tran 07/21/[address] you [...] t he electric, gas, oil or water [employer] threatened to shut off services in your [...] Description 02/08/2025 2:00 PM EDT Medication Management [address] [address] Andressa Gomez PharmD [address] [place] [address] 04/03/2025 2:00 PM EDT Clinical Support [address] [address] 04/05/2025 11:30 AM EDT Office Visit [address] [address] Kellie Tan MD [address] [place] [address] documented as of this encounter Visit Diagnoses Not on filedocumented in this encounter Additional Health Concerns Assessment Noted Time PHQ-9 Depression Total Score: 0 04/13/20 24 11:25 AM EDT documented as of this encounter Care Teams Vocational Technical Education Teacher Relationship Specialty Start Date End Date Kelile Tan MD [address] [place] [address] PCP - General Internal Medicine 04/29/23 Andressa Gomez PharmD [address] [place] [phone] Pharmacist Internal Medicine 11/25/24 documented as of this encounter
--- OUTSIDE RECORDS SUMMARY | 2025-01-27 16:21 | XMS_ITS | Encounter Summary ---
Author Organization [facility], Address [address] [place] [address] Phone Care Team Providers Care Burr Bench Hand Name Role Phone Falguni Gonzalez RN Primary Care Provider Luciaa ble Encounter Details Date Type Department Care Team (Late st Contact Info) Description 07/09/2022 Documentation Only [facility], [address] [place] [address] Tish Escalera [address] [place] [address] Social History Tobacco Use Types [...] on filedocumented in this encounter Care Teams Burr Bench Hand Relationship Specialty Start Date End Date Falguni Gonzalez RN PCP - General Family Medicine 11/09/24 documented as of this encounter
--- OUTSIDE RECORDS SUMMARY | 2025-01-27 16:21 | XMS_ITS | Encounter Summary ---
Author Organization [employer] Address [address] [facility] 7t [place] [address] Care Team Providers Care Lamp Shade Assembler Name Role Phone Kellie Tan MD Primary Care Pro vider Andressa Gomez PharmD Unavailable [phone] Reason for Visit * Reason Onset Date Comments Memory Evaluation Scheduling 01/27/2025 Encounter Details Date Type Department Care Team (Late st Contact Info) Description 01/27/2025 Telephone [facility] MEDICINE [address] [place], [place] [phone] Abigail Marte RN Memory Evaluation Scheduling Social History Tobacco Use Types Packs/Day Years [...] encounter Miscellaneous Notes * Telephone Encounter - Abigail Marte RN - 01/27/2025 2:44 PM EDT TC placed to pt with [employer] regist[employer] #[id number] and a VM was left to call back the office to schedule amemory evaluation per PCP request * Telephone Encounter - Abigail Marte RN - 01/27/2025 2:32 PM EDT ----- Message from Kellie Diane MD sent at 01/27/2025 2:18 PM EDT ----- Please help pt with memory blanka prior next apt thanks documented in this encounter Plan of Treatment Upcoming Encounters Date Type Department Care Team (Late st Contact Info) Description 02/08/2025 2:00 PM EDT Medication Management [address] [address] Andressa Gomez, PharmD [address] [place] [address] 04/03/2025 2:00 PM EDT Clinical Support [address] [address] 04/05/2025 11:30 AM EDT Office Visit [address] [address] Kellie Tan MD [address] [place], [place] [phone] documented as of this encounter Visit Diagnoses Not on filedocumented in this encounter Additional Health Concerns Assessment Noted Time PHQ-9 Depression Total Score: 0 04/13/20 24 11:25 AM EDT documented as of this encounter Care Teams Lamp Shade Assembler Relationship Specialty Start Date End Date Kellie Tan MD [address] [place] [address] [phone] PCP - General Internal Medicine 04/29/23 Andressa Gomez, AriD [address] [place] [address] [phone] Pharmacist Internal Medicine 11/25/24 documented as of this encounter
--- OUTSIDE RECORDS SUMMARY | 2025-01-27 16:21 | XMS_ITS | Encounter Summary ---
Author Organization [employer] Address [address] [facility] 7t [place] [address] Care Team Providers Care Research Methods Instructor Name Role Phone Kellie Tan MD Primary Care Pro vider Andressa Gomez PharmD Unavailable [phone] Reason for Visit * Reason Comments Med Refill Encounter Details Date Type Department Care Team (Late st Contact Info) Description 12/18/2024 Refill [facility] MEDICINE [address] [place], [place] [phone] Andressa Gomez, PharmD [address] [place], [place] [phone] Essential hypertension Social History Tobacco Use Types Packs/Day Years [...] Description 02/08/2025 2:00 PM EDT Medication Management [address] [address] Andressa Gomez, PharmD [address] [place] [address] 04/03/2025 2:00 PM EDT Clinical Support [address] [address] 04/05/2025 11:30 AM EDT Office Visit [address] [address] Kellie Tan MD [address] [place] [address] documented as of this encounter Visit Diagnoses Diagnosis Essential hypertension Unspecified essential hypertension documented in this encounter Additional Health Concerns Assessment Noted Time PHQ-9 Depression Total Score: 0 04/13/20 24 11:25 AM EDT documented as of this encounter Care Teams Research Methods Instructor Relationship Specialty Start Date End Date Kellie Tan MD [address] [place] [address] PCP - General Internal Medicine 04/29/23 Andressa Gomez, AriD [address] [place] [address] Pharmacist Internal Medicine 11/25/24 documented as of this encounter
== END 2025-01-27 16:18 | disposition home or self-care (01) ==
LOC: HO.HHCX 16:17
PROVIDERS: Visit Provider Student in an Organized Health Care Education/Training Program
DX: L98.9 Disorder of the skin and subcutaneous tissue, unspecified (principal)
CPT/HCPCS: 73630

== ENCOUNTER → 2025-01-27 16:17 | Outpatient (BNV) | payer OTHER, SELFPAY | PROVIDERS: Visit Provider Radiology Diagnostic Radiology | DX: M19.072 Primary osteoarthritis, left ankle and foot (principal); M77.32 Calcaneal spur, left foot | CPT/HCPCS: 73630 ==

== ENCOUNTER 2025-02-20 11:01 | Outpatient (AMB) | payer OTHER, SELFPAY ==
--- NOTE | 2025-02-20 11:04 | A.OFFVIS_ITS ---
Vital Signs 02/20/25 11:08 Height 5 ft 4 in Weight 179 lb BMI 30.7 BP 158/66 H Blood Pressure Location Lt brachial Position Sitting Pulse 76 Pulse Oximetry (%) 100 Oxygen Delivery Method Room Air Intake Visit Reasons: colo screening Intake Note: Patient new consult for 2nd pre colonoscopy screening. Patient denies any GI issues. Pharmacy Services Representative Required: Yes Pharmacy Services Representative Name: [facility] Accompanied by: Spouse Allergies No Known Allergies Allergy (Verified 02/20/25 11:04) HPI HPI colo screening: Details: 69 year old? female with past medical history of hyperlipidemia, diabetes, hypertension, GERD, anemia, CKD is here today for pre colonoscopy screening.? Patient was sent to us by her PCP.? Last colonoscopy 8 years ago, patient reports that it was not normal colonoscopy. Patient denies any g astrointestinal symptoms in the past or at present.? Patient is currently on omeprazole for GERD. Denies any GI concerning symptoms at this time. Patient has will started dialysis couple years ago on Tuesdays, and Saturdays. Denies any personal or family history of gastrointestinal disease, colon polyps, or CRC.? Denies history of difficulty with sedation or anesthesia in the past.? Negative for history of sleep apnea.? Denies any history of cardiac, pulmonary, or hepatic disease.?? No history of infectious? diseases like hepatitis A, B, C, HIV or tuberculosis.? Patient is not on any anticoagulation [facility] Medical History Anemia due to chronic kidney disease CHF (congestive heart failure) CKD (chronic kidney disease) CKD stage 5 secondary to hypertension CKD (chronic kidney disease), stage V 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 2 diabetes mellitus Chronic kidney disease Hyperlipidemia Diabetes mellitus Hypertension Social History Household Members: Spouse Housing: Apartment Do you presently have visiting nurse or other home services: No Alcohol intake: never Patient Tobacco Use Status: Never used Tobacco service: No Current occupational status: unemployed Review of Systems Const Denies weight gain and Denies weight loss ENT Reports no additional complaints, Denies dysphagia and Denies odynophagia Card Reports no additional complaints Resp Reports no additional complaints GI Denies abdominal pain, Denies belching, Denies melena, Denies bloating, Denies change in bowel habits, Denies dysphagia, Denies excessive flatus, Denies dyspepsia, Denies heartburn, Denies diarrhea, Denies loose stools, Denies nausea, Denies odynophagia and Denies vomiting Musc Reports no additional complaints Neuro Reports no additional complaints Psych Reports no additional complaints Endo Reports no additional complaints Physical Exam Vital Signs: Last Vital Signs Pulse 76 02/20/25 11:08 BP 158/66 H 02/20/25 11:08 Pulse Ox 100 02/20/25 11:08 Oxygen Delivery Method Room Air 02/20/25 11:08 BMI result Body Mass Index 30.7 Const General: healthy appearing, no acute distress and well developed Nutritional Appearance: well nourished Orientation/consciousness: patient oriented x3 Resp Effort & Inspection: normal respiratory effort, able to speak in complete sentences, no tracheal deviation and symmetric chest movement Auscultation: clear to auscultation bilaterally Cardio Rate: regular rate GI Inspection: Yes normal to inspection and No distended Palpation (GI): Soft to palpation, not firm, nontender and No hepatosplenomegaly present Auscultation: normal bowel sounds General: Yes no CVA tenderness Back/Spine/Pelvis Back: no CVA tenderness Skin General skin exam: elasticity normal, turgor normal and dry skin Neuro General: patient oriented x3 Psych Appearance: grossly normal Mental Status: mental status grossly normal Assessment & Plan Assessment & Plan (1) Screen for colon cancer: Code(s): Z12.11 - Encounter for screening for malignant neoplasm of colon Plan Patient denies any GI, cardiac or respiratory symptoms.? Denies any issues with anesthesia in the past.? Denies any history of sleep apnea.? No history infectious diseases in the past or present.? Not on any anticoagulation therapy.? No family or personal history of colon cancer or polyps.? Patient denies melena, hematochezia, unintentional weight loss or ribbon like stools.? Discussed at length the pre-procedure,? prep, diet & medications as well as what to expect prior, during and after the procedure.?? Stressed the importance of good bowel prep.? Recommended the use of Vaseline or Calmoseptine OTC & baby wipes with bowel movements to promote comfort.? ?Patient verbalizes understanding and agrees to plan of care.? She was given the opportunity to ask questions and all questions answered.? We will see her after the procedure.? Medications: New bisacodyl (Dulcolax (bisacodyl)) take 4 tabs at noon the day before your colonoscopy 20 mg (4 x 5 mg) PO ONCE 4 tabs 0RF 1 day Z12.11 - Encounter for screening for malignant neoplasm of colon polyethylene glycol 3350 (Miralax) As directed by gastroenterology department at [facility] 238 grams PO ONCE 238 grams 0RF Z12.11 - Encounter for screening for malignant neoplasm of colon Coding Level of Care Code New Pt Level 3 (71294) Diagnoses Screen for colon cancer Z12.11 Time Spent (min) 40 Comment 30 minutes spent with patient and additional 10 minutes spent reviewing her records
[2025-02-20 11:08] VITALS: BP 158/66; PULSE 76; O2SAT 100; BMI 30.7
--- OUTSIDE RECORDS SUMMARY | 2025-02-20 11:47 | XMS_ITS | Encounter Summary ---
Author Organization [employer] Address [address] [place] [address] [address] [place] [address] Care Team Providers Care Crocheter Hand Name Role Phone Kellie Tan MD Primary Care Pro vider Andressa Gomez PharmD Unavailable [phone]- [phone] Reason for Visit * Reason Comments Med Refill Encounter Details Date Type Department Care Team (Late st Contact Info) Description 08/22/2024 Refill [facility] MED[facility]INE [address] [place], [place] [phone] Kellie Tan MD [address] [place] [address] Type 2 diabetes mellitus with diabetic neuropathy, with long-term current use of insulin ([facility]) Social History Tobacco Use Types Packs/Day Years [...] Care Team (Late st Contact Info) Description 03/08/2025 2:00 PM EDT Medication Management [address] [address] Andressa Gomez, PharmD [address] [place] [phone] 04/03/2025 2:00 PM EDT Clinical Support [address] [address] 04/05/2025 11:30 AM EDT Office Visit [address] [address] Kellie Tan MD [address] [place] [phone] documented as of this encounter Visit Diagnoses Diagnosis Type 2 diabetes mellitus with diabetic neuropathy, with long-term current use of insulin ([facility]) documented in this encounter Additional Health Concerns Assessment Noted Time PHQ-9 Depression Total Score: 0 04/13/20 24 11:25 AM EDT documented as of this encounter Care Teams Crocheter Hand Relationship Specialty Start Date End Date Kellie Tan MD [address] [place] [phone] PCP - General Internal Medicine 04/29/23 Andressa Gomez, AriD [address] [place] [address] [place] [address] Pharmacist Internal Medicine 11/25/24 documented as of this encounter
--- OUTSIDE RECORDS SUMMARY | 2025-02-20 11:47 | XMS_ITS | Encounter Summary ---
Author Organization [email or web address] Address [address] [place] [address] 7[address] [place] [address] Care Team Providers Care Laborer High Density Press Name Role Phone Kellie Tan MD Primary Care Pro vider Andressa Gomez PharmD Unavailable [phone]- [phone] Reason for Visit * Reason Comments Med Refill Encounter Details Date Type Department Care Team (Late st Contact Info) Description 06/30/2024 Refill [facility] MED[facility]INE [address] [place], [place] [phone] Kellie Tan MD [address] [place], [place] [phone] Type 2 diabetes mellitus with stage 5 chronic kidney disease not on chronic dialysis, with long-term current use of insulin ([facility]) Social History Tobacco Use Types Packs/Day Years [...] Description 03/08/2025 2:00 PM EDT Medication Management [address] [address] Andressa Gomez, PharmD [address] [place] [phone] 04/03/2025 2:00 PM EDT Clinical Support [address] [address] 04/05/2025 11:30 AM EDT Office Visit [address] [address] Kellie Tan MD [address] [place] [phone] documented as of this encounter Visit Diagnoses Diagnosis Type 2 diabetes mellitus with stage 5 chronic kidney disease not on chronic dialysis, with long-term current use of insulin ([facility]) documented in this encounter Additional Health Concerns Assessment Noted Time PHQ-9 Depression Total Score: 0 04/13/20 24 11:25 AM EDT documented as of this encounter Care Teams Laborer High Density Press Relationship Specialty Start Date End Date Kellie Tan MD [address] [place] [id number] PCP - General Internal Medicine 04/29/23 Andressa Gomez, AriD [address] [place] [phone] Pharmacist Internal Medicine 11/25/24 documented as of this encounter
--- OUTSIDE RECORDS SUMMARY | 2025-02-20 11:47 | XMS_ITS | Encounter Summary ---
Author Organization [facility], Address [address] [place] [address] Phone Care Team Providers Care Hat Block Bench Hand Name Role Phone Falguni Gonzalez RN Primary Care Provider Luciaa ble Encounter Details Date Type Department Care Team (Late st Contact Info) Description 07/09/2022 Documentation Only [facility], [address] [place] [address] Tish Escalera [address] [place] [address] Social History Tobacco Use Types [...] on filedocumented in this encounter Care Teams Hat Block Bench Hand Relationship Specialty Start Date End Date Falguni Gonzalez RN PCP - General Family Medicine 11/09/24 documented as of this encounter
--- OUTSIDE RECORDS SUMMARY | 2025-02-20 11:47 | XMS_ITS | Encounter Summary ---
Author Organization [employer] Address [address] [facility] [address]t [place] [address] Care Team Providers Care Blower Room Attendant Name Role Phone Kellie Tan MD Primary Care Pro vider Andressa Gomez PharmD Unavailable [phone] Reason for Visit * Reason Comments Med Refill Encounter Details Date Type Department Care Team (Late st Contact Info) Description 12/18/2024 Refill [facility] MED[facility]INE [address] [place], [place] [phone] Andressa Gomez, PharmD [address] [place] [address] Essential hypertension Social History Tobacco Use Types [...] Description 03/08/2025 2:00 PM EDT Medication Management [address] [address] Andressa Gomez, PharmD [address] [place] [phone] 04/03/2025 2:00 PM EDT Clinical Support [address] [address] 04/05/2025 11:30 AM EDT Office Visit [address] [address] Kellie Tan MD [address] [place] [phone] documented as of this encounter Visit Diagnoses Diagnosis Essential hypertension Unspecified essential hypertension documented in this encounter Additional Health Concerns Assessment Noted Time PHQ-9 Depression Total Score: 0 04/13/20 24 11:25 AM EDT documented as of this encounter Care Teams Blower Room Attendant Relationship Specialty Start Date End Date Kellie Tan MD [address] [place] [phone] PCP - General Internal Medicine 04/29/23 Andressa Gomez, AriD [address] [place] [phone] Pharmacist Internal Medicine 11/25/24 documented as of this encounter
--- OUTSIDE RECORDS SUMMARY | 2025-02-20 11:47 | XMS_ITS | Clinical Summary ---
Author Organization [employer] Address [address] [place] [address] 7[address] [place] [address] Care Team Providers Care Skein Winder Name Role Phone Kellie Tan MD Primary Care Pro vider Andressa Gomez PharmD Unavailable [phone] Allergies No known active allergies Medications Blood Glucose Monitoring Suppl (OneTouch Verio) w/Device kitIndications:T ype 2 diabetes mellitus with diabetic neuropathy, with long-term current use of insulin (CMS/[facility]) 1 kit 3 times daily. 1 kit 024 Active calcium acetate (Phoslo) 667 MG capsule Take 667 mg by mouth with breakfast, with lunch, and with evening meal. Active Alcohol Swabs (Alcohol Pads) 70 % pads Use as directed on skin 100 each 11 024 Active lisinopril 20 MG tablet Take 20 mg by mouth Once per day. Active glucose blood (OneTouch Verio) test stripIndications :Type 2 diabetes mellitus with stage 5 chronic kidney disease not on chronic dialysis, with long-term current use of insulin (CMS/HCC) 4 times a day 100 strip 11 Active Lancets (SquareknotTouch Delica Plus [id number]) miscIndications: Type 2 diabetes mellitus with stage [...] PATIENT DOES NOT RESPOND. 2 each 1 Active atorvastatin (Lipitor) 40 MG tablet TAKE 1 TABLET BY MOUTH EVERY MORNING 90 tablet Active glucose 4 g chewable tablet CHEW 4 TABLETS BY MOUTH AT ONSET OF LOW BLOOD SUGAR, WAIT 15 MINUTES, THEN TEST BLOOD SUGAR, IF BLOOD SUGAR < 70 REPEAT AND EAT NEEDED 90 tablet 1 025 Active epoetin feli (Epogen) 47373 UNIT/ML injection as directed SQ every 2 weeks for 90 days Active omeprazole (PriLOSEC) [address] capsuleIndicatio ns:Gastroesophag eal reflux disease without esophagitis TAKE 1 CAPSULE BY MOUTH EVERY MORNING 90 capsule 1 Active insulin syringe-needle U-100 (BD Insulin Syringe U/F 10/06Unit) 31G X 5/16 0.3 mL miscIndications: Type 2 diabetes mellitus with stage 5 chronic kidney disease not on chronic dialysis, with long-term current use of insulin (CMS/HCC) Use with insulin administration two times daily 100 each 3 025 Active insulin NPH-insulin regular (NovoLIN 70/30) (70-30) 100 UNIT/ML injectionIndicat ions:Type 2 diabetes mellitus with diabetic neuropathy, with long-term current use of insulin (CMS/HCC) Inject 20 units subcutaneously every morning before breakfast and 18 units every evening before dinner. 10 mL 3 025 Active B Uxsxtqt-H-Jdjou Acid (Mindy-Mert) tablet Take 1 tablet by mouth Once per day. 30 tablet 2 Active carvedilol (Coreg) 12.5 MG tablet Take 1 tablet (12.5 mg) by mouth 2 times daily. 180 tablet 025 Active carvedilol (Coreg) 12.5 MG tablet Take 12.5 mg by mouth 2 times daily. 024 2024 Discontinued(R eorder (will not trigger notification to Pharmacy)) omeprazole (PriLOSEC) [address] capsuleIndicatio ns:Gastroesophag eal reflux disease without esophagitis TAKE 1 CAPSULE BY MOUTH BEFORE A MEAL 90 capsule 1 024 2024 Discontinued insulin syringe-needle U-100 (BD Insulin Syringe U/F 2Unit) 31G X 5/16 0.3 mL miscIndications: Type 2 diabetes mellitus with stage 5 chronic kidney disease not on chronic dialysis, with long-term current use of insulin ([facility]) Use 4 times a day with Lantus and Novolog 100 each 11 024 2024 Discontinued B Betucvp-F-Kcvif Acid (Mindy-Mert) tablet Take 1 tablet by mouth Once per day. 30 tablet 1 025 2024 Discontinued(R eorder (will not trigger notification to Pharmacy)) ondansetron ODT (Zofran-ODT) 4 MG disintegrating tablet DISSOLVE 1 TABLET ON TONGUE EVERY 6 TO 8 HOURS NEEDED FOR NAUSEA AND VOMITING 025 2024 Discontinued(O ther) insulin NPH-insulin regular (NovoLIN 70/30) (70-30) 100 UNIT/ML injectionIndicat ions:Type 2 diabetes mellitus with diabetic neuropathy, with long-term current use of insulin ([facility]) Inject 20 units subcutaneously every morning before breakfast and 14 units every evening before dinner. 025 2024 Discontinued Hospital, Clinic, or Other Facility Administered Medication Ordered Dose Route Frequency Start Date End Date Status cloNIDine (Catapres) tablet 0.1 mgIndications:Hypertension, unspecified type 0.1 mg PO Once 01/27/2025 01/27/2025 Ended Active Problems Problem Noted Date Diagnosed Date Hypertensive urgency 01/27/2025 [place] of toe 12/23/2024 Poor memory 08/18/2024 Health care maintenance 02/24/2024 Obesity (BMI 30-39.9) 02/24/2024 Heart murmur 02/24/2024 Family history of cancer 02/24/2024 CHF (congestive heart failure) 03/20/2023 Overview (04/07/2023): New onset CHF, diagnosed at [facility] during admission 03/15/23 Unknown if have cardiology [...] (04/29/2023): ESRD, started dialysis [facility] [place] Intaking too much fluid in between dialysis [...] pt to follow fluid intake recommendations Called [employer] and notified of starting dialysis. Will continue [...] will bring paperwork from eye doctor to [facility] medical records Will rx Novolin 70/30 again and see if approved by insurance now. If not will call for a PA F/u 3 months or sooner PRN with new PCP Encounters Date Type Department Care Team Description 02/14/[address] [address] Kellie Tna MD Med Refill 02/09/[address] [address] Kellie Tan MD 02/08/2025 Travel 02/06/2025 Telephone [facility] [address] [place] [address] Gerda Villalobos MD Results 02/03/[address] [address] Abigail Marte RN Results 01/27/2025 1:00 PM EDT Office Visit [address] [address] Kellie Tan MD Breast cancer screening by mammogram (Primary Dx); Dietary counseling; Exercise counseling; CKD stage 5 secondary to hypertension ([facility]/HCC); Chronic congestive heart failure, unspecified heart failure type (CMS/HCC); Osteoporosis screening; Foot lesion; Cardiac murmur; Hypertension, unspecified type; Type 2 diabetes mellitus with diabetic neuropathy, with long-term current use of insulin ([facility]); Essential hypertension; Heart murmur; [place] of toe; Poor memory; Health care maintenance; Hypertensive urgency 01/27/2025 Telephone [facility] [address] [place] [phone] Abigail Marte RN Memory Evaluation Scheduling 01/27/2025 Travel 01/25/2025 Refill [facility] [address] [place] [address] Nicole Peralta MD Gastroesophageal reflux disease without esophagitis 01/20/2025 Telephone [facility] [address] [place] [address] Kellie Tan MD Med Refill 01/11/2025 Travel 01/03/2025 Orders Only GENERIC EXTERNAL DATA DEPARTMENT Provider, Generic External Data 12/29/2024 Refill [facility] [address] [place] [address] Kellie Tan MD 12/23/2024 11:15 AM EDT Office Visit [facility] [address] [place] [address] Keya Alanis CNP [place] of toe (Primary Dx); Type 2 diabetes mellitus with diabetic neuropathy, with long-term current use of insulin ([facility]) 12/23/2024 Travel 12/22/[address] [address] Kellie Tan MD Chart Prep 12/20/2024 Telephone [facility] [address] [place] [address] Kellie Tan MD Referral 12/18/2024 Refill [facility] [address] [place] [address] Andressa Gomez, PharmD Essential hypertension 11/25/2024 Travel 11/24/[address] [address] Kellie Tan MD January recall from Last 3 Months Immunizations Immunization Administration Dates Next Due Moderna Covid-19 Vaccine [...] Sign Reading Time Taken Comments Blood Pressure 118/50 02/08/2025 2:07 PM EDT Pulse 62 02/08/2025 2:07 PM EDT Temperature 35.4 ??C (95.7 ??F) [...] Description 03/08/2025 2:00 PM EDT Medication Management [address] [address] Andressa Gomez, PharmD [address] [place] [phone] 04/03/2025 2:00 PM EDT Clinical Support [address] [phone] 04/05/2025 11:30 AM EDT Office Visit [address] [address] Kellie Tan MD [address] [place] [phone] Health Maintenance Due Date Last Done Comments CT Colonography 1955 FIT DNA/Cologuard 1955 FIT 1955 FOBT 1955 Sigmoidoscopy 1955 Eye Exam 1964 RSV Patients and Patients Aged 60 years or older (1 - Risk 60-74 years 1-dose series) 2014 Zoster Vaccines (2 of 2) 07/31/2022 06/05/2022, 09/0 10/2021 Influenza Vaccine (#1) 2024 COVID-19 Vaccine ( season) 2024 05/04/2024, 02/15/2021, 01/19/2021 SDOH Screening 02/15/2025 02/16/2024 Diabetes: Hemoglobin A1C 03/25/202512/23/2 025, 11/25/2024, 08/12/2024, Additional history exists Lipid Panel 04/11/2025 04/11/2024, 02/28/2022 Depression Screening 04/13/2025 04/13/2024, 04/13/20 Mammogram 07/29/2025 07/29/2023, 05/06, 11/15/2018, Additional history [...] patient's age to complete this topic Meningococcal B Vaccine Aged Out No l onger eligible based on patient's age to complete [...] Procedure Name Priority Date/Time Associated Diagnosis Comments XR FOOT 3+ VIEWS LEFT Routine 01/27/2025 4:17 PM EDT Foot lesion ECG 12-LEAD Routine 01/27/2025 3:31 PM EDT Hypertension, unspecified type POCT GLUCOSE Routine 01/27/2025 2:54 PM EDT Type 2 diabetes mellitus with diabetic neuropathy, with long-term current use of insulin ([facility]) CBC WITH AUTO DIFFERENTIAL Routine 01/03/2025 2:21 AM EDT SARS COV2/INFLUENZA A/B AND RSV RNA QL NAAT Routine 01/03/2025 2:21 AM EDT GLUCOSE, WHOLE BLOOD Routine 01/03/2025 1:50 AM EDT POCT GLUCOSE Routine 12/23/2024 11:13 AM EDT Type 2 diabetes mellitus with diabetic neuropathy, with long-term current use of insulin ([facility]) POCT GLYCATED HEMOGLOBIN, TOTAL Routine 12/23/2024 11:13 AM EDT Type 2 diabetes mellitus with diabetic neuropathy, with long-term current use of insulin ([facility]) POCT GLYCATED HEMOGLOBIN, TOTAL Routine 11/25/2024 2:22 PM EST Type 2 diabetes mellitus with diabetic neuropathy, with long-term current use of insulin ([facility]) LIPID PANEL, STANDARD Routine 04/11/2024 8:36 AM [...] Recently Relevant to Health Maintenance Results * XR Foot 3+ Views Left (01/27/2025 4:17 PM EDT) Anatomical Region Laterality Modality Lower Extremities, Foot Left Radiogra phic Imaging 01/27/2025 4:17 PM EDT Narrative 01/30/2025 8:11 AM EDT ?[facility] ?[address] ?[place] [address] ?XRay Report ? Signed ? Patient: Stephanie Anthony ?MR#: [id number] ?? 4 ? : 1955 ?Acct:[id number] ? Age/Sex: 69 / F ?ADM Date: 01/27/25 ? Loc: HO.HHCX ? Attending Dr: Kellie Diane MD ? Ordering Physician: Kellie Tan MD ?? Date of Service: 01/27/25 ?? Procedure(s): XR foot LT min 3V ?? Accession Number(s): [id number] ? cc: Kellie Tan MD ? EXAMINATION: ?? XR FOOT, LEFT ? CLINICAL INFORMATION: ?? left foot ??2nd toe discooration and growth; diabetic. ? COMPARISON: ?? None available. ? TECHNIQUE: ?? AP, lateral, and oblique views of the left foot. ? FINDINGS: ?? No fracture, dislocation, or suspicious bone lesion. No erosive bony ?? changes. Specifically, the second digit appears normal. ? Normal bony alignment. Normal plantar arch. ?? Large dorsal and plantar calcaneal spurs. ?? Mild arthritic changes in the intertarsal joints. ? Soft tissues demonstrate diffuse vascular calcifications. ? XR/XR foot LT min 3V ?? IMPRESSION: ?? 1. No acute bony abnormality. Specifically, the second digit has a ?? normal appearance. ?? 2. Arthritic changes with large plantar and dorsal calcaneal spurs. ?? 3. Diffuse vascular calcifications. ? Electronically signed by: ??Daniel Erazo MD ??01/30/2025 08:08 AM EDT RP ? Dictated By: ?Daniel Erazo MD ? Signed By: ?<Electronically signed by Daniel Erazo MD in OV> ?01/30/25 0808 ? DD/ 1617 ? TD/TT: 01/27/25 1620 ? Machine Heel Seat Laster: ? Procedure Note Donotuseinterpreter, Image - 01/30/[address] [address] XRay Report Signed Patient: Stephanie AnthonyMR#: [id number] 4 : 5Acct:[id number] Age/Sex: 69 / FADM Date: 01/27/25 Loc: HO.HHCX Attending Dr: Kellie Diane MD Ordering Physician: Kellie Tan MD Date of Service: 01/27/25 Procedure(s): XR foot LT min 3V Accession Number(s): [id number] cc: Kellie Tan MD EXAMINATION: XR FOOT, LEFT CLINICAL INFORMATION: left foot 2nd toe discooration and growth; diabetic. COMPARISON: None available. TECHNIQUE: AP, lateral, and oblique views of the left foot. FINDINGS: No fracture, dislocation, or suspicious bone lesion. No erosive bony changes. Specifically, the second digit appears normal. Normal bony alignment. Normal plantar arch. Large dorsal and plantar calcaneal spurs. Mild arthritic changes in the intertarsal joints. Soft tissues demonstrate diffuse vascular calcifications. XR/XR foot LT min 3V IMPRESSION: 1. No acute bony abnormality. Specifically, the second digit has a normal appearance. 2. Arthritic changes with large plantar and dorsal calcaneal spurs. 3. Diffuse vascular calcifications. Electronically signed by: Daniel Erazo MD 01/30/2025 08:08 AM EDT Dictated By: Daniel Erazo MD Signed By: <Electronically signed by Daniel Erazo MD in OV> 01/30/25 0808 DD/ 1617 TD/TT: 01/27/25 1620 Machine Heel Seat Laster: us Kellie Diane MD IMG XR PROCEDURES Final Result * ECG 12 lead (01/27/2025 3:31 PM EDT) Narrative Kellie Tan MD - 01/27/2025 3:31 PM EDT -EKG today HR 63x', QTc 463 ,NSR,no ischemic changes Kellie Diane MD ECG ORDERABLES F inal Result * (ABNORMAL) POCT glucose manually resulted (01/27/2025 2:54 PM EDT) Only the most recent of2 resultswithin the time period is included. Glucose Blood, POC 238(A) 60 - 200 mg/dL QC Media Lot # [id number] Lot# Expiration Date Blood Capillary blood specimen / Unknown 01/27/2025 2:54 PM EDT Result [facility] Kellie Diane MD POINT OF CARE JOAQUINA T ENTER/EDIT ORDERABLES Final Result * SARS-CoV-2 RNA, Influenza A/B, and RSV RNA, Ql NAAT (01/03/2025 2:21 AM EDT) [facility] Influenza A PCR NEGATIVE Negative [facility] Influenza B PCR NEGATIVE Negative [facility] Resp Syncy Virus RNA Qual PCR NEGATIVE Negative [facility] SARS COV2 PCR NEGATIVE Negative [facility] Comment:All test results mus t be [...] use by authorized laboratories.Testing performed on the [employer] GeneXpert utilizingreal-time RT-PCR.All SARS CoV2 and positive influenza A/B results arereported to [facility]. 01/03/2025 2:21 AM EDT 01/03/2025 2:34 AM EDT Generic External Data Provider LAB MICROBIOLOGY - GENERAL ORDERABLES Final Result [facility] [address] [place], [place] [phone] * (ABNORMAL) CBC auto differential (01/03/2025 2:21 AM EDT) White Blood Count 6.4 4.8 - 10.8 X10*3/uL [facility] Red Blood Count 3.43(L) 4.20 - 5.50 X10*6/uL [facility] Hemoglobin 11.0(L) 12.0 - 16.0 g/dl [facility] Hematocrit 33.5(L) 37.0 - 47.0 % [facility] Mean Corpuscular Volume 97.7 80.0 - 98.0 fL [facility] Mean Corpuscular Hemoglobin 32.1 27.0 - 33.0 pg [facility] Mean Corpuscular HGB Conc 32.8 31.0 - 35.0 g/dl [facility] Red Cell Distribution Width 14.6 11.0 - 16.0 % [facility] Platelet Count 128(L) 160 - 400 X10*3/uL [facility] Mean Platelet Volume 11.4 9.4 - 12.3 fL [facility] Neutrophils Percent Auto 73.9(H) 45 - 73 % [facility] Imm Gran Pct Auto 0.8(H) 0.0 - 0.4 % [facility] Lymphocytes Percent Auto 13.6(L) 20 - 40 % [facility] Monocytes Percent Auto 8.0 2 - 11 % [facility] Eosinophils Percent Auto 3.1 0 - 4 % [facility] Basophils Percent Auto 0.6 0 - 2 % [facility] NRBC Pct Auto 0.0 0.0 - 0.2 /100WBC [facility] Neutrophils Absolute Auto 4.7 2.0 - 8.3 x10*3/uL [facility] Imm Gran Abs Auto 0.05(H) 0.00 - 0.03 X10*3/uL [facility] Lymphocytes Absolute Auto 0.9(L) 1.2 - 4.9 X10*3/uL [facility] Monocytes Absolute Auto 0.5 0.1 - 1.2 X10*3/uL [facility] Eosinophils Absolute Auto 0.2 0.0 - 0.4 X10*3/uL [facility] Basophils Absolute Auto 0.0 0.0 - 0.2 X10*3/uL [facility] NRBC Abs Auto 0.000 0.0 - 0.012 X10*3/uL [facility] 01/03/2025 2:21 AM EDT 01/03/2025 2:26 AM EDT Generic External Data Provider LAB BLOOD ORDERAB LES Final Result Performing Organization Address City/[facility]/ZIP Co de Phone Number [facility] [address] [place] [phone] * (ABNORMAL) Glucose, Whole Blood (01/03/2025 1:50 AM EDT) Glucose, Whole Blood 159(H) 60 - 115 mg/dL [facility] Comment:METER #: [id number] 01/03/2025 1:50 AM EDT 01/03/2025 4:23 AM EDT Generic External Data Provider LAB BLOOD ORDERAB LES Final Result Performing Organization Address City/[facility]/ZIP Co de Phone Number [facility] [address] [place] [phone] * (ABNORMAL) POCT HGB A1C (12/23/2024 11:13 AM EDT) Only the most recent of2 resultswithin the time period is included. Hemoglobin A1C 9.5(A) 4.0 - 6.0 % QC Media Lot # [id number] Lot# Expiration Date [id number] Blood 12/23/2024 11:1 3 AM EDT [facility] POINT OF CARE TEST ENTER/ EDIT ORDERABLES Final Result * (ABNORMAL) Lipid Panel, Standard (04/11/2024 8:36 AM EDT) Triglycerides 121 <150 mg/dL [facility] Comment:Desirable Triglyceri de: less than 150 mg/dLBorderline High Triglyceride 150-199 mg/dLHigh Triglyceride: 200-499 mg/dLVery High Triglyceride: greater than or equal to 5OO mg/dL Cholesterol 139 <200 mg/dL [facility] Comment:Desirable Cholestero l: less than 200 mg/dLBorderline High Cholesterol: 200-239 mg/dLHigh Cholesterol: greater than 239 mg/dL LDL Cholesterol Calculated 79 <100 mg/dL [facility] Comment:Desirable LDL: less than 100 mg/dLNear Optimal/Above Optimal LDL: 110- 129 mg/dLBorderline High LDL: 130-159 mg/dLHigh LDL: 160-189 mg/dLVery High LDL: greater than or equal to 190 mg/dL HDL Cholesterol 36(L) >40 mg/dL [facility] Comment:Desirable HDL: great er than 40 mg/dL Note: This HDL assay may give artificially low results in patients with liver disease. Blood Venous blood specimen / Unknown 04/11/2024 8:36 AM EDT 04/11/2024 10:51 AM EDT Kellie Diane MD LAB BLOOD ORDERAB LES Final Result [facility] [address] [place] [phone] * Hepatitis C Antibody with Reflex to HCV, RNA, Quantitative, Real-Time PCR (04/11/2024 8:34 AM EDT) Hepatitis C Antibody Nonreactive Nonreactive [facility] Comment:Antibodies to HCV no t detected; does not exclude early acuteHCV infection. Blood Venous blood specimen / Unknown 04/11/2024 8:34 AM EDT 04/11/2024 10:51 AM EDT us Kellie Diane MD LAB BLOOD ORDERAB LES Final Result Performing Organization Address [facility]/ZIP Co de Phone Number [facility] [address] [place] [phone] * HPV mRNA E6/E7 w/Reflex to HPV Genotypes 16, 18/45 (12/02/2023 9:45 AM EST) HPV nRNA E6/E7 Not Detected Not Detected [facility] Comment:Methodology: Transcr iption-Mediated AmplificationThis assay detects E6/E7 viral messenger RNA (mRNA) from 14high-risk HPV types (16,18,31,33,35,39,45,51,52,56,58,59,66,68).Cervical sources are required for HPV testing.If a vaginal source from a patient who has had atotal hysterectomy with removal of cervix wassubmitted, please contact the testing laboratoryfor alternative testing options.For additional information, please refer [email or web address](This link if provided for information/educational purposes only.)THIS TEST WAS PERFORMED AT:[facility] [place] [phone] JUAN MD HPV mRNA E6/E7 TNP [facility] HPV 16 RNA [facility] HPV 18/45 RNA [facility] 12/02/2023 9:45 AM EST 12/03/2023 10:00 AM EST us Trinity Smith CNM LAB CYTOLOGY ORDERABLES F inal Result Performing Organization Address City/[facility]/ZIP Co de Phone Number [facility] [address] [place] [phone] * Pap Smear (12/02/2023 9:45 AM EST) Swab Cervix uteri structure / Unknown 12/02/2023 9:45 AM EST 12/03/2023 10:00 AM EST Narrative [facility] - 12/16/2023 4:14 PM EDT ----- ------- Name: Stephanie Anthony ?Age/Sex: 68/F ? : 1955 Unit#: [id number] ?? Attend Dr: TRINITY SMITH CNM ?Re12/02/23 ?Status: DEP REF ? Location: HO.HHCLNP ? Disch: ? ----- ------- SPEC : [id number] ? RECD: 12/03/23-1000 ? STATUS: ??SOUT ? REQ NUM: [id number] ? EARLENE: 12/02/23-944 ? SUBM DR: TRINITY SMITH CNM ? ENTERED: ??12/03/23-1150 ?SP TYPE: Pap Smr ?OTHR : ? ORDERED: ??Pap Smear ? Interpretation ?? Satisfactory for evaluation. ?? Negative for intraepithelial lesion or malignancy. ?HPV mRNA E6/E7: ?NOT DETECTED ? This assay detects E6/E7 viral messenger RNA (mRNA) from 14 high-risk HPV types (16, 18, ?? 31, 33, 35, 39, 45, 51, 52, 56, 58, 59, 66, 68) ?? HPV testing performed by [facility], [place], [place]. ??See reference laboratory ?? portion of the EMR for entire report. ?Clinical Information LMP: Postmenopausal Previous PAP test: Unknown date/findings Other history: ASCUS of cervix with negative high risk HPV ? Material Received ?? ThinPrep-Cervical ----- ------- Signed (signature on file) JORI Mesa (ASCP) 12/16/23 1614 ? ----- ------- ? END OF REPORT ? us Trinity Smith CNM LAB CYTOLOGY ORDERABLES F inal Result [facility] [address] [place] [address] [phone] * BI Mammogram Screening Tomosynthesis Bilateral (07/29/2023 2:07 PM EDT) Anatomical Region Laterality Modality Breast Bilateral Mammography 07/29/2023 2:07 PM EDT Narrative 08/17/2023 5:19 AM EST ? [facility] ? [address] ?[place] [address] ? Mammography Report ? Signed ? Patient: Anthony,Stephanie ?MR#: [id number] ?? 4 ? : 1955 ?Acct:[id number] ? Age/Sex: 67 / F ?ADM Date: //23 ? Loc: HO.MAMMO ? Attending Dr: Kellie Diane MD ? Ordering Physician: Kellie Tan MD ?Re ?? sults: 1Negative ? Date of Service: 07/29/23 ?Follow Up: 1 Year From Orig ?? inal Mammogram ? Procedure(s): MM tomosynthesis screening BI ?? Accession Number(s): [id number] ? cc: Kellie Tan MD ? EXAMINATION: [...] by Sparkle Hayes MD in OV> ? 08/17/2315 ? DD/ ? TD/TT: ? Machine Heel Seat Laster: ? Procedure Note Veena Perez - 08/17/2023 [facility] [address] [place] [address] Dr. [place], [place] [address] Mammography Report Signed Patient: Stephanie Anthony#: [id number] 4 : 5Acct:[id number] Age/Sex: 67 / FADM Date: 07/29/23 Loc: HO.MAMMO Attending Dr: Kellie Diane MD Ordering Physician: Kellie Tan sults: 1Negative Date of Service: 07/29/23Follow Up: 1 Year From Orig inal Mammogram Procedure(s): MM tomosynthesis screening BI Accession Number(s): [id number] cc: Kellie Tan MD EXAMINATION: MM SCREENING [...] in OV> 08/17/23 0515 DD/ 1407 TD/TT: Machine Heel Seat Laster: us Kellie Diane MD IMG BI PROCEDURES Final Result * Hm Colonoscopy (01/21/2019 4:25 PM EDT) us Historical Provider HEALTH MAINTENANCE Final Result from Last 3 Months or Most Recently Relevant to Health Maintenance Insurance [address] [place] [address] Care Teams Skein Winder Relationship Specialty Start Date End Date Kellie Tan MD [address] [place] [phone] PCP - General Internal Medicine 04/29/23 Andressa Gomez, AriD [address] [place] [phone] Pharmacist Internal Medicine 11/25/24
--- OUTSIDE RECORDS SUMMARY | 2025-02-20 11:47 | XMS_ITS | Encounter Summary ---
Author Organization [employer] Address [address] [place] [address] 7t [place] [address] Care Team Providers Care Clinical Physician Assistant Name Role Phone Kellie Tan MD Primary Care Pro vider Andressa Gomez PharmD Unavailable [phone] Encounter Details Date Type Department Care Team (Late st Contact Info) Description 04/14/2024 Orders Only [facility] [address] [place], [place] [phone] Provider, MD Radha Social History Tobacco Use [...] Description 03/08/2025 2:00 PM EDT Medication Management [address] [address] Andressa Gomez PharmD [address] [place] [address] 04/03/2025 2:00 PM EDT Clinical Support [address] [address] 04/05/2025 11:30 AM EDT Office Visit [address] [address] Kellie Tan MD [address] [place] [address] documented as of this encounter Procedures Procedure Name Priority Date/Time Associated Diagnosis Comments COLONOSCOPY Routine 01/21/2019 4:25 PM EDT documented in this encounter Results * Hm Colonoscopy (01/21/2019 4:25 PM EDT) us Historical Provider HEALTH MAINTENANCE Final Result documented in this encounter Visit Diagnoses Not on filedocumented in this encounter Additional Health Concerns Assessment Noted Time PHQ-9 Depression Total Score: 0 04/13/20 24 11:25 AM EDT documented as of this encounter Care Teams Clinical Physician Assistant Relationship Specialty Start Date End Date Kellie Tan MD [address] [place] [address] [phone] PCP - General Internal Medicine 04/29/23 Andressa Gomez, AriD [address] [place] [address] Pharmacist Internal Medicine 11/25/24 documented as of this encounter
--- OUTSIDE RECORDS SUMMARY | 2025-02-20 11:47 | XMS_ITS | Encounter Summary ---
Author Organization [employer] Address [address] [place] [address] 7 [place] [address] Care Team Providers Care Construction Supervisor/Carpenter Name Role Phone Kellie Tan MD Primary Care Pro vider Andressa Gomez PharmD Unavailable [phone] Encounter Details Date Type Department Care Team ([facility] st Contact Info) Description 03/24/2024 Telephone [facility] [address] [place], [place] [phone] Kellie Tan MD [address] [place], [place] [phone] Social History Tobacco Use Types Packs/Day Years [...] 3:16 PM EDT Referral form faxed to [facility] for AIR HOLE DRILLER evaluation per patient request. documented in this encounter Plan of Treatment Upcoming Encounters Date Type Department Care Team (Late st Contact Info) Description 03/08/2025 2:00 PM EDT Medication Management [facility] [address] [place] [address] Andressa Gomez PharmD [address] [place] [address] 04/03/2025 2:00 PM EDT Clinical Support [address] [address] 04/05/2025 11:30 AM EDT Office Visit [facility] [address] [place] [address] Kellie Tan MD [address] [place] [address] documented as of this encounter Visit Diagnoses Not on filedocumented in this encounter Additional Health Concerns Assessment Noted Time PHQ-9 Depression Total Score: 0 03/25/20 23 11:53 AM EDT documented as of this encounter Care Teams Construction Supervisor/Carpenter Relationship Specialty Start Date End Date Kellie Tan MD [address] [place] [address] PCP - General Internal Medicine 04/29/23 Andressa Gomez, Duong [address] [place], [place] [phone] Pharmacist Internal Medicine 11/25/24 documented as of this encounter
--- OUTSIDE RECORDS SUMMARY | 2025-02-20 11:47 | XMS_ITS | Encounter Summary ---
Author Organization [facility] Address [address] [place] [address] Phone Care Team Providers Care Supervisor Cold Rolling Name Role Phone Falguni Gonzalez RN Primary Care Provider Luciaa ble Encounter Details Date Type Department Care Team (Late st Contact Info) Description 05/22/2022 Documentation Only [facility] [place], [address] [place] [address] Tish Escalera [address] [place] [address] Social History Tobacco Use Types [...] on filedocumented in this encounter Care Teams Supervisor Cold Rolling Relationship Specialty Start Date End Date Falguni Gonzalez RN PCP - General Family Medicine 11/09/24 documented as of this encounter
--- OUTSIDE RECORDS SUMMARY | 2025-02-20 11:47 | XMS_ITS | Encounter Summary ---
Author Organization [facility], Address [address] [place] [address] Phone Care Team Providers Care Assembler Erector Name Role Phone Falguni Gonzalez RN Primary Care Provider Unavaila ble Encounter Details Date Type Department Care Team (Late st Contact Info) Description 07/03/2022 Documentation Only [facility], [address] [place] [address] Tish Escalera [address] [place] [address] Social History Tobacco Use Types [...] on filedocumented in this encounter Care Teams Assembler Erector Relationship Specialty Start Date End Date Falguni Gonzalez RN PCP - General Family Medicine 11/09/24 documented as of this encounter
--- OUTSIDE RECORDS SUMMARY | 2025-02-20 11:47 | XMS_ITS | Encounter Summary ---
Author Organization [facility] [facility] Address [address] [place] [address] 7 [place] [address] Care Team Providers Care Firmware Architect Name Role Phone Sunitha Rod Primary Care Provider + [phone] Kellie Tan MD Primary Care Pro vider Andressa Gomez PharmD Unavailable [phone] Reason for Visit * Reason Comments Med Refill Encounter Details Date Type Department Care Team (Late st Contact Info) Description 09/25/2022 Refill [facility] [address] [place] [address] Suintha Rod FNP [address] [place] [address] Dept [place] [address] Type 2 diabetes mellitus with stage 5 chronic kidney disease not on chronic dialysis, with long-term current use of insulin ([facility]) Social History Tobacco Use Types Packs/Day [...] Description 03/08/2025 2:00 PM EDT Medication Management [facility] [address] [place], [place] [phone] Andressa Gomez, PharmD 230 [place] [address] 04/03/2025 2:00 PM EDT Clinical Support [address] [address] 04/05/2025 11:30 AM EDT Office Visit [address] [address] Kellie Tan MD [address] [place] [address] documented as of this encounter Visit Diagnoses Diagnosis Type 2 diabetes mellitus with stage 5 chronic kidney disease not on chronic dialysis, with long-term current use of insulin ([facility]) documented in this encounter Care Teams Firmware Architect Relationship Specialty Start Date End Date Sunitha Rod FNP PCP - General Family Medicine 03/07/22 04/28/23 Kellie Tan MD [address] [place] [address] PCP - General Internal Medicine 04/29/23 Andressa Gomez, AriD [address] [place] [address] Pharmacist Internal Medicine 11/25/24 documented as of this encounter
--- OUTSIDE RECORDS SUMMARY | 2025-02-20 11:47 | XMS_ITS | Clinical Summary ---
Author Organization [facility] Address [address] [place] [address] [address] [place] [address] Phone Care Team Providers Care Cuff Runner Name Role Phone Falguni Gonzalez RN Primary [...] Date Type Department Care Team Description 02/14/2025 Treatment [facility] [address] [facility] [address] [place] [phone] Hamlet Rousseua MD End stage renal disease; Dependence on renal dialysis 02/07/2025 Treatment [facility] [address] [facility] [address] [place] [address] Hamlet Rousseau MD End stage renal disease; Dependence on renal dialysis 01/24/2025 Treatment [facility] [address] [phone] Hamlet Rousseau MD End stage renal disease; Dependence on renal dialysis 01/21/2025 Treatment [facility] [address] [phone] Hamlet Rousseau MD End stage renal disease; Dependence on renal dialysis 01/14/2025 Treatment [facility] [address] [address] Hamlet Rousseau MD End stage renal disease; Dependence on renal dialysis 01/10/2025 Treatment [facility] [address] [phone] Hamlet Rousseau MD End stage renal disease; Dependence on renal dialysis 12/29/2024 Treatment [facility] [address] [phone] Hamlet Rousseau MD End stage renal disease; Dependence on renal dialysis 12/20/2024 Treatment [facility] [address] [phone] Hamlet Rousseau MD End stage renal disease; Dependence on renal dialysis 12/17/2024 Treatment [facility] [address] [address] Hamlet Rousseau MD End stage renal disease; Dependence on renal dialysis 12/15/2024 Treatment [facility] [address] [address] Hamlet Rousseau MD End stage renal disease; Dependence on renal dialysis 11/26/2024 Treatment [facility] [address] [phone] Hamlet Rousseau MD from Last 3 Months [...] Name Priority Date/Time Associated Diagnosis Comments LAB BICYCLE TECHNICIAN Routine 09/10/2017 5:00 PM EST from Last 3 Months or Most Recently Relevant to Health Maintenance Results * Lab Concrete Gun Operator (09/10/2017 5:00 PM EST) Hemoglobin A1C 8.0 % [facility] 09/10/2017 5:00 PM EST [facility] Conversion LAB [id number] LICITED RESULTS Final Result [facility] from Last 3 Months or Most Recently Relevant to Health Maintenance Insurance , [address] [place] [id number] [employer] [facility] ([id number]) , [address] [place] [id number] Medicaid [place] [facility] ([id number]) Care Teams Cuff Runner Relationship Specialty Start Date End Date Falguni Gonzalez RN PCP - General Family Medicine 11/09/24
--- OUTSIDE RECORDS SUMMARY | 2025-02-20 11:47 | XMS_ITS | Encounter Summary ---
Author Organization [employer] Address [address] [place] [address] 7 [place] [address] Care Team Providers Care Heel Seat Trimmer Name Role Phone Kellie Tan MD Primary Care Pro vider Andressa Gomez PharmD Unavailable [phone] Reason for Visit * Reason Onset Date Comments Med Refill 02/14/2025 Encounter Details Date Type Department Care Team (Late st Contact Info) Description 02/14/2025 Telephone [facility]INE 230 [place], [place] [phone] Kellie Tan MD [address] [place], [place] [phone] Med Refill Social History Tobacco Use Types Packs/Day Years [...] encounter Miscellaneous Notes * Telephone Encounter - Roshni Arora RN - 02/17/2025 2:27 PM EDT PCP sent refill on carvedilol. [facility]], office closed at 12pm on Thursday. Will notify PCP and retask to call when open. Spoke with PCP Dr Shelby and pharmacist in office. They advise to have the pt ask for refill tomorrow at dialysis. Called pt, spoke with (HIPAA compliant), advised him to ask nephrology for refill on lisinopril as they prescribe them. verbalized understanding, stated he will ask the next time they go to dialysis. Hestated they are going on a mini vacation tomorrow and made sure to go to dialysis yesterday. Advised them of importance of not missing any appts for this. verbalized understanding. * Addendum Note - Omar Grimm RN - 02/14/2025 11:19 AM EDTAddended by: OMAR GRIMM on: 02/14/2025 11:19 AM Modules accepted: Orders * Telephone Encounter - Nabila Marsh - 02/14/2025 11:05 AM EDT Pt walked in requesting refill on lisinopril and carvediol. documented in this encounter Plan of Treatment Upcoming Encounters Date Type Department Care Team (Late st Contact Info) Description 03/08/2025 2:00 PM EDT Medication Management [address] [address] Andressa Gomez PharmD [address] [place] [address] 04/03/2025 2:00 PM EDT Clinical Support [address] [address] 04/05/2025 11:30 AM EDT Office Visit [address] [address] Kellie Tan MD [address] [place] [address] documented as of this encounter Visit Diagnoses Not on filedocumented in this encounter Additional Health Concerns Assessment Noted Time PHQ-9 Depression Total Score: 0 04/13/20 24 11:25 AM EDT documented as of this encounter Care Teams Heel Seat Trimmer Relationship Specialty Start Date End Date Kellie Tan MD [address] [place] [address] PCP - General Internal Medicine 04/29/23 Andressa Gomez PharmD [address] [place] [address] [phone] Pharmacist Internal Medicine 11/25/24 documented as of this encounter
--- OUTSIDE RECORDS SUMMARY | 2025-02-20 11:47 | XMS_ITS | Encounter Summary ---
Author Organization [employer] Address [address] [place] [address] 7t [place] [address] Care Team Providers Care Cafeteria Helper Name Role Phone Kellie Tan MD Primary Care Pro vider Andressa Gomez PharmD Unavailable [phone] Reason for Visit * Reason Comments Med Change Request Encounter Details Date Type Department Care Team (Late st Contact Info) Description 04/30/2023 Refill [facility] [address] [place] [address] Sunitha Rod FNP [address] [place] [address] Dept [place] [address] Type 2 diabetes mellitus with diabetic neuropathy, with long-term current use of insulin ([facility]) Social History Tobacco Use Types Packs/Day [...] encounter Miscellaneous Notes * Telephone Encounter - AUDREY Ramirez - 06/26/2023 4:12 PM EDT Resolved * Telephone Encounter - Lulu Riggs - 06/23/2023 11:44 AM EDT Radioactivity Technician checked CMM and patient was approved for the Novolin , pharmacy is aware and will call patient to inform that is ready for pharmacy picking tech. documented in this encounter Plan of Treatment Upcoming Encounters Date Type Department Care Team (Late st Contact Info) Description 03/08/2025 2:00 PM EDT Medication Management [address] [address] Andressa Gomez PharmD [address] [place] [address] 04/03/2025 2:00 PM EDT Clinical Support [address] [address] 04/05/2025 11:30 AM EDT Office Visit [facility] [address] [place] [address] Kellie Tan MD [address] [place] [address] documented as of this encounter Visit Diagnoses Diagnosis Type 2 diabetes mellitus with diabetic neuropathy, with long-term current use of insulin ([facility]) documented in this encounter Additional Health Concerns Assessment Noted Time PHQ-9 Depression Total Score: 0 03/25/20 11:53 AM EDT documented as of this encounter Care Teams Cafeteria Helper Relationship Specialty Start Date End Date Kellie Tan MD [address] [place] [address] PCP - General Internal Medicine 04/29/23 Andressa Gomez PharmD [address] [place] [phone] Pharmacist Internal Medicine 11/25/24 documented as of this encounter
--- OUTSIDE RECORDS SUMMARY | 2025-02-20 11:47 | XMS_ITS | Encounter Summary ---
Author Organization [facility] Address [address] [address] Phone Care Team Providers Care Network Administrator Name Role Phone Falguni Gonzalez RN Primary Care Provider Renetta english Encounter Details Date Type Department Care Team ([facility] st Contact Info) Description 02/14/2025 Treatment [facility]. [address] [address] Angela Rousseau MD [address] [address] End stage renal disease; Dependence [...] Dialysis Note - Angela Rousseau MD - 02/14/2025 12:00 AM EDT BASIC NOTE Patient: Stpehanie Anthony : 1955 Note Author: ANGELA ROUSSEAU MD Service Date: 02/14/2025 This patient was personally seen for a basic visit as part of routine monthly dialysis care for end stage renal disease. Attending Healthcare Educator: ANGELA ROUSSEAU MD Dialysis Location: [facility] Schedule: Shift: 2 OVERVIEW Patient is stable. COMMENTS: Note in dialysis manager client support ADDITIONAL COMMENT COMMENTS: Note in dialysis manager client support 07/14/24 stable 10/18/24 stable 11/15/24 stable Signed by: ANGELA ROUSSEAU MD on 02/14/2025 at 12:07:24 PM Transcribed by: ANGELA ROUSSEAU MD on 02/14/2025 at 12:07:24 PM documented in this encounter Plan of Treatment Not on file documented as of this encounter Visit Diagnoses Diagnosis End stage renal disease Dependence on renal dialysis documented in this encounter Care Teams Network Administrator Relationship Specialty Start Date End Date Falguni Gonzalez RN PCP - General Family Medicine 11/09/24 documented as of this encounter
== END 2025-02-20 17:00 | disposition home or self-care (01) ==
LOC: HO.HGI 11:02
PROVIDERS: PCP Student in an Organized Health Care Education/Training Program; Visit Provider Nurse Practitioner Family
DX: Z12.11 Encounter for screening for malignant neoplasm of colon (principal); Z01.818 Encounter for other preprocedural examination
CPT/HCPCS: 99024

== ENCOUNTER → 2025-02-20 11:01 | Outpatient (BNVA) | payer OTHER, SELFPAY | PROVIDERS: PCP Student in an Organized Health Care Education/Training Program; Visit Provider Nurse Practitioner Family | DX: Z12.11 Encounter for screening for malignant neoplasm of colon (principal) | CPT/HCPCS: 99212 ==

== ENCOUNTER → 2025-03-01 12:39 | Outpatient (REF) | payer OTHER, SELFPAY ==
--- NOTE | 2025-03-01 12:42 | CA_ITS ---
Transthoracic Echocardiogram Patient (Last, First, Middle): Stephanie Anthony, Gender: Female Date of : 1955 Age: 69 Procedure Date: 03/01/2025 Procedure Type: Transthoracic Echocardiogram Location: OP Height: 162.56 cm Weight: 83.01 kg BSA: 1.88 m2 Heart Rate: bpm BP: 132 / 72 mmHg Motors Assembler: TO/RC Referring MD: Kellie Diane MD Breeding Technician: Evens Smith MD Symptoms: R01.1 CA MURMUR Study Quality: Fair, contrast ECG Rhythm: Sinus Conclusions: - 1. Normal LV ejection fraction of 65-70% with impaired relaxation filling pattern 2. Trivial aortic regurgitation 3. Moderate mitral annular calcification 4. No gross pericardial effusion Findings Procedure Information Contrast agent, definity, is being given per protocol without apparent complications. Left Ventricle Normal left ventricular size, thickness, and systolic function. The visually estimated ejection fraction is between 65-70%. Spectral Doppler is indicative of an impaired relaxation filling pattern. E/E prime ratio is between 8 and 15 consistent with indeterminate filling pressures. Right Ventricle Normal right ventricular cavity size and systolic function. Atria The left atrium is likely dilated. There is no evidence of interatrial shunt. The right atrium is normal in size. Aortic Valve Normal aortic valve structure and function. There is mild calcification of the aortic valve. There is no aortic valve stenosis. There is trace (trivial) aortic valve regurgitation. Mitral Valve There is mild anterior and moderate posterior mitral leaflet thickening. There is moderate mitral annular calcification. There is trace mitral valve regurgitation. There is no mitral valve stenosis. Pulmonic Valve The pulmonic valve was not well visualized. Tricuspid Valve Likely normal tricuspid valve structure and function. Tricuspid regurgitation envelope is inadequate for calculation of right ventricular systolic pressure. Normal right atrial pressure. Great Vessels All visible segments of the aorta are normal in size. The pulmonary artery was not well visualized. There is no dilatation of the ascending aorta measuring 3.40 cm. Venous The inferior vena cava is normal in size and collapses greater than 50% with inspiration. Pericardium/Pleural There is no evidence of pericardial effusion. Prior Study Comparison No significant change compared to prior study dated: 03/17/2023. Measurements 2D Linear Measurements IVSd: 1.09 0.6-0.9/0.6-1.0 cm LVIDd: 4.41 3.9-5.3/4.2-5.9 cm LVIDd Index: 2.35 2.4-3.2/2.2-3.1 cm/m2 LVIDs: 2.82 2.0-3.6 cm LVPWd: 0.96 0.7-1.1 cm LA Diam: 3.30 2.7-3.8/3.0-4.0 cm LAIDs Index: 1.76 1.5-2.3 cm/m2 LV Mass: 191.43 67-162/88-224 g LV Mass Index: 101.83 43-95/49-115 g/m2 LVOT Diam: 1.90 3.0+(-)1.3 cm 2D Systolic Function EF 4C: 63.70 >55% EF 2C: 72.80 >55% EF BiP: 69.40 >55% Mitral Valve MV Pk E: 1.06 MV PK A: 1.58 MV Decel Time: 296.00 E/A: 0.70 E'Lateral: 5.55 E'Medial: 5.82 E/E' Med: 18.20 E/E' Lat: 19.10 PHT: 87.00 MVA PHT: 2.53 Decel Acadia: 3.57 Aortic Valve AoV Pk Nathan: 1.81 AoV Mn Nathan: 1.28 AoV VTI: 0.41 AoV Pk Grad: 13.00 Aov Mn Grad: 7.00 SANAM Cont.VTI: 2.89 LVOT LVOT Pk Nathan: 1.73 LVOT Mn Nathan: 1.17 LVOT VTI: 0.42 LVOT Pk Grad: 12.00 LVOT Mn Grad: 6.00 LVOT Diam: 1.90 LVOT Area: 2.84 Diastolic Function MV Pk E: 1.06 MV Pk A: 1.58 E/A: 0.70 E'Medial: 5.82 E/E' Med: 18.20 E' Laterial: 5.55 E/E' Lat: 19.10 Right Ventricle TAPSE (mm): 27.00 TVS' Nathan: 14.30 Tricuspid Valve RA Press: 3.00 Great Vessels Aorta Sinus of Valsalva: 3.16 2.0-3.5 cm Ao Asc: 3.40 2.1-3.4 cm Updated in Other Vendor System with Status of Final Evens Smith MD electronically signed on 03/01/2025 5:06:55 PM with status of Final
--- OUTSIDE RECORDS SUMMARY | 2025-03-01 13:19 | XMS_ITS | Encounter Summary ---
Author Organization [employer] Address [address] [place] [address] 7 [place] [address] Care Team Providers Care Pci Security Consultant Name Role Phone Kellie Tan MD Primary Care Pro vider Andressa Gomez PharmD Unavailable [phone] Encounter Details Date Type Department Care Team (Late st Contact Info) Description 04/14/2024 Orders Only [facility] [address] [place], [place] [phone] Provider, MD Radha Social History Tobacco Use [...] Description 03/08/2025 2:00 PM EDT Medication Management [address] [address] Andressa Gomez, PharmD [address] [place] [address] 04/03/2025 2:00 PM EDT Clinical Support [address] [address] 04/05/2025 11:30 AM EDT Office Visit [address] [address] Kellie Tan MD [address] [place] [address] documented as of this encounter Procedures Procedure [...] documented as of this encounter Care Teams Pci Security Consultant Relationship Specialty Start Date End Date Kellie Tan MD [address] [place] [address] PCP - General Internal Medicine 04/29/23 Andressa Gomez, AriD [address] [place] [address] Pharmacist Internal Medicine 11/25/24 documented as of this encounter
== END ==
LOC: HO.CARD 12:39
PROVIDERS: PCP Student in an Organized Health Care Education/Training Program; Visit Provider Student in an Organized Health Care Education/Training Program
DX: R01.1 Cardiac murmur, unspecified (principal)
CPT/HCPCS: 93306; Q9957

== ENCOUNTER → 2025-03-01 12:42 | Outpatient (BNV) | payer OTHER, SELFPAY | PROVIDERS: PCP Student in an Organized Health Care Education/Training Program; Visit Provider Internal Medicine Cardiovascular Disease | DX: I35.8 Other nonrheumatic aortic valve disorders (principal); I35.1 Nonrheumatic aortic (valve) insufficiency; I34.81 Nonrheumatic mitral (valve) annulus calcification | CPT/HCPCS: 93306 ==

== ENCOUNTER 2025-03-29 12:45 | Outpatient (REF) | payer OTHER, SELFPAY ==
--- NOTE | ~2025-03-29 | MM_ITS ---
EXAMINATION: DXA BONE DENSITY AXIAL HISTORY: pt w CKD, 69 y of female needs osteoporosis screening/Z13.82 TECHNIQUE: Glu Mobile Dual energy absorptiometry (DEXA) of the lumbar spine, total left hip, and femoral neck was performed. COMPARISON: There are no prior studies for comparison. FINDINGS: The bone mineral density of the lumbar spine is 1.229, corresponding to a T-score of 0.4, and a Z-score of 1.5. This is indicative of normal bone mineral density. The bone mineral density of the left total hip is 0.854, corresponding to a T-score of -1.2, and a Z-score of -0.1. This is indicative of osteopenia. The bone mineral density of the left femoral neck is 0.740, corresponding to a T-score of -2.1, and a Z-score of -0.8. This is indicative of osteopenia. FRACTURE RISK: The FRAX index suggests a risk of major osteoporotic fracture of 9.1%, and of hip fracture 2.1%. MM/XR DEXA axial skeleton IMPRESSION: Based on bone mineral density, and according to World Health Organization (WHO) criteria, the diagnosis is consistent with osteopenia. All bone density values are in grams per centimeter squared (g/cm2). Statistically, 68% of repeat scans fall within 1 SD (+/- 0.010 g/cm2 for AP spine L1-L4) and 1 SD (+/- 0.012 g/cm2 for femur total) FRAX is a trademark of the [employer] [employer] [facility] [employer], a World Health Organization (WHO) Collaborating Center. Electronically signed by: Luis Levine MD 03/29/2025 02:09 PM EDT
--- NOTE | ~2025-03-29 | MM_ITS ---
EXAMINATION: MM SCREENING DIGITAL BREAST TOMOSYNTHESIS, BILATERAL CLINICAL INFORMATION: Screening. Asymptomatic. COMPARISON: Mammography: Comparison is made with available priors TECHNIQUE: Digital breast mammography with tomosynthesis is performed in both the craniocaudal and mediolateral oblique views along with computer-aided detection (CAD). FINDINGS: There are scattered areas of fibroglandular density (ACR BI-RADS breast composition Category b). There are no significant masses, abnormal calcifications, or other abnormalities. MM/MM tomosynthesis screening BI IMPRESSION: No mammographic evidence of malignancy. ASSESSMENT: BI-RADS BI-RADS 1 - Negative RECOMMENDATION: Routine annual mammography screening. 1 year F/U This examination should not preclude the clinical evaluation of a suspicious palpable abnormality. This patient's information was entered into a reminder system with a target due date for their next mammogram. Electronically signed by: Janeth Dorsey DO 04/15/2025 03:15 PM EDT
--- OUTSIDE RECORDS SUMMARY | 2025-03-29 14:46 | XMS_ITS | Encounter Summary ---
Author Organization [employer] Address [address] [place] [address] 7 [place] [address] Care Team Providers Care Statistician Theoretical Name Role Phone Kellie Tan MD Primary Care Pro vider Andressa Gomez PharmD Unavailable [phone] Encounter Details Date Type Department Care Team (Late st Contact Info) Description 04/14/2024 Orders Only [facility] [address] [place] [address] Provider, MD Radha Social History Tobacco Use [...] Care Team (Late st Contact Info) Description 04/05/2025 11:30 AM EDT Office Visit [facility] [address] [place] [address] Kellie Tan MD [address] [place] [address] 05/17/2025 2:00 PM EDT Medication Management [facility] [address] [place] [address] Andressa Gomez, PharmD [address] [place] [address] documented as of this encounter Procedures Procedure [...] documented as of this encounter Care Teams Statistician Theoretical Relationship Specialty Start Date End Date Kellie Tan MD [address] [place] [address] PCP - General Internal Medicine 04/29/23 Andressa Gomez, AriD [address] [place] [address] Pharmacist Internal Medicine 11/25/24 documented as of this encounter
== END 2025-03-29 12:46 | disposition home or self-care (01) ==
LOC: HO.MAMMO 12:45
PROVIDERS: PCP Student in an Organized Health Care Education/Training Program; Visit Provider Student in an Organized Health Care Education/Training Program
DX: Z12.31 Encounter for screening mammogram for malignant neoplasm of breast (principal); Z13.820 Encounter for screening for osteoporosis; M85.89 Other specified disorders of bone density and structure, multiple sites
CPT/HCPCS: 77063; 77067; 77080

== ENCOUNTER → 2025-03-29 14:00 | Outpatient (BNV) | payer OTHER, SELFPAY | PROVIDERS: PCP Student in an Organized Health Care Education/Training Program; Visit Provider Radiology Diagnostic Radiology | DX: Z12.31 Encounter for screening mammogram for malignant neoplasm of breast (principal) | CPT/HCPCS: 77063; 77067 ==

== ENCOUNTER 2025-04-03 08:28 | Outpatient (REF) | payer OTHER, SELFPAY ==
--- OUTSIDE RECORDS SUMMARY | 2025-04-03 08:36 | XMS_ITS | Encounter Summary ---
Author Organization [employer] Address [address] [place] [address] [address] [place] [address] Care Team Providers Care Work Adjustment Instructor Name Role Phone Kellie Tan MD Primary Care Pro vider Andressa Gomez PharmD Unavailable [phone] Encounter Details Date Type Department Care Team (Late st Contact Info) Description 04/14/2024 Orders Only [facility] [address] [place] [address] Provider, MD Radha Social History Tobacco Use [...] Description 04/05/2025 11:30 AM EDT Office Visit [facility] [address] [place] [phone] Kellie Tan MD [address] [place] [phone] 05/17/2025 2:00 PM EDT Medication Management [facility] [address] [place] [phone] Andressa Gomez, PharmD [address] [place] [phone] documented as of this encounter Procedures Procedure [...] documented as of this encounter Care Teams Work Adjustment Instructor Relationship Specialty Start Date End Date Kellie Tan MD [address] [place] [phone] PCP - General Internal Medicine 04/29/23 Andressa Gomez, AriD [address] [place] [phone] Pharmacist Internal Medicine 11/25/24 documented as of this encounter
[2025-04-03 11:22] LABS: Hematocrit 39.5 % (37.0-47.0); Hemoglobin 12.7 g/dl (12.0-16.0); Mean Corpuscular HGB Conc 32.2 g/dl (31.0-35.0); Mean Corpuscular Hemoglobin 33.5 pg (27.0-33.0); Mean Corpuscular Volume 104.2 fL (80.0-98.0); Mean Platelet Volume 11.5 fL (9.4-12.3); Platelet Count 165 X10*3/uL (160-400); Red Blood Count 3.79 X10*6/uL (4.20-5.50); Red Cell Distribution Width 15.4 % (11.0-16.0); White Blood Count 4.9 X10*3/uL (4.8-10.8)
[2025-04-03 11:48] LABS: Alanine Aminotransferase 14 U/L (0-31); Albumin Level 3.9 g/dL (3.5-5.0); Alkaline Phosphatase 120 U/L (39-117); Anion Gap 21 (12-20); Aspartate Amino Transferase 26 U/L (5-31); Bilirubin Total 0.5 mg/dL (0.0-1.0); Blood Urea Nitrogen 48 mg/dL (9-16); Calcium 9.1 mg/dL (8.4-10.2); Carbon Dioxide 30 mmol/L (22-29); Chloride 95 mmol/L (96-108); Cholesterol 159 mg/dL (<200); Estimated Glomerular Filt Rate 5; Glucose Random 119 mg/dL (60-115); HDL Cholesterol 37 mg/dL (>40); LDL Cholesterol Calculated 95 mg/dL (<100); Potassium 4.5 mmol/L (3.3-5.1); Sodium 141 mmol/L (135-145); Total Protein 6.9 g/dL (6.5-8.0); Triglycerides 136 mg/dL (<150)
[2025-04-03 11:50] LABS: Estimated Average Glucose 151 mg/dL; Hemoglobin A1c % 6.9 % (<6.0); Total Hemoglobin (HGBA1C) 3400.5802 umol/L
[2025-04-03 12:20] LABS: Folate 19.5 ng/mL (> or = 4.0); Vitamin B12 1577 pg/mL (200-900)
[2025-04-06 08:57] LABS: Fructosamine 452 umol/L (205-285)
== END 2025-04-03 08:29 | disposition home or self-care (01) ==
LOC: HO.HHCL 08:28
PROVIDERS: PCP Student in an Organized Health Care Education/Training Program; Visit Provider Student in an Organized Health Care Education/Training Program
DX: I10 Essential (primary) hypertension (principal); E11.22 Type 2 diabetes mellitus with diabetic chronic kidney disease; N18.5 Chronic kidney disease, stage 5; Z79.4 Long term (current) use of insulin; I12.0 Hypertensive chronic kidney disease with stage 5 chronic kidney disease or end stage renal disease
CPT/HCPCS: 36415; 80053; 80061; 82607; 82746; 82985; 83036; 85027

== ENCOUNTER 2025-04-11 16:37 | Emergency (ER) | payer OTHER, SELFPAY ==
[2025-04-11 16:51] VITALS: BP 121/90; BP 127/39; PULSE 54; PULSE 60; RESP 19; TEMP 36.5; O2SAT 96; O2SAT 97; BMI 31.6
--- NOTE | 2025-04-11 16:58 | ECG_ITS ---
Test Reason : HYPOTENTION Blood Pressure : */* mmHG Vent. Rate : 60 BPM Atrial Rate : 60 BPM P-R Int : 144 ms QRS Dur : 76 ms QT Int : 500 ms P-R-T Axes : 43 50 39 degrees QTcB Int : 500 ms Normal sinus rhythm Prolonged QT Abnormal ECG When compared with ECG of 28-May-2024 15:48, No significant change was found Referred By: Tommy Hoover Electronically Signed By: Ellis Moore
--- NOTE | 2025-04-11 17:00 | ED.NAVMDI ---
HPI - Nausea/Vomiting/Diarrhea General Chief complaint: General Medical Stated complaint: pale, diaphoretic per ems Time Seen by Provider: 04/11/25 16:43 History of Present Illness ED Provider: Tommy Hoover MD HPI Narrative: [age] female with end-stage renal disease on dialysis for about a year now, she finished dialysis and drove home with her she was asymptomatic. It is quite hot and humid out she walked the brief distance from the car into the home and she developed diffuse diaphoresis. She denies any chest pain difficulty breathing nausea vomiting at that time. She said she felt little bit queasy or uneasy on her abdomen very slight pain diffusely. That resolved. EMS arrived she said her gave her water to drink and she called down and felt much better. Related Data Home Medications ?Medication ?Instructions ?Recorded ?Confirmed cyanocobalamin (vitamin B-12) 1,000 mcg PO DAILY 03/15/23 05/12/23 1,000 mcg tablet atorvastatin 40 mg tablet 40 mg PO DAILY cholesterol 05/12/23 05/12/23 calcitriol 0.25 mcg capsule 0.25 mcg PO TUTHSA 05/12/23 05/12/23 insulin human U-100 NPH-regulr 20 unit subcut BEDTIME 05/12/23 05/12/23 70-30 mix 100 unit/mL subcutaneous susp (Humulin 70/30 U-100 Insulin) insulin human U-100 NPH-regulr 25 unit subcut DAILY 05/12/23 05/12/23 70-30 mix 100 unit/mL subcutaneous susp (Humulin 70/30 U-100 Insulin) midodrine 2.5 mg tablet 2.5 mg PO DAILY PRN low blood 05/12/23 05/12/23 pressure omeprazole 40 mg capsule,delayed 40 mg PO DAILY@0630 05/12/23 05/12/23 release vitamin B complex-vitamin C-folic 1 tab PO DAILY 05/12/23 05/12/23 acid 0.8 mg tablet (Mindy-Mert) insulin NPH-reg human insulin 100 18 unit subcut QPM 02/20/25 unit/mL (70-30) subcutaneous syringe insulin NPH-reg human insulin 100 20 unit subcut DAILY 02/20/25 unit/mL (70-30) subcutaneous syringe lisinopril 20 mg tablet 20 mg PO BID 02/20/25 Previous Rx's ?Medication ?Instructions ?Recorded ondansetron 4 mg disintegrating 4 mg PO Q6-8H PRN nausea and 01/03/25 tablet vomiting #7 tabs bisacodyl 5 mg tablet,delayed 20 mg (4 x 5 mg) PO ONCE 1 day #4 02/20/25 release (Dulcolax (bisacodyl)) tabs polyethylene glycol 3350 17 238 g PO ONCE #238 grams 02/20/25 gram/dose oral powder (Miralax) Allergies Allergy/AdvReac Type Severity Reaction Status Date / Time No Known Allergies Allergy Verified 04/11/25 17:06 [facility] Past Medical History Medical History Anemia due to chronic kidney disease CHF (congestive heart failure) CKD (chronic kidney disease) CKD stage 5 secondary to hypertension CKD (chronic kidney disease), stage V 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 2 diabetes mellitus Chronic kidney disease Hyperlipidemia Diabetes mellitus Hypertension Social History Social History Household Members: Spouse Housing: Apartment Do you presently have visiting nurse or other home services: No Alcohol intake: never Patient Tobacco Use Status: Never used Tobacco Smoked in Last 30 Days: No Use of substances other than those prescribed or required for medical reasons: No Advance Directives: No Advance Directives Information Provided: No service: No Current occupational status: unemployed Physical Exam Vital Signs: Vital Signs: Last Vital Signs Temp 98 F 04/11/25 21:15 Pulse 68 04/11/25 21:15 Resp 14 04/11/25 21:15 BP 137/44 L 04/11/25 21:15 Pulse Ox 100 04/11/25 21:15 O2 Del Method Room Air 04/11/25 21:15 BMI result Body Mass Index 31.6 EXAM: Gen: Alert, awake, well appearing, well hydrated. Head: Atraumatic Eyes: Anicteric, Normal conjunctiva. ENT: Moist mucosa, no pallor. ? Neck: Supple. Skin: ?No observable rash or bruising on exposed or examined skin Respiratory: Breathing comfortably, No distress.Clear to auscultation bilaterally, symmetric chest expansion, No wheeze, rales, ronchi. Cardiovascular: Regular rate and rhythm. No murmurs or rub. Well perfused periphery, warm extremities. No edema. ?Dialysis access left upper arm positive thrill Abdominal: No focal tenderness. Soft, no objective distension. No palpable masses or obvious organomegaly. ?No guarding, no rebound tenderness or other peritoneal findings. : No flank tenderness. Neuro: Alert. Gross movement of all extremities intact. ? Psych: Calm. Cooperative. MSK: No grossly visible deformity. Vital signs: See flowsheet Medical Decision Making Medical Decision Making MDM Narrative: Medical Decision Makin-year-old female with end-stage renal disease among other comorbid medical conditions with nonspecific presentation of diaphoresis. Could be certainly related to her exertion in the hot humid air the temperature outside is low 90s with high humidity. She had no anginal or other atypical anginal equivalents symptomatology. Symptoms resolved quickly after cooling down. Bradycardic received 250 cc crystalloid bolus with the EMS. EMS ECG nonischemic. The ED ECG: Looks euvolemic awake alert comfortable no focal findings on examination. Preliminary Favored Differential Diagnosis: Heat stroke, vasovagal episode, orthostasis, dehydration, electrolyte derangement, dysrhythmia. among additional considered etiologies Testing Interpreted Independently: Pre-hospital EMS ECG performed at 16:07: Sinus bradycardia rate approximately 55. No ischemic changes. Concave upward subtle ST elevation V2 V3 no ST depressions or reciprocal changes. ED ECG: Sinus rhythm rate 60 QTC 500. LA 144, QRS 76. J-point notching with sub mm ST-elevation in the precordium no depressions Radiology or Lab testing Results Reviewed: Not Applicable Consults: Not Applicable Independent Historians/External Chart Reviews: Not Applicable Social Determinants of Health Impacting MDM/Planning: Not Applicable Lab Data 04/11/25 17:41 04/11/25 17:41 Labs: Lab Results 04/11/25 04/11/25 04/11/25 Range/Units 16:46 17:41 19:58 WBC 7.8 (4.8-10.8) X10*3/uL RBC 3.98 L (4.20-5.50) X10*6/uL Hgb 13.1 (12.0-16.0) g/dl Hct 39.7 (37.0-47.0) % MCV 99.7 H (80.0-98.0) fL MCH 32.9 (27.0-33.0) pg MCHC 33.0 (31.0-35.0) g/dl RDW 14.7 (11.0-16.0) % Plt Count 118 L D (160-400) X10*3/uL MPV 11.2 (9.4-12.3) fL Immature Gran % (Auto) 0.5 H (0.0-0.4) % Neut % (Auto) 80.1 H (45-73) % Lymph % (Auto) 9.5 L (20-40) % Bollinger % (Auto) 8.2 (2-11) % Eos % (Auto) 1.2 (0-4) % Baso % (Auto) 0.5 (0-2) % Lymph # (Auto) 0.7 L (1.2-4.9) X10*3/uL Bollinger # (Auto) 0.6 (0.1-1.2) X10*3/uL Eos # (Auto) 0.1 (0.0-0.4) X10*3/uL Baso # (Auto) 0.0 (0.0-0.2) X10*3/uL Abs Immat Gran (auto) 0.04 H (0.00-0.03) X10*3/uL Absolute Neuts (auto) 6.2 (2.0-8.3) x10*3/uL Absolute Nucleated RBC 0.000 (0.0-0.012) X10*3/uL Nucleated RBC % (auto) 0.0 (0.0-0.2) /100WBC Sodium 139 (135-145) mmol/L Potassium 4.5 (3.3-5.1) mmol/L Chloride 97 (96-108) mmol/L Carbon Dioxide 30 H (22-29) mmol/L Anion Gap 17 (12-20) BUN 26 H (9-16) mg/dL Creatinine 5.72 H* (0.5-1.4) mg/dL Estim Creat Clear Calc 9.5 Estimated GFR 7 POC Glucose 220 H 292 H (60-115) mg/dL Random Glucose 271 H (60-115) mg/dL Calcium 8.6 (8.4-10.2) mg/dL Magnesium 2.1 (1.6-2.6) mg/dL Total Bilirubin 0.5 (0.0-1.0) mg/dL AST 35 H (5-31) U/L ALT 15 (0-31) U/L Alkaline Phosphatase 113 (39-117) U/L Troponin I High Sens 18.0 H (<3.5-17.0) ng/L Total Protein 7.2 (6.5-8.0) g/dL Albumin 3.9 (3.5-5.0) g/dL /05/29 Range/Units 20:05 WBC (4.8-10.8) X10*3/uL RBC (4.20-5.50) X10*6/uL Hgb (12.0-16.0) g/dl Hct (37.0-47.0) % MCV (80.0-98.0) fL MCH (27.0-33.0) pg MCHC (31.0-35.0) g/dl RDW (11.0-16.0) % Plt Count (160-400) X10*3/uL MPV (9.4-12.3) fL Immature Gran % (Auto) (0.0-0.4) % Neut % (Auto) (45-73) % Lymph % (Auto) (20-40) % Bollinger % (Auto) (2-11) % Eos % (Auto) (0-4) % Baso % (Auto) (0-2) % Lymph # (Auto) (1.2-4.9) X10*3/uL Bollinger # (Auto) (0.1-1.2) X10*3/uL Eos # (Auto) (0.0-0.4) X10*3/uL Baso # (Auto) (0.0-0.2) X10*3/uL Abs Immat Gran (auto) (0.00-0.03) X10*3/uL Absolute Neuts (auto) (2.0-8.3) x10*3/uL Absolute Nucleated RBC (0.0-0.012) X10*3/uL Nucleated RBC % (auto) (0.0-0.2) /100WBC Sodium (135-145) mmol/L Potassium (3.3-5.1) mmol/L Chloride (96-108) mmol/L Carbon Dioxide (22-29) mmol/L Anion Gap (12-20) BUN (9-16) mg/dL Creatinine (0.5-1.4) mg/dL Estim Creat Clear Calc Estimated GFR POC Glucose (60-115) mg/dL Random Glucose (60-115) mg/dL Calcium (8.4-10.2) mg/dL Magnesium (1.6-2.6) mg/dL Total Bilirubin (0.0-1.0) mg/dL AST (5-31) U/L ALT (0-31) U/L Alkaline Phosphatase (39-117) U/L Troponin I High Sens 20.4 H (<3.5-17.0) ng/L Total Protein (6.5-8.0) g/dL Albumin (3.5-5.0) g/dL Discharge Plan Discharge Clinical Impression: Heat stroke Patient Disposition: Home, Self-Care Instructions: Heatstroke (ED) Additional Instructions: DISCHARGE DIAGNOSES: Sweating after brief episode of walking after dialysis unclear cause could be heat stroke resolved HISTORY OF PRESENTATION: ?Sweating profusely after walking. No chest pain or other concerning symptoms. Dialysis earlier today no fever EMERGENCY DEPARTMENT COURSE,TESTS, TREATMENTS: While in the ED today you had blood work that was reassuring. You had an EKG that was reassuring your monitored briefly with no episodes DISCHARGE MEDICATIONS: ?[We have made no changes to your regular medication regimen] FOLLOW-UP: ?Call your primary or general physician soon as possible to discuss your symptoms, your ED visit and to discuss follow up plans Call your primary doctor in your kidney doctor for follow up INSTRUCTIONS ?& RETURN PRECAUTIONS: If any symptoms change first call your primary physician, if it is after-hours your primary doctors office should have a provider men's and boys' clothing salesperson you can speak with. If the symptoms are severe or very concerning to you then call 911 or return to the ED. Tommy Hoover MD Emergency Physician [facility] Prescriptions: No Action cyanocobalamin (vitamin B-12) 1,000 mcg Tablet 1,000 mcg PO DAILY atorvastatin 40 mg tablet 40 mg PO DAILY omeprazole 40 mg capsule,delayed release(DR/EC) 40 mg PO DAILY@0630 Mindy-Mert 0.8 mg tablet 1 tab PO DAILY Humulin 70/30 U-100 Insulin 100 unit/mL (70-30) suspension 20 unit subcut BEDTIME Humulin 70/30 U-100 Insulin 100 unit/mL (70-30) suspension 25 unit subcut DAILY midodrine 2.5 mg Tablet 2.5 mg PO DAILY PRN (Reason: low blood pressure) Rx Instructions: do not give last dose of day after 6PM or within 4 hrs of bedtime calcitriol 0.25 mcg Capsule 0.25 mcg PO TUTHSA Rx Instructions: administer after dialysis on dialysis days ondansetron 4 mg tablet,disintegrating 4 mg PO Q6-8H PRN (Reason: nausea and vomiting) Qty: 7 0RF insulin NPH and regular human 100 unit/mL (70-30) syringe 20 unit subcut DAILY insulin NPH and regular human 100 unit/mL (70-30) syringe 18 unit subcut QPM lisinopril 20 mg tablet 20 mg PO BID bisacodyl [Dulcolax (bisacodyl)] 5 mg tablet,delayed release (DR/EC) 20 mg PO ONCE 1 Days Qty: 4 0RF Rx Instructions: take 4 tabs at noon the day before your colonoscopy polyethylene glycol 3350 [Miralax] 17 gram/dose powder 238 g PO ONCE Qty: 238 0RF Rx Instructions: As directed by gastroenterology department at [facility] Interventions: ED Discharge Assessment Last Done: 04/11/25 21:15 Discharge Date/Time: 04/11/25 21:33 Print Language: Danish
[2025-04-11 17:45] LABS: MANUAL DIFF FLAG NO
[2025-04-11 17:45] LABS: Glucose, Whole Blood 220 mg/dL (60-115)
[2025-04-11 17:51] LABS: Hematocrit 39.7 % (37.0-47.0); Hemoglobin 13.1 g/dl (12.0-16.0); Imm Gran Abs Auto 0.04 X10*3/uL (0.00-0.03); Imm Gran Pct Auto 0.5 % (0.0-0.4); Lymphocytes Absolute Auto 0.7 X10*3/uL (1.2-4.9); Mean Corpuscular HGB Conc 33.0 g/dl (31.0-35.0); Mean Corpuscular Hemoglobin 32.9 pg (27.0-33.0); Mean Corpuscular Volume 99.7 fL (80.0-98.0); NRBC Abs Auto 0.000 X10*3/uL (0.0-0.012); NRBC Pct Auto 0.0 /100WBC (0.0-0.2); Platelet Count 118 X10*3/uL (160-400); Red Blood Count 3.98 X10*6/uL (4.20-5.50); White Blood Count 7.8 X10*3/uL (4.8-10.8)
[2025-04-11 18:08] LABS: Troponin-I High Sensitivity 18.0 ng/L (<3.5-17.0)
[2025-04-11 18:09] LABS: Alanine Aminotransferase 15 U/L (0-31); Albumin Level 3.9 g/dL (3.5-5.0); Alkaline Phosphatase 113 U/L (39-117); Anion Gap 17 (12-20); Aspartate Amino Transferase 35 U/L (5-31); Blood Urea Nitrogen 26 mg/dL (9-16); Calcium 8.6 mg/dL (8.4-10.2); Carbon Dioxide 30 mmol/L (22-29); Chloride 97 mmol/L (96-108); Creatinine Clr Calc Pharmacy 9.5; Estimated Glomerular Filt Rate 7; Magnesium 2.1 mg/dL (1.6-2.6); Potassium 4.5 mmol/L (3.3-5.1); Sodium 139 mmol/L (135-145); Total Protein 7.2 g/dL (6.5-8.0)
[2025-04-11 20:02] LABS: Glucose, Whole Blood 292 mg/dL (60-115)
[2025-04-11 20:29] LABS: Troponin-I High Sensitivity 20.4 ng/L (<3.5-17.0)
[2025-04-11 21:15] VITALS: BP 137/44; PULSE 68; RESP 14; TEMP 36.6; O2SAT 100
== END 2025-04-11 21:33 | disposition home or self-care (01) ==
PROVIDERS: Emergency Provider Emergency Medicine; PCP Student in an Organized Health Care Education/Training Program
DX: E11.22 Type 2 diabetes mellitus with diabetic chronic kidney disease (principal); T67.09XA Other heatstroke and sunstroke, initial encounter; X30.XXXA Exposure to excessive natural heat, initial encounter; Y93.01 Activity, walking, marching and hiking; Y92.038 Other place in apartment as the place of occurrence of the external cause; Y99.9 Unspecified external cause status; I12.0 Hypertensive chronic kidney disease with stage 5 chronic kidney disease or end stage renal disease; N18.6 End stage renal disease; Z99.2 Dependence on renal dialysis; D63.1 Anemia in chronic kidney disease; E78.5 Hyperlipidemia, unspecified; Z79.02 Long term (current) use of antithrombotics/antiplatelets; Z79.85 Long-term (current) use of injectable non-insulin antidiabetic drugs; Z79.4 Long term (current) use of insulin; Z79.899 Other long term (current) drug therapy
CPT/HCPCS: 36415; 80053; 82947; 83735; 84484; 85025; 93005; 99284

== ENCOUNTER → 2025-04-11 16:58 | Outpatient (BNV) | payer OTHER, SELFPAY | PROVIDERS: Emergency Provider Emergency Medicine; PCP Student in an Organized Health Care Education/Training Program; Visit Provider Internal Medicine Cardiovascular Disease | DX: R94.31 Abnormal electrocardiogram [ECG] [EKG] (principal); I95.9 Hypotension, unspecified | CPT/HCPCS: 93010 ==

== ENCOUNTER 2025-10-02 14:06 | Emergency (ER) | payer OTHER, SELFPAY ==
--- NOTE | ~2025-10-02 | XR_ITS ---
EXAMINATION: XR CHEST CLINICAL INFORMATION: Generalized weakness COMPARISON: Previous chest x-ray most recent May 2023 TECHNIQUE: Frontal view of the chest was obtained. FINDINGS: Low lung volumes. Increased central vascular markings. The this may be due to low lung volumes and light film technique. Difficult to exclude mild pulmonary edema. No consolidation. No pleural effusion or pneumothorax. Enlarged cardiac silhouette similar to previous exam. Hilar and mediastinal contours otherwise unremarkable. Degenerative changes of the spine. XR/XR chest 1V IMPRESSION: Low lung volumes. Increased central vascular markings. Question due to low lung volumes and light film technique versus mild pulmonary edema. Enlarged cardiac silhouette similar to prior exam. Electronically signed by: Tasha Sanders MD 10/02/2025 03:49 PM MARISSA
--- NOTE | ~2025-10-02 | CT_ITS ---
EXAMINATION: CT HEAD WITHOUT CONTRAST CLINICAL INFORMATION: Headache COMPARISON: Numerous priors, most recently 08/29/2024. TECHNIQUE: Contiguous axial imaging was performed from the skull base to vertex without intravenous administration of contrast. This CT examination was performed using dose optimization techniques as appropriate, variously including the following: *Automated exposure control *Adjustment of mA and/or kV according to patient size (this includes techniques or standardized protocols for targeted exams where dose is matched to indication/reason for exam; i.e. extremities or head) *Use of iterative reconstruction technique FINDINGS: There is no evidence of intracranial hemorrhage or extra-axial fluid collection. There is no mass effect, or edema. No CT evidence of acute territorial infarct. Stable area of encephalomalacia in the right parietal lobe with ex vacuo dilatation of the right lateral ventricular atrium. Ventricles, sulci, and cisterns are otherwise normal in size and configuration for patient age. No hydrocephalus. No midline shift. Negative insular ribbon sign. Patchy periventricular and deep white matter hypoattenuation is consistent with moderate small vessel ischemic changes. 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 Normal pituitary. Mild atheromatous calcification of the bilateral carotid siphons and V4 segments vertebral arteries bilaterally. Globes and orbital contents demonstrate bilateral lens replacements. No extracranial soft tissue abnormalities. The paranasal sinuses, mastoid air cells, and tympanic cavities are normally aerated. No suspicious bony abnormalities. There are no acute fractures evident. CT/CT head/brain wo IV con IMPRESSION: No acute intracranial abnormality. Stable chronic findings. Electronically signed by: Daniel Erazo MD 10/02/2025 02:49 PM [facility]
[2025-10-02 14:18] LABS: Glucose, Whole Blood 191 mg/dL (60-115)
--- NOTE | 2025-10-02 14:18 | ED.GENADULT ---
HPI - General Adult General Chief complaint: Stroke Stated complaint: STROKE, UNRESP, R WEAK, NN VERBAL, LKWT 1 HR Time Seen by Provider: 10/02/25 14:16 Source: patient, EMS, old records reviewed and automotive parts interpreter Mode of arrival: EMS Limitations: no limitations History of Present Illness ED Provider: DR. Arce HPI narrative: 69-year-old female was brought in by EMS as a stroke protocol. with pertinent history of chronic anemia, ESRD on dialysis T/T/S, DM, HTN, HLD patient was brought in by ambulance for being sick and hypotensive during dialysis, dialysis was terminated and patient could not get the full session and was given 1 L of normal saline at dialysis, patient noted to have headache, right facial numbness, patient was mute to the EMS staff did not speak during the in route, however when patient arrived in the ED was able to peak normally with the automotive parts interpreter, patient was complaining of headache, facial numbness and vomiting that all resolved on arrival to the ED. at the bedside confirmed there is no new asymmetry in her face, patient confirmed that it is very usual complication to have hypotension during dialysis unusually presented with similar presentation. Related Data Home Medications ?Medication ?Instructions ?Recorded ?Confirmed cyanocobalamin (vitamin B-12) 1,000 mcg PO DAILY 03/15/23 05/12/23 1,000 mcg tablet atorvastatin 40 mg tablet 40 mg PO DAILY cholesterol 05/12/23 05/12/23 calcitriol 0.25 mcg capsule 0.25 mcg PO TUTHSA 05/12/23 05/12/23 insulin human U-100 NPH-regulr 20 unit subcut BEDTIME 05/12/23 05/12/23 70-30 mix 100 unit/mL subcutaneous susp (Humulin 70/30 U-100 Insulin) insulin human U-100 NPH-regulr 25 unit subcut DAILY 05/12/23 05/12/23 70-30 mix 100 unit/mL subcutaneous susp (Humulin 70/30 U-100 Insulin) midodrine 2.5 mg tablet 2.5 mg PO DAILY PRN low blood 05/12/23 05/12/23 pressure omeprazole 40 mg capsule,delayed 40 mg PO DAILY@0630 05/12/23 05/12/23 release vitamin B complex-vitamin C-folic 1 tab PO DAILY 05/12/23 05/12/23 acid 0.8 mg tablet (Mindy-Mert) insulin NPH-reg human insulin 100 18 unit subcut QPM 02/20/25 unit/mL (70-30) subcutaneous syringe insulin NPH-reg human insulin 100 20 unit subcut DAILY 02/20/25 unit/mL (70-30) subcutaneous syringe lisinopril 20 mg tablet 20 mg PO BID 02/20/25 Previous Rx's ?Medication ?Instructions ?Recorded ondansetron 4 mg disintegrating 4 mg PO Q6-8H PRN nausea and 01/03/25 tablet vomiting #7 tabs bisacodyl 5 mg tablet,delayed 20 mg (4 x 5 mg) PO ONCE 1 day #4 02/20/25 release (Dulcolax (bisacodyl)) tabs polyethylene glycol 3350 17 238 g PO ONCE #238 grams 02/20/25 gram/dose oral powder (Miralax) Allergies Allergy/AdvReac Type Severity Reaction Status Date / Time No Known Allergies Allergy Verified 10/02/25 14:27 Review of Systems Review of Systems: All other systems are reviewed and are negative Constitutional: Reports as per HPI and Reports no additional constitutional complaints Eyes: Reports as per HPI and Reports no additional eye complaints Reports system reviewed and no additional complaints, except as documented Cardiovascular: Reports as per HPI and Reports no additional cardiovascular complaints Respiratory: Reports as per HPI and Reports no additional respiratory complaints Gastrointestinal: Reports as per HPI and Reports no additional gastrointestinal complaints Genitourinary: Reports no additional female genitourinary complaints Musculoskeletal: Reports no additional musculoskeletal complaints Skin/Breast: Reports system reviewed and no additional complaints, except as docu Psychiatric: Reports no additional psychiatric complaints Endocrine: Reports no additional endocrine complaints Hematologic/Lymphatic: Reports no additional hematologic/lymphatic complaints Allergic/Immunologic: Reports no additional allergic/immunologic complaints Reports system reviewed and no additional complaints, except as documented and Reports Abnormal speech present [facility] Past Medical History Medical History Anemia due to chronic kidney disease CHF (congestive heart failure) CKD (chronic kidney disease) CKD stage 5 secondary to hypertension CKD (chronic kidney disease), stage V 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 2 diabetes mellitus Chronic kidney disease Hyperlipidemia Diabetes mellitus Hypertension Social History Social History Household Members: Spouse Housing: Apartment Do you presently have visiting nurse or other home services: No Alcohol intake: never Patient Tobacco Use Status: Never used Tobacco Smoked in Last 30 Days: No Use of substances other than those prescribed or required for medical reasons: No Advance Directives: Yes Advance Directives on File: Yes Advance Directives Date on File: 10/02/25 Do you have a plan to hurt others: No Plan service: No Current occupational status: unemployed Physical Exam ED Vital Signs: Vital Signs - 24 hr 10/02/25 14:24 10/02/25 16:59 10/02/25 18:40 Temperature 97.8 F 98.2 F 98.2 F Pulse Rate 84 75 75 Respiratory Rate 20 18 18 Blood Pressure 156/84 H 186/77 H 186/77 H Pulse Oximetry 97 94 94 Oxygen Delivery Method Room Air Room Air Room Air 10/02/25 18:41 10/02/25 18:47 Temperature 97.8 F Pulse Rate 80 Respiratory Rate 16 Blood Pressure 190/86 H 190/86 H Pulse Oximetry 94 Oxygen Delivery Method Room Air BMI result Body Mass Index 40.3 Vital signs have been reviewed and appear to be correct. Blood pressure elevated. Heart rate normal. Respiratory rate normal. Temperature normal. Oxygen saturation normal. Appearance: Alert. Oriented X3. No acute distress. Head: Normal external exam. Normocephalic. Atraumatic. No Payton signs noted. No raccoon eyes noted Eyes: PERRLA. EOMI. Conjunctiva and sclera normal. Eyelids normal. ENT: TM's Normal. Pharynx normal. Uvula midline. Moist mucous membranes. No trismus noted. No drooling noted. No muffled voice noted. Neck: Normal inspection. Neck supple. FROM. No adenopathy. Thyroid Normal. No meningeal signs. No neck mass noted. CVS: Normal heart rate and rhythm. Heart sound normal. No murmurs noted. Pulses normal throughout. Respiratory: No respiratory distress. Painless inspiration. Breath sounds normal. No wheezes/rales/rhonchi noted. Chest nontender. No accessory muscle usage noted or decreased air movement noted. Abdomen: Soft and nontender. Bowel sounds normal in all 4 quadrants. No distention noted. No organomegaly noted. No visible injury noted. Back: No CVA tenderness. Full range of motion noted. Skin: Skin warm and dry. Normal skin color. Normal skin turgor. No rashes/lesions/lacerations noted. Extremities: No lower extremity edema. Extremities exhibit normal range of motion. Extremities nontender. Neuro: Oriented X 3. Cranial nerve exam: II-XII are grossly intact No motor deficit. No sensory deficit. Reflexes normal. NIH Stroke Scale Level of Consciousness: Alert Level of Consciousness Questions: Answers both questions correctly Level of Consciousness Commands: Performs both tasks correctly Best Gaze: Normal Visual: No visual loss Facial Palsy: Normal Motor Arm (Right): No drift Motor Arm (Left): No drift Motor Leg (Right): No drift Motor Leg (Left): No drift Limb Ataxia: Absent Sensory: Normal Best Language: No aphasia Dysarthia: Normal Extinction and Inattention: No abnormality Score: 0 Course Reevaluation(s) Reevaluation #1: 69-year-old female end-stage renal disease had hypotension episode while she was on dialysis and dialysis was terminated and patient received IV fluids and transported to the hospital patient usually get nausea and vomiting when she gets the hypotension, neurological exam was intact, initially patient was nonverbal secondary to language barrier could not communicate with the EMS staff but was able to communicate in the presence of automotive parts interpreter, repeat neuro exam showed no deficit, blood pressure maintained patient had a high blood pressure in the emergency department 190/86 usually taking lisinopril 20 mg which was administrated in the ED. As per patient has no facial asymmetry. And patient is acting at her normal baseline. Chronic troponin elevation patient in CKD, troponin elevation within her normal range with no delta changes, no chest pain. Time: 18:58 Medications Administered Discontinued Medications Generic Name Dose Route Start Last Admin Trade Name Nas PRN Reason Stop Dose Admin Lisinopril 20 mg 10/02/25 18:43 10/02/25 18:47 Lisinopril 20 Mg Tablet PO 10/02/25 18:44 20 mg ONCE ONE Administration Protocol Ondansetron HCl 4 mg 10/02/25 17:18 10/02/25 17:28 Ondansetron Hcl 4 Mg/2 Ml Vial IVPUSH 10/02/25 17:19 4 mg ONCE ONE Administration Medical Decision Making Differential Diagnosis Differential Diagnoses: The differential diagnosis associated with the presentation includes (Hemorrhagic stroke, ischemic stroke, TIA, electrolyte derangement, severe anemia, hypotension secondary to dialysis.) Admission/Observation Consideration of admission/observation: Escalation of care including admission/observation considered Lab Data MDM Lab Attestation statement: I reviewed the patient's lab results. 10/02/25 14:54 10/02/25 14:54 Labs: Lab Results 10/02/25 10/02/25 10/02/25 Range/Units 14:09 14:54 17:23 WBC 6.1 (4.8-10.8) X10*3/uL RBC 4.11 L (4.20-5.50) X10*6/uL Hgb 12.4 (12.0-16.0) g/dl Hct 39.4 (37.0-47.0) % MCV 95.9 (80.0-98.0) fL MCH 30.2 (27.0-33.0) pg MCHC 31.5 (31.0-35.0) g/dl RDW 17.0 H (11.0-16.0) % Plt Count 170 D (160-400) X10*3/uL MPV 11.5 (9.4-12.3) fL Immature Gran % (Auto) 0.7 H (0.0-0.4) % Neut % (Auto) 71.3 (45-73) % Lymph % (Auto) 15.5 L (20-40) % Davie % (Auto) 7.9 (2-11) % Eos % (Auto) 3.8 (0-4) % Baso % (Auto) 0.8 (0-2) % Lymph # (Auto) 0.9 L (1.2-4.9) X10*3/uL Davie # (Auto) 0.5 (0.1-1.2) X10*3/uL Eos # (Auto) 0.2 (0.0-0.4) X10*3/uL Baso # (Auto) 0.1 (0.0-0.2) X10*3/uL Abs Immat Gran (auto) 0.04 H (0.00-0.03) X10*3/uL Absolute Neuts (auto) 4.3 (2.0-8.3) x10*3/uL Absolute Nucleated RBC 0.000 (0.0-0.012) X10*3/uL Nucleated RBC % (auto) 0.0 (0.0-0.2) /100WBC PT 12.1 (11.2-13.5) SEC INR 1.0 (0.9-1.1) Sodium 141 (135-145) mmol/L Potassium 4.4 (3.3-5.1) mmol/L Chloride 98 (96-108) mmol/L Carbon Dioxide 32 H (22-29) mmol/L Anion Gap 15 (12-20) BUN 26 H (9-16) mg/dL Creatinine 4.76 H* (0.5-1.4) mg/dL Estim Creat Clear Calc 9.9 Estimated GFR 9 POC Glucose 191 H (60-115) mg/dL Random Glucose 199 H (60-115) mg/dL Calcium 9.3 D (8.4-10.2) mg/dL Total Bilirubin 0.5 (0.0-1.0) mg/dL Direct Bilirubin 0.2 (0.0-0.5) mg/dL AST 25 (5-31) U/L ALT 14 (0-31) U/L Alkaline Phosphatase 137 H (39-117) U/L Troponin I High Sens 25.7 H 27.5 H (<3.5-17.0) ng/L Total Protein 7.8 (6.5-8.0) g/dL Albumin 4.1 (3.5-5.0) g/dL Influenza Type A (PCR) NEGATIVE (Negative) Influenza Type B (PCR) NEGATIVE (Negative) RSV RNA Qual (PCR) NEGATIVE (Negative) SARS-CoV-2 RNA (RT-PCR) NEGATIVE (Negative) Independent Interpretation I performed an independent interpretation of an: EKG (Normal sinus rhythm at 82 beats per minutes, slight prolongation of QT, unchanged from prior EKG) and CT Scan (Head: No acute intracranial pathology stable chronic findings) Radiology Impression Discussion of test interpretation with radiology: I have reviewed the radiologist's reading. Discharge Plan Discharge Clinical Impression: Dialysis complication, Acute hypotension Patient Disposition: Home, Self-Care Instructions: Hypotension (ED) Prescriptions: No Action cyanocobalamin (vitamin B-12) 1,000 mcg Tablet 1,000 mcg PO DAILY atorvastatin 40 mg tablet 40 mg PO DAILY omeprazole 40 mg capsule,delayed release(DR/EC) 40 mg PO DAILY@0630 Mindy-Mert 0.8 mg tablet 1 tab PO DAILY Humulin 70/30 U-100 Insulin 100 unit/mL (70-30) suspension 20 unit subcut BEDTIME Humulin 70/30 U-100 Insulin 100 unit/mL (70-30) suspension 25 unit subcut DAILY midodrine 2.5 mg Tablet 2.5 mg PO DAILY PRN (Reason: low blood pressure) Rx Instructions: do not give last dose of day after 6PM or within 4 hrs of bedtime calcitriol 0.25 mcg Capsule 0.25 mcg PO TUTHSA Rx Instructions: administer after dialysis on dialysis days ondansetron 4 mg tablet,disintegrating 4 mg PO Q6-8H PRN (Reason: nausea and vomiting) Qty: 7 0RF insulin NPH and regular human 100 unit/mL (70-30) syringe 20 unit subcut DAILY insulin NPH and regular human 100 unit/mL (70-30) syringe 18 unit subcut QPM lisinopril 20 mg tablet 20 mg PO BID bisacodyl [Dulcolax (bisacodyl)] 5 mg tablet,delayed release (DR/EC) 20 mg PO ONCE 1 Days Qty: 4 0RF Rx Instructions: take 4 tabs at noon the day before your colonoscopy polyethylene glycol 3350 [Miralax] 17 gram/dose powder 238 g PO ONCE Qty: 238 0RF Rx Instructions: As directed by gastroenterology department at [facility] Print Language: Sami
--- NOTE | 2025-10-02 14:19 | ECG_ITS ---
Test Reason : WEAKNESS Blood Pressure : */* mmHG Vent. Rate : 82 BPM Atrial Rate : 82 BPM P-R Int : 140 ms QRS Dur : 74 ms QT Int : 422 ms P-R-T Axes : 9 52 47 degrees QTcB Int : 493 ms Normal sinus rhythm Possible Left atrial enlargement Prolonged QT Abnormal ECG When compared with ECG of 11-Apr-2025 16:55, No significant change was found Referred By: Martell Arce Electronically Signed By: JOJO HERRERA
[2025-10-02 14:24] VITALS: BP 147/75; BP 156/84; PULSE 75; PULSE 84; RESP 20; TEMP 36.6; O2SAT 97; O2SAT 98; BMI 40.3
[2025-10-02 15:05] LABS: MANUAL DIFF FLAG NO
[2025-10-02 15:07] LABS: Hematocrit 39.4 % (37.0-47.0); Hemoglobin 12.4 g/dl (12.0-16.0); Imm Gran Abs Auto 0.04 X10*3/uL (0.00-0.03); Imm Gran Pct Auto 0.7 % (0.0-0.4); Lymphocytes Absolute Auto 0.9 X10*3/uL (1.2-4.9); Mean Corpuscular HGB Conc 31.5 g/dl (31.0-35.0); Mean Corpuscular Hemoglobin 30.2 pg (27.0-33.0); Mean Corpuscular Volume 95.9 fL (80.0-98.0); NRBC Abs Auto 0.000 X10*3/uL (0.0-0.012); NRBC Pct Auto 0.0 /100WBC (0.0-0.2); Platelet Count 170 X10*3/uL (160-400); Red Blood Count 4.11 X10*6/uL (4.20-5.50); White Blood Count 6.1 X10*3/uL (4.8-10.8)
[2025-10-02 15:12] LABS: INTERNATIONAL NORM RATIO 1.0 (0.9-1.1); Prothrombin Time 12.1 SEC (11.2-13.5)
[2025-10-02 15:33] LABS: Troponin-I High Sensitivity 25.7 ng/L (<3.5-17.0)
[2025-10-02 15:37] LABS: Alanine Aminotransferase 14 U/L (0-31); Albumin Level 4.1 g/dL (3.5-5.0); Alkaline Phosphatase 137 U/L (39-117); Anion Gap 15 (12-20); Aspartate Amino Transferase 25 U/L (5-31); Blood Urea Nitrogen 26 mg/dL (9-16); Calcium 9.3 mg/dL (8.4-10.2); Carbon Dioxide 32 mmol/L (22-29); Chloride 98 mmol/L (96-108); Creatinine Clr Calc Pharmacy 9.9; Estimated Glomerular Filt Rate 9; Potassium 4.4 mmol/L (3.3-5.1); Sodium 141 mmol/L (135-145); Total Protein 7.8 g/dL (6.5-8.0)
[2025-10-02 15:46] LABS: Resp Syncy Virus RNA Qual PCR NEGATIVE (Negative); SARS COV2 PCR INHOUSE NEGATIVE (Negative)
[2025-10-02 16:59] VITALS: BP 186/77; PULSE 75; RESP 18; TEMP 36.8; O2SAT 94
--- OUTSIDE RECORDS SUMMARY | 2025-10-02 17:08 | XMS_ITS | Encounter Summary ---
Author Organization [employer] Address [address] [place] [address] [address] [place] [address] Care Team Providers Care [employer] Person Name Role Phone Kellie Tan MD Primary Care Pro vider Reason for Visit * Reason Comments Med Refill Encounter Details Date Type Department Care Team (Late st Contact Info) Description 10/02/2025 Refill [facility] MEDICINE [address] [place], [place] [phone] Kellie Tan MD [address] [place], [place] [phone] Social History Tobacco Use Types Packs/Day Years Used Date Smoking Tobacco: Never Passive Smoke Exposure: Never Smokeless Tobacco: Never Alcohol Use Standard Drinks/Week Comments Never 0 (1 standard drink = 0.6 oz pur e alcohol) Depression Answer Date Recorded Patient Health Questionnaire-9 Score 0 07/21/2025 Patient Health Questionnaire-9 Score 0 07/21/2025 Last PHQ-9: Questionnaire Data Not on file 1 Housing Stability Answer Date Recorded What is your housing situation today? I have bina tran 07/21/[address] you li ve. Do you have problems with any of the following? None of the above 07/21/2025 Food Insecurity Answer Date Recorded Within the past 12 months, y ou worried that your food would run out before you got money to buy more: Never True 07/21/2025 Within the past 12 months,th e food you bought just didn't last and you didn't have enough money to get more: Never True Transportation Answer Date Recorded In the past 12 months, has l ack of transportation kept you from medical appts, meetings, work or from getting things needed for daily living? No 07/21/2025 Utilities Answer Date Recorded In the past 12 months, has t he electric, gas, oil or water company threatened to shut off services in your home? No 07/21/2025 Depression Answer Date Recorded Patient Health Questionnaire-2 Score 0 07/21/2025 Internet Access Answer Date Recorded Internet Access Q1 Yes 07/21/2025 Internet Access Q2 Not on file 07/21/2025 Comments No Sex and Gender Information Value Date Recorded Sex Assigned at Female 08/04/2022 10:40 AM EDT Legal Sex Female 10:40 AM EDT Gender Identity Female 08/04/2022 10:40 AM EDT Sexual Orientation Straight 08/04/2022 10 :40 AM EDT documented as of this encounter Plan of Treatment Upcoming Encounters Date Type Department Care Team (Late st Contact Info) Description 12/06/2025 10:45 AM EST Office Visit [facility] MEDICINE [address] [place] [phone] Kellie Tan MD [address] [place] [address] documented as of this encounter Goals Goal Patient Goal Type Associated Problems Recent Progress Patient-Stated? Author Help patients manage their type 2 diabetes Care Plan Help patients manage their type 2 diabetes No Kassandra Vera RN Weekly blood pressure task Care Plan Weekly blood pressure task No Kassandra Vera RN Help patients manage their type 2 diabetes Care Plan Help patients manage their type 2 diabetes No Kassandra Vera RN Patient has chronic kidney disease Care Plan Patient has chronic kidney disease No Kassandra Vera RN Weekly blood pressure task Care Plan Weekly blood pressure task No Kassandra Vera RN Patient has chronic kidney disease Care Plan Patient has chronic kidney disease No Kassandra Vera RN Weekly blood pressure task Care Plan Weekly blood pressure task No Abigail Marte RN Weekly blood pressure task Care Plan Weekly blood pressure task No Abigail Marte RN Patient has chronic kidney disease Care Plan Patient has chronic kidney disease No Abigail Marte RN Patient has chronic kidney disease Care Plan Patient has chronic kidney disease No Abigail Marte RN Weekly blood pressure task Care Plan Weekly blood pressure task No Kassandra Vera RN Weekly blood pressure task Care Plan Weekly blood pressure task No Kassandra Vera RN Patient has chronic kidney disease Care Plan Patient has chronic kidney disease No Kassandra Vera RN Patient has chronic kidney disease Care Plan Patient has chronic kidney disease No Kassandra Vera RN Weekly blood pressure task Care Plan Weekly blood pressure task No Sandy Ennis MA Weekly blood pressure task Care Plan Weekly blood pressure task No Sandy Ennis [place] Patient has chronic kidney disease Care Plan Patient has chronic kidney disease No Sandy Ennis [place] Patient has chronic kidney disease Care Plan Patient has chronic kidney disease No Sandy Ennis [place] documented as of this encounter Visit Diagnoses Not on filedocumented in this encounter Additional Health Concerns Active Problems Noted Date Diagnosed Date Help patients manage their type 2 diabetes 08/23 Weekly blood pressure task 08/23/2025 Help patients manage their type 2 diabetes 08/23 Patient has chronic kidney disease 08/23/2025 Weekly blood pressure task 08/23/2025 Patient has chronic kidney disease 08/23/2025 Weekly blood pressure task 09/05/2025 Weekly blood pressure task 09/05/2025 Patient has chronic kidney disease 09/05/2025 Patient has chronic kidney disease 09/05/2025 Weekly blood pressure task 09/07/2025 Weekly blood pressure task 09/07/2025 Patient has chronic kidney disease 09/07/2025 Patient has chronic kidney disease 09/07/2025 Weekly blood pressure task 09/19/2025 Weekly blood pressure task 09/19/2025 Patient has chronic kidney disease 09/19/2025 Patient has chronic kidney disease 09/19/2025 Assessment Noted Time PHQ-9 Depression Total Score: 0 07/21/20 25 11:40 AM EDT documented as of this encounter Care Teams [employer] Person Relationship Specialty Start Date End Date Kellie Tan MD [address] [place] [id number] PCP - General Internal Medicine 04/29/23 documented as of this encounter
--- OUTSIDE RECORDS SUMMARY | 2025-10-02 17:08 | XMS_ITS | Clinical Summary ---
Author Organization [facility] Address [address] [place] [address] DR PEÑANISHTONEY MARTINEZ [address] Phone Care Team Providers Care Sap Data Architect Name Role Phone Falguni Gonzalez RN Primary Care Provider [phone] Allergies No known active allergies Medications omeprazole [...] a week 45 tablet 3 01/14/2023 Active torsemide (DEMADEX) 20 MG tablet Take 1 tablet (20 mg total) by mouth 4 times weekly on Thu and Sun 48 tablet 07/09/2025 10/07/19 26 Active Active Problems Problem Noted Date Diagnosed [...] Encounters Date Type Department Care Team Description 09/25/2025 Treatment [facility] [address] [address] Hamlet Rousseau MD End stage renal disease; Dependence on renal dialysis 09/21/2025 Treatment [facility] [address] [phone] Hamlet Rousseau MD End stage renal disease; Dependence on renal dialysis 09/16/2025 Treatment [facility] [address] [phone] Hamlet Rousseau MD End stage renal disease; Dependence on renal dialysis 09/12/2025 Treatment [facility] [address] [phone] Hamlet Rousseau MD End stage renal disease; Dependence on renal dialysis 08/30/2025 Treatment [facility] [address] [phone] Hamlet Rousseau MD End stage renal disease; Dependence on renal dialysis 08/26/2025 Treatment [facility] [address] [phone] Hamlet Rousseau MD End stage renal disease; Dependence on renal dialysis 08/19/2025 Treatment [facility] [address] [address] Hamlet Rousseau MD End stage renal disease; Dependence on renal dialysis 08/08/2025 Treatment [facility] [address] [phone] Hamlet Rousseau MD End stage renal disease; Dependence on renal dialysis 07/25/2025 Treatment [facility] [address] [phone] Hamlet Rousseau MD End stage renal disease; Dependence on renal dialysis 07/22/2025 Treatment [facility] [address] [phone] Hamlet Rousseau MD End stage renal disease; Dependence on renal dialysis 07/13/2025 Treatment [facility] [address] [place] [phone] Hamlet Rousseau MD End stage renal disease; Dependence on renal dialysis 07/08/2025 Treatment [facility] [address] [place] [phone] Hamlet Rousseau MD End stage renal disease; Dependence on renal dialysis 07/08/2025 Orders Only [facility] [address] [facility] [address] [place] [phone] Jackie Waters RN 07/06/2025 Orders Only [facility] [address] [place] [phone] Hamlet Rousseau MD from Last 3 Months [...] 74 11/19/2022 1:49 PM EST Temperature 36.7 C (98 F) 05/17/2019 12:00 PM EDT Respiratory Rate 14 [...] Exam 12/26/2019 Diabetes: Visual Foot Exam 12/26/2019 Influenza Vaccine (#1) 2025 Diabetes: Hemoglobin A1C 10/21/2025 025, 07/06/2025, 04/03/2025, Additional history exists Pneumococcal Vaccine: 50+ Years Completed Pneumococcal Vaccine: Peds ( 0 to 5 Years) and At-Risk Patients (6 to 49 Years) Discontinued 06/05/2022 Procedures Procedure Name Priority Date/Time Associated Diagnosis Comments [facility] () Routine 09/25/2025 3:00 AM EST POTASSIUM Routine 09/25/2025 3:00 AM EST HEMOGLOBIN Routine 09/21/2025 3:00 AM EST POTASSIUM Routine 09/21/2025 3:00 AM EST [facility] () Routine 09/21/2025 3:00 AM EST [facility] () Routine 09/14/2025 3:00 AM EST POTASSIUM Routine 09/14/2025 3:00 AM EST HEPATITIS B SURFACE ANTIGEN W/REFL CONFIRM Routine 09/07/2025 3:00 AM EST PROTEIN, TOTAL, SERUM Routine 09/07/2025 3:00 AM EST GLUCOSE, RANDOM Routine 09/07/2025 3:00 AM EST LACTATE DEHYDROGENASE Routine 09/07/2025 3:00 AM EST ELECTROLYTE PANEL Routine 09/07/2025 3:0 0 AM EST CREATININE, SERUM Routine 09/07/2025 3:0 0 AM EST TRANSFERRIN SATURATION Routine 3:00 AM EST BUN/CREATININE RATIO Routine 09/07/2025 3:00 AM EST LIH (HC) Routine 09/07/2025 3:00 AM EST MAGNESIUM Routine 09/07/2025 3:00 AM EST ALKALINE PHOSPHATASE Routine 09/07/2025 3:00 AM EST AST Routine 09/07/2025 3:00 AM EST BILIRUBIN, TOTAL Routine 09/07/2025 3:00 AM EST CALCIUM PHOSPHORUS PRODUCT, ADJUSTED (HC) Routine 09/07/2025 3:00 AM EST ALT Routine 09/07/2025 3:00 AM EST FERRITIN Routine 09/07/2025 3:00 AM EST KT/V NATURAL LOG, URR (HC) Routine 09/07/2025 3:00 AM EST CBC AND DIFFERENTIAL Routine 09/07/2025 3:00 AM EST HEMOGLOBIN Routine 08/24/2025 3:00 AM EST HEPATITIS B SURFACE ANTIGEN W/REFL CONFIRM Routine 08/10/2025 3:00 AM EST FERRITIN Routine 08/10/2025 3:00 AM EST TRANSFERRIN SATURATION Routine 3:00 AM EST PROTEIN, TOTAL, SERUM Routine 08/10/2025 3:00 AM EST MAGNESIUM Routine 08/10/2025 3:00 AM EST LIH (HC) Routine 08/10/2025 3:00 AM EST ELECTROLYTE PANEL Routine 08/10/2025 3: 00 AM EST LACTATE DEHYDROGENASE Routine 08/10/2025 3:00 AM EST GLUCOSE, RANDOM Routine 08/10/2025 3:00 AM EST CREATININE, SERUM Routine 08/10/2025 3:0 0 AM EST BILIRUBIN, TOTAL Routine 08/10/2025 3:00 AM EST BUN/CREATININE RATIO Routine 08/10/2025 3:00 AM EST ALKALINE PHOSPHATASE Routine 08/10/2025 3:00 AM EST AST Routine 08/10/2025 3:00 AM EST ALT Routine 08/10/2025 3:00 AM EST CALCIUM PHOSPHORUS PRODUCT, ADJUSTED (HC) Routine 08/10/2025 3:00 AM EST CBC AND DIFFERENTIAL Routine 08/10/2025 3:00 AM EST KT/V NATURAL LOG, URR (HC) Routine 08/10/2025 3:00 AM EST HEMOGLOBIN Routine 08/03/2025 3:00 AM EDT HEMOGLOBIN Routine 07/29/2025 3:00 AM EDT COLLECTION DATE (HC) Routine 07/29/2025 3:00 AM EDT HEMOGLOBIN Routine 07/22/2025 3:00 AM EDT COLLECTION DATE (HC) Routine 07/22/2025 3:00 AM EDT HEMOGLOBIN Routine 07/20/2025 3:00 AM EDT HEMOGLOBIN A1C Routine 07/06/2025 3:00 AM EDT FERRITIN Routine 07/06/2025 3:00 AM EDT HEPATITIS B SURFACE ANTIGEN W/REFL CONFIRM Routine 07/06/2025 3:00 AM EDT PROTEIN, TOTAL, SERUM Routine 07/06/2025 3:00 AM EDT MAGNESIUM Routine 07/06/2025 3:00 AM EDT LACTATE DEHYDROGENASE Routine 07/06/2025 3:00 AM EDT CREATININE, SERUM Routine 07/06/2025 3:0 0 AM EDT TRANSFERRIN SATURATION Routine 3:00 AM EDT ELECTROLYTE PANEL Routine 07/06/2025 3:0 0 AM EDT CALCIUM PHOSPHORUS PRODUCT, ADJUSTED (HC) Routine 07/06/2025 3:00 AM EDT BILIRUBIN, TOTAL Routine 07/06/2025 3:00 AM EDT GLUCOSE, RANDOM Routine 07/06/2025 3:00 AM EDT LIPID PANEL Routine 07/06/2025 3:00 AM EDT BUN/CREATININE RATIO Routine 07/06/2025 3:00 AM EDT LIH (HC) Routine 07/06/2025 3:00 AM EDT ALKALINE PHOSPHATASE Routine 07/06/2025 3:00 AM EDT AST Routine 07/06/2025 3:00 AM EDT ALT Routine 07/06/2025 3:00 AM EDT PTH, INTACT Routine 07/06/2025 3:00 AM EDT CBC AND DIFFERENTIAL Routine 07/06/2025 3:00 AM EDT KT/V NATURAL LOG, URR (HC) Routine 07/06/2025 3:00 AM EDT from Last 3 Months Results * LIH (09/25/2025 3:00 AM EST) Only the most recent of6 resultswithin the time period is included. Lipemia Normal Normal [facility] Icterus Normal Normal [facility] Hemolysis Normal Normal [facility] 09/25/2025 3:00 AM EST 09/26/2025 1:30 PM EST us Hamlet Rousseau MD LAB HISTORICA [id number] RESULTS Final Result [facility] [address] [place] [address] * (ABNORMAL) Potassium (09/25/2025 3:00 AM EST) Only the most recent of3 resultswithin the time period is included. Potassium 5.6(H) 3.4 - 5.0 mEq/L [facility] 09/25/2025 3:00 AM EST 09/26/2025 1:30 PM EST us Hamlet Rousseau MD LAB BLOOD ORDERABLES Final Result Performing Organization Address [facility] de Phone Number [facility] [address] [place] [address] * Hemoglobin (09/21/2025 3:00 AM EST) Only the most recent of6 resultswithin the time period is included. Hgb 11.2 11.2 - 15.7 g/dL [facility] Hemoglobin x 3 33.6 33.6 - 47.1 g/dL [facility] 09/21/2025 3:00 AM EST 09/22/2025 1:49 PM EST us Hamlet Rousseau MD LAB BLOOD ORDERABLES Final Result Performing Organization Address [facility] de Phone Number [facility] [address] [place] [address] * (ABNORMAL) Kt/V Natural Log, URR (09/07/2025 3:00 AM EST) Only the most recent of3 resultswithin the time period is included. Treatment Time 186 min [facility] Pre-Weight, lb 84.7 kg [facility] Post-Weight, lb 82.9 kg [facility] Ultrafiltration Rate 7 <=13 mL/kg/hr [facility] Comment: Recommend achieving Ultrafiltration Rate (UFR) <=10 mL/kg/hr References: Roxy ALEJANDRO et al. Kidney Int. 2010; 79(2):250-257 BUN 40(H) 7 - 25 mg/dL [facility] BUN Post Dialysis 9 7 - 25 mg/dL [facility] UREA REDUCTION RATIO (%) 78 >=65 % [facility] Kt/V Natural Log 1.68 >=1.2 [facility] 09/07/2025 3:00 AM EST 09/08/2025 1:11 PM EST Hamlet Rousseau MD LAB HISTORICA [id number] RESULTS Final Result Performing Organization Address City/[facility]/ZIP Co de Phone Number [facility] [address] [place] [address] * Calcium Phosphorus Product, Adjusted (09/07/2025 3:00 AM EST) Only the most recent of3 resultswithin the time period is included. Albumin 3.9 3.6 - 5.4 g/dL [facility] Calcium 9.0 8.6 - 10.3 mg/dL [facility] Phosphorus, Serum 3.8 2.5 - 5.0 mg/dL [facility] Ca*PO4 34.2 <55.0 mg2/dL2 [facility] Calcium, Adjusted Total 9.1 8.6 - 10.3 mg/dL [facility] CA*PO4 CORRCTD 34.6 <55.0 mg2/dL2 [facility] 09/07/2025 3:00 AM EST 09/08/2025 1:16 PM EST us Hamlet Rousseau MD LAB HISTORICA [id number] RESULTS Final Result Performing Organization Address [facility] Co de Phone Number [facility] [address] [place] [address] * Hepatitis B Surface Ag w/Reflex Confirmation (09/07/2025 3:00 AM EST) Only the most recent of3 resultswithin the time period is included. Hep B Surface Antigen Negative Negative [facility] 09/07/2025 3:00 AM EST 09/08/2025 1:16 PM EST us Hamlet Rousseau MD LAB BLOOD ORDERABLES Final Result Performing Organization Address City/[facility] Co de Phone Number [facility] [address] [place] [address] * BUN/CREATININE RATIO (09/07/2025 3:00 AM EST) Only the most recent of3 resultswithin the time period is included. [facility] BUN/Creatinine Ratio 5.3 <=23.0 [facility] 09/07/2025 3:00 AM EST 09/08/2025 1:16 PM EST us Hamlet Rousseau MD LAB HISTORICA [id number] RESULTS Final Result Performing Organization Address [facility] de Phone Number [facility] [address] [place] [address] * (ABNORMAL) TSAT (09/07/2025 3:00 AM EST) Only the most recent of3 resultswithin the time period is included. [facility] Iron 28(L) 50 - 170 ug/dL [facility] Transferrin 125(L) 250 - 380 mg/dL [facility] TIBC 175(L) 211 - 406 ug/dL [facility] Iron Saturation (TSat) 16(L) 22 - 52 % [facility] 09/07/2025 3:00 AM EST 09/08/2025 1:16 PM EST Hamlet Rousseau MD LAB BLOOD ORDERABLES Final Result Performing Organization Address [facility] de Phone Number [facility] [address] [place] [address] * (ABNORMAL) CBC and Differential (09/07/2025 3:00 AM EST) Only the most recent of3 resultswithin the time period is included. [facility] DIFFERENTIAL MANUAL, 2 Not Indicated [facility] White Blood Cells 8.5 4.0 - 10.0 K/uL [facility] RBC 3.44(L) 3.93 - 5.22 M/uL [facility] Hgb 10.4(L) 11.2 - 15.7 g/dL [facility] Hemoglobin x 3 31.2(L) 33.6 - 47.1 g/dL [facility] Hematocrit 34.5 34.1 - 44.9 % [facility] MCV 100.3(H) 79.4 - 94.8 fL [facility] MCH 30.2 25.6 - 32.2 pg [facility] MCHC 30.1(L) 32.2 - 35.5 g/dL [facility] RDW 16.4(H) 11.7 - 14.4 % [facility] Platelets 216 182 - 369 K/uL [facility] MPV 11.7 9.2 - 12.8 fL [facility] Neutrophils Relative 78.3(H) 34.0 - 71.1 % [facility] Lymphocytes Relative 11.3(L) 19.3 - 51.7 % [facility] Monocytes 6.5 4.7 - 12.5 % [facility] Eosinophils Relative 2.0 0.7 - 5.8 % [facility] Basophils Relative 0.8 0.1 - 1.2 % [facility] Immature Granulocytes 1.1(H) 0.0 - 1.0 % [facility] 09/07/2025 3:00 AM EST 09/08/2025 1:10 PM EST us Hamlet Rousseau MD LAB BLOOD ORDERABLES Final Result Performing Organization Address City/[facility]/ZIP Co de Phone Number [facility] [address] [place] [address] * ALT (09/07/2025 3:00 AM EST) Only the most recent of3 resultswithin the time period is included. ALT (SGPT) 12 10 - 49 U/L [facility] 09/07/2025 3:00 AM EST 09/08/2025 1:16 PM EST us Hamlet Rousseau MD LAB BLOOD ORDERABLES Final Result [facility] [address] [place] [address] * AST (09/07/2025 3:00 AM EST) Only the most recent of3 resultswithin the time period is included. AST (SGOT) 20 <34 U/L [facility] 09/07/2025 3:00 AM EST 09/08/2025 1:16 PM EST us Hamlet Rousseau MD LAB BLOOD ORDERABLES Final Result Performing Organization Address [facility] Co de Phone Number [facility] [address] [place] [address] * Protein, total (09/07/2025 3:00 AM EST) Only the most recent of3 resultswithin the time period is included. Total Protein 7.1 6.4 - 8.9 g/dL [facility] 09/07/2025 3:00 AM EST 09/08/2025 1:16 PM EST us Hamlet Rousseau MD LAB BLOOD ORDERABLES Final Result Performing Organization Address [facility] de Phone Number [facility] [address] [place] [address] * (ABNORMAL) Alkaline phosphatase (09/07/2025 3:00 AM EST) Only the most recent of3 resultswithin the time period is included. Alkaline Phosphatase 130(H) 46 - 116 U/L [facility] 09/07/2025 3:00 AM EST 09/08/2025 1:16 PM EST us Hamlet Rousseau MD LAB BLOOD ORDERABLES Final Result Performing Organization Address [facility] de Phone Number [facility] [address] [place] [address] * Magnesium (09/07/2025 3:00 AM EST) Only the most recent of3 resultswithin the time period is included. Magnesium 2.7 1.9 - 2.7 mg/dL [facility] 09/07/2025 3:00 AM EST 09/08/2025 1:16 PM EST us Hamlet Rousseau MD LAB BLOOD ORDERABLES Final Result Performing Organization Address [facility] Co de Phone Number [facility] [address] [place] [address] * (ABNORMAL) Lactate dehydrogenase (09/07/2025 3:00 AM EST) Only the most recent of3 resultswithin the time period is included. LDH 277(H) 120 - 246 U/L [facility] 09/07/2025 3:00 AM EST 09/08/2025 1:16 PM EST Hamlet Rousseau MD LAB BLOOD ORDERABLES Final Result Performing Organization Address [facility] Co de Phone Number [facility] [address] [place] [address] * (ABNORMAL) Glucose, random (09/07/2025 3:00 AM EST) Only the most recent of3 resultswithin the time period is included. Glucose 377(H) 70 - 99 mg/dL [facility] Comment: ADA guidelines outline the following fasting glucose ranges: Normal: <100 Prediabetes: 100-125 Diabetes: >125 09/07/2025 3:00 AM EST 09/08/2025 1:16 PM EST us Hamlet Rousseau MD LAB BLOOD ORDERABLES Final Result Performing Organization Address [facility] de Phone Number [facility] [address] [place] [address] * (ABNORMAL) Ferritin (09/07/2025 3:00 AM EST) Only the most recent of3 resultswithin the time period is included. Ferritin 1,899(H) 10 - 291 ng/mL [facility] 09/07/2025 3:00 AM EST 09/08/2025 1:16 PM EST us Hamlet Rousseau MD LAB BLOOD ORDERABLES Final Result Performing Organization Address [facility] de Phone Number [facility] [address] [place] [address] * (ABNORMAL) Creatinine, serum (09/07/2025 3:00 AM EST) Only the most recent of3 resultswithin the time period is included. Creatinine 7.56(H) 0.55 - 1.02 mg/dL [facility] 09/07/2025 3:00 AM EST 09/08/2025 1:16 PM EST Hamlet Rousseau MD LAB BLOOD ORDERABLES Final Result Performing Organization Address [facility] de Phone Number [facility] [address] [place] [address] * Bilirubin, total (09/07/2025 3:00 AM EST) Only the most recent of3 resultswithin the time period is included. Total Bilirubin 0.3 0.3 - 1.2 mg/dL [facility] 09/07/2025 3:00 AM EST 09/08/2025 1:16 PM EST Hamlet Rousseau MD LAB BLOOD ORDERABLES Final Result Performing Organization Address [facility] de Phone Number [facility] [address] [place] [address] * (ABNORMAL) Electrolyte panel (09/07/2025 3:00 AM EST) Only the most recent of3 resultswithin the time period is included. Sodium 135(L) 136 - 145 mEq/L [facility] Potassium 6.1(H) 3.4 - 5.0 mEq/L [facility] Chloride 94(L) 98 - 107 mEq/L [facility] Bicarbonate (CO2) 29 21 - 31 mEq/L [facility] Anion Gap 12 3 - 14 mEq/L [facility] 09/07/2025 3:00 AM EST 09/08/2025 1:16 PM EST us Hamlet Rousseau MD LAB BLOOD ORDERABLES Final Result Performing Organization Address [facility] de Phone Number [facility] [address] [place] [address] * Collection Date (07/29/2025 3:00 AM EDT) Only the most recent of2 resultswithin the time period is included. Collection Date See Comment [facility] Comment: Patient sample received may exceed specimen stability, based on the collection date electronically provided. When reviewing patient results, verify collection information and consider specimen stability before acting on any critical or panic results. 07/29/2025 3:00 AM EDT us Hamlet Rousseau MD LAB HISTORICA [id number] RESULTS Final Result Performing Organization Address City/[facility] Co de Phone Number [facility] [address] [place] [address] * PTH, Intact (07/06/2025 3:00 AM EDT) PTH, Intact 362 160 - 721 pg/mL [facility] Comment: Suggested (KDIGO) ESRD maintenance range is two to nine times the upper normal limit (80.1 pg/mL) for the laboratory. 07/06/2025 3:00 AM EDT 07/07/2025 12:16 PM EDT us Hamlet Rousseau MD LAB BLOOD ORDERABLES Final Result Performing Organization Address [facility] Co de Phone Number [facility] [address] [place] [address] * (ABNORMAL) Hemoglobin A1c (07/06/2025 3:00 AM EDT) Hemoglobin A1C 8.7(H) <5.7 % [facility] Comment: Methodology: Enzymatic Normal: <5.7% Prediabetes: 5.7-6.4% Diabetes: >6.4% Diabetic Glucose Control Evaluation: Therapeutic action suggested at >8.0% ADA recommends a glycemic goal of <7.0% 07/06/2025 3:00 AM EDT 07/07/2025 12:15 PM EDT us Hamlet Rousseau MD LAB BLOOD ORDERABLES Final Result Performing Organization Address [facility] Co de Phone Number [facility] [address] [place] [address] * (ABNORMAL) Lipid panel (07/06/2025 3:00 AM EDT) Cholesterol 122 mg/dL [facility] Comment: Optimal: <200 Borderline: 200-239 High Risk: >239 Triglycerides 116 mg/dL [facility] Comment: Optimal: <150 Borderline: 150-200 High Risk: >200 HDL 28(L) mg/dL [facility] Comment: Optimal: >59 Borderline: 40-59 High Risk: <40 LDL-Calc 71 mg/dL [facility] Comment: Optimal: <100 Borderline: 100-159 High Risk: >159 VLDL Cholesterol Ros[place] 23 mg/dL [facility] Comment: Optimal: <30 Borderline: 30-40 High Risk: >40 Chol/HDL Ratio 4.4(H) [facility] Comment: Optimal: <3.3 High Risk: >6.2 07/06/2025 3:00 AM EDT 07/07/2025 12:16 PM EDT Hamlet Rousseau MD LAB BLOOD ORDERABLES Final Result Performing Organization Address [facility] Co de Phone Number [facility] [address] [place] [address] from Last 3 Months [facility] [id number] [facility] ([id number]) . [address], [place] Medicaid ID [facility] ([id number]) . [address] Medicaid ID Care Teams Sap Data Architect Relationship Specialty Start Date End Date Falguni Gonzalez RN [address] [place] [phone] PCP - General Family Medicine 11/09/24
--- OUTSIDE RECORDS SUMMARY | 2025-10-02 17:08 | XMS_ITS | Encounter Summary ---
Author Organization [facility] Address [address] [place] [id number] Care Team Providers Care Electric Shipyard Operator Name Role Phone Sunitha Rod Primary Care Provider Kellie Tran MD Primary Care Pro vider Andressa Gomez PharmD Unavailable [phone] Reason for Visit * Reason Comments Med Refill Encounter Details Date Type Department Care Team (Late st Contact Info) Description 09/25/2022 Refill [facility] [address] [place] [address] [phone] Sunitha Rod FNP Type 2 diabetes mellitus with stage 5 chronic kidney disease not on chronic dialysis, with long-term current use of insulin ([facility]) Social History Tobacco Use Types [...] Description 12/06/2025 10:45 AM EST Office Visit [facility] [address] [place] [address] [phone] Kellie Tan MD [address] [place], [place] [phone] documented as of this encounter Visit Diagnoses Diagnosis Type 2 diabetes mellitus with stage 5 chronic kidney disease not on chronic dialysis, with long-term current use of insulin (HCC) documented in this encounter Care Teams Electric Shipyard Operator Relationship Specialty Start Date End Date Sunitha Rod FNP PCP - General Family Medicine 03/07/22 04/28/23 Kellie Tan MD [address] [place] [address] PCP - General Internal Medicine 04/29/23 Andressa Gomez PharmD [address] [place] [phone] Pharmacist Internal Medicine 11/25/24 04/19/25 documented as of this encounter
--- OUTSIDE RECORDS SUMMARY | 2025-10-02 17:08 | XMS_ITS | Encounter Summary ---
Author Organization [facility], Address [address] [place] [address] Phone Care Team Providers Care Electrical Maintenance Mechanic Name Role Phone Falguni Gonzalez RN Primary Care Provider [phone] Encounter Details Date Type Department Care Team (Late st Contact Info) Description 07/09/2022 Documentation Only [facility], [address] [place] [address] Tish Escalera [address] [place] [address] Social History Tobacco Use Types [...] on filedocumented in this encounter Care Teams Electrical Maintenance Mechanic Relationship Specialty Start Date End Date Falguni Gonzalez RN [address] [place] [address] PCP - General Family Medicine 11/09/24 documented as of this encounter
--- OUTSIDE RECORDS SUMMARY | 2025-10-02 17:08 | XMS_ITS | Encounter Summary ---
Author Organization [facility], Address [address] [place] [address] Phone Care Team Providers Care Fire Management Officer Name Role Phone Falguni Gonzalez RN Primary Care Provider [phone] Encounter Details Date Type Department Care Team (Late st Contact Info) Description 07/03/2022 Documentation Only [facility], [address] [place] [address] Tish Escalera [address] [place] [address] Social History Tobacco Use Types [...] on filedocumented in this encounter Care Teams Fire Management Officer Relationship Specialty Start Date End Date Falguni Gonzalez RN [address] [place] [address] PCP - General Family Medicine 11/09/24 documented as of this encounter
--- OUTSIDE RECORDS SUMMARY | 2025-10-02 17:08 | XMS_ITS | Encounter Summary ---
Author Organization [employer] Address [address] [place] [address] 7 [place] [address] Care Team Providers Care Tunnel Elastic Operator Zigzag Name Role Phone Kellie Tan MD Primary Care Pro vider Andressa Gomez PharmD Unavailable [phone] Reason for Visit * Reason Comments Med Refill Encounter Details Date Type Department Care Team ([facility] st Contact Info) Description 08/22/2024 Refill [facility] [address] [place], [place] [phone] Kellie Tan MD [address] [place], [place] [phone] Type 2 diabetes mellitus with diabetic neuropathy, with long-term current use of insulin ([facility]) Social History Tobacco Use Types Packs/Day [...] Description 12/06/2025 10:45 AM EST Office Visit [facility] [address] [place] [phone] Kellie Tan MD [address] [place], [place] [phone] documented as of this encounter Visit Diagnoses Diagnosis Type 2 diabetes mellitus with diabetic neuropathy, with long-term current use of insulin (HCC) documented in this encounter Additional Health Concerns Assessment Noted Time PHQ-9 Depression Total Score: 0 04/13/20 24 11:25 AM EDT documented as of this encounter Care Teams Tunnel Elastic Operator Zigzag Relationship Specialty Start Date End Date Kellie Tan MD [address] [place], [place] [phone] PCP - General Internal Medicine 04/29/23 Andressa Gomez PharmD [address] [place] [phone] Pharmacist Internal Medicine 11/25/24 04/19/25 documented as of this encounter
--- OUTSIDE RECORDS SUMMARY | 2025-10-02 17:08 | XMS_ITS | Encounter Summary ---
Author Organization [employer] Address [address] [place] [address] 7t [place] [address] Care Team Providers Care Chief Contract Officer Name Role Phone Kellie Tan MD Primary Care Pro vider Andressa Gomez PharmD Unavailable [phone] Reason for Visit * Reason Comments Med Refill Encounter Details Date Type Department Care Team (Late st Contact Info) Description 12/18/2024 Refill [facility] MED[facility] [address] [place], [place] [phone] Andressa Gomez, PharmD [address] [place], [place] [phone] Essential hypertension Social History Tobacco Use Types [...] Description 12/06/2025 10:45 AM EST Office Visit [facility] [address] [place] [address] Kellie Tan MD [address] [place] [address] documented as of this encounter Visit Diagnoses Diagnosis Essential hypertension Unspecified essential hypertension documented in this encounter Additional Health Concerns Assessment Noted Time PHQ-9 Depression Total Score: 0 04/13/20 24 11:25 AM EDT documented as of this encounter Care Teams Chief Contract Officer Relationship Specialty Start Date End Date Kellie Tan MD [address] [place] [phone] PCP - General Internal Medicine 04/29/23 Andressa Gomez, AriD [address] [place] [address] [phone] Pharmacist Internal Medicine 11/25/24 04/19/25 documented as of this encounter
--- OUTSIDE RECORDS SUMMARY | 2025-10-02 17:08 | XMS_ITS | Encounter Summary ---
Author Organization [employer] Address [address] [place] [address] 7 [place] [address] Care Team Providers Care Tenter Frame Operator Name Role Phone Kellie Tan MD Primary Care Pro vider Andressa Gomez PharmD Unavailable [phone] Encounter Details Date Type Department Care Team (Late st Contact Info) Description 04/14/2024 Orders Only [facility] [address] [place] [address] Provider, MD Radha Social History Tobacco Use [...] Description 12/06/2025 10:45 AM EST Office Visit [facility] MED[facility]INE [address] [place] [phone] Kellie Tan MD [address] [place] [address] [phone] documented as of this encounter Procedures Procedure Name Priority Date/Time Associated Diagnosis Comments HM COLONOSCOPY Routine 01/21/2019 4:25 PM EDT documented in this encounter Results * Hm Colonoscopy (01/21/2019 4:25 PM EDT) Historical Provider HEALTH MAINTENANCE Final Result documented in this encounter Visit Diagnoses Not on filedocumented in this encounter Additional Health Concerns Assessment Noted Time PHQ-9 Depression Total Score: 0 04/13/20 24 11:25 AM EDT documented as of this encounter Care Teams Tenter Frame Operator Relationship Specialty Start Date End Date Kellie Tan MD [address] [place] [phone] PCP - General Internal Medicine 04/29/23 Andressa Gomez, AriD [address] [place] [phone] Pharmacist Internal Medicine 11/25/24 04/19/25 documented as of this encounter
--- OUTSIDE RECORDS SUMMARY | 2025-10-02 17:08 | XMS_ITS | Encounter Summary ---
Author Organization [employer] Address [address] [place] [address] [facility] [place] [address] Care Team Providers Care Continuous Process Coffee Roaster Name Role Phone Kellie Tan MD Primary Care Pro vider Andressa Gomez PharmD Unavailable [phone] Reason for Visit * Reason Comments Med Refill Encounter Details Date Type Department Care Team (Late st Contact Info) Description 06/30/2024 Refill [facility] MED[facility]INE [address] [place], [place] [phone] Kellie Tan MD [address] [place], [place] [phone] Type 2 diabetes mellitus with stage 5 chronic kidney disease not on chronic dialysis, with long-term current use of insulin ([facility]) Social History Tobacco Use Types Packs/Day [...] Description 12/06/2025 10:45 AM EST Office Visit [facility] [address] [place] [phone] Kellie Tan MD [address] [place] [phone] documented as of this encounter Visit Diagnoses Diagnosis Type 2 diabetes mellitus with stage 5 chronic kidney disease not on chronic dialysis, with long-term current use of insulin (HCC) documented in this encounter Additional Health Concerns Assessment Noted Time PHQ-9 Depression Total Score: 0 04/13/20 24 11:25 AM EDT documented as of this encounter Care Teams Continuous Process Coffee Roaster Relationship Specialty Start Date End Date Kellie Tan MD [address] [place] [address] [phone] PCP - General Internal Medicine 04/29/23 Andressa Gomez, AriD [address] [place] [address] [phone] Pharmacist Internal Medicine 11/25/24 04/19/25 documented as of this encounter
--- OUTSIDE RECORDS SUMMARY | 2025-10-02 17:08 | XMS_ITS | Encounter Summary ---
Author Organization [employer] Address [address] [place] [address] 7 [place] [address] Care Team Providers Care Transition Mgr Rn Name Role Phone Kellie Tan MD Primary Care Pro vider Andressa Gomez PharmD Unavailable [phone] Reason for Visit * Reason Comments Med Change Request Encounter Details Date Type Department Care Team (Late st Contact Info) Description 04/30/2023 Refill [facility] [address] [place] [address] Sunitha Rod FNP Type 2 diabetes mellitus with diabetic neuropathy, with long-term current use of insulin ([facility]) Social History Tobacco Use Types Packs/Day Years [...] Lulu Riggs - 06/23/2023 11:44 AM EDT Employee Relations Assistant checked CMM and patient was approved for the Novolin 70/30, pharmacy is aware and will call patient to inform that is ready for sisal picker. documented in this encounter Plan of Treatment Upcoming Encounters Date Type Department Care Team (Late st Contact Info) Description 12/06/2025 10:45 AM EST Office Visit [facility] MEDICINE [address] [place] [phone] Kellie Tan MD [address] [place] [phone] documented as of this encounter Visit Diagnoses Diagnosis Type 2 diabetes mellitus with diabetic neuropathy, with long-term current use of insulin (HCC) documented in this encounter Additional Health Concerns Assessment Noted Time PHQ-9 Depression Total Score: 0 03/25/20 11:53 AM EDT documented as of this encounter Care Teams Transition Mgr Rn Relationship Specialty Start Date End Date Kellie Tan MD [address] [place] [phone] PCP - General Internal Medicine 04/29/23 Andressa Gomez PharmD [address] [place] [phone] Pharmacist Internal Medicine 11/25/24 04/19/25 documented as of this encounter
--- OUTSIDE RECORDS SUMMARY | 2025-10-02 17:08 | XMS_ITS | Encounter Summary ---
Author Organization [facility], Address [address] [place] [address] Phone Care Team Providers Care Creative Services Manager Name Role Phone Falguni Gonzalez RN Primary Care Provider [phone] Encounter Details Date Type Department Care Team (Late st Contact Info) Description 05/22/2022 Documentation Only [facility], [address] [place] [address] Tish Escalera [address] [place] [address] Social History Tobacco Use Types [...] on filedocumented in this encounter Care Teams Creative Services Manager Relationship Specialty Start Date End Date Falguni Gonzalez RN [address] [place] [address] PCP - General Family Medicine 11/09/24 documented as of this encounter
--- OUTSIDE RECORDS SUMMARY | 2025-10-02 17:09 | XMS_ITS | Clinical Summary ---
Author Organization [employer] Address [address] [place] [address] 7 [place] [address] Care Team Providers Care Pest Controller Name Role Phone Kellie Tan MD Primary Care Pro vider Allergies No known active allergies Medications Blood Glucose Monitoring Suppl (Icon BioscienceTouch Verio) w/Device kitIndications: Type 2 diabetes mellitus with diabetic neuropathy, with long-term current use of insulin ([facility]) 1 kit 3 times daily. 1 kit 10/30/19 24 Active calcium acetate (Phoslo) 667 MG capsule Take 667 mg by mouth with breakfast, with lunch, and with evening meal. 02/10/20 24 Active lisinopril 20 MG tablet Take 20 mg by mouth Once per day. 07/14/20 24 Active glucose blood (OneTouch Verio) test stripIndication s:Type 2 diabetes mellitus with stage 5 chronic kidney disease not on chronic dialysis, with long-term current use of insulin ([facility]) 4 times a day 100 strip 11 08/12/20 24 Active Lancets (Icon BioscienceTouch Delica Plus [id number]) miscIndications :Type 2 diabetes mellitus with stage 5 chronic kidney disease not on chronic dialysis, with long-term current use of insulin ([facility]) TEST BLOOD SUGAR FOUR TIMES DAILY 100 each 11 08/12/20 24 Active epoetin feli (Epogen) 38351 UNIT/ML injection as directed SQ every 2 weeks for 90 days Active B Kxeycdb-Y-Wdfui Acid (Mindy-Mert) tablet Take 1 tablet by mouth Once per day. 30 tablet 2 02/10/20 25 Active Alcohol Swabs (Alcohol Pads) 70 % padsIndications :Type 2 diabetes mellitus with diabetic neuropathy, with long-term current use of insulin (HCC) Use as directed on skin 100 each 11 09/04/2025 1:34 PM EST 04/12/20 25 Active Insulin Syringe 31G X 5/16 0.3 ML misc USE TO INJECT INSULIN TWICE DAILY DIRECTED 100 each 3 09/25/2025 1:35 PM EST 04/20/20 25 Active Continuous Glucose Molder Machine (FreeStyle Steve 3 Hughes) device 1 each Once per day. Check glucose 4 times a day 1 each 05/31/20 25 Active glucose blood (FreeStyle Precision Saroj Test) test strip Check glucose 4 times a day 100 each 11 09/04/2025 1:34 PM EST 05/31/20 25 026 Active Continuous Glucose Sensor (FreeStyle Steve 3 Plus Sensor) misc 1 each every 15 days. Check glucose 4 times a day 2 each 10/02/2025 12:12 PM EST 05/31/20 25 Active glucagon (Baqsimi Two Pack) 3 MG/DOSE nasal powder USE 1 SPRAY (3MG) IN ONE NOSTRIL FOR A PATIENT WITH SEVERE HYPOGLYCEMIA WHO IS NOT RESPONSIVE AND UNABLE SELF-TREAT WITH GLUCOSE. AFTERWARDS TURN ON SIDE. MAY REPEAT IN 15MINUTES IF PATIENT DOES NOT RESPOND. 2 each 1 06/01/20 25 Active glucose 4 g chewable tablet Chew 4 tablets (16 g) if needed for low blood sugar. 90 tablet 1 06/01/20 25 026 Active atorvastatin (Lipitor) 40 MG tablet TAKE 1 TABLET BY MOUTH EVERY MORNING 90 tablet 06/07/20 25 Active carvedilol (Coreg) 12.5 MG tablet Take 1 tablet (12.5 mg) by mouth 2 times daily. 180 tablet 06/07/20 25 Active insulin NPH-insulin regular (NovoLIN 70/30) (70-30) 100 UNIT/ML injection INJECT SUBCUTANEOUSLY 22 UNITS EVERY MORNING WITH BREAKFAST AND 18 UNITS EVERY EVENING WITH SUPPER 10 mL 3 09/25/2025 1:35 PM EST 07/21/20 25 Active omeprazole (PriLOSEC) [address] capsuleIndicati ons:Gastroesoph ageal reflux disease without esophagitis TAKE 1 CAPSULE BY MOUTH EVERY MORNING 90 capsule 1 08/08/20 25 Active Active Problems Problem Noted Date Diagnosed Date Gingival ulcer 07/22/2025 Nausea 07/22/2025 Acidosis 07/21/2025 Cataract 07/21/2025 Elevated antinuclear antibody (EMMA) level 2024 Hyperphosphatemia 07/21/2025 Hyperuricemia 07/21/2025 Proteinuria 07/21/2025 Stage 4 chronic kidney disease (CMS/HCC) 025 Neuropathy 06/12/2025 Assessment & Plan (06/12/2025 4:29 PM EDT): Pain is most consistent with neuropathic type of pain I decided to prescribe for her trial of gabapentin to be taken 100 mg after her dialysis 3 times a week (this dose has been adjusted patient is end-stage renal disease) I advised to follow-up with PCP Cooter of toe 12/23/2024 Health care maintenance 02/24/2024 Class 1 obesity 02/24/2024 Heart murmur 02/24/2024 Family history of cancer 02/24/2024 ESRD (end stage renal disease) 06/10/2023 Hyperkalemia 06/10/2023 Hypocalcemia 06/10/2023 CHF (congestive heart failure) 03/20/2023 Overview (04/07/2023): New onset CHF, diagnosed at [facility] during admission 03/15/23 Unknown if have cardiology [...] due to renal insufficiency 0 03/10/2022 Anemia of renal disease 03/04/2022 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) 03/04/2022 Overview (04/29/2023): ESRD, started dialysis [facility] dialysis [facility] [place] Intaking too much fluid in between dialysis days and is causing fluid overload Pending fistula placement Continue , Thursday Swelling in legs has improved. [...] pt to follow fluid intake recommendations Called [employer] and notified of starting dialysis. Will continue care with dialysis center F/u 1 month or sooner PRN Chronic GERD 02/28/2022 Diabetes mellitus 09/19/2021 ASCUS of cervix with negative high risk HPV 04/04 Overview (03/20/2023): 2015, 2018 No hx of dysplasia. Last Assessment & Plan: 2018 No hx of dysplasia. Pap smear results explained to patient. Plan repeat cotesting in 3 years- 2021. Hypertension 09/10/2017 Overview (04/29/2023): Treatment plan was Labetalol 100mg, 1.5 tablets BID hydrochlorothiazide discontinued in March with new onset CHF Referred cardiology, pending Appt Multiple episodes of hypotension since starting dialysis Has stopped labetalol, increased sodium in diet as of 04/29/23 Assessment & Plan (06/12/2025 4:31 PM EDT): Today blood pressure is elevated, she had her hemodialysis on Thursday, patient is end-stage renal disease on hemodialysis her blood pressure is labile I do not recommend for now adjustment of her medications, I advised to follow-up with PCP Assessment & Plan (04/29/2023 5:47 PM EDT): [...] with her Lab Results Component Value Date HGBA1C 7.1 (A) 11/06/2022 Glucose 277 11/06/22 has just eaten breakfast Lipid panel: Elevated 02/2022, will check at next visit Statin: Atorvastatin 40mg Alexandr/Arb: Not recommended due to CKD Assessment & Plan (04/29/2023 6:00 PM EDT): Diabetic eye exam pending Educated pt to continue increased dose of Humulin, until they receive the Novolin will bring paperwork from eye doctor to [facility] medical records Will rx Novolin 70/30 again and see if approved by insurance now. If not will call for a PA F/u 3 months or sooner PRN with new PCP Encounters Date Type Department Care Team Description 10/02/2025 Refill [facility] [address] [place] [phone] Kellie Tan MD 09/19/[address] [phone] Kellie Tan MD December Recal 09/07/[address] [phone] Kassandra Vera, instrument tester 09/05/[address] [phone] Abigail Marte, RN [facility] Recall 08/10/[address] [phone] Kellie Tan MD Letter Request (I called the patient, regarding her request for a letter for housing. She stated that she is requesting an emergency voucher, and needs 2 letters listing her medical conditions. ) 08/07/2025 Refill [facility] [address] [place], [place] [phone] Kellie Tan MD Gastroesophageal reflux disease without esophagitis 07/22/2025 Orders Only [facility] [address] [place] [address] [phone] Kellie Tan MD 07/21/2025 1:00 PM EDT Office Visit [facility] [address] [place] [address] [phone] Jason Espinoza DDS 07/21/2025 11:15 AM EDT Office Visit [facility] [address] [place] [phone] Kellie Tan MD Anemia due to chronic kidney disease, on chronic dialysis ([facility]) ([facility]) (Primary Dx); Type 2 diabetes mellitus with diabetic neuropathy, with long-term current use of insulin ([facility]); Hyperparathyroidism due to renal insufficiency ([facility]); Diabetes mellitus, labile ([facility]); Annual physical exam; Nausea; Hypertension, unspecified type; Class 1 obesity; Type 2 diabetes mellitus with chronic kidney disease on chronic dialysis, with long-term current use of insulin ([facility]); Health care maintenance; Anemia of renal disease; Gingival ulcer 07/21/2025 Travel 07/20/2025 Telephone [facility] [address] [place] [phone] Kellie Tan MD chart prep 07/13/2025 Patient Outreach [address] [phone] Kellie Tan MD Pre-visit Planning (SDOH screening will need to be completed in office. ) 07/07/2025 3:30 PM EDT Clinical Support [address] [phone] Abigail Marte RN Type 2 diabetes mellitus with diabetic neuropathy, with long-term current use of insulin ([facility]) 07/07/2025 Travel 07/03/2025 Telephone [facility] [address] [place] [phone] Kellie Tan MD Med Refill from Last 3 Months Immunizations Immunization Administration [...] Sign Reading Time Taken Comments Blood Pressure 130/48 07/21/2025 11:31 AM EDT Pulse 80 07/21/2025 11:31 AM EDT Temperature 36.2 C (97.1 F) 07/21/2025 11:31 AM EDT Respiratory Rate 20 07/21/2025 11:3 1 AM EDT Oxygen Saturation 97% 06/12/2025 3:39 PM EDT Inhaled Oxygen Concentration - - Weight 83.8 kg (184 lb 12.8 oz) 025 11:31 AM EDT Height 163.8 cm (5' 4.5 ) 07/21/2025 11 :31 AM EDT Body Mass Index 31.23 07/21/2025 11:31 AM EDT Plan of Treatment Upcoming Encounters Date Type Department Care Team (Late st Contact Info) Description 12/06/2025 10:45 AM EST Office Visit [facility] [address] [place], [place] [phone] Kellie Tan MD [address] [place], [place] [phone] Health Maintenance Due Date Last Done Comments CT Colonography 1955 Dental Oral Exam 1955 Dental Prophylaxis 1955 Dental X-Ray: Bitewings 1955 Dental X-Ray: Full Mouth 1955 FIT DNA/Cologuard 1955 FIT 1955 FOBT 1955 Sigmoidoscopy 1955 Eye Exam 1964 RSV Patients and Patients Aged 60 years or older (1 - Risk 50-74 years 1-dose series) 2004 Zoster Vaccines (2 of 2) 07/31/2022 06/05/2022, 09/10/2021 COVID-19 Vaccine ( season) 2025 05/04/2024, 02/15/2021, 01/19/2021 Influenza Vaccine (#1) 2025 Diabetes: Hemoglobin A1C 10/21/2025 025, 04/03/2025, 04/03/2025, Additional history exists Diabetes: Foot Exam 12/23/2025 12/23/2024, 12/23/2024, 12/23/2024, Additional history exists Lipid Panel 04/03/2026 04/03/2025, 07/0 05/2024, 02/28/2022 Alcohol/Substance Use Screening 07/21/2026 07/21/2025 Depression Screening 07/21/2026 07/21/2025, 07/21/20 25 SDOH Screening 07/21/2026 07/21/2025 Tobacco Screening 07/21/2026 07/21/2025 HPV/Cotest 12/02/2026 12/02/2023 Pap Smear 12/02/2026 12/02/2023 Mammogram 03/29/2027 03/29/2025, 10/2 02/2023, 06/01/2019, Additional history exists Colonoscopy 01/21/2029 01/21/2019 Colorectal Cancer Screening 01/21/2029 [...] on patient's age to complete this topic Goals Goal Patient Goal Type Associated Problems [...] chronic kidney disease No Sandy Ennis MA Procedures Procedure Name Priority Date/Time Associated Diagnosis Comments LIMITED ORAL EVALUATION - PROBLEM FOCUSED Routine 07/21/2025 1:00 PM EDT POCT GLYCATED HEMOGLOBIN, TOTAL Routine 07/21/2025 11:50 AM EDT Type 2 diabetes mellitus with diabetic neuropathy, with long-term current use of insulin (HCC) POCT GLUCOSE (CPT-96849) Routine 07/21/2025 11:49 AM EDT Type 2 diabetes mellitus with diabetic neuropathy, with long-term current use of insulin (HCC) Reddy COMPLETE DENTURE Routine 07/21/2025 12:00 AM EDT Max COMPLETE DENTURE Routine 07/21/2025 12:00 AM EDT 32 EXTRACTION Routine 07/21/2025 12:00 AM EDT 31 EXTRACTION Routine 07/21/2025 12:00 AM EDT 30 EXTRACTION Routine 07/21/2025 12:00 AM EDT 29 EXTRACTION Routine 07/21/2025 12:00 AM EDT 28 EXTRACTION Routine 07/21/2025 12:00 AM EDT 27 EXTRACTION Routine 07/21/2025 12:00 AM EDT 26 EXTRACTION Routine 07/21/2025 12:00 AM EDT 25 EXTRACTION Routine 07/21/2025 12:00 AM EDT 24 EXTRACTION Routine 07/21/2025 12:00 AM EDT 23 EXTRACTION Routine 07/21/2025 12:00 AM EDT 22 EXTRACTION Routine 07/21/2025 12:00 AM EDT 21 EXTRACTION Routine 07/21/2025 12:00 AM EDT 20 EXTRACTION Routine 07/21/2025 12:00 AM EDT 19 EXTRACTION Routine 07/21/2025 12:00 AM EDT 18 EXTRACTION Routine 07/21/2025 12:00 AM EDT 17 EXTRACTION Routine 07/21/2025 12:00 AM EDT 16 EXTRACTION Routine 07/21/2025 12:00 AM EDT 15 EXTRACTION Routine 07/21/2025 12:00 AM EDT 14 EXTRACTION Routine 07/21/2025 12:00 AM EDT 13 EXTRACTION Routine 07/21/2025 12:00 AM EDT 12 EXTRACTION Routine 07/21/2025 12:00 AM EDT 11 EXTRACTION Routine 07/21/2025 12:00 AM EDT 10 EXTRACTION Routine 07/21/2025 12:00 AM EDT 9 EXTRACTION Routine 07/21/2025 12:00 AM EDT 8 EXTRACTION Routine 07/21/2025 12:00 AM EDT 7 EXTRACTION Routine 07/21/2025 12:00 AM EDT 6 EXTRACTION Routine 07/21/2025 12:00 AM EDT 5 EXTRACTION Routine 07/21/2025 12:00 AM EDT 4 EXTRACTION Routine 07/21/2025 12:00 AM EDT 3 EXTRACTION Routine 07/21/2025 12:00 AM EDT 2 EXTRACTION Routine 07/21/2025 12:00 AM EDT 1 EXTRACTION Routine 07/21/2025 12:00 AM EDT LIPID PANEL, STANDARD Routine 04/03/2025 8:32 AM EDT Hypertension, unspecified type BI MAMMOGRAM SCREENING TOMOSYNTHESIS BILATERAL Routine 03/29/2025 1:10 PM EDT Breast cancer screening by mammogram HEPATITIS C AB W/REFL TO HCV RNA, QN, PCR Routine 04/11/2024 8:34 AM EDT Annual physical exam HPV MRNA E6/E7 REFLEX TO HPV 16, 18/45 Routine 12/02/2023 9:45 AM EST PAP SMEAR Routine 12/02/2023 9:45 AM EST ASCUS of cervix with negative high risk HPV HM COLONOSCOPY Routine 01/21/2019 4:25 PM EDT from Last 3 Months or Most Recently Relevant to Health Maintenance Results * (ABNORMAL) POCT Hgb A1c (07/21/2025 11:50 AM EDT) Hemoglobin A1C 8.7(A) 4.0 - 5.7 % QC Media Lot # [id number] Lot# Expiration Date , Blood 07/21/2025 11:5 0 AM EDT Kellie Diane MD POINT OF CARE JOAQUINA T ENTER/EDIT ORDERABLES Final Result * (ABNORMAL) POCT Glucose (07/21/2025 11:49 AM EDT) Pathologist [facility] Glucose Blood, POC 303(A) 60 - 200 mg/dL QC Media Lot # [id number] Lot# Expiration Date 665, Blood Capillary blood specimen / Unknown 07/21/2025 11:49 AM EDT Kellie Diane MD POINT OF CARE JOAQUINA T ENTER/EDIT ORDERABLES Final Result * (ABNORMAL) Lipid Panel, Standard (04/03/2025 8:32 AM EDT) Triglycerides 136 <150 mg/dL [facility] Comment:Desirable Triglyceri de: less than 150 mg/dLBorderline High Triglyceride 150-199 mg/dLHigh Triglyceride: 200-499 mg/dLVery High Triglyceride: greater than or equal to 5OO mg/dL Cholesterol 159 <200 mg/dL [facility] Comment:Desirable Cholestero l: less than 200 mg/dLBorderline High Cholesterol: 200-239 mg/dLHigh Cholesterol: greater than 239 mg/dL LDL Cholesterol Calculated 95 <100 mg/dL [facility] Comment:Desirable LDL: less than 100 mg/dLNear Optimal/Above Optimal LDL: 110- 129 mg/dLBorderline High LDL: 130-159 mg/dLHigh LDL: 160-189 mg/dLVery High LDL: greater than or equal to 190 mg/dL HDL Cholesterol 37(L) >40 mg/dL [facility] Comment:Desirable HDL: great er than 40 mg/dL Note: This HDL assay may give artificially low results in patients with liver disease. Blood Venous blood specimen / Unknown 04/03/2025 8:32 AM EDT 04/03/2025 10:59 AM EDT Kellie Diane MD LAB BLOOD ORDERAB LES Final Result [facility] [address] [place] [address] [phone] * BI Mammogram Screening Tomosynthesis Bilateral (03/29/2025 1:10 PM EDT) Anatomical Region Laterality Modality Breast Bilateral Mammography 03/29/2025 1:10 PM EDT Narrative 04/15/2025 3:[address]T [address] [place] [address] Mammography Report Signed Patient: Stephanie Anthony MR#: [id number] 4 : 1955 Acct:[id number] Age/Sex: 69 / F ADM Date: 03/29/25 Loc: HO.MAMMO Attending Dr: Kellie Diane MD Ordering Physician: Kellie Tan MD Re sults: 1Negative Date of Service: 03/29/25 Follow Up: 1 Year From [facility] ina Mammogram Procedure(s): MM tomosynthesis screening BI Accession Number(s): [id number] cc: Kellie Tan MD EXAMINATION: MM SCREENING DIGITAL BREAST TOMOSYNTHESIS, BILATERAL CLINICAL INFORMATION: Screening. Asymptomatic. COMPARISON: Mammography: Comparison is made with available priors TECHNIQUE: Digital breast mammography with tomosynthesis is performed in both the craniocaudal and mediolateral oblique views along with computer-aided detection (CAD). FINDINGS: There are scattered areas of fibroglandular [...] target due date for their next mammogram. Electronically signed by: Janeth Dorsey DO 04/15/2025 03:15 PM EDT RP Dictated By: Janeth Dorsey DO Signed By: <Electronically signed by Janeth Dorsey DO in OV> 04/15/25 1515 DD/ 1310 TD/TT: 03/29/25 1339 Motor Assembly Supervisor: Procedure Note Donotuseinterpreter, Image - 04/15/20[facility] [address] [place] [address] Mammography Report Signed Patient: Stephanie Anthony#: [id number] 4 : 5Acct:[id number] Age/Sex: 69 / FADM Date: 03/29/25 Loc: HO.MAMMO Attending Dr: Kellie Diane MD Ordering Physician: Kellie Tan sults: 1Negative Date of Service: 03/29/25Follow Up: 1 Year From Orig inal Mammogram Procedure(s): MM tomosynthesis screening BI Accession Number(s): [id number] cc: Kellie Tan MD EXAMINATION: MM SCREENING DIGITAL BREAST TOMOSYNTHESIS, BILATERAL CLINICAL INFORMATION: Screening. Asymptomatic. COMPARISON: Mammography: Comparison is made with available priors TECHNIQUE: Digital breast mammography with tomosynthesis is performed in both the craniocaudal and mediolateral oblique views along with computer-aided detection (CAD). FINDINGS: There are scattered areas of fibroglandular [...] target due date for their next mammogram. Electronically signed by: Janeth Dorsey DO 04/15/2025 03:15 PM EDT Dictated By: Janeth Dorsey DO Signed By: <Electronically signed by Janeth Dorsey DO in OV> 04/15/25 1515 DD/ 1310 TD/TT: 03/29/25 1339 Motor Assembly Supervisor: Kellie Diane MD IMG BI PROCEDURES Edited Result - Final * Hepatitis C Antibody with Reflex to HCV, RNA, Quantitative, Real-Time PCR (04/11/2024 8:34 AM EDT) Hepatitis C Antibody Nonreactive Nonreactive [facility] Comment:Antibodies to HCV no t detected; does not exclude early acuteHCV infection. Blood Venous blood specimen / Unknown 04/11/2024 8:34 AM EDT 04/11/2024 10:51 AM EDT Result [facility] Kellie Diane MD LAB BLOOD ORDERAB LES Final Result [facility] [address] [place] [phone] * HPV mRNA E6/E7 w/Reflex to HPV Genotypes 16, 18/45 (12/02/2023 9:45 AM EST) HPV nRNA E6/E7 Not Detected Not Detected [facility] Comment:Methodology: Transcr iption-Mediated AmplificationThis assay detects E6/E7 viral messenger RNA (mRNA) from 14high-risk HPV types (16,18,31,33,35,39,45,51,52,56,58,59,66,68).Cervical sources are required for HPV testing.If a vaginal source from a patient who has had atotal hysterectomy with removal of cervix wassubmitted, please contact the testing laboratoryfor alternative testing options.For additional information, please refer [email or web address](This link if provided for information/educational purposes only.)THIS TEST WAS PERFORMED AT:[employer] [place] [phone] JUAN MD HPV mRNA E6/E7 TNP [facility] HPV 16 RNA TNP [facility] HPV 18/45 RNA TNP [facility] 12/02/2023 9:45 AM EST 12/03/2023 10:00 AM EST Trinity Smith CNM LAB CYTOLOGY ORDERABLES F inal Result [facility] [address] [place] [phone] * Pap Smear (12/02/2023 9:45 AM EST) Swab Cervix uteri structure / Unknown 12/02/2023 9:45 AM EST 12/03/2023 10:00 AM EST Narrative [facility] - 12/16/2023 4:14 PM EDT ----- ------- Name: Stephanie Anthony Age/Sex: 68/F : 1955 Unit#: [id number] Attend Dr: TRINITY SMITH CNM Re12/02/23 Status: DEP [facility] ----- ------- SPEC : [id number] RECD: 12/03/23-1000 STATUS: SHWETA CHINCHILLA NUM: [id number] EARLENE: 12/02/23-[address] [facility] [address]: TRINITY SMITH CNM ENTERED: 12/03/23-1150 SP TYPE: Pap Smr OTHR DR: ORDERED: Pap Smear Interpretation Satisfactory for evaluation. Negative for intraepithelial lesion or malignancy. HPV mRNA E6/E7: NOT DETECTED This assay detects E6/E7 viral messenger RNA (mRNA) from 14 high-risk HPV types (16, 18, 31, 33, 35, 39, 45, 51, 52, 56, 58, 59, 66, 68) HPV testing performed by [facility], [place], [place]. See reference laboratory portion of the EMR for entire report. Clinical Information LMP: Postmenopausal Previous PAP test: Unknown date/findings Other history: ASCUS of cervix with negative high risk HPV Material Received ThinPrep-Cervical ----- ------- Signed (signature on file) JORI Mesa (ASCP) 12/16/23 1614 ----- ------- END OF REPORT Tirnity Rizzardini CNM LAB CYTOLOGY ORDERABLES F inal Result [facility] [address] [place] [address] [phone] * Hm Colonoscopy (01/21/2019 4:25 PM EDT) us Historical Provider MD HEALTH MAINTENANCE Final Result from Last 3 Months or Most Recently Relevant to Health Maintenance Additional Health Concerns Active Problems Noted Date [...] 09/19/2025 Patient has chronic kidney disease 09/19/2025 Insurance [facility] DUAL COMPLETE [facility] STANDARD DENTAL - [facility] SCO DENTAL - HSN FULL (MEDICAID) [address] [address] Care Teams Pest Controller Relationship Specialty Start Date End Date Kellei Tan MD [address] [place] [address] [phone] PCP - General Internal Medicine 04/29/23
--- OUTSIDE RECORDS SUMMARY | 2025-10-02 17:09 | XMS_ITS | Encounter Summary ---
Author Organization [employer] Address [address] [place] [address] [address] [place] [address] Care Team Providers Care Industrial Maintenance [employer] Name Role Phone Kellie Tan MD Primary Care Pro vider Encounter Details Date Type Department Care Team ([facility] st Contact Info) Description 07/22/2025 Orders Only [facility] [address] [place], [place] [phone] Kellie Tan MD [address] [place] [address] Social History Tobacco Use Types Packs/Day Years [...] Description 12/06/2025 10:45 AM EST Office Visit [facility] [address] [place] [phone] Kellie Tan MD [address] [place] [phone] documented as of this encounter Visit Diagnoses Not on filedocumented in this encounter Additional Health Concerns Assessment Noted Time PHQ-9 Depression Total Score: 0 07/21/20 25 11:40 AM EDT documented as of this encounter Care Teams Industrial Maintenance [employer] Relationship Specialty Start Date End Date Kellie Tan MD [address] [place] [phone] PCP - General Internal Medicine 04/29/23 documented as of this encounter
[2025-10-02 17:53] LABS: Troponin-I High Sensitivity 27.5 ng/L (<3.5-17.0)
[2025-10-02 18:40] VITALS: BP 186/77; PULSE 75; RESP 18; TEMP 36.8; O2SAT 94
[2025-10-02 18:41] VITALS: BP 190/86; PULSE 80; RESP 16; TEMP 36.6; O2SAT 94
--- NOTE | 2025-10-02 18:44 | PC.NURSE ---
PAtient SBP 190 Patient usually takes 20mg lisinopril and didnt take Notified provider verbal order given to administer medication
[2025-10-02 18:47] VITALS: BP 190/86
[2025-10-02 19:21] VITALS: BP 190/86; PULSE 80; RESP 16; TEMP 36.6; O2SAT 94
== END 2025-10-02 19:30 | disposition home or self-care (01) ==
PROVIDERS: Emergency Provider Emergency Medicine
DX: I95.3 Hypotension of hemodialysis (principal); R51.9 Headache, unspecified; I12.0 Hypertensive chronic kidney disease with stage 5 chronic kidney disease or end stage renal disease; I45.81 Long QT syndrome; R29.700 NIHSS score 0; R11.10 Vomiting, unspecified; E11.22 Type 2 diabetes mellitus with diabetic chronic kidney disease; R20.0 Anesthesia of skin; N18.6 End stage renal disease; Z79.4 Long term (current) use of insulin; Z99.2 Dependence on renal dialysis; Z79.899 Other long term (current) drug therapy; Z03.818 Encounter for observation for suspected exposure to other biological agents ruled out
CPT/HCPCS: 36415; 70450; 71045; 80048; 80076; 82947; 84484; 85025; 85610; 87637; 93005; 96374; 99285; J2405

== ENCOUNTER → 2025-10-02 14:16 | Outpatient (BNV) | payer OTHER, SELFPAY | PROVIDERS: Emergency Provider Emergency Medicine; Visit Provider Radiology Diagnostic Radiology | DX: R51.9 Headache, unspecified (principal); J98.4 Other disorders of lung | CPT/HCPCS: 70450; 71045 ==

== ENCOUNTER → 2025-10-02 14:19 | Outpatient (BNV) | payer OTHER, SELFPAY | PROVIDERS: Emergency Provider Emergency Medicine; Visit Provider Internal Medicine | DX: R94.31 Abnormal electrocardiogram [ECG] [EKG] (principal); R53.1 Weakness | CPT/HCPCS: 93010 ==